=== PATIENT | female | born 1950 | race Caucasian/White ===

== ENCOUNTER 2022-01-01 10:56 | Emergency (ER) | payer MEDICARE, SELFPAY ==
--- NOTE | ~2022-01-01 | CT_ITS ---
EXAMINATION: CTA brain carotid DATE: 01/01/2022 13:31 INDICATION: Left hemiparesis. Right-sided headache. TECHNIQUE: Computed tomographic angiography (CTA) of the head was performed with 100 mL Omnipaque-350 intravenous contrast. CTA of the neck was performed with intravenous contrast. The mA was adjusted a ccording to patient size. Iterative reconstruction technique was employed. The dose-length product wa s 961.29 mGy-cm. Maximum intensity projection and volume rendered 3D-reconstructions were created by the technologist on a separate workstation. COMPARISON: Head CT 01/01/2022 FINDINGS: HEAD CTA: There are scattered areas of low attenuation in the cerebral white matter. There is no intr acranial hemorrhage, acute infarction, or abnormal intracranial mass lesion. The ventricles are amira l in size. The mastoid air cells are normal. There is mild mucosal thickening in the ethmoid sinuses. The orbits are normal. Right vertebral artery is dominant. There is no significant stenosis of basil ar artery or the posterior cerebral arteries. There is no significant stenosis of the tracheal international logistics coordinator al carotid arteries or anterior or middle cerebral arteries. Anterior communicating artery is normal. Posterior communicating arteries are not identified. NECK CTA: There is mild emphysema. There are no pathologically enlarged lymph nodes. There is no sign ificant stenosis of the vertebral arteries. There is plaque in the proximal internal carotid arteries . There is 0% stenosis of the proximal right internal carotid artery relative to normal distal artery lumen diameter (NASCET criteria). There is 0% stenosis of the proximal left internal carotid artery relative to normal distal artery lumen diameter. There is severe spondylosis at C6-C7. IMPRESSION: 1. Mild nonspecific cerebral white matter disease, which likely represents chronic small vessel ische irena disease. 2. No aneurysm or significant intracranial internal stenosis. 3. 0% stenosis of the proximal internal carotid arteries relative to normal distal artery lumen diame ters (NASCET criteria). Reviewed, dictated and finalized at location A. IMPRESSION: 1. Mild nonspecific cerebral white matter disease, which likely represents bookstore manager sima small vessel ischemic disease. 2. No aneurysm or significant intracranial internal stenosis. 3. 0% stenosis of the proximal internal carotid arteries relative to normal dis darlene artery lumen diameters (NASCET criteria).
--- NOTE | ~2022-01-01 | XR_ITS ---
XR chest 1V portable 01/01/2022 12:01 Indication: Left-sided weakness. Procedure: AP portable chest Comparison: No prior studies for comparison. Findings: Right basilar airspace disease. Cardiomegaly. Large hiatal hernia. No pleural effusion or p neumothorax. No acute osseous abnormality. Impression: 1: Right basilar airspace disease, consistent with pneumonia. 2: Large hiatal hernia. Reviewed, dictated and finalized at location A. Impression: 1: Right basilar airspace disease, consistent with pneumonia. 2: Large hiatal hernia.
--- NOTE | ~2022-01-01 | CT_ITS ---
EXAMINATION: CT brain wo con DATE: 01/01/2022 12:00 INDICATION: Left-sided weakness and numbness TECHNIQUE: Computed tomography (CT) of the head was performed without intravenous contrast. The mA wa s adjusted according to patient size. Iterative reconstruction technique was employed. Exam dose: 60 5.33 mGy-cm total exam DLP. COMPARISON: None FINDINGS: Calcified dominant right vertebral artery, vertebral and basilar artery tortuosity. Bilateral carotid siphon and supraclinoid internal carotid artery calcifications. Nonspecific diminished attenuation of the cerebral white matter, likely due to chronic small vessel i schemic changes. No intracranial mass lesion or hemorrhage or cerebrovascular accident is detected. No midline shift o r mass effect effect. No subdural or epidural hematoma is detected. Mild age consistent cerebral and cerebellar volume loss. The mastoid air cells and paranasal sinuses are normally developed and aerated. No fracture or bone destruction of the cranial vault. IMPRESSION: Cerebral atherosclerosis and chronic small vessel ischemic changes of the cerebral white matter No acute intracranial finding Reviewed, dictated and finalized at Location A. Reviewed, dictated and finalized at location B.
--- NOTE | 2022-01-01 11:31 | ECG_ITS ---
Measurements Intervals [place] Rate: 80 P: 5 WV: 161 QRS: -18 QRSD: 78 T: 5 QT: 349 QTc: 405 Interpretive Statements SINUS RHYTHM WITH PREMATURE ATRIAL CONTRACTIONS BASELINE ARTIFACT LOW QRS VOLTAGE IN PRECORDIAL LEADS MODERATE VOLTAGE CRITERIA FOR LVH, CONSIDER NORMAL VARIANT NO PREVIOUS ECG AVAILABLE FOR COMPARISON Electronically Signed On 01-01-2022 14:32:16 CDT by Chun Nam M.D.
--- NOTE | 2022-01-01 11:35 | ED.GENADULT ---
HPI - General Adult General Chief complaint: Neuro Symptoms/Deficit Stated complaint: Dizzy,left leg not working right, bp high History of Present Illness HPI narrative: This is a 71-year-old female presenting to ED chief complaint of left leg weakness, disequilibrium and a headache. Patient went to bed at 2:00 a.m. last night. At that time she had no symptoms. When she awoke this morning she noticed that she was weak in her left leg. She is also experiencing symptoms of disequilibrium or that she felt drunk. The patient has a headache over the right side of her head which she says is her typical headache. She has had it many times in past.The patient denies numbness tingling any other extremity. She denies visual changes or disturbance occult he speaking or swallowing. She is A&O x3. She has never had a stroke before. She had a previous diagnosis of hypertension but not taking any medications. She denies any other complaints at this time. Related Data Home Medications Medication Instructions Recorded Confirmed No Home Medications 01/01/22 01/01/22 Allergies Allergy/AdvReac Type Severity Reaction Status Date / Time Sulfa (Sulfonamide Allergy Vomiting Verified 01/01/22 11:42 Antibiotics) Review of Systems Constitutional: Constitutional: Denies chills Eyes: Eyes: Denies change in vision ENT: Denies dysphagia, Denies vertigo and Reports dizziness Cardiovascular: Cardiovascular: Denies chest pain Respiratory: Respiratory: Denies chest congestion Gastrointestinal: Gastrointestinal: Denies abdominal pain Genitourinary: Genitourinary: Denies abnormal vaginal bleeding Musculoskeletal: Musculoskeletal: Denies back pain Integumentary/Breasts: Skin/Breast: Denies breast pain Neurologic: Denies confusion Psychiatric: Psychiatric: Denies anxiety Endocrine: Endocrine: Denies excessive sweating Hematologic/Lymphatic: Hematologic/Lymphatic: Denies easy bleeding Allergic/Immunologic: Allergic/Immunologic: Denies lip swelling PMFSH Past Medical History Medical History Hypertension Surgical History Surgical History H/O tubal ligation Hx of tonsillectomy Exam Narrative: NIH Stroke Scale/Score (NIHSS) from [email or web address] on 01/01/2022 All calculations should be rechecked by clinician prior to use RESULT SUMMARY: 3 points NIH Stroke Scale INPUTS: 1A: Level of consciousness ?> 0 = Alert; keenly responsive 1B: Ask month and age ?> 0 = Both questions right 1C: 'Blink eyes' & 'squeeze hands' ?> 0 = Performs both tasks 2: Horizontal extraocular movements ?> 0 = Normal 3: Visual spring ?> 0 = No visual loss 4: Facial palsy ?> 0 = Normal symmetry 5A: Left arm motor drift ?> 0 = No drift for 10 seconds 5B: Right arm motor drift ?> 0 = No drift for 10 seconds 6A: Left leg motor drift ?> 2 = Some effort against gravity 6B: Right leg motor drift ?> 0 = No drift for 5 seconds 7: Limb Ataxia ?> 1 = Ataxia in 1 Limb 8: Sensation ?> 0 = Normal; no sensory loss 9: Language/aphasia ?> 0 = Normal; no aphasia 10: Dysarthria ?> 0 = Normal 11: Extinction/inattention ?> 0 = No abnormality Const: General: healthy appearing and no acute distress Nutritional Appearance: well nourished Orientation/consciousness: patient oriented x3 HENMT: Head: normal to inspection Eyes: Conjunctivae: conjunctivae normal Neck: Neck: normal visual inspection Chest: Chest palpation & inspection: normal inspection of the chest Resp: Effort & Inspection: normal respiratory effort Cardio: Rate: regular rate Rhythm: regular rhythm GI: GI Palp: Yes Soft to palpation, No Tenderness to palpation present (GI) and No Guarding due to palpation present (GI) : General: Yes bladder normal to palpation Back/Spine/Pelvis: Back: no CVA tenderness Skin: General skin exam: normal color Rashes: no rashes Rodrigo
[2022-01-01 11:44] VITALS: BP 164/111; RESP 16; TEMP 36.1
[2022-01-01 11:54] LABS: Basophils Absolute Auto 0.06 K/mm3 (0.00-0.10); Basophils Percent Auto 0.8 % (0.0-1.0); Eosinophils Absolute Auto 0.05 K/mm3 (0.02-0.50); Eosinophils Percent Auto 0.6 % (1.0-6.0); Hematocrit 43.2 % (35.0-42.0); Hemoglobin 13.8 g/dL (11.7-13.8); Immature Granulocyte Absolute 0.05 K/mm3 (0.00-0.00); Immature Granulocyte Percent A 0.6 % (0.0-0.0); Lymphocytes Absolute Auto 1.88 K/mm3 (1.10-4.50); Lymphocytes Percent Auto 23.5 % (18.0-42.0); Mean Corpuscular HGB Conc 31.9 g/dL (32.0-36.0); Mean Corpuscular Hemoglobin 30.9 pg (27.0-31.0); Mean Corpuscular Volume 96.9 fL (78.0-102.0); Mean Platelet Volume 12.3 fl (9.2-11.8); Monocytes Absolute Auto 0.56 K/mm3 (0.10-0.90); Neutrophils Absolute Auto 5.4 K/mm3 (1.7-7.2); Neutrophils Percent Auto 67.5 % (50.0-70.0); Platelet Count Result 398 K/mm3 (150-420); Red Blood Count 4.46 M/mm3 (4.20-5.40); Red Cell Distribution Width 13.2 % (11.6-14.4)
--- NOTE | 2022-01-01 12:02 | PC.NURSE ---
Bedside glucose was 113
[2022-01-01 12:06] LABS: INR 0.9; Partial Thromboplastin Time 32.5 SEC (23.90-30.70); Prothrombin Time 10.4 Seconds (9.50-12.10)
[2022-01-01] MEDS: ASPIRIN 81 MG CHEWABLE TABLET 324 MG PO (12:09)
[2022-01-01] MEDS: SODIUM CHLORIDE 0.9% IV 1,000 ML 999 ML IV CONT (12:10)
[2022-01-01 12:15] LABS: Alanine Aminotransferase 14 U/L (14-59); Albumin Level 4.1 g/dL (3.4-5.0); Alkaline Phosphatase 109 U/L (46-116); Anion Gap 11 mmol/L (8-16); Aspartate Amino Transferase 13 U/L (15-37); Bilirubin,Total 0.5 mg/dL (0.00-1.00); Blood Urea Nitrogen 19 mg/dL (7-18); Calcium 9.3 mg/dL (8.5-10.1); Carbon Dioxide 25 mmol/L (21-32); Chloride 106 mmol/L (98-108); Estimated CRCL calculation 38 ml/min; Estimated Glomerular Filt Rate 45; Glucose 109 mg/dL (70-99); Osmolality Calculated 297 mOsm/kg (285-295); Potassium 4.2 mmol/L (3.5-5.1); Sodium 142 mmol/L (136-145); Total Protein 7.3 g/dL (6.4-8.2); Troponin I 15.5 ng/L (0.00-60.4)
[2022-01-01 12:28] LABS: SARS-CoV-2 Ag Negative (Negative)
[2022-01-01 12:39] VITALS: BP 194/99; PULSE 82; RESP 16; O2SAT 96
--- NOTE | 2022-01-01 13:47 | PC.NURSE ---
Pt assigned room number at [facility], but when RN attempted to call report I was told there is a different pt assigned to that room. BRITTNI Mills is looking into bed placement and will call back.
[2022-01-23 13:46] LABS: Glucose Point of Care 113 mg/dl (65-105)
== END 2022-01-01 15:17 | disposition short-term general hospital (02) ==
PROVIDERS: Emergency Provider Emergency Medicine
DX: I63.9 Cerebral infarction, unspecified (principal); I10 Essential (primary) hypertension; Z20.822 Contact with and (suspected) exposure to COVID-19
CPT/HCPCS: 36415; 70450; 70496; 70498; 71045; 80053; 82948; 84484; 85025; 85610; 85730; 86850; 86900; 86901; 87426; 93005; 96360; 96361; 99285; A9270; C9803; J7030; Q9967

== ENCOUNTER 2022-02-14 14:59 | Outpatient (CLI) | payer MEDICARE, SELFPAY ==
--- NOTE | ~2022-02-14 | CT_ITS ---
EXAMINATION: CT diagnostic chest w con DATE: 02/14/2022 15:38 INDICATION: Abnormal chest radiograph, history of tobacco use TECHNIQUE: Transaxial computed tomographic images of the chest were obtained after the administration of 75 cc of Omnipaque 350 intravenous contrast. The dose-length product (DLP) was 277.68 mGy-cm. Ite rative reconstruction was used. COMPARISON: None FINDINGS: There is mild emphysema. The lungs are free of acute opacities. No pleural effusion or pneu mothorax. There is a large hiatal hernia containing nearly the entire stomach. No pathologically enla rged thoracic lymph nodes are identified. The heart size is normal. There is mild thoracic spondylosi s. Stones are present in the nondistended gallbladder. There is a questionable fusiform infrarenal ab dominal aortic aneurysm. IMPRESSION: 1. Large hiatal hernia containing nearly the entire stomach. 2. No acute cardiopulmonary abnormality. 3. Possible abdominal aortic aneurysm. 4. Cholelithiasis without evidence of cholecystitis. Reviewed, dictated and finalized at location B.
== END 2022-02-14 15:00 | disposition home or self-care (01) ==
PROVIDERS: PCP Internal Medicine; Visit Provider Internal Medicine
DX: R91.8 Other nonspecific abnormal finding of lung field (principal); Z87.891 Personal history of nicotine dependence
CPT/HCPCS: 71260; Q9967

== ENCOUNTER 2022-02-21 08:08 | Outpatient (CLI) | payer MEDICARE, SELFPAY ==
--- NOTE | ~2022-02-21 | XR_ITS ---
EXAM: XR lumbar spine 2-3V DATE: 02/21/2022 08:56 HISTORY: LT hip pain/ low back pain x 2 yrs since fall . COMPARISON: Ultrasound aorta 02/21/2022. CT chest 02/14/2022. FINDINGS: 5 nonrib-bearing lumbar-type vertebral bodies. Pedicles intact. Normal vertebral body alig nment. Lumbar vertebral body heights preserved. Mild anterior wedge deformity at T11, unchanged. Mult ilevel marginal osteophytosis. Severe L5-S1 disc space narrowing. Multilevel facet hypertrophy and sc lerosis. No fracture or dislocation. Fusiform abdominal aortic aneurysm. IMPRESSION: Mild anterior wedge deformity at T11 which may be physiologic or represent subacute/chron ic mild anterior wedge compression fracture, correlate with pain/tenderness. Severe degenerative disc disease at L5-S1. Multilevel facet arthropathy. Abdominal aortic aneurysm, better evaluated with david or ultrasound aorta, consider follow-up aortic ultrasound in 2 years. Reviewed, dictated and finalized at location K. IMPRESSION: Mild anterior wedge deformity at T11 which may be physiologic or re present subacute/chronic mild anterior wedge compression fracture, correlate wi th pain/tenderness. Severe degenerative disc disease at L5-S1. Multilevel facet arthropathy. Abdominal aortic aneurysm, better evaluated with prior ultrasound aorta, consider follow-up aortic ultrasound in 2 years.
--- NOTE | ~2022-02-21 | XR_ITS ---
XR hip LT min 2V DATE: 02/21/2022 08:55 INDICATION: Left hip pain since falling 2 years ago TECHNIQUE: AP and lateral views COMPARISON: None FINDINGS: No fracture or dislocation, avascular necrosis or bone destruction. Left hip joint space ap pears relatively well preserved. IMPRESSION: No significant abnormality Reviewed, dictated and finalized at location B. IMPRESSION: No significant abnormality
--- NOTE | ~2022-02-21 | US_ITS ---
EXAMINATION: US aorta DATE: 02/21/2022 14:35 CDT INDICATION: Abnormal CT. Pulsatile abdominal mass. TECHNIQUE: Grayscale, color Doppler, and pulsed Doppler images of the aorta and common iliac arteries were obtained. COMPARISON: CT dated 02/14/2022. FINDINGS: There is moderate atherosclerosis of the abdominal aorta The proximal aorta measures 2 cm greatest sa gittal dimension. The mid aorta measures 3.6 cm greatest sagittal dimension. The distal aorta measure s 3.5 cm greatest sagittal dimension. The right common internal iliac artery measures 1.9 cm. The lef t common iliac artery measures 1.6 cm. IMPRESSION: 1. Moderate atherosclerosis with fusiform infrarenal abdominal aortic aneurysm measuring up to 3.6 cm . Reviewed, dictated and finalized at location A. IMPRESSION: 1. Moderate atherosclerosis with fusiform infrarenal abdominal aortic aneurysm measuring up to 3.6 cm.
--- NOTE | 2022-03-26 16:34 | WPDHOLTEREM ---
Holter/Event Monitor Holter/Event Monitor Date of procedure: 02/21/22 Holter/Event Procedure: Event Monitor Indications: Cardiac arrhythmia Conclusion: 1. 27 days event monitor between 02/21/22-03/22/22. There are 40 available transmissions for analysis. 2. Underlying rhythm is sinus rhythm. HR range 50-122 bpm; average HR 69 bpm. 3. There are occasional premature supraventricular complexes with total burden of 3%. No supraventricular tachycardia. 4. There are occasional premature ventricular complexes with total burden of 2%. No ventricular tachycardia. 5. No significant pauses greater than 2 seconds. 6. Patient report 1 episode of symptom other than listed which demonstrate sinus rhythm with sinus arrhythmia at 78 bpm with a PVC.
== END 2022-02-21 08:09 | disposition home or self-care (01) ==
LOC: CHSIMG 08:11
PROVIDERS: PCP Internal Medicine; Visit Provider Internal Medicine
DX: M25.552 Pain in left hip (principal); M54.50 Low back pain, unspecified; I71.4 Abdominal aortic aneurysm, without rupture
CPT/HCPCS: 72100; 73502; 76775; 93270

== ENCOUNTER 2022-03-24 08:15 | Outpatient (CLI) | payer MEDICARE, SELFPAY ==
--- NOTE | ~2022-03-24 | MR_ITS ---
EXAMINATION: MR lumbar spine wo con DATE: 03/24/2022 09:02 INDICATION: Low back pain. TECHNIQUE: Magnetic resonance imaging (MRI) of the lumbar spine was performed without intravenous con trast. COMPARISON: Lumbar spine radiographs 02/21/2022 FINDINGS: Bone alignment is normal. There is mild chronic anterior wedging of T11 and T12 vertebral b odies. There is a hemangioma in L3 vertebral body. There are Schmorl's nodes at multiple levels. Ther e is moderately decreased disc height at L5-S1 with endplate remodeling. The distal spinal cord signa l intensity is normal. The conus medullaris is at L1. There is a 4.0 cm fusiform aneurysm of abdomina l aorta. The following disc levels are specifically discussed: L1-L2: The disc does not extend beyond the endplate margin. There is mild bilateral facet joint osteo arthritis. There is no neural foraminal stenosis. There is no central canal stenosis. L2-L3: There is a left foraminal protrusion. There is severe right and mild left facet joint osteoart hritis. There is mild left neural foraminal stenosis. There is no central canal stenosis. L3-L4: The disc is mildly bulging. There is mild bilateral facet joint osteoarthritis. There is mild bilateral neural foraminal stenosis. There is no central canal stenosis. L4-L5: The disc does not extend beyond the endplate margin. There is moderate bilateral facet joint o steoarthritis. There is mild bilateral neural foraminal stenosis. There is no central canal stenosis. L5-S1: The disc is bulging and has an annular fissure. There is moderate bilateral facet joint osteoa rthritis. There is mild bilateral neural foraminal stenosis. There is mild central canal stenosis. IMPRESSION: 1. Moderate lumbar spondylosis. 2. 4.0 cm fusiform aneurysm of abdominal aorta. Reviewed, dictated and finalized at location A.
== END 2022-03-24 08:16 | disposition home or self-care (01) ==
PROVIDERS: PCP Internal Medicine; Visit Provider Internal Medicine
DX: M54.50 Low back pain, unspecified (principal)
CPT/HCPCS: 72148

== ENCOUNTER 2022-05-30 08:54 | Outpatient (CLI) | payer MEDICARE, SELFPAY ==
[2022-05-30 09:38] LABS: Alanine Aminotransferase 37 U/L (14-59); Albumin Level 3.8 g/dL (3.4-5.0); Alkaline Phosphatase 146 U/L (46-116); Anion Gap 7 mmol/L (8-16); Aspartate Amino Transferase 23 U/L (15-37); Bilirubin,Total 0.5 mg/dL (0.00-1.00); Blood Urea Nitrogen 27 mg/dL (7-18); Calcium 8.8 mg/dL (8.5-10.1); Carbon Dioxide 31 mmol/L (21-32); Chloride 109 mmol/L (98-108); Cholesterol 183 mg/dL (0-200); Creatine Kinase 57 U/L (26-192); Estimated Glomerular Filt Rate 40; Glucose 93 mg/dL (70-99); HDL Direct 82 mg/dL (40-60); LDL Cholesterol Calculated 84 mg/dL (<130); Osmolality Calculated 309 mOsm/kg (285-295); Potassium 4.5 mmol/L (3.5-5.1); Sodium 147 mmol/L (136-145); Total Protein 6.6 g/dL (6.4-8.2); Triglycerides 83 mg/dL (0-150)
== END 2022-05-30 08:55 | disposition home or self-care (01) ==
LOC: CHSLAB 08:56
PROVIDERS: PCP Internal Medicine; Visit Provider Internal Medicine
DX: E78.2 Mixed hyperlipidemia (principal); I10 Essential (primary) hypertension
CPT/HCPCS: 36415; 80053; 80061; 82550

== ENCOUNTER 2022-06-04 08:21 | Outpatient (CLI) | payer MEDICARE, SELFPAY ==
[2022-06-04 09:21] LABS: Anion Gap 6 mmol/L (8-16); Blood Urea Nitrogen 17 mg/dL (7-18); Calcium 8.7 mg/dL (8.5-10.1); Carbon Dioxide 30 mmol/L (21-32); Chloride 107 mmol/L (98-108); Estimated Glomerular Filt Rate 35; Glucose 101 mg/dL (70-99); Osmolality Calculated 297 mOsm/kg (285-295); Potassium 4.3 mmol/L (3.5-5.1); Sodium 143 mmol/L (136-145)
== END 2022-06-04 08:22 | disposition home or self-care (01) ==
LOC: CHSLAB 08:24
PROVIDERS: PCP Internal Medicine; Visit Provider Internal Medicine
DX: E86.0 Dehydration (principal)
CPT/HCPCS: 36415; 80048

== ENCOUNTER 2022-08-23 08:50 | Outpatient (CLI) | payer MEDICARE, SELFPAY ==
--- NOTE | ~2022-08-23 | US_ITS ---
Ultrasound of the Abdominal Aorta INDICATION: Abdominal aortic aneurysm TECHNIQUE: Grayscale, color Doppler, and pulsed Doppler images of the aorta and common iliac arteries were obtained. COMPARISON: 02/21/2022 COMPARISON: None. FINDINGS: Maximum vascular dimensions are as follows: Proximal aorta: 2.4 cm Mid aorta: 4.7 cm Distal aorta: 4.0 cm Right common iliac artery: 2.3 cm Left common iliac artery: 1.6 cm Infrarenal abdominal aortic aneurysm noted, measuring up to 4.7 cm in maximum transverse dimension, w hich is apparently increased from prior exam. IMPRESSION: Infrarenal abdominal aortic aneurysm measures 4.7 cm in maximum transverse dimension, increased from prior exam. Reviewed, dictated and finalized at location . IMPRESSION: Infrarenal abdominal aortic aneurysm measures 4.7 cm in maximum transverse dime nsion, increased from prior exam.
== END 2022-08-23 08:51 | disposition home or self-care (01) ==
LOC: CHSIMG 08:51
PROVIDERS: PCP Internal Medicine; Visit Provider Internal Medicine
DX: I71.40 Abdominal aortic aneurysm, without rupture, unspecified (principal)
CPT/HCPCS: 76775

== ENCOUNTER 2022-08-31 08:33 | Outpatient (CLI) | payer MEDICARE, SELFPAY ==
--- NOTE | ~2022-08-31 | CT_ITS ---
EXAMINATION: CTA abdomen pelvis DATE: 08/31/2022 09:42 INDICATION: Abdominal aortic aneurysm TECHNIQUE: Computed tomographic angiography (CTA) of the abdomen and pelvis was performed without and with 100 mL Omnipaque-350 intravenous contrast. Maximum intensity projection 3D-reconstructions of t he aorta and other arteries were constructed by the technologist on a separate workstation. The dose- length product (DLP) was 1092.56 mGy-cm. Automated exposure control and iterative reconstruction tech W[employer] were employed. COMPARISON: None. FINDINGS: Minimal dependent atelectasis is present in the lung bases. The heart size is normal. There is a large hiatal hernia. Stones are present in the nondistended gallbladder. There is a 7 mm cyst o f the liver. Punctate calcifications in an otherwise normal spleen likely represent healed granulomat ous disease. The pancreas and adrenal glands are normal. There is a 4.1 x 3.9 cm fusiform infrarenal abdominal aortic aneurysm. No pathologically enlarged abdominal or pelvic lymph nodes are identified. No free intraperitoneal gas or evidence of bowel obstruction. The appendix is normal. Colonic divert iculosis is present without evidence of diverticulitis. There is moderate lumbar spondylosis. There i s a 2.3 cm cystic lesion of the left adnexa. IMPRESSION: 1. 4.1 x 3.9 cm fusiform infrarenal abdominal aortic aneurysm. 2. Large hiatal hernia. 3. Cholelithiasis without evidence of cholecystitis. Reviewed, dictated and finalized at location F.
[2022-08-31 09:02] LABS: Estimated Glomerular Filt Rate 38
== END 2022-08-31 08:34 | disposition home or self-care (01) ==
LOC: CHSIMG 08:35
PROVIDERS: PCP Internal Medicine; Visit Provider Internal Medicine
DX: I71.40 Abdominal aortic aneurysm, without rupture, unspecified (principal); K44.9 Diaphragmatic hernia without obstruction or gangrene; K80.20 Calculus of gallbladder without cholecystitis without obstruction
CPT/HCPCS: 74174; Q9967

== ENCOUNTER 2022-09-06 13:54 | Outpatient (CLI) | payer MEDICARE, SELFPAY ==
--- NOTE | ~2022-09-06 | US_ITS ---
EXAMINATION: US pelvic complete DATE: 09/06/2022 14:18 INDICATION: Cyst of the left ovary. TECHNIQUE: Multiple transabdominal sonographic images of the pelvis were obtained. The patient declin ed transvaginal imaging. COMPARISON: CT abdomen and pelvis 08/31/2022 FINDINGS: The uterus measures 6.5 x 3.3 x 2.8 cm. There is no free fluid in the pelvis. The endometrial complex measures 5 mm in thickness. The right ovary measures 3.6 x 2.6 x 2.5 cm. The left ovary measures 2.8 x 1.8 x 1.5 cm. There is a 3.2 cm hypoechoic mass in left ovary that measured fluid attenuation on t he prior CT. There is normal vascular flow in the ovaries. IMPRESSION: 1. 3.2 cm cyst in left ovary, likely benign. Pelvis ultrasound is recommended in one year. Reviewed, dictated and finalized at location A. IMPRESSION: 1. 3.2 cm cyst in left ovary, likely benign. Pelvis ultrasound is recommended i n one year.
== END 2022-09-06 13:55 | disposition home or self-care (01) ==
LOC: CHSIMG 13:55
PROVIDERS: PCP Internal Medicine; Visit Provider Internal Medicine
DX: N83.202 Unspecified ovarian cyst, left side (principal)
CPT/HCPCS: 76856

== ENCOUNTER 2022-11-28 08:36 | Outpatient (CLI) | payer MEDICARE, SELFPAY ==
[2022-11-28 08:49] LABS: Basophils Absolute Auto 0.05 K/mm3 (0.00-0.10); Basophils Percent Auto 0.7 % (0.0-1.0); Eosinophils Absolute Auto 0.22 K/mm3 (0.02-0.50); Eosinophils Percent Auto 3.1 % (1.0-6.0); Hematocrit 38.1 % (35.0-42.0); Immature Granulocyte Absolute 0.02 K/mm3 (0.00-0.00); Immature Granulocyte Percent A 0.3 % (0.0-0.0); Lymphocytes Absolute Auto 3.31 K/mm3 (1.10-4.50); Lymphocytes Percent Auto 47.1 % (18.0-42.0); Mean Corpuscular HGB Conc 31.5 g/dL (32.0-36.0); Mean Corpuscular Hemoglobin 30.8 pg (27.0-31.0); Mean Corpuscular Volume 97.9 fL (78.0-102.0); Mean Platelet Volume 11.5 fl (9.2-11.8); Monocytes Absolute Auto 0.79 K/mm3 (0.10-0.90); Monocytes Percent Auto 11.2 % (2.0-11.0); Neutrophils Absolute Auto 2.6 K/mm3 (1.7-7.2); Neutrophils Percent Auto 37.6 % (50.0-70.0); Platelet Count Result 361 K/mm3 (150-420); Red Blood Count 3.89 M/mm3 (4.20-5.40); Red Cell Distribution Width 14.2 % (11.6-14.4)
[2022-11-28 09:50] LABS: Alanine Aminotransferase 28 U/L (14-59); Albumin Level 3.8 g/dL (3.4-5.0); Alkaline Phosphatase 132 U/L (46-116); Anion Gap 10 mmol/L (8-16); Aspartate Amino Transferase 16 U/L (15-37); Bilirubin,Total 0.5 mg/dL (0.00-1.00); Blood Urea Nitrogen 26 mg/dL (7-18); Calcium 8.8 mg/dL (8.5-10.1); Carbon Dioxide 26 mmol/L (21-32); Chloride 107 mmol/L (98-108); Cholesterol 156 mg/dL (0-200); Creatine Kinase 51 U/L (26-192); Estimated Glomerular Filt Rate 41; Glucose 107 mg/dL (70-99); HDL Direct 73 mg/dL (40-60); LDL Cholesterol Calculated 59 mg/dL (<130); Osmolality Calculated 300 mOsm/kg (285-295); Potassium 4.4 mmol/L (3.5-5.1); Sodium 143 mmol/L (136-145); Total Protein 6.5 g/dL (6.4-8.2); Triglycerides 122 mg/dL (0-150)
[2022-11-28 10:49] LABS: Appearance Urine Clear (Clear); Bilirubin Urine Negative (Negative); Blood Urine Negative (Negative); Color Urine Yellow (Yellow); Glucose Urine UA Negative (Negative); Ketones Urine Negative (Negative); Leukocyte Esterase Ur 1+ LEU/UL (Negative); Nitrate Urine Negative (Negative); Protein Urine Trace (Negative); Specific Grav Ur 1.025 (1.010-1.020); Urobilinogen Urine 0.2 mg/dL (0.2-1.0)
[2022-11-28 11:02] LABS: Add Urine Microscopic? YES; Bacteria Urine 1+ /hpf; RBC Urine None seen /hpf (0-2); Squamous Epithelial Cell Urine Few /hpf (Few)
[2022-11-28 11:32] LABS: Lactate Dehydrogenase 182 U/L (81-234)
== END 2022-11-28 08:37 | disposition home or self-care (01) ==
LOC: CHSLAB 08:38
PROVIDERS: PCP Internal Medicine; Visit Provider Internal Medicine
DX: E78.2 Mixed hyperlipidemia (principal); N39.0 Urinary tract infection, site not specified; D72.820 Lymphocytosis (symptomatic); R82.90 Unspecified abnormal findings in urine
CPT/HCPCS: 36415; 80053; 80061; 81001; 82550; 83615; 85025; 87086; 87088; 88184; 88185; 88189

== ENCOUNTER 2023-06-28 07:56 | Outpatient (CLI) | payer MEDICARE, SELFPAY ==
--- NOTE | ~2023-06-28 | CT_ITS ---
EXAMINATION: CT soft tissue neck chest w DATE: 06/28/2023 08:48 INDICATION: Globus sensation. Dyspnea. TECHNIQUE: Computed tomography (CT) of the neck and chest was performed with 75 mL Omnipaque-350 intr avenous contrast. Automated exposure control and iterative reconstruction technique were employed. Th e dose-length product was 1209.25 mGy-cm. COMPARISON: Chest CT dated 02/14/2022 FINDINGS: Neck: Changes of bilateral intraocular lens replacement. Orbits are otherwise normal. The paranasal sinuse s are clear. Mastoid air cells and middle ear cavities are clear. Submandibular and parotid glands ar e symmetric. Thyroid gland is unremarkable. There are scattered normal-sized lymph nodes in the neck, no lymphadenopathy. No masses or abnormal fluid collections identified. Small amount of atheroscler otic calcification without hemodynamic significant stenosis at the bilateral carotid bulbs. Right vidal tebral artery is dominant. Airway is unremarkable. Moderate to severe degenerative disc disease at C6 -C7. Otherwise minimal cervical spondylosis. Chest: Mild emphysema. Mild discoid atelectasis in the lingula and right middle lobe. Additional compressive atelectasis in the medial aspect of the bilateral lower lobes along side the margins of a large slid ing-type hiatal hernia with organoaxial volvulus. No suspicious pulmonary nodules, pneumonia, pulmona ry edema or pleural effusion. Heart size is normal. Small amount of atherosclerotic coronary artery c alcific lesion. No pericardial effusion. Thoracic aorta is normal in caliber with no dissection. No p athologically enlarged thoracic lymphadenopathy. IMPRESSION: 1. Large sliding-type hiatal hernia with organoaxial volvulus. Reviewed, dictated and finalized at location A. M PRESS OPERATOR
[2023-06-28 08:21] LABS: Estimated Glomerular Filt Rate 37
== END 2023-06-28 07:57 | disposition home or self-care (01) ==
LOC: CHSIMG 07:58
PROVIDERS: PCP Internal Medicine; Visit Provider Internal Medicine
DX: R06.00 Dyspnea, unspecified (principal); F45.8 Other somatoform disorders; K44.9 Diaphragmatic hernia without obstruction or gangrene
CPT/HCPCS: 70491; 71260; Q9967

== ENCOUNTER 2023-08-08 16:00 | Outpatient (RCR) | payer MEDICARE, SELFPAY ==
--- NOTE | 2023-08-08 17:20 | OPREHPOC ---
Outpatient Therapy Plan of Care This is a Multidisciplinary Plan of Care that may contain components documented by all disciplines (PT, OT, and ST.) PT Problem 1 PT Problem #1 Knowledge Deficit PT Goal 1 Goal The patient will be independent in home exercise program. Target Visit 12 PT Problem 2 PT Problem #2 Pain PT Goal 1 Goal The patient will report no greater than 3/10 low back pain with daily activities. Target Visit 12 PT Problem 3 PT Problem #3 Impaired Functional Mobil PT Goal 1 Goal 1. The patient will demonstrate 30% or less self perceived disability per the Modified Oswestry questionnaire. 2. The patient will be able to ambulate 1,200 feet during the 6 min walk test to improve community ambulation. Target Visit 12 PT Problem 4 PT Problem #4 Impaired Balance PT Goal 1 Goal The patient will demonstrate 25/28 or higher on the Tinetti Balance Scale indicating a low fall risk. Target Visit 12
--- NOTE | 2023-08-08 17:20 | PTOPEVAL1 ---
Assessment and note entered by Key Ruiz, PT Evaluation Information Assessment Status Evaluation Diagnosis spinal stenosis with neurogenic claudication Onset 07/16/23 Subjective Information Lisseth Gibbons reports she ruptured some discs in her lower back on 01/01/21. She is unsure what caused the rupture because she went to bed with no pain and wake up with severe pain. She has been going to pain management for her back and she had her first injection on 08/02/23. She notes the injection helped for a couple days but her pain is elevated today due to walking a lot while shopping. She has been having trouble walking and is unsteady on her feet which is her main concern for physical therapy. She has not had any falls but has bounced off ahuja. She does not currently use a cane or walker but her pain management doctor recommended she start using a cane. She reports co-morbidities of a hiatal hernia in which her stomach is in her esophagus and an abdominal aortic aneurysm. She has a consult for the hernia on 09/11/23 and the aneurysm on 09/17/23. She does not have restrictions due to these co-morbidities that she is aware of. Reported Pain Level Pain Score 5: Self Report Assessment PT Clinical Summary Lisseth Gibbons presents with chronic low back pain and has been diagnosed with spinal stenosis with neurogenic claudication. She also c/o unsteadiness on her feet and her primary goal for physical therapy is to improve her balance. She reports difficulty with walking and laying on her back. She objectively demonstrates decreased lumbar AROM, decreased hip and core strength, decreased balance, and altered gait. She is a moderate fall risk currently. She will benefit from skilled PT to address these limitations. Plan of Care Interventions Electrical Stimulation,Hot Pack/Cold Pack,Manual Therapy,Neuro Re-education,Patient/Caregiver Educati,Therapeutic Activities,Therapeutic Exercise PT Services Indicated Yes Treatment Frequency and 2 times a week for 12 visits Duration These treatments will address the objective and functional deficits as defined above. The patient will be advanced safely and appropriately in order for the patient to progress towards his/her prior level of function. Additional exercises will be introduced and as well as a comprehensive home exercise program upon discharge, if needed, ?to ensure carryover of functional gains achieved in the clinic. This
--- NOTE | 2023-09-06 17:21 | OPREHPOC ---
Outpatient Therapy Plan of Care This is a Multidisciplinary Plan of Care that may contain components documented by all disciplines (PT, OT, and ST.) PT Problem 1 PT Problem #1 Knowledge Deficit PT Goal 1 Goal The patient will be independent in home exercise program. Target Visit 12 Comment continue PT Problem 2 PT Problem #2 Pain PT Goal 1 Goal The patient will report no greater than 3/10 low back pain with daily activities. Target Visit 12 Comment continue PT Problem 3 PT Problem #3 Impaired Functional Mobil PT Goal 1 Goal 1. The patient will demonstrate 30% or less self perceived disability per the Modified Oswestry questionnaire. 2. The patient will be able to ambulate 1,200 feet during the 6 min walk test to improve community ambulation. Target Visit 12 Comment continue PT Problem 4 PT Problem #4 Impaired Balance PT Goal 1 Goal The patient will demonstrate 25/28 or higher on the Tinetti Balance Scale indicating a low fall risk. Target Visit 12 Comment continue
--- NOTE | 2023-09-06 17:21 | PTOPPROG ---
Assessment and note entered by Rocio Jean Baptiste DPT Evaluation Information Assessment Status Progress - Pt Not Present Diagnosis spinal stenosis with neurogenic claudication Onset 07/16/23 Subjective Information patient reports that since start of PT her balance has improved some. 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 she reports she still fatigues quickly Assessment PT Clinical Summary Mrs. Gibbons has attended 10 visits of skilled PT and is making progress towards goals. She demonstrates improve tinetti balance scoring indicating improved balance but still falls within the moderate fall risk category. She has reports improved balance within her home and denies falls. She continues to report decreased endurance and activity tolerance and has limitations with 6 minute walk test. She would benefit from continued skilled PT to address remaining impairments and return to PLOF. Plan of Care Interventions Electrical Stimulation,Hot Pack/Cold Pack,Manual Therapy,Neuro Re-education,Patient/Caregiver Educati,Therapeutic Activities,Therapeutic Exercise PT Services Indicated Yes Treatment Frequency and continue with remaining 2 visits Duration These treatments will address the objective and functional deficits as defined above. The patient will be advanced safely and appropriately in order for the patient to progress towards his/her prior level of function. Additional exercises will be introduced and as well as a comprehensive home exercise program upon discharge, if needed, ?to ensure carryover of functional gains achieved in the clinic. This treatment plan has been reviewed and agreement upon by the patient.
--- NOTE | 2023-09-12 09:33 | OPREHPOC ---
Outpatient Therapy Plan of Care This is a Multidisciplinary Plan of Care that may contain components documented by all disciplines (PT, OT, and ST.) PT Problem 1 PT Problem #1 Knowledge Deficit PT Goal 1 Goal The patient will be independent in home exercise program. Target Visit 12 Progress Met PT Problem 2 PT Problem #2 Pain PT Goal 1 Goal The patient will report no greater than 3/10 low back pain with daily activities. Target Visit 12 Progress Partially Met PT Problem 3 PT Problem #3 Impaired Functional Mobil PT Goal 1 Goal 1. The patient will demonstrate 30% or less self perceived disability per the Modified Oswestry questionnaire. 2. The patient will be able to ambulate 1,200 feet during the 6 min walk test to improve community ambulation. Target Visit 12 Progress Partially Met PT Problem 4 PT Problem #4 Impaired Balance PT Goal 1 Goal The patient will demonstrate 25/28 or higher on the Tinetti Balance Scale indicating a low fall risk. Target Visit 12 Progress Met
--- NOTE | 2023-09-12 09:34 | PTOPDC ---
Assessment and note entered by Key Ruiz, PT Evaluation Information Assessment Status Discharge Diagnosis spinal stenosis with neurogenic claudication Onset 07/16/23 Subjective Information Lisseth reports no overall change in her back pain since starting PT. She continues to note difficulty sitting/driving for prolonged periods. She notes mild improvement in her balance but she still wobbles. She has not had any falls. She will have surgery on 11/07/23 for her hiatal hernia and twisted esophagus which she is hopeful will help her SOB and allow her to start walking for exercise again. She will have a CT on her aortic aneurysm on 09/17/23 and a follow up for that in November. Reported Pain Level Pain Score 2: Self Report Assessment PT Clinical Summary Lisseth Gibbons has completed 12 skilled PT visits for low back pain and balance. She is reporting no overall change in her back pain but her balance does seem a little better. She demonstrates improved lumbar left lateral flexion AROM, improved hip strength, improved endurance, and improved balance per the Tinetti Balance scale . She is now a low fall risk. She will be discharged to an independent [facility]. Plan of Care PT Services Indicated No
== END 2023-09-12 10:45 | disposition home or self-care (01) ==
LOC: CHSPT 16:00
PROVIDERS: Visit Provider Anesthesiology Pain Medicine
DX: M48.062 Spinal stenosis, lumbar region with neurogenic claudication (principal)
CPT/HCPCS: 97014; 97110; 97112; 97162; G0283

== ENCOUNTER 2023-09-12 12:57 | Outpatient (CLI) | payer MEDICARE, SELFPAY ==
--- NOTE | ~2023-09-12 | US_ITS ---
EXAMINATION: US pelvic complete DATE: 09/12/2023 13:24 INDICATION: Left ovarian cyst Comparison:Ultrasound dated 09/06/2022 TECHNIQUE: Multiple transabdominal sonographic images of the pelvis performed. Patient refused transv aginal examination. FINDINGS: The uterus measures 6.1 x 3.5 x 2.5 cm. The endometrial complex measures 11 mm. The right ovary measures 2.2 x 1.4 x 1.3 cm and the left ovary measures 3 x 2.7 x 2.5 cm. There is a septated 2.7 cm left ovarian cyst. There are small follicles in each ovary. . There is no free fluid in the pelvis. There are no abnormal masses seen on either side. IMPRESSION: 1. Septated 2.7 cm left ovarian cyst. Reviewed, dictated and finalized at location A.
== END 2023-09-12 12:58 | disposition home or self-care (01) ==
LOC: CHSIMG 12:59
PROVIDERS: PCP Internal Medicine; Visit Provider Internal Medicine
DX: N83.202 Unspecified ovarian cyst, left side (principal)
CPT/HCPCS: 76856

== ENCOUNTER 2023-09-26 08:35 | Outpatient (CLI) | payer MEDICARE, SELFPAY ==
--- NOTE | ~2023-09-26 | MR_ITS ---
MRI of the lumbar spine Clinical History: Radiculopathy Technique: Axial T2-weighted images, and sagittal T1-weighted, T2-weighted, and T2 fat-sat images wer e acquired. COMPARISON: 03/24/2022 Findings: There is no fracture or subluxation of the lumbar spine. Osseous alignment is unchanged. No suspicious bone marrow signal abnormality seen. At L1-L2, there is no disc bulge or herniation. There is moderate to advanced facet arthropathy. No c entral canal stenosis or neural foraminal narrowing. At L2-L3, there is minimal disc bulge and moderate facet arthropathy. No central canal stenosis or ne ural foraminal narrowing. At L3-L4, there is minimal disc bulge with moderate to advanced facet arthropathy. No central canal s tenosis or neural foraminal narrowing. At L4-L5, there is minimal disc bulge with moderate to advanced facet arthropathy. No central canal s tenosis or neural foraminal narrowing. At L5-S1, there is moderate to advanced degenerative disc narrowing. There is mild disc bulge with mo derate to advanced facet arthropathy. No central canal stenosis. There is moderate to severe bilatera l neural foraminal narrowing. Paravertebral soft tissues are unremarkable. Suspected partially imaged infrarenal aortic aneurysm me asuring up to approximately 4.6 cm in diameter Impression: Moderate degenerative spondylosis at L5-S1, with bilateral neural foraminal narrowing, as detailed ab ove. Minimal degenerative changes in the remainder of the lumbar spine. Suspected infrarenal abdominal aortic aneurysm, incompletely imaged, measuring up to approximately 4. 6 cm in diameter. Consider additional dedicated workup as indicated. Reviewed, dictated and finalized at location . Impression: Moderate degenerative spondylosis at L5-S1, with bilateral neural foraminal juice rowing, as detailed above. Minimal degenerative changes in the remainder of the lumbar spine. Suspected infrarenal abdominal aortic aneurysm, incompletely imaged, measuring up to approximately 4.6 cm in diameter. Consider additional dedicated workup as indicated.
== END 2023-09-26 08:36 | disposition home or self-care (01) ==
LOC: CHSIMG 08:38
PROVIDERS: PCP Internal Medicine; Visit Provider Anesthesiology Pain Medicine
DX: M54.16 Radiculopathy, lumbar region (principal); M43.06 Spondylolysis, lumbar region; I71.40 Abdominal aortic aneurysm, without rupture, unspecified
CPT/HCPCS: 72148

== ENCOUNTER 2023-12-17 14:22 | Outpatient (CLI) | payer MEDICARE, SELFPAY ==
--- NOTE | ~2023-12-17 | CT_ITS ---
EXAMINATION: CT soft tissue neck chest wo DATE: 12/17/2023 15:00 INDICATION: Dyspnea and dysphagia TECHNIQUE: Computed tomography (CT) of the neck was performed without intravenous contrast. Automated exposure control and iterative reconstruction technique were employed. The dose-length product was 1 376.65 mGy-cm. COMPARISON: 06/28/2023 FINDINGS: Neck : Visualized portions of the paranasal sinuses, mastoid air cells and middle ear cavities are all clear . Submandibular and parotid glands are symmetric. Thyroid gland is unremarkable. There are scattered normal-sized lymph nodes in the neck, no pathologically enlarged lymphadenopathy. No masses identifi ed. Airway is unremarkable with normal epiglottis and prevertebral soft tissues. Atherosclerotic calc ifications at the bilateral carotid arteries. Moderate to severe disc height loss C6-C7. Otherwise mi ld cervical spondylosis. Chest: Mild emphysema. Large dependently layering right pleural effusion with dependent compressive atelecta sis in the right upper and lower lobes and collapse of the medial segment of the right middle lobe. H eart size is normal. Atherosclerotic coronary artery calcifications. Thoracic aorta is normal in tatiana kay[place]. No pathologically enlarged thoracic lymphadenopathy. Decrease in size of a now small sliding-typ e hiatal hernia with likely interval recent fundoplication below the diaphragmatic outlet. Multiple s mall calcified gallstones the dependent aspect of the normal-appearing gallbladder. Moderate thoracic spondylosis with chronic mild anterior wedging of a few mid and lower thoracic vertebral bodies. IMPRESSION: 1. Mild emphysema with unilateral large right pleural effusion compensatory atelectasis in the right lung. 2. Decreased size of a now small sliding-type hiatal hernia with change of interval Helga fundoplica tion. 3. Unremarkable CT of the neck with widely patent airway and no pathologically enlarged lymphadenopat hy or other abnormal mass in the neck. Reviewed, dictated and finalized at location A. IMPRESSION: 1. Mild emphysema with unilateral large right pleural effusion compensatory ate lectasis in the right lung. 2. Decreased size of a now small sliding-type hiatal hernia with change of inte rval Helga fundoplication. 3. Unremarkable CT of the neck with widely patent airway and no pathologically enlarged lymphadenopathy or other abnormal mass in the neck.
[2023-12-17 14:45] LABS: Hematocrit 40.2 % (35.0-42.0); Hemoglobin 12.7 g/dL (11.7-13.8); Immature Platelet Fraction Pct 9.8 % (1.0-7.0); Mean Corpuscular HGB Conc 31.6 g/dL (32-36); Mean Corpuscular Hemoglobin 29.4 pg (27.0-31.0); Mean Corpuscular Volume 93.1 fL (78.0-102.0); Mean Platelet Volume 12.7 fl (9.2-11.8); Platelet Count Result 411 K/mm3 (150-420); Red Blood Count 4.32 M/mm3 (4.20-5.40); Red Cell Distribution Width 17.2 % (11.6-14.4); White Blood Count 8.9 K/mm3 (4.8-10.8)
[2023-12-17 14:59] LABS: Anion Gap 10 mmol/L (4-12); Blood Urea Nitrogen 24 mg/dL (7-18); Calcium 9.5 mg/dL (8.5-10.1); Carbon Dioxide 27 mmol/L (21-32); Chloride 104 mmol/L (98-108); Estimated Glomerular Filt Rate 21; Glucose 98 mg/dL (70-99); NT Pro B Type Natriuretic Pept 774 pg/mL (0-125); Osmolality Calculated 296 mOsm/kg (285-295); Sodium 141 mmol/L (136-145)
[2023-12-17 15:09] LABS: Potassium 6.3 mmol/L (3.5-5.1)
[2023-12-17 15:47] LABS: D Dimer 1.92 mg/L (0.19-0.50)
== END 2023-12-17 14:23 | disposition home or self-care (01) ==
LOC: CHSLAB 14:24
PROVIDERS: PCP Internal Medicine; Visit Provider Internal Medicine
DX: R13.10 Dysphagia, unspecified (principal); R06.00 Dyspnea, unspecified; J43.9 Emphysema, unspecified; K44.9 Diaphragmatic hernia without obstruction or gangrene
CPT/HCPCS: 36415; 70490; 71250; 80048; 83880; 85027; 85055; 85380

== ENCOUNTER 2024-01-06 15:46 | Outpatient (CLI) | payer MEDICARE, SELFPAY ==
[2024-01-06 16:18] LABS: Basophils Absolute Auto 0.07 K/mm3 (0.00-0.10); Basophils Percent Auto 0.9 % (0.0-1.0); Eosinophils Absolute Auto 0.05 K/mm3 (0.02-0.50); Eosinophils Percent Auto 0.6 % (1.0-6.0); Hematocrit 35.9 % (35.0-42.0); Hemoglobin 11.4 g/dL (11.7-13.8); Immature Granulocyte Absolute 0.03 K/mm3 (0.00-0.00); Immature Granulocyte Percent A 0.4 % (0.0-0.0); Immature Platelet Fraction Pct 6.9 % (1.0-7.0); Immature Reticulocyte Fraction 13.7 % (2.0-16.52); Lymphocytes Absolute Auto 2.27 K/mm3 (1.10-4.50); Lymphocytes Percent Auto 28.8 % (18.0-42.0); Mean Corpuscular HGB Conc 31.8 g/dL (32-36); Mean Corpuscular Hemoglobin 29.5 pg (27.0-31.0); Mean Corpuscular Volume 92.8 fL (78.0-102.0); Mean Platelet Volume 12.4 fl (9.2-11.8); Monocytes Absolute Auto 0.66 K/mm3 (0.10-0.90); Monocytes Percent Auto 8.4 % (2.0-11.0); Neutrophils Absolute Auto 4.79 K/mm3 (1.70-7.20); Neutrophils Percent Auto 60.9 % (50.0-70.0); Platelet Count Result 371 K/mm3 (150-420); Red Blood Count 3.87 M/mm3 (4.20-5.40); Red Cell Distribution Width 18.7 % (11.6-14.4); Reticulocyte Hemoglobin Conten 35.1 pg (28.0-35.0); Reticulocyte Percent 1.54 % (0.50-1.50); Reticulocytes Absolute 0.06 M/mm3 (0.02-0.10); White Blood Count 7.9 K/mm3 (4.8-10.8)
[2024-01-07 18:56] LABS: Alanine Aminotransferase 26 U/L (14-59); Albumin Level 3.1 g/dL (3.4-5.0); Alkaline Phosphatase 114 U/L (46-116); Anion Gap 12 mmol/L (4-12); Aspartate Amino Transferase 22 U/L (15-37); Bilirubin,Total 0.6 mg/dL (0.00-1.00); Blood Urea Nitrogen 21 mg/dL (7-18); Calcium 9.1 mg/dL (8.5-10.1); Carbon Dioxide 24 mmol/L (21-32); Chloride 106 mmol/L (98-108); Estimated Glomerular Filt Rate 29; Ferritin 222 ng/mL (8-252); Glucose 98 mg/dL (70-99); Iron 49 ug/dL (50-170); Osmolality Calculated 297 mOsm/kg (285-295); Potassium 4.6 mmol/L (3.5-5.1); Sodium 142 mmol/L (136-145); Total Protein 5.9 g/dL (6.4-8.2); Vitamin B12 930 pg/mL (193-986)
[2024-01-08 02:04] LABS: Protein, Total 5.6 g/dL (6.1-8.1)
[2024-01-08 10:19] LABS: Alpha 1 Globulin 0.4 g/dL (0.2-0.3); Alpha 2 Globulin 0.8 g/dL (0.5-0.9); Beta 1 Globulin 0.4 g/dL (0.4-0.6); Gamma Globulin 0.6 g/dL (0.8-1.7)
[2024-01-10 21:58] LABS: Immunofixation, Serum Normal pattern.
== END 2024-01-06 15:47 | disposition home or self-care (01) ==
LOC: CHSLAB 15:48
PROVIDERS: PCP Internal Medicine; Visit Provider Internal Medicine
DX: N18.30 Chronic kidney disease, stage 3 unspecified (principal); D64.9 Anemia, unspecified
CPT/HCPCS: 36415; 80053; 82607; 82728; 83540; 84155; 84165; 85025; 85046; 85055; 86334

== ENCOUNTER 2024-01-07 12:39 | Outpatient (CLI) | payer MEDICARE, SELFPAY ==
[2024-01-10 13:08] LABS: Creatinine, Random Urine 266 mg/dL (20-275); Total Protein/Creatinine Ratio 154 mg/g creat (24-184)
== END 2024-01-07 12:40 | disposition home or self-care (01) ==
LOC: CHSLAB 12:42
PROVIDERS: PCP Internal Medicine; Visit Provider Internal Medicine
DX: N18.30 Chronic kidney disease, stage 3 unspecified (principal); D64.9 Anemia, unspecified
CPT/HCPCS: 82570; 84156; 84166

== ENCOUNTER 2024-03-19 12:52 | Outpatient (CLI) | payer MEDICARE, SELFPAY ==
--- NOTE | ~2024-03-19 | US_ITS ---
EXAMINATION: US renal BI DATE: 03/19/2024 13:20 INDICATION: Chronic kidney disease, stage IIIB. TECHNIQUE: Multiple ultrasound grayscale images of the kidneys were obtained. COMPARISON: CT abdomen pelvis 08/31/2022 FINDINGS: The right kidney measures 8.6 x 4.0 x 5.0 cm. The left kidney measures 8.8 x 4.7 x 6.0 cm. The kidney s demonstrate normal parenchymal echogenicity. There is no hydronephrosis. The bladder is not well di stended. IMPRESSION: 1. Mild atrophy of the kidneys. No hydronephrosis. Reviewed, dictated and finalized at location A.
[2024-03-19 13:45] LABS: Total Protein Urine Random 39.2 mg/dL (0.0-11.9); Ur Ttl Prot Creatinine Ratio 0.27 mg/mg (0-0.20)
[2024-03-19 14:16] LABS: Albumin Level 3.5 g/dL (3.4-5.0); Anion Gap 10 mmol/L (4-12); Blood Urea Nitrogen 20 mg/dL (7-18); Calcium 9.2 mg/dL (8.5-10.1); Carbon Dioxide 26 mmol/L (21-32); Chloride 106 mmol/L (98-108); Estimated Glomerular Filt Rate 31; Glucose 99 mg/dL (70-99); Osmolality Calculated 296 mOsm/kg (285-295); Phosphorus 3.8 mg/dL (2.6-4.7); Potassium 4.9 mmol/L (3.5-5.1); Sodium 142 mmol/L (136-145)
[2024-03-24 11:18] LABS: ANCA Screen NEGATIVE (NEGATIVE)
== END 2024-03-19 12:53 | disposition home or self-care (01) ==
PROVIDERS: PCP Internal Medicine; Visit Provider Internal Medicine Nephrology
DX: I10 Essential (primary) hypertension (principal); N18.32 Chronic kidney disease, stage 3b
CPT/HCPCS: 36415; 76775; 80069; 82570; 83520; 84156; 86036; 86038; 86039; 86160; 86225

== ENCOUNTER 2024-04-01 11:23 | Outpatient (CLI) | payer MEDICARE, SELFPAY ==
[2024-04-03 14:33] LABS: Complement C3 164 mg/dL (83-193)
== END 2024-04-01 11:24 | disposition home or self-care (01) ==
LOC: CHSLAB 11:24
PROVIDERS: PCP Internal Medicine; Visit Provider Internal Medicine Nephrology
DX: N18.32 Chronic kidney disease, stage 3b (principal); I10 Essential (primary) hypertension
CPT/HCPCS: 36415; 86160

== ENCOUNTER 2024-08-07 08:44 | Outpatient (CLI) | payer MEDICARE, SELFPAY ==
--- OUTSIDE RECORDS SUMMARY | 2024-08-07 09:01 | XMS_ITS | Referral Summary ---
Author Organization [id number] Address [address] [place] [address] Care Team Providers Care Automotive Service Professional Name Role Phone Sendy Sylvester MD Primary Care Provider + [phone] Humberto Harris MD PhD Unavailable [phone] Allergies Active Allergy Reactions Criticality Noted Date Comments Sulfa (Sulfonamide Antibiotics) Cough,Shortness of breath,Other (See comments) High 01/01/2022 it made me so sick Medications multivit,iron,mine rals/lutein (CENTRUM SILVER ULTRA WOMEN'S ORAL) Take 1 tablet by mouth every morning Active polyethylene glycol (MIRALAX) 17 gram/dose bulk powder Take 17 g by mouth daily 116 g 10/15/19 24 Active ondansetron ODT (ZOFRAN-ODT) 4 mg disintegrating tablet Take 1 tablet (4 mg total) by mouth every 8 (eight) hours as needed for nausea or vomiting Place under the tongue and let dissolve 20 tablet 2 10/15/19 24 Active amLODIPine (NORVASC) 10 mg tablet Take 1 tablet (10 mg total) by mouth every morning Crush medications for 2 weeks after surgery, after the 2 weeks may take whole pills 10/15/19 24 Active aspirin 81 mg enteric coated tablet Take 1 tablet (81 mg total) by mouth daily 12/25/19 24 025 Active gabapentin (NEURONTIN) 300 mg capsule Take 1 capsule (300 mg total) by mouth 3 (three) times a day 01/06/20 24 Active atorvastatin (LIPITOR) 80 mg tablet Take 1 tablet (80 mg total) by mouth daily 03/29/20 24 Active Active Problems Problem Noted Date Diagnosed Date Chronic renal disease, stage IV 01/08/2024 Pleural effusion 12/20/2023 Assessment & Plan (12/25/2023 12:25 PM CDT): Ms Shai pope is a very pleasant 73-year-old female with a history of half pack and recent hiatal hernia repair with robotic assisted laparoscopic repair of type 3 paraesophageal hiatal hernia and Toupet fundoplication who presents with respiratory failure and pleural effusion. Seemingly, this pleural effusion is postoperative in nature as some pleural effusion was evident on chest x-rays at the time of discharge from her hospitalization for her surgery. Although on CT appearance there does appear to be mild complexity, she underwent thoracentesis on 12/18 with IR where 1700 mL was successfully removed. Her chest x-ray is significantly improved since that time. Ultimately required repeat tap on 12/22 for residual fluid, 1L removed at the time. Pleural fluid studies: lymphocytic predominant, high RBC (hct < 2), cultures neg, cyto sent . Since second tap, has now been weaned to room air. Plan - we will follow up in clinic x1 to ensure no reaccumulation - walking o2 prior to dc - pulm hygiene - aerobika, ICS, OOBTC We will sign off. Assessment & Plan (12/23/2023 11:52 AM CDT): Ms Gibbons this is a very pleasant 73-year-old female with a history of half pack and recent hiatal hernia repair with robotic assisted laparoscopic repair of type 3 paraesophageal hiatal hernia and Toupet fundoplication who presents with respiratory failure and pleural effusion. Seemingly, this pleural effusion is postoperative in nature as some pleural effusion was evident on chest x-rays at the time of discharge from her hospitalization for her surgery. Although on CT appearance there does appear to be mild complexity, she underwent thoracentesis on 12/18 with IR where 1700 mL was successfully removed. Her chest x-ray is significantly improved since that time. Regarding the question of whether or not this represents a hemothorax, pleural fluid studies not consistent with this and were consistent with a bloody effusion. Elevated red blood cells, hematocrit less than 2. Studies are consistent with exudative effusion, likely post operative/sympathetic, but will continue to follow her cultures. No cytology sent, but should this recur, this would be important to send. Chest x-ray shows moderate R pleural effusion. She has a persistent 5L O2 requirement. We recommend ongoing pulmonary hygiene measures including flutter valve, incentive spirometry, out of bed to chair. Plan - we have talked to IP service for repeat thoracentesis which is tentatively planned for tomorrow (Saturday) - avoid volume overload - attempt to wean O2 - pulm hygiene - aerobika, ICS, OOBTC -formal O2 walking assessment prior to discharge - pulmonary will continue follow Shortness of breath 12/18/2023 Acute hypoxic respiratory failure 10/18/2023 Assessment & Plan (10/26/2023 12:26 PM CDT): Presented for hernia repair. Required oxygen in the post operative setting and then ICU transfer on 10/15 for Optiflow. She is now on Bipap for oxygen. Imaging is notable for bilateral pleural effusion on CT and bibasilar atelectasis. She is slowly improving. - continue bronchodilators - Vest therapy TID - Ez PAP 2-3 times during the day - Out of bed to chair as tolerated - Diuresis per primary team, would recommend -500 cc - Discontinue Bipap order for tonight Paraesophageal hernia 10/14/2023 Infrarenal abdominal aortic aneurysm, without ru pture 09/12/2023 Hiatal hernia with GERD 09/11/2023 Resolved Problems Problem Noted Date Diagnosed Date Resolved Date Severe protein-calorie malnutrition 12/19/2023 01/08/2024 Varicose veins of both legs with edema 09/11/2022 12/23/2023 Overview (12/23/2023): Notes from [facility] [place] Prior ambulatory phlebectomy versus stripping on L Last Assessment & Plan: These remain asymptomatic. Will continue to follow expectantly. she was instructed to continue wearing compression garments. TIA (transient ischemic attack) 01/01/2022 12/23/2023 Overview (12/23/2023): [facility] 01/01/2022 Immunizations Immunization Administration Dates Next Due Influenza, Quad, Adjuvantated, Intramuscular Influenza, Quadrivalent, Hig h Dose, Preservative Free, Intrr 02/27/2021,04/06/2020 Influenza, Quadrivalent, Spl it, Preservative Free, Intramuscular 02/28/2022 Influenza, Trivalent, Adjuvanted, Intramuscular 03/26/2024 Social History Tobacco Use Types Packs/Day Years Used Date Smoking Tobacco: Former Cigarettes Passive Smoke Exposure: Past Smokeless Tobacco: Never Tobacco Cessation:Counseling Given: Not Answered Comments:Pt. Quit smoking on [address] [facility] Utilities Answer Date Recorded In the past 12 months has [employer], [employer], or water Teamleader threatened to shut off services in your home? No 12/26/2023 Humiliation, Afraid, Rape, and Kick questionnair e Answer Date Recorded Within the last year, have y ou been afraid of your partner or ex-partner? No 12/18/2023 Within the last year, have y ou been humiliated or emotionally abused in other ways by your partner or ex-partner? No Within the last year, have y ou been kicked, hit, slapped, or otherwise physically hurt by your partner or ex-partner? No 12/18/2023 Within the last year, have y ou been raped or forced to have any kind of sexual activity by your partner or ex-partner? No 12/18/2023 Social Connection and Isolation Panel [NHANES] A nswer Date Recorded In a typical week, how many times do you talk on the phone with family, friends, or neighbors? Three times a week 12/26/2023 How often do you get togethe r with friends or relatives? Once a week 12/26/2023 How often do you attend chur ch or latter-day services? Never 12/26/2023 Do you belong to any clubs o r organizations such as gnosticist groups, unions, fraternal or athletic groups, or school groups? No 12/26/2023 How often do you attend meet ings of the clubs or organizations you belong to? Never 12/26/2023 Are you , , di vorced, , never , or living with a partner? 12/26/2023 AUDIT-C Answer Date Recorded Q1: How often do you have a drink containing alcohol? Never 12/18/2023 Q2: How many drinks containi ng alcohol do you have on a typical day when you are drinking? Patient does not drink Q3: How often do you have si x or more drinks on one occasion? Never 12/18/2023 Overall Financial Resource Strain (CARDIA) Answe r Date Recorded How hard is it for you to pa y for the very basics like food, housing, medical care, and heating? Not hard at all 12/26/2023 [facility] of Occupat ional Health - Occupational Stress Questionnaire Answer Date Recorded Do you feel stress - tense, restless, nervous, or anxious, or unable to sleep at night because your mind is troubled all the time - these days? Not at all 12/18/2023 Exercise Vital Sign Answer Date Recorde d On average, how many days pe r week do you engage in moderate to strenuous exercise (like a brisk walk)? 7 days 12/18/2023 On average, how many minutes do you engage in exercise at this level? 20 min 12/18/2023 Hunger Vital Sign Answer Date Recorded Within the past 12 months, y ou worried that your food would run out before you got the money to buy more. Never true 12/26/19 24 Within the past 12 months, t he food you bought just didn't last and you didn't have money to get more. Never true 12/26/2023 PRAPARE - Transportation Answer Date Re corded In the past 12 months, has l ack of transportation kept you from medical appointments or from getting medications? No 12/02 In the past 12 months, has l ack of transportation kept you from meetings, work, or from getting things needed for daily living? No 12/26/2023 Housing Stability Vital Sign Answer Zac e Recorded In the last 12 months, was t here a time when you were not able to pay the mortgage or rent on time? No 12/26/2023 In the past 12 months, how m any times have you moved where you were living? 0 12/26/2023 At any time in the past 12 m onths, were you homeless or living in a long-term (including now)? No 12/26/2023 Personal Safety Answer Date Recorded Have you ever been in or are you currently in a harmful physical or emotional relationship or is someone making you feel afraid or unsafe? 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 [employer] Gender Identity Not on file Sexual Orientation Not on file Last Filed Vital Signs Vital Sign Reading Time Taken Comments Blood Pressure 122/70 04/07/2024 10:48 AM [employer] HERBALIST Pulse 72 04/07/2024 10:48 AM CHINESE HERBALIST Temperature 35.8 C (96.4 F) 04/07/2024 10:48 AM CHINESE HERBALIST Respiratory Rate 18 04/07/2024 10:48 AM CHINESE HERBALIST Oxygen Saturation 96% 04/07/2024 10:48 AM CHINESE HERBALIST Inhaled Oxygen Concentration - - Weight 93 kg (205 lb) 04/07/2024 10:48 AM CHINESE HERBALIST Height 171.5 cm (5' 7.5 ) 04/07/2024 10:48 AM CS T Body Mass Index 31.63 04/07/2024 10:48 AM [employer]INESE HERBALIST Plan of Treatment Not on file Insurance [employer]IONS MED[employer]IONS Advance Directives For more information, please contact: [phone] * Full Code (Latest Code Status on File) Date Activated Date Inactivated Comments 12/18/2023 10:41 PM 12/25/2023 8:13 PM * Full Code Date Activated Date Inactivated Comments 10/14/2023 7:23 PM 10/27/2023 8:02 PM * Full Code Date Activated Date Inactivated Comments 09/04/2023 9:35 AM 09/04/2023 3:12 PM Care Teams Automotive Service Professional Relationship Specialty Start Date End Date Sendy Sylvester MD [address] [place] [address] PCP - General Internal Medicine 07/03/23 Humberto Harris MD PhD [address] [facility] [address] [place] [address] Referring Physician General Surgery 01/08/24
--- OUTSIDE RECORDS SUMMARY | 2024-08-07 09:01 | XMS_ITS | Clinical Summary ---
Author Organization [facility] Address [address] [place] [address] Care Team Providers Care Shoe Reconditioner Name Role Phone Unavailable Primary Care Provider Unavailabl e Source Comments [facility],non-owned Affiliates and Associated Physician Practices is amultiple site organization consisting of ambulatory clinics and hospital sitesin [place], [place] and [place]. This disclosure is being madepursuant to the Care Everywhere program and may not contain all information available regarding this patient. Last updated 18.[facility] Allergies Active Allergy Reactions Criticality Noted Date Comments Sulfa Drugs Unknown 01/01/2022 Medications * Be aware that medications may not be up to date on this document. Alwaysverify current medications with the patient. Medication Sig Dispensed Refills Start Date End Date Status aspirin (ASPIRIN) 325 MG tablet Take 1 (one) tablet by mouth once daily 01/04/2022 Active atorvastatin (LIPITOR) 40 MG tablet Take 1 (one) tablet by mouth at bedtime 30 tablet 5 01/03/2022 Active lisinopril (PRINIVIL; ZESTRIL) 20 MG tablet Take 1 (one) tablet by mouth once daily 30 tablet 3 01/03/2022 Active Active Problems Problem Noted Date Diagnosed Date TIA (transient ischemic attack) 01/01/2022 Social History Tobacco Use Types Packs/Day Years Used Date Smoking Tobacco: Never Smokeless Tobacco: Never Alcohol Use Standard Drinks/Week Comments Never 0 (1 standard drink = 0.6 oz pur e alcohol) Hunger Vital Sign Answer Date Recorded Within the past 12 months, y ou worried that your food would run out before you got the money to buy more. Never true 01/03/20 22 Within the past 12 months, t he food you bought just didn't last and you didn't have money to get more. Never true 01/02/2022 Sex and Gender Information Value Date Recorded Sex Assigned at Not on file Gender Identity Not on file Sexual Orientation Not on file Last Filed Vital Signs Vital Sign Reading Time Taken Comments Blood Pressure 143/91 01/03/2022 11:23 AM CDT Pulse 100 01/03/2022 11:23 AM CDT Temperature 36.5 C (97.7 F) 01/03/2022 11:23 AM CDT Respiratory Rate 18 01/03/2022 11:23 AM CDT Oxygen Saturation 93% 01/03/2022 11:23 AM CDT Inhaled Oxygen Concentration - - Weight 83.7 kg (184 lb 8.4 oz) 01/01/2022 5:40 P M CDT Height 172.7 cm (5' 8 ) 01/01/2022 5:40 PM CDT Body Mass Index 28.06 01/01/2022 5:40 PM CDT Plan of Treatment Health Maintenance Due Date Last Done Comments BONE DENSITY TESTING 1950 COLOGUARD (AGES 45-75) - COL ON CA SCREENING 1949 COLON MONITORING 1949 COLONOSCOPY - COLON CA SCREENING 1949 CT COLONOGRAPHY - COLON CA SCREENING 1950 Colorectal Cancer Screening 1950 FIT - COLON CA SCREENING 1949 FLEX SIG - COLON CA SCREENING 1949 MAMMOGRAM 1950 HEPATITIS C SCREENING 04/05/1967 DTAP/TDAP/TD VACCINES (1 - Tdap) 1968 PNEUMOCOCCAL VACCINE 50+ (1 of 1 - PCV) 1999 ZOSTER VACCINE (1 of 2) 1999 COVID-19 VACCINE ( - 2023-2 5 season) 2024 INFLUENZA VACCINE (#1) 2024 Respiratory Syncytial Virus (RSV) Vaccine Pt: or over 60 yrs (1 - 1-dose 75+ series) 2024 DEPRESSION SCREENING 06/03/2024 HEPATITIS B VACCINE Aged Out No longe r eligible based on patient's age to complete this topic HIB VACCINE Aged Out No longer eligi ble based on patient's age to complete this topic HPV VACCINE Aged Out No longer eligi ble based on patient's age to complete this topic MENINGOCOCCAL (Group B) VACCINE Aged Out No longer eligible based on patient's age to complete this topic MENINGOCOCCAL VACCINE Aged Out No stephanie leslie eligible based on patient's age to complete this topic Advance Directives * Full Code (Latest Code Status on File) Date Activated Date Inactivated Comments 01/01/2022 5:16 PM 01/03/2022 3:06 PM
--- OUTSIDE RECORDS SUMMARY | 2024-08-07 09:01 | XMS_ITS | Patient Health Summary ---
Author Organization [facility] Address [address] [place] [id number] Care Team Providers Care Radiation Protection Engineer Name Role Phone Unavailable Primary Care Provider Unavailabl e Note from [facility],non-owned Affiliates and Associated Physician Practices is amultiple site organization consisting of ambulatory clinics and hospital sitesin [place], [place], [place] and [place]. This disclosure is being madepursuant to the Care Everywhere program and may not contain all information available regarding this patient. Last updated 18.[facility] Allergies * Sulfa Drugs(Unknown) Medications * Be aware that medications may not be up to date on this document. Alwaysverify current medications with the patient. * aspirin (ASPIRIN) 325 MG tablet(Started 01/04/2022) Take 1 (one) tablet by mouth once daily * atorvastatin (LIPITOR) 40 MG tablet(Started 01/03/2022) Take 1 (one) tablet by mouth at bedtime 5 refills by 01/03/2023 * lisinopril (PRINIVIL; ZESTRIL) 20 MG tablet(Started 01/03/2022) Take 1 (one) tablet by mouth once daily 3 refills by 01/03/2023 Active Problems Problem Noted Date Diagnosed Date [...] Mass Index 28.06 01/01/2022 5:40 PM CDT Procedures * CARDIAC EKG ORDER(Performed 01/06/2022) * GLUCOSE - POINT OF CARE(Performed 01/03/2022) * CBC W AUTO DIFFERENTIAL(Performed 01/03/2022) * BASIC METABOLIC PANEL (CALCIUM TOTAL)(Performed 01/03/2022) * TROPONIN I(Performed 01/03/2022) * CARDIAC EKG ORDER(Performed 01/03/2022) * GLUCOSE - POINT OF CARE(Performed 01/02/2022) * MRI ANGIO NECK WO CONTRAST(Performed 01/02/2022) Performed for TIA (transient ischemic attack) * MRI ANGIO BRAIN ARTERIAL WO CONT(Performed 01/02/2022) Performed for TIA (transient ischemic attack) * MRI BRAIN WO CONTRAST(Performed 01/02/2022) Performed for TIA (transient ischemic attack) * GLUCOSE - POINT OF CARE(Performed 01/02/2022) * GLUCOSE - POINT OF CARE(Performed 01/02/2022) * GLUCOSE - POINT OF CARE(Performed 01/02/2022) * CBC W AUTO DIFFERENTIAL(Performed 01/02/2022) * BASIC METABOLIC PANEL (CALCIUM TOTAL)(Performed 01/02/2022) * LIPID PROFILE(Performed 01/02/2022) * TROPONIN I(Performed 01/02/2022) * TROPONIN I(Performed 01/01/2022) * HEMOGLOBIN A1C(Performed 01/01/2022) * GLUCOSE - POINT OF CARE(Performed 01/01/2022) * ECHOCARDIOGRAM 2D WITH DOPPLER(Performed 01/01/2022) Performed for TIA (transient ischemic attack) Results * CARDIAC EKG ORDER (01/06/2022 3:10 PM CDT) Only the most recent of2 resultswithin the time period is included. Narrative 01/06/2022 3:10 PM CDT Ordered by an unspecified provider. Scanned Document CARDIAC SERVICES ORD ERABLES * GLUCOSE - POINT OF CARE (01/03/2022 7:33 AM CDT) Only the most recent of6 resultswithin the time period is included. [facility] Glucose WB/POC 87 70 - 106 mg/dL 01/03/2022 8:48 PM CDT [facility] Specimen Type Cap Fingerstick 2021 8:48 PM CDT [facility] Blood BLOOD SPECIMEN / Unknown 01/03/2022 7:33 AM CDT 01/03/2022 8:48 PM CDT Cesar Tapia MD LAB - POINT OF CARE ORDERABLES Performing Organization Address City/[facility] Co de Phone Number [facility] [id number] [place] [id number] * TROPONIN I (01/03/2022 6:24 AM CDT) Only the most recent of3 resultswithin the time period is included. [facility] Troponin I 0.023 <0.038 ng/mL 01/03/2022 7:03 AM CDT [facility] Blood BLOOD SPECIMEN / Unknown Venipuncture / Unknown 01/03/2022 6:24 AM CDT 01/03/2022 6:36 AM CDT Cesar Tapia MD LAB - CHEMISTRY ORDE RABLES Performing Organization Address City/[facility]/ZIP Co de Phone Number [facility] [address] [place], [place] [id number] * CBC W AUTO DIFFERENTIAL (01/03/2022 6:24 AM CDT) Only the most recent of2 resultswithin the time period is included. WBC 8.6 4.4 - 10.7 x10E9/L 01/03/2022 6:41 AM CDT [facility] WBC Corrected 01/03/2022 6:41 AM CDT [facility] RBC 4.08 3.80 - 5.20 x10E12/L 01/03/2022 6:41 AM CDT [facility] Hemoglobin 12.8 12.0 - 15.6 gm/dL 01/03/2022 6:41 AM CDT [facility] Hematocrit 38.9 35.9 - 45.5 % 01/03/2022 6:41 AM CDT [facility] MCV 95.3 80.7 - 98.3 fl 01/03/2022 6:41 AM CDT [facility] MCH 31.4 26.7 - 34.0 pg 01/03/2022 6:41 AM CDT [facility] MCHC 32.9 30.8 - 35.9 gm/dL 01/03/2022 6:41 AM CDT [facility] Platelet Count 327 153 - 416 x10E9/L 01/03/2022 6:41 AM CDT [facility] RDW-CV 13.2 12.1 - 14.9 % 01/03/2022 6:41 AM CDT [facility] MPV 12.6 9.4 - 12.9 fl 01/03/2022 6:41 AM CDT [facility] Neutrophils % 57.1 44.0 - 73.0 % 01/03/2022 6:41 AM CDT [facility] Lymphocytes % 29.4 20.0 - 43.0 % 01/03/2022 6:41 AM CDT [facility] Monocytes % 9.6 5.0 - 13.0 % 01/03/2022 6:41 AM CDT [facility] Eosinophils % 2.7 0.0 - 6.0 % 01/03/2022 6:41 AM CDT [facility] Basophils % 0.6 0.0 - 2.0 % 01/03/2022 6:41 AM CDT [facility] Immature Granulocytes 0.6 0 - 1 % 01/03/2022 6:41 AM CDT [facility] Neutrophil Absolute 4.89 2.01 - 7.14 x10E9/L 01/03/2022 6:41 AM CDT [facility] Lymphocytes Absolute 2.52 1.07 - 3.94 x10E9/L 01/03/2022 6:41 AM CDT [facility] Monocytes Absolute 0.82 0.26 - 1.07 x10E9/L 01/03/2022 6:41 AM CDT [facility] Eosinophils Absolute 0.23 0 - 0.47 x10E9/L 01/03/2022 6:41 AM CDT [facility] Basophils Absolute 0.05 0 - 0.08 x10E9/L 01/03/2022 6:41 AM CDT [facility] Immature Granulocytes Absolute 0.05 0.00 - 0.06 x10E9/L 01/03/2022 6:41 AM CDT [facility] nRBC Auto 0 /100 WBC 01/03/2022 6:41 AM CDT [facility] Blood BLOOD SPECIMEN / Unknown Venipuncture / Unknown 01/03/2022 6:24 AM CDT 01/03/2022 6:36 AM CDT Cesar Tapia MD LAB - HEMATOLOGY ORD ERABLES [facility] [address] [place] [address] * (ABNORMAL) BASIC METABOLIC PANEL (CALCIUM TOTAL) (01/03/2022 6:24 AM CDT) Only the most recent of2 resultswithin the time period is included. Glucose 87 70 - 105 mg/dL 01/03/2022 6:59 AM CDT [facility] Sodium 142 136 - 145 mmol/L 01/03/2022 6:59 AM CDT [facility] Potassium 4.0 3.5 - 5.1 mmol/L 01/03/2022 6:59 AM CDT [facility] Chloride 111(H) 98 - 107 mmol/L 01/03/2022 6:59 AM CDT [facility] CO2 22(L) 23 - 31 mmol/L 01/03/2022 6:59 AM CDT [facility] Calcium 9.0 8.4 - 10.4 mg/dL 01/03/2022 6:59 AM CDT [facility] Anion Gap 9 8 - 18 mmol/L 01/03/2022 6:59 AM CDT [facility] BUN 16 9.8 - 20.1 mg/dL 01/03/2022 6:59 AM CDT [facility] Creatinine 0.98 0.57 - 1.11 mg/dL 01/03/2022 6:59 AM CDT [facility] eGFR by CKD-EPI 61(L) >=90 mL/min/1.7 3 m2 01/03/2022 6:59 AM CDT [facility] Blood BLOOD SPECIMEN / Unknown Venipuncture / Unknown 01/03/2022 6:24 AM CDT 01/03/2022 6:36 AM CDT Cesar Tapia MD LAB - CHEMISTRY DOMONIQUE BARRY [facility] Organization Address City/State/ZIP Co de Phone Number [facility] [address] [place] [address] * MRI ANGIO NECK WO CONTRAST (01/02/2022 8:02 PM CDT) Anatomical Region Laterality Modality Head Magnetic Resonan ce 01/02/2022 8:33 PM CDT Impressions 01/02/2022 8:39 PM CDT IMPRESSION: 1.No acute intracranial abnormalities. 2.Mild white matter disease consistent with chronic microangiopathy. 3.No evidence of cervical os repressed for occlusion or hemodynamically significant stenosis. > Interpreting Provider: Dalton Oliver MD on 01/02/2022 8:39 PM Narrative 01/02/2022 8:39 PM CDT PROCEDURE: MRI BRAIN WO CONTRAST, MRI ANGIO NECK WO CONTRAST, MRI ANGIO BRAIN ARTERIAL WO CONT, DATE/TIME OF EXAM: 01/02/2022 7:28 PM, LOCATION [facility] INDICATION: G45.9: Transient cerebral ischemic attack, unspecified. ADDITIONAL CLINICAL INFORMATION: Ordering Provider Reason For Exam: Stroke, follow-up. TIA. COMPARISON: None available. TECHNIQUE: 1. Multi sequence MRI of the brain was performed in multiple projections without contrast. 2. 3-D time of flight MRA technique was utilized to evaluate the cervical vessels and vessels of the king salmon Swann without contrast. Axial source data was utilized to generate 3 dimensional projections. FINDINGS: MRI BRAIN: There is no evidence of restricted diffusion to suggest acute ischemia or infarction. There is a mild degree of periventricular and subcortical T2/FLAIR hyperintensity consistent with chronic microangiopathy. The ventricles and sulci are unremarkable. There is no evidence of mass effect, midline shift or basal cistern effacement. There is no intra-or extra-axial fluid collection. The proximal intracranial flow voids are visualized. The orbital contents are unremarkable bilaterally. The paranasal sinuses and mastoid air cells are grossly aerated. MRA NECK: The aortic arch and proximal great vessels are patent. The common carotid arteries are patent bilaterally. On the basis of NASCET criteria, there is no significant stenosis at the carotid bifurcations. The ICAs are patent bilaterally. The vertebral arteries are patent. The right vertebral artery is dominant. Left vertebral artery is diminutive. There is no significant stenosis, dissection or aneurysm formation in the cervical vasculature. MRA BRAIN: Antegrade flow is present in the distal internal carotid arteries (ICA), the distal vertebral arteries, the basilar artery and the proximal anterior (MILAGROS), middle (MCA) and posterior cerebral arteries (MOBILE UI DEVELOPER). The vertebral arteries are patent. There is no evidence for intracranial aneurysm or cerebrovascular occlusion. Procedure Note Dalton Oliver MD - 01/02/2022 PROCEDURE: MRI BRAIN WO CONTRAST, MRI ANGIO NECK WO CONTRAST, MRI ANGIO BRAIN ARTERIAL WO CONT, DATE/TIME OF EXAM: 01/02/2022 7:28 PM, LOCATION [facility] INDICATION: G45.9: Transient cerebral ischemic attack, unspecified. ADDITIONAL CLINICAL INFORMATION: Ordering Provider Reason For Exam: Stroke, follow-up. TIA. COMPARISON: None available. TECHNIQUE: 1. Multi sequence MRI of the brain was performed in multiple projections without contrast. 2. 3-D time of flight MRA technique was utilized to evaluate thecervical vessels and vessels of the king salmon Swann without contrast. Axial source data was utilized to generate 3 dimensional projections. FINDINGS: MRI BRAIN: There is no evidence of restricted diffusion to suggest acute ischemiaor infarction. There is a mild degree of periventricular and subcortical T2/FLAIR hyperintensity consistent with chronic microangiopathy. The ventricles and sulci are unremarkable. There is no evidence of masseffect, midline shift or basal cistern effacement. There is no qncfd-otstjle-glizo fluid collection. The proximal intracranial flow voids are visualized. The orbital contents are unremarkable bilaterally. The paranasal sinuses and mastoid air cells are grossly aerated. MRA NECK: The aortic arch and proximal great vessels are patent. The commoncarotid arteries are patent bilaterally. On the basis of NASCET criteria, thereis no significant stenosis at the carotid bifurcations. The ICAs are patent bilaterally. The vertebral arteries are patent. The right vertebralartery is dominant. Left vertebral artery is diminutive. There is nosignificant stenosis, dissection or aneurysm formation in the cervical vasculature. MRA BRAIN: Antegrade flow is present in the distal internal carotid arteries (ICA), the distal vertebral arteries, the basilar artery and the proximalanterior (MILAGROS), middle (MCA) and posterior cerebral arteries (MOBILE UI DEVELOPER). The vertebral arteries are patent. There is no evidence for intracranial aneurysm or cerebrovascular occlusion. IMPRESSION: 1.No acute intracranial abnormalities. 2.Mild white matter disease consistent with chronic microangiopathy. 3.No evidence of cervical os repressed for occlusion or hemodynamically significant stenosis. > Interpreting Provider: Dalton Oliver MD on 01/02/2022 8:39 PM Dominique Larsen APRN-FILM MASKER MR ORDERABLES * MRI ANGIO BRAIN ARTERIAL WO CONT (01/02/2022 8:02 PM CDT) Anatomical Region Laterality Modality Head Magnetic Resonan ce 01/02/2022 8:33 PM CDT Impressions 01/02/2022 8:39 PM CDT IMPRESSION: 1.No acute intracranial abnormalities. 2.Mild white matter disease consistent with chronic microangiopathy. 3.No evidence of cervical os repressed for occlusion or hemodynamically significant stenosis. > Interpreting Provider: Dalton Oliver MD on 01/02/2022 8:39 PM Narrative 01/02/2022 8:39 PM CDT PROCEDURE: MRI BRAIN WO CONTRAST, MRI ANGIO NECK WO CONTRAST, MRI ANGIO BRAIN ARTERIAL WO CONT, DATE/TIME OF EXAM: 01/02/2022 7:28 PM, LOCATION [facility] INDICATION: G45.9: Transient cerebral ischemic attack, unspecified. ADDITIONAL CLINICAL INFORMATION: Ordering Provider Reason For Exam: Stroke, follow-up. TIA. COMPARISON: None available. TECHNIQUE: 1. Multi sequence MRI of the brain was performed in multiple projections without contrast. 2. 3-D time of flight MRA technique was utilized to evaluate the cervical vessels and vessels of the king salmon Swann without contrast. Axial source data was utilized to generate 3 dimensional projections. FINDINGS: MRI BRAIN: There is no evidence of restricted diffusion to suggest acute ischemia or infarction. There is a mild degree of periventricular and subcortical T2/FLAIR hyperintensity consistent with chronic microangiopathy. The ventricles and sulci are unremarkable. There is no evidence of mass effect, midline shift or basal cistern effacement. There is no intra-or extra-axial fluid collection. The proximal intracranial flow voids are visualized. The orbital contents are unremarkable bilaterally. The paranasal sinuses and mastoid air cells are grossly aerated. MRA NECK: The aortic arch and proximal great vessels are patent. The common carotid arteries are patent bilaterally. On the basis of NASCET criteria, there is no significant stenosis at the carotid bifurcations. The ICAs are patent bilaterally. The vertebral arteries are patent. The right vertebral artery is dominant. Left vertebral artery is diminutive. There is no significant stenosis, dissection or aneurysm formation in the cervical vasculature. MRA BRAIN: Antegrade flow is present in the distal internal carotid arteries (ICA), the distal vertebral arteries, the basilar artery and the proximal anterior (MILAGROS), middle (MCA) and posterior cerebral arteries (MOBILE UI DEVELOPER). The vertebral arteries are patent. There is no evidence for intracranial aneurysm or cerebrovascular occlusion. Procedure Note Dalton Oliver MD - 01/02/2022 PROCEDURE: MRI BRAIN WO CONTRAST, MRI ANGIO NECK WO CONTRAST, MRI ANGIO BRAIN ARTERIAL WO CONT, DATE/TIME OF EXAM: 01/02/2022 7:28 PM, LOCATION [facility] INDICATION: G45.9: Transient cerebral ischemic attack, unspecified. ADDITIONAL CLINICAL INFORMATION: Ordering Provider Reason For Exam: Stroke, follow-up. TIA. COMPARISON: None available. TECHNIQUE: 1. Multi sequence MRI of the brain was performed in multiple projections without contrast. 2. 3-D time of flight MRA technique was utilized to evaluate thecervical vessels and vessels of the king salmon Swann without contrast. Axial source data was utilized to generate 3 dimensional projections. FINDINGS: MRI BRAIN: There is no evidence of restricted diffusion to suggest acute ischemiaor infarction. There is a mild degree of periventricular and subcortical T2/FLAIR hyperintensity consistent with chronic microangiopathy. The ventricles and sulci are unremarkable. There is no evidence of masseffect, midline shift or basal cistern effacement. There is no vzytg-bevlrbk-mocxn fluid collection. The proximal intracranial flow voids are visualized. The orbital contents are unremarkable bilaterally. The paranasal sinuses and mastoid air cells are grossly aerated. MRA NECK: The aortic arch and proximal great vessels are patent. The commoncarotid arteries are patent bilaterally. On the basis of NASCET criteria, thereis no significant stenosis at the carotid bifurcations. The ICAs are patent bilaterally. The vertebral arteries are patent. The right vertebralartery is dominant. Left vertebral artery is diminutive. There is nosignificant stenosis, dissection or aneurysm formation in the cervical vasculature. MRA BRAIN: Antegrade flow is present in the distal internal carotid arteries (ICA), the distal vertebral arteries, the basilar artery and the proximalanterior (MILAGROS), middle (MCA) and posterior cerebral arteries (MOBILE UI DEVELOPER). The vertebral arteries are patent. There is no evidence for intracranial aneurysm or cerebrovascular occlusion. IMPRESSION: 1.No acute intracranial abnormalities. 2.Mild white matter disease consistent with chronic microangiopathy. 3.No evidence of cervical os repressed for occlusion or hemodynamically significant stenosis. > Interpreting Provider: Dalton Oliver MD on 01/02/2022 8:39 PM Dominique Larsen FINISHED HARDWARE ERECTOR-FILM MASKER MR ORDERABLES * MRI BRAIN NON CONTRAST (01/02/2022 7:28 PM CDT) Anatomical Region Laterality Modality Head Magnetic Resonan ce 01/02/2022 8:33 PM CDT Impressions 01/02/2022 8:39 PM CDT IMPRESSION: 1.No acute intracranial abnormalities. 2.Mild white matter disease consistent with chronic microangiopathy. 3.No evidence of cervical os repressed for occlusion or hemodynamically significant stenosis. > Interpreting Provider: Dalton Oliver MD on 01/02/2022 8:39 PM Narrative 01/02/2022 8:39 PM CDT PROCEDURE: MRI BRAIN WO CONTRAST, MRI ANGIO NECK WO CONTRAST, MRI ANGIO BRAIN ARTERIAL WO CONT, DATE/TIME OF EXAM: 01/02/2022 7:28 PM, LOCATION [facility] INDICATION: G45.9: Transient cerebral ischemic attack, unspecified. ADDITIONAL CLINICAL INFORMATION: Ordering Provider Reason For Exam: Stroke, follow-up. TIA. COMPARISON: None available. TECHNIQUE: 1. Multi sequence MRI of the brain was performed in multiple projections without contrast. 2. 3-D time of flight MRA technique was utilized to evaluate the cervical vessels and vessels of the king salmon Swann without contrast. Axial source data was utilized to generate 3 dimensional projections. FINDINGS: MRI BRAIN: There is no evidence of restricted diffusion to suggest acute ischemia or infarction. There is a mild degree of periventricular and subcortical T2/FLAIR hyperintensity consistent with chronic microangiopathy. The ventricles and sulci are unremarkable. There is no evidence of mass effect, midline shift or basal cistern effacement. There is no intra-or extra-axial fluid collection. The proximal intracranial flow voids are visualized. The orbital contents are unremarkable bilaterally. The paranasal sinuses and mastoid air cells are grossly aerated. MRA NECK: The aortic arch and proximal great vessels are patent. The common carotid arteries are patent bilaterally. On the basis of NASCET criteria, there is no significant stenosis at the carotid bifurcations. The ICAs are patent bilaterally. The vertebral arteries are patent. The right vertebral artery is dominant. Left vertebral artery is diminutive. There is no significant stenosis, dissection or aneurysm formation in the cervical vasculature. MRA BRAIN: Antegrade flow is present in the distal internal carotid arteries (ICA), the distal vertebral arteries, the basilar artery and the proximal anterior (MILAGROS), middle (MCA) and posterior cerebral arteries (MOBILE UI DEVELOPER). The vertebral arteries are patent. There is no evidence for intracranial aneurysm or cerebrovascular occlusion. Procedure Note Dalton Oliver MD - 01/02/2022 PROCEDURE: MRI BRAIN WO CONTRAST, MRI ANGIO NECK WO CONTRAST, MRI ANGIO BRAIN ARTERIAL WO CONT, DATE/TIME OF EXAM: 01/02/2022 7:28 PM, LOCATION [facility] INDICATION: G45.9: Transient cerebral ischemic attack, unspecified. ADDITIONAL CLINICAL INFORMATION: Ordering Provider Reason For Exam: Stroke, follow-up. TIA. COMPARISON: None available. TECHNIQUE: 1. Multi sequence MRI of the brain was performed in multiple projections without contrast. 2. 3-D time of flight MRA technique was utilized to evaluate thecervical vessels and vessels of the king salmon Swann without contrast. Axial source data was utilized to generate 3 dimensional projections. FINDINGS: MRI BRAIN: There is no evidence of restricted diffusion to suggest acute ischemiaor infarction. There is a mild degree of periventricular and subcortical T2/FLAIR hyperintensity consistent with chronic microangiopathy. The ventricles and sulci are unremarkable. There is no evidence of masseffect, midline shift or basal cistern effacement. There is no bjjrh-mowsvca-rtddk fluid collection. The proximal intracranial flow voids are visualized. The orbital contents are unremarkable bilaterally. The paranasal sinuses and mastoid air cells are grossly aerated. MRA NECK: The aortic arch and proximal great vessels are patent. The commoncarotid arteries are patent bilaterally. On the basis of NASCET criteria, thereis no significant stenosis at the carotid bifurcations. The ICAs are patent bilaterally. The vertebral arteries are patent. The right vertebralartery is dominant. Left vertebral artery is diminutive. There is nosignificant stenosis, dissection or aneurysm formation in the cervical vasculature. MRA BRAIN: Antegrade flow is present in the distal internal carotid arteries (ICA), the distal vertebral arteries, the basilar artery and the proximalanterior (MILAGROS), middle (MCA) and posterior cerebral arteries (MOBILE UI DEVELOPER). The vertebral arteries are patent. There is no evidence for intracranial aneurysm or cerebrovascular occlusion. IMPRESSION: 1.No acute intracranial abnormalities. 2.Mild white matter disease consistent with chronic microangiopathy. 3.No evidence of cervical os repressed for occlusion or hemodynamically significant stenosis. > Interpreting Provider: Dalton Oliver MD on 01/02/2022 8:39 PM Cesar Tapia MD MR ORDERABLES * (ABNORMAL) LIPID PROFILE (01/02/2022 4:46 AM CDT) Pathologist [facility] Cholesterol 212(H) <200 mg/dL 01/02/2022 5:48 AM CDT [facility] Triglycerides 88 <150 mg/dL 01/02/2022 5:48 AM CDT [facility] HDL Cholesterol 52 >40 mg/dL 5:48 AM CDT [facility] LDL Calculated 142(H) <130 mg/dL 01/02/2022 5:48 AM CDT [facility] VLDL Calculated 18 <=30 mg/dL 5:48 AM CDT [facility] Chol HDL Ratio 4.1 <4.5 01/02/2022 5:48 AM CDT [facility] LDL/HDL Ratio 2.7 <5.0 01/02/2022 5:48 AM CDT [facility] Blood BLOOD SPECIMEN / Unknown Venipuncture / Unknown 01/02/2022 4:46 AM CDT 01/02/2022 5:16 AM CDT Cesar Tapia MD LAB - CHEMISTRY DOMONIQUE BARRY [facility] Organization Address City/State/ZIP Co de Phone Number [facility] [address] [place] [address] * HEMOGLOBIN A1C (01/01/2022 9:16 PM CDT) Pathologist [facility] Hemoglobin A1c 4.9 <5.7 % 01/01/2022 9:41 PM CDT [facility] Estimated Average Glucose 94 mg/dL 01/01/2022 9:41 PM CDT [facility] Blood BLOOD SPECIMEN / Unknown Venipuncture / Unknown 01/01/2022 9:16 PM CDT 01/01/2022 9:22 PM CDT Narrative [facility] - 01/01/2022 9:41 PM CDT HbA1c Interpretation: Normal: < 5.7% Pre-diabetes: 5.7-6.4% Diabetes: Equal to or greater than 6.5% Test results diagnostic of diabetes should be repeated for confirmation. Treatment target values recommended by ADA and other clinical organizations should be used to evaluate metabolic control in patients. This test should not replace glucose testing for patients with Type 1 diabetes, pediatric patients, or women. Falsely low HbA1c results may be observed in patients with clinical conditions that shorten erythrocyte life span or decrease mean erythrocyte age such as the presence of unstable hemoglobin variants, elevated hemoglobin F level or other causes of hemolytic anemia. HbA1c may not accurately reflect glycemic control when clinical conditions that affect erythrocyte survival are present. Severe Iron deficiency anemia may yield falsely high results. Hemoglobin A1c assay should not be used to diagnose or monitor diabetes in patients with malignancy, recent blood transfusion, chronic kidney or liver disease. This method may yield falsely low results when hemoglobin (HbF) exceeds 5% in the specimen. The Lau Orchid Worker assay for the measurement of HbA1c is a National Glycohemoglobin Standardization Program (NGSP) certified method. Cesar Tapia MD LAB - CHEMISTRY DOMONIQUE BARRY [facility] [address] [place] [id number] * ECHOCARDIOGRAM 2D WITH DOPPLER (01/01/2022 5:15 PM CDT) 01/01/2022 5:15 PM CDT Narrative Procedure Note Jose Luis Ortiz MD - 01/03/[address] [address] Echocardiography Examination Transthoracic Name: LISSETH NGUYEN [facility]#: MR#: [id number] Admission Number: [id number] Study Date: 01/03/2022 Study Time: 08:43 AM Date Of : 1950 Age: 71 years Height: 68 in. (172.7 cm) Weight: 184 lbs. (83.46 kg) BSA: 1.97 m2 Gender: Female Blood Pressure: 166 mmHg / 93 mmHg Heart Rate: 69 bpm Exam Details Procedure Ordered: ECHOCARDIOGRAM 2D W/DOPPLER Procedure Components: Complete 2D, M-mode, complete spectral Doppler, color Doppler, Bubble Study, Definity Procedure Status: Routine study Contrast: Agitated saline was administered to evaluate shunting. Intravenous contrast (Definity) was administered to opacify the left ventricle. This was a technically difficult study Facility Location: [facility] Indication: TIA Procedure Tower Loader Operator: Denys Aguero RDCS Ordering Provider: CESAR TAPIA Reading Physician: Jose Luis Ortiz MD Conclusions Left Ventricle: Left ventricle is normal in size. Normal global systolic left ventricular function. EF 60 %. EF range is 55 % -65 %. Left ventricle wall thickness is normal. There are no regional wall motion abnormalities. Doppler parameters are consistent with abnormal left ventricular relaxation (Grade 1 diastolic dysfunction). Follow up: Findings Left Ventricle: Patient: LISSETH NGUYEN Study Date: 01/03/2022 08:43 AM Page 1 of 3 Left ventricle is normal in size. Normal global systolic left ventricular function. EF evaluated by visual assessment. EF 60 %. Left ventricle wall thickness is normal. There are no regional wall motion abnormalities. Doppler parameters are consistent with abnormal left ventricular relaxation (Grade 1 diastolic dysfunction). Right Ventricle: Normal size right ventricle. Right ventricular wall thickness is normal. Right ventricular systolic function is normal. Pulmonary artery pressure normal. Left Atrium: The left atrium is normal in size. Right Atrium: The right atrium is normal in size. Mitral Valve: Mitral leaflets exhibit normal cuspal separation. Trivial mitral regurgitation. No mitral valve stenosis. Aortic Valve: Aortic leaflets exhibit normal cuspal separation. No aortic valve regurgitation. There is no aortic stenosis. Tricuspid Valve: Tricuspid valve leaflets are normal. Trivial tricuspid regurgitation. No tricuspid valve stenosis. Pulmonic Valve: Pulmonic leaflets exhibit normal cuspal separation. No pulmonic valve regurgitation is evident. There is no pulmonic valve stenosis. Aorta: The aorta is normal. No dilation of the ascending aorta. The aortic root exhibits normal size. Great Vessels: IVC: The inferior vena cava is normal in size and course. Pericardium: The pericardium is normal in appearance. No pericardial effusion. Clinical Data Comment: No CV History available at this time. Measurements Anatomy Label Value Normal Value Aorta AoRoot, MM 3.6 cm (2.2cm - 3.7cm) Aortic Valve AV Vmean 0.89 m/s Aortic Valve AV VTI 24.1 cm Aortic Valve AV PGmax 7 mmHg Aortic Valve AV PGmean 4 mmHg Aortic Valve AV Vmax, Curve 1.36 m/s (1m/s - 1.7m/s) Aortic Valve LVOT VTI / AV VTI 0.72 Aortic Valve NEMESIO D (continuity eq. VTI) 2.8 cm Aortic Valve NEMESIO Index (continuity 1.22 cm /m eq.Vmax) Aortic Valve LVOT Vmax / AV Vmax 0.63 Interventricular septum IVSd, 2D 1.1 cm (0.6cm - 1.1cm) Left Atrium LADs, 2D 3.1 cm (2.7cm - 3.8cm) Left Ventricle LVOT Vmax 0.86 m/s (0.7m/s - 1.1m/s) Left Ventricle LVOTd 2.2 cm (1.8cm - 2cm) Left Ventricle LVOT VTI 17.46 cm (18cm - 22cm) Left Ventricle LVOT PGmax 3 mmHg Left Ventricle LVEF visual 60 % (55% - 75%) Left Ventricle LVDd, 2D 4 cm (3.7cm - 5.2cm) Patient: LISSETH NGUYEN Study Date: 01/03/2022 08:43 AM Page 2 of 3 Left Ventricle LVDs, 2D 2.9 cm (2.2cm - 3.5cm) Left Ventricle LVPWd, 2D 1.3 cm (0.6cm - 0.9cm) Left Ventricle FS, 2D 27.5 % Left Ventricle LVEDV, BP 86 ml (56ml - 104ml) Left Ventricle LVESV, BP 28 ml (19ml - 49ml) Left Ventricle LVEDV Index, BP 43.7 ml/m (35ml/m - 75ml/m ) Left Ventricle LVESV Index, BP 14.2 ml/m (12ml/m - 30ml/m ) Left Ventricle LVOT PGmean 2 mmHg Left Ventricle LVOT Vmean 0.61 m/s Left Ventricle EF lower range (%) 55 % Left Ventricle EF upper range (%) 65 % Left Ventricle Diastolic MV E Vmax 0.62 m/s Function Left Ventricle Diastolic MV A Vmax 0.87 m/s Function Left Ventricle Diastolic MV E/A 0.71 Function Left Ventricle Diastolic MV E/E' lateral 11.1 Function Left Ventricle Diastolic MV E/E' septal 11.47 (0.45 - 1.25) Function Left Ventricle Diastolic MV DT 243 ms Function Left Ventricle Diastolic MV E' septal 0.05 m/s Function Left Ventricle Diastolic MV E' lateral 0.06 m/s Function Left Ventricle Diastolic MV E/E' mean 11.27 Function Left Ventricle Diastolic MV E' mean 0.06 m/s Function Mitral Valve MVA PHT 3.1 cm Mitral Valve MV PHT 70 ms Mitral Valve MV Dec [place] 2.54 m/s Pulmonic Valve PV PGmax 4 mmHg Pulmonic Valve PV Vmax, Caliper 0.99 m/s (0.6m/s - 0.9m/s) Right Ventricle Diastolic TR Pmax 26 mmHg Function Tricuspid Valve TR Vmax 2.56 m/s (No Signature Object) Patient: LISSETH NGUYEN Study Date: 01/03/2022 08:43 AM Page 3 of 3 Cesar Tapia MD ECHO ORDERABLES [facility]
--- OUTSIDE RECORDS SUMMARY | 2024-08-07 09:01 | XMS_ITS | Referral Summary ---
Author Organization [facility] Manifest Address [address] [place] [id number] Care Team Providers Care Factory Representative Name Role Phone Unavailable Primary Care Provider Unavailabl e Source Comments [facility],non-owned Affiliates and Associated Physician Practices is amultiple site organization consisting of ambulatory clinics and hospital sitesin [place], [place], [place] and [place]. This disclosure is being madepursuant to the Care Everywhere program and may not contain all information available regarding this patient. Last updated 18.[facility] Allergies Active Allergy Reactions Criticality Noted Date [...] Mass Index 28.06 01/01/2022 5:40 PM CDT Functional Status Functional Status Response Date of Assess ment Is person deaf or have serious hearing difficult y? No 01/01/2022 Is person blind or have serious difficulty seein g? No 01/01/2022 Does person have serious dif ficulty walking/climbing stairs? No 01/01/2022 Does person have difficulty dressing/bathing? No 01/01/2022 Does person have difficulty doing errands alone? No 01/01/2022 Cognitive Status Response Date of Assessm ent Does person have difficulty concentrating/remembering/making decisions? No 01/01/2022 Plan of Treatment Not on file Advance Directives * Full Code (Latest Code Status on File) Date Activated Date Inactivated Comments 01/01/2022 5:16 PM 01/03/2022 3:06 PM
--- OUTSIDE RECORDS SUMMARY | 2024-08-07 09:01 | XMS_ITS | Encounter Summary ---
Author Organization [facility] Address [address] [place] [address] Care Team Providers Care Client Solutions Director Name Role Phone Sendy Sylvester MD Primary Care Provider + [phone] Annalise Amezquita RN Unavailable [phone] Humberto Harris MD PhD Unavailable [phone] Reason for Visit * Reason Onset Date Comments Follow-Up Call 7 Days 12/30/2023 Discharge follow up call placed line busy Encounter Details Date Type Department Care Team (Late st Contact Info) Description 12/30/2023 Telephone [facility] [address] [place] [address] Olivia Burrows RN Follow-Up Call 7 Days (Discharge follow up call placed line busy) Social History Tobacco Use Types Packs/Day Years Used Date Smoking Tobacco: Former Cigarettes Passive Smoke Exposure: Past Smokeless Tobacco: Never Comments:Pt. Quit smoking on [address] [facility] Utilities Answer Date Recorded In the past 12 months has e electric, gas, oil, or water [employer] threatened to shut off services in your [...] often do you attend chur ch or caodaism services? Never 12/26/2023 Do you belong to any clubs o r organizations such as yarsanism groups, unions, fraternal or athletic groups, or [...] and heating? Not hard at all 12/26/2023 [facility] of Occupat ional Health - Occupational Stress [...] any time in the past 12 m [facility], were you homeless or living in a [...] on file Legal Sex Female 10:45 AM TAXI DANCER Gender Identity Not on file Sexual Orientation Not on file documented as of this encounter Plan of Treatment Not on file documented as of this encounter Visit Diagnoses Not on filedocumented in this encounter Care Teams Client Solutions Director Relationship Specialty Start Date End Date Sendy Sylvester MD [address] [place] [address] PCP - General Internal Medicine 07/03/23 Annalise Amezquita RN [address] [facility] [address] [place] [address] [facility] Outpatient Settlement Processor 12/26/23 01/23/24 Humberto Harris MD PhD [address] [facility] [address] [place] [address] Referring Physician General Surgery 01/08/24 documented as of this encounter
--- OUTSIDE RECORDS SUMMARY | 2024-08-07 09:01 | XMS_ITS | Clinical Summary ---
Author Organization [place] [id number] Address [address] [place] [address] Care Team Providers Care Stacker Attendant Name Role Phone Sendy Sylvester MD Primary Care Provider + [phone] Humberto Harris MD PhD Unavailable [phone] Allergies Active Allergy Reactions Criticality Noted Date [...] edema 09/11/2022 12/23/2023 Overview (12/23/2023): Notes from [facility] Prior ambulatory phlebectomy versus stripping on L Last Assessment & Plan: These remain asymptomatic. Will continue to follow expectantly. she was instructed to continue wearing compression garments. TIA (transient ischemic attack) 01/01/2022 12/23/2023 Overview (12/23/2023): [facility] 01/01/2022 Immunizations Immunization Administration Dates Next Due Influenza, Quad, Adjuvantated, Intramuscular Influenza, Quadrivalent, Hig h Dose, Preservative Free, Intrr 02/27/2021,04/06/2020 Influenza, Quadrivalent, Spl it, Preservative Free, Intramuscular 02/28/2022 Influenza, Trivalent, Adjuvanted, Intramuscular 03/26/2024 Surgical History Surgery Date Site/Laterality Comments COLONOSCOPY UPPER GASTROINTESTINAL ENDOSCOPY TUBAL LIGATION VARICOSE VEIN SURGERY CATARACT EXTRACTION, BILATERAL US GUIDED THORACENTESIS 12/19/2023 N/A Medical History Medical History Date Comments GERD (gastroesophageal reflux disease) Hypertension Hyperlipidemia Kidney stone Cataract Arthritis Sleep apnea Awareness under anesthesia Woke up during varicose venin procedure with MAC TIA (transient ischemic attack) 01/01/2022 [facility] 01/01/2022 Varicose veins of both legs with edema 3 Notes from [facility] Prior ambulatory phlebectomy versus stripping on L Last Assessment & Plan: These remain asymptomatic. Will continue to follow expectantly. she was instructed to continue wearing compression garments. Family History Medical History Relation Name Comments Hypertension Father Cancer Mother Hypertension Mother Anesthesia problems Neg Hx Malig Hyperthermia Neg Hx Pseudochol deficiency Neg Hx Relation Name Status Comments Father Mother Social History Tobacco Use Types Packs/Day Years Used Date Smoking Tobacco: Former Cigarettes Passive Smoke Exposure: Past Smokeless Tobacco: Never Tobacco Cessation:Counseling Given: Not Answered Comments:Pt. Quit smoking on 2021 [facility] Utilities Answer Date Recorded In the past 12 months has [facility] [employer], [employer], or water [employer] threatened to shut off services in your [...] often do you attend chur ch or holiness services? Never 12/26/2023 Do you belong to any clubs o r organizations such as pentecostal groups, unions, fraternal or athletic groups, or [...] and heating? Not hard at all 12/26/2023 [facility] of Occupat ional Health - Occupational Stress [...] any time in the past 12 m [facility], were you homeless or living in a detention (including now)? No 12/26/2023 Personal Safety Answer Date Recorded Have you ever been in or are you currently in a harmful physical or emotional relationship or is someone making you feel afraid or unsafe? 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 AD COMPOSITOR Gender Identity Not on file Sexual Orientation Not on file Obstetrics History Last Filed Vital Signs Vital Sign Reading Time Taken Comments Blood Pressure 122/70 04/07/2024 10:48 AM AD COMPOSITOR Pulse 72 04/07/2024 10:48 AM AD COMPOSITOR Temperature 35.8 C (96.4 F) 04/07/2024 10:48 AM AD COMPOSITOR Respiratory Rate 18 04/07/2024 10:48 AM AD COMPOSITOR Oxygen Saturation 96% 04/07/2024 10:48 AM AD COMPOSITOR Inhaled Oxygen Concentration - - Weight 93 kg (205 lb) 04/07/2024 10:48 AM AD COMPOSITOR Height 171.5 cm (5' 7.5 ) 04/07/2024 10:48 AM CS T Body Mass Index 31.63 04/07/2024 10:48 AM AD COMPOSITOR Plan of Treatment Health Maintenance Due Date Last Done Comments Colon Cancer Screening-Colonoscopy 1950 Depression Screening 1950 Hepatitis C Screening 1950 Osteoporosis Screening-Bone Density Scan 1950 DTaP/Tdap/Td Vaccine (1 - Tdap) 1960 Hepatitis B Screening 1967 Pneumococcal vaccine 65+ (1 of 2 - PCV) 1968 Zoster Vaccine (1 of 2) 1999 Well Visit 65+ 2014 Covid-19 Vaccine (2023-2 5 season) 2024 03/26/2024, 04/19/2023, 03/27/2022, Additional history exists Fall Risk Assessment 12/24/2024 12/25/2023 Influenza Vaccine Completed 03/26/2024, , 02/28/2022, Additional history exists Insurance [facility] Address: [facility] [address] [place] [address] [facility]ICARE [facility] Address: [address] [address] [place] [id number] Advance Directives For more information, please contact: [phone] * Full Code (Latest Code Status on File) Date Activated Date Inactivated Comments 12/18/2023 10:41 PM 12/25/2023 8:13 PM * Full Code Date Activated Date Inactivated Comments 10/14/2023 7:23 PM 10/27/2023 8:02 PM * Full Code Date Activated Date Inactivated Comments 09/04/2023 9:35 AM 09/04/2023 3:12 PM Care Teams Stacker Attendant Relationship Specialty Start Date End Date Sendy Sylvesetr MD [address] [place] [address] PCP - General Internal Medicine 07/03/23 Humberto Harris MD PhD [address] [facility] [address] [place] [address] Referring Physician General Surgery 01/08/24
--- OUTSIDE RECORDS SUMMARY | 2024-08-07 09:01 | XMS_ITS | Clinical Summary ---
Author Organization [facility] Address [address] [place] [address] Phone Care Team Providers Care Gaming Cage Worker Name Role Phone Sendy Sylvester MD Primary Care Provider [phone] Allergies Active Allergy Reactions Criticality Noted Date Comments Sulfa Antibiotics Other (see Comments) High 10/29/19 it made me so sick Medications Acetaminophen 500 MG Capsule Take 1,000 mg by mouth every 6 hours as needed for Mild or more severe pain. Active amLODIPine (NORVASC) 10 MG Tablet Take 10 mg by mouth daily. Active aspirin 325 MG Tablet take 1 tablet y mouth daily, restart on 10/31/23 after finish the crushable aspirin 4 Active atorvastatin (LIPITOR) 80 MG Tablet Take 80 mg by mouth daily. Active Multivitamin-Min erals (Centrum Silver 50+Women) Tablet Take 1 Tablet by mouth daily. Active gabapentin (NEURONTIN) 100 MG Capsule Take 200 mg by mouth 3 times daily. for 2 weeks after surgery, open capsule and sprinkle medications in applecause and immediately, after the 2 weeks may take whole pills 4 Active losartan (COZAAR) 100 MG Tablet Take 100 mg by mouth daily. Active ondansetron (ZOFRAN) 4 MG Tablet Take 4 mg by mouth every 8 hours as needed for Nausea - 1st line (or vomiting). Active oxyCODONE (ROXICODONE) 5 MG/5ML Solution Take 5 mg by mouth every 4 hours as needed for Moderate or more severe pain. Active polyethylene glycol (GLYCOLAX, MIRALAX) 17 g Pack Take 17 g by mouth daily. mix in 8 oz of fluid Active OXYGEN CONCENTRATOR 3 L by Nasal route continuous. use when portable O2 is not in use Active OXYGEN TANK PORTABLE 3 L by Nasal route continuous. use when O2 concentrator is not in use Active Social History Tobacco Use Types Packs/Day Years Used Date Smoking Tobacco: Never Assessed Comments Unknown Sex and Gender Information Value Date Recorded Sex Assigned at Not on file Legal Sex Female 7:57 AM CDT Gender Identity Not on file Sexual Orientation Not on file Last Filed Vital Signs Vital Sign Reading Time Taken Comments Blood Pressure 112/64 11/19/2023 3:18 PM CDT Pulse 114 11/19/2023 3:18 PM CDT 88 after 2 min sititng rest Temperature 36.5 C (97.7 F) 11/19/2023 3:18 PM CDT Respiratory Rate 18 11/19/2023 3:18 PM CDT Oxygen Saturation 90% 11/19/2023 3:1 8 PM CDT Inhaled Oxygen Concentration - - Weight 97.1 kg (214 lb) 11/22/2023 12:3 6 PM CDT Height 172.7 cm (5' 8 ) 10/29/2023 10:0 2 AM CDT Body Mass Index 32.54 10/29/2023 10:02 AM CDT Plan of Treatment Health Maintenance Due Date Last Done Comments DEXA Bone Density 1950 Hepatitis C Virus (HCV) Screening 1950 TdaP Immunization 1950 Colonoscopy 1994 Colorectal Cancer Screening 1994 Cologuard 1999 Immunochemical Fecal Occult Blood 1999 Mammogram 1999 Pneumococcal Immunization (50+ years) (1 of 1 - PCV) 1999 Zoster Immunization (1 of 2) 1999 Influenza Immunization (#1) 02/02/202404/03, 02/28/2022, 02/27/2021, Additional history exists SARS-COV-2 Immunization (2023- season) 2024 04/19/2023, 03/27/2022, 10/26/2021, Additional history exists Respiratory Syncytial Virus (RSV) Immunization (Adult) (1 - 1-dose 75+ series) 2024 Hepatitis B Immunization Aged Out No longer eligible based on patient's age to complete this topic Meningococcal Immunization (ACWY) Aged Out No longer eligible based on patient's age to complete this topic Rotavirus Immunization Aged Out No lo nger eligible based on patient's age to complete this topic [facility] Advance Directives * Full Code (Latest Code Status on File) Date Activated Date Inactivated Comments 11/06/2023 7:47 AM Care Teams Gaming Cage Worker Relationship Specialty Start Date End Date Sendy Sylvester MD [address] [place] [address] PCP - General Internal Medicine 10/24/23
--- OUTSIDE RECORDS SUMMARY | 2024-08-07 09:02 | XMS_ITS | Clinical Summary ---
Author Organization [facility] Address [address] [place] [address] Care Team Providers Care Pesticide Use Medical Coordinator Name Role Phone Sendy Sylvester MD Primary Care Provider [phone] Chauncey Conde MD Unavailable [phone] Missael Estrella MD Unavailable [phone] Allergies Active Allergy Reactions Criticality Noted Date Comments Sulfa Antibiotics Unknown 01/01/2022 Medications aspirin 325 MG tablet Take 1 tablet (325 mg total) by mouth daily. 01/04/2022 Active atorvastatin (LIPITOR) 40 MG tablet Take 1 tablet (40 mg total) by mouth. 01/03/2022 Active gabapentin (NEURONTIN) 100 MG capsule Take 1 capsule (100 mg total) by mouth 3 (three) times daily. Active losartan (COZAAR) 100 MG tablet Take 1 tablet (100 mg total) by mouth daily. Active pantoprazole EC (PROTONIX) 40 MG tablet Take 1 tablet (40 mg total) by mouth daily. Active amLODIPine (NORVASC) 5 MG tablet Take 1 tablet (5 mg total) by mouth daily. Active Active Problems Problem Noted Date Diagnosed Date Infrarenal abdominal aortic aneurysm, without ru pture 09/11/2022 Overview (09/11/2022): 08/31/22 3.9 cm x 4.1 cm Assessment & Plan (09/11/2022 1:24 PM CDT): She presents for evaluation of an infrarenal abdominal aortic aneurysm. She has no symptoms of aortic aneurysmal disease.A CTA of the abdomen and pelvis performed at [facility] on 08/31/22 demonstrates the aneurysm to measure 3.9 cm x 4.1 cm. We reviewed the results of the imaging and discussed the threshold for repair. We reviewed interventional options including enodvascular aneurysm repair and open aortic repair. We discussed that she can participate in any activities and there are no limitations related to the diagnosis of an aneurysm. We discussed potential repair options including open aneurysm repair versus endovascular repair. We discussed continued management of her blood pressure and reviewed her antihypertensive regimen. She will follow-up in one year with an aortoiliac duplex. At that time she will see Dr. Conde. She was educated as to the signs and symptoms that should prompt earlier evaluation. Varicose veins of both legs with edema 3 Overview (09/11/2022): Prior ambulatory phlebectomy versus stripping on L Assessment & Plan (09/11/2022 1:45 PM CDT): These remain asymptomatic. Will continue to follow expectantly. she was instructed to continue wearing compression garments. Encounters Date Type Department Care Team Description 07/03/2024 Telephone [facility] [address] [place] [address] Chauncey Conde MD Reschedule from Last 3 Months Family History Medical History Relation Comments Hypertension Brother CHF Father Hypertension Father Cancer Mother Hypertension Sister Relation Status Comments Brother Father Mother Sister Social History Tobacco Use Types Packs/Day Years Used Date Smoking Tobacco: Former Cigarettes Smokeless Tobacco: Never Tobacco Cessation:Counseling Given: Not Answered Comments Unknown Sex and Gender Information Value Date Recorded Sex Assigned at Not on file Legal Sex Female 9:16 PM CDT Gender Identity Not on file Sexual Orientation Not on file Last Filed Vital Signs Vital Sign Reading Time Taken Comments Blood Pressure 122/62 11/20/2023 8:34 AM CDT Pulse 99 11/20/2023 8:34 AM CDT Temperature - - Respiratory Rate 18 11/20/2023 8:34 AM CDT Oxygen Saturation 94% 11/20/2023 8:34 AM CDT Inhaled Oxygen Concentration - - Weight 97.3 kg (214 lb 6.4 oz) 11/20/2023 8:34 A M CDT Height 172.7 cm (5' 8 ) 11/20/2023 8:34 AM CDT Body Mass Index 32.6 11/20/2023 8:34 AM CDT Plan of Treatment Upcoming Encounters Date Type Department Care Team ([facility] st Contact Info) Description 09/10/2024 8:30 AM CDT Appointment [place] [address] [place] [address] Chauncey Conde MD [address] [place] [address] 09/15/2024 8:30 AM CDT Office Visit [facility] [address] [place] [address] Missael Estrella MD [address] [place] [address] [address] [place] [address] Health Maintenance Due Date Last Done Comments Colorectal Cancer Screening Colonoscopy (10 Years) 1949 Hepatitis C 1967 DTaP, Tdap and Td Vaccines (1 - Tdap) 1968 Zoster Vaccines (1 of 2) 1999 Annual Medicare Wellness Visit 2014 Dexa Scan (General) 2014 Pneumococcal Vaccine: 65+ Years (1 of 1 - PCV) 2014 COVID-19 Vaccine ( season) 2024 03/27/2022, 10/26/2021, 04/05/2021, Additional history exists Influenza Adult (#1) 2024 02/28/2022 RSV Immunization or 60+ Years (1 - 1-dose 75+ series) 2024 Meningococcal B Vaccine Aged Out No l onger eligible based on patient's age to complete this topic Meningococcal Vaccine Aged Out No stephanie leslie eligible based on patient's age to complete this topic RSV Immunizations Under 20 Months Aged Out No longer eligible based on patient's age to complete this topic Insurance [facility] Care Teams Pesticide Use Medical Coordinator Relationship Specialty Start Date End Date Sendy Sylvester MD [address] [place] [address] PCP - General INTERNAL MEDICINE 09/04/22 Chauncey Conde MD [address] [place] [address] INTERVENTIONAL CARDIOLOGY 09/12/2208/07 Missael Estrella MD [address] [place] [address] [address] [place] [address] Physician INTERVENTIONAL CARDIOLOGY 08/07/24
[2024-08-07 09:15] LABS: Basophils Percent Auto 1.1 % (0.0-1.0); Eosinophils Absolute Auto 0.28 K/mm3 (0.02-0.50); Eosinophils Percent Auto 3.1 % (1.0-6.0); Hematocrit 39.2 % (35.0-42.0); Hemoglobin 12.4 g/dL (11.7-13.8); Immature Granulocyte Absolute 0.01 K/mm3 (0.00-0.00); Immature Granulocyte Percent A 0.1 % (0.0-0.0); Lymphocytes Absolute Auto 4.06 K/mm3 (1.10-4.50); Lymphocytes Percent Auto 45.6 % (18.0-42.0); Mean Corpuscular HGB Conc 31.6 g/dL (32-36); Mean Corpuscular Hemoglobin 29.7 pg (27.0-31.0); Mean Corpuscular Volume 93.8 fL (78.0-102.0); Mean Platelet Volume 11.4 fl (9.2-11.8); Monocytes Absolute Auto 0.99 K/mm3 (0.10-0.90); Monocytes Percent Auto 11.1 % (2.0-11.0); Neutrophils Absolute Auto 3.46 K/mm3 (1.70-7.20); Platelet Count Result 473 K/mm3 (150-420); Red Blood Count 4.18 M/mm3 (4.20-5.40); Red Cell Distribution Width 16.1 % (11.6-14.4); White Blood Count 8.9 K/mm3 (4.8-10.8)
[2024-08-07 10:06] LABS: Alanine Aminotransferase 20 U/L (14-59); Albumin Level 3.9 g/dL (3.4-5.0); Alkaline Phosphatase 154 U/L (46-116); Anion Gap 7 mmol/L (4-12); Aspartate Amino Transferase 13 U/L (15-37); Bilirubin,Total 0.5 mg/dL (0.00-1.00); Blood Urea Nitrogen 34 mg/dL (7-18); Calcium 9.4 mg/dL (8.5-10.1); Carbon Dioxide 28 mmol/L (21-32); Chloride 110 mmol/L (98-108); Cholesterol 191 mg/dL (0-200); Creatine Kinase 64 U/L (26-192); Estimated Glomerular Filt Rate 28; Ferritin 99 ng/mL (8-252); Glucose 96 mg/dL (70-99); HDL Direct 71 mg/dL (40-60); Iron 49 ug/dL (50-170); LDL Cholesterol Calculated 89 mg/dL (<130); Osmolality Calculated 307 mOsm/kg (285-295); Potassium 5.2 mmol/L (3.5-5.1); Sodium 145 mmol/L (136-145); Triglycerides 155 mg/dL (0-150)
[2024-08-07 13:54] LABS: Add Urine Microscopic? NO; Appearance Urine Clear (Clear); Bilirubin Urine Negative (Negative); Blood Urine Negative (Negative); Color Urine Light Yellow (Yellow); Glucose Urine UA Negative (Negative); Ketones Urine Negative (Negative); Leukocyte Esterase Ur Negative LEU/UL (Negative); Nitrate Urine Negative (Negative); Protein Urine Negative (Negative); Urobilinogen Urine 0.2 mg/dL (0.2-1.0); pH Urine 5.5 (5.0-8.0)
== END 2024-08-07 08:45 | disposition home or self-care (01) ==
LOC: CHSLAB 08:45
PROVIDERS: PCP Internal Medicine; Visit Provider Internal Medicine
DX: E78.2 Mixed hyperlipidemia (principal); N39.0 Urinary tract infection, site not specified; D64.9 Anemia, unspecified
CPT/HCPCS: 36415; 80053; 80061; 81003; 82550; 82728; 83540; 85025

== ENCOUNTER 2024-08-26 13:55 | Outpatient (CLI) | payer MEDICARE, SELFPAY ==
--- NOTE | ~2024-08-26 | US_ITS ---
EXAMINATION: US pelvic complete INDICATION: Follow-up ovarian cyst Comparison:No prior studies for comparison. TECHNIQUE: Multiple transabdominal sonographic images of the pelvis performed. FINDINGS: The uterus measures 6.1 x 3.5 x 2.4 cm. The endometrial complex measures 10 mm. The right ovary measures 2.2 x 1.4 x 1.3 cm and the left ovary measures 3 x 2.7 x 2.5 cm. There are small follicles in each ovary. There is a 2.7 cm left ovarian cyst. Doppler signals are not obtainabl e using transabdominal technique. There is no free fluid in the pelvis. There are no abnormal masses seen on either side. IMPRESSION: 1. Left ovarian cyst measuring 2.7 cm. 2: Thickened endomtrial complex. The differential diagnosis includes endometrial hyperplasia, polyp a nd carcinoma. Biopsy is recommended. Reviewed, dictated and finalized at location A. IMPRESSION: 1. Left ovarian cyst measuring 2.7 cm. 2: Thickened endomtrial complex. The differential diagnosis includes endometria l hyperplasia, polyp and carcinoma. Biopsy is recommended.
--- OUTSIDE RECORDS SUMMARY | 2024-08-26 15:06 | XMS_ITS | Clinical Summary ---
Author Organization [facility] Address [address] [place] [address] Phone Care Team Providers Care Pmo Project Manager Name Role Phone Sendy Sylvester MD Primary Care Provider [phone] Allergies Active Allergy Reactions Criticality Noted Date [...] Cologuard 1999 Immunochemical Fecal Occult Blood 1999 Pneumococcal Immunization (50+ years) (1 of [...] to complete this topic Insurance [facility]IC[facility] Advance Directives * Full Code (Latest Code Status on File) Date Activated Date Inactivated Comments 11/06/2023 7:47 AM Care Teams Pmo Project Manager Relationship Specialty Start Date End Date Sendy Sylvester MD [address] [place] [address] PCP - General Internal Medicine 10/24/23
--- OUTSIDE RECORDS SUMMARY | 2024-08-26 15:06 | XMS_ITS | Clinical Summary ---
Author Organization [facility] Address [address] [place] [address] Care Team Providers Care Personal Injury Legal Assistant Name Role Phone Sendy Sylvester MD Primary Care Provider [phone] Missael Estrella MD Unavailable [phone] Allergies Active Allergy Reactions Criticality Noted Date [...] of the abdomen and pelvis performed at [facility] on 08/31/22 demonstrates the aneurysm to [...] Encounters Date Type Department Care Team Description 08/26/2024 Orders Only [facility] [address] [place] [address] Missael Estrella MD 07/03/2024 Telephone [facility] [address] [place] [address] Chauncey Conde MD Reschedule from Last 3 [...] Upcoming Encounters Date Type Department Care Team (Late st Contact Info) Description 09/10/2024 8:30 AM CDT Appointment [address] [place] [address] Chauncey Conde MD [address] [place], [place] [id number] 09/15/2024 8:30 AM CDT Office Visit [facility] [place] [address] Missael Estrella MD [address] [facility] [address] [place], [place] [id number] Health Maintenance Due Date Last Done Comments [...] patient's age to complete this topic Insurance [facility] Care Teams Personal Injury Legal Assistant Relationship Specialty Start Date End Date Sendy Sylvester MD [address] [place] [phone] PCP - General INTERNAL MEDICINE 09/04/22 Missael Estrella MD [address] [facility] [address] [place] [address] Physician INTERVENTIONAL CARDIOLOGY 08/07/24
--- OUTSIDE RECORDS SUMMARY | 2024-08-26 15:06 | XMS_ITS | Clinical Summary ---
Author Organization [place] [id number] [facility] Address [address] [place] [address] Care Team Providers Care Brazer Crawler Torch Name Role Phone Sendy Sylvester MD Primary Care Provider [phone] Humberto Harris MD PhD Unavailable [phone] Allergies Active Allergy Reactions Criticality Noted Date [...] edema 09/11/2022 12/23/2023 Overview (12/23/2023): [facility] from [facility] [place] Prior ambulatory phlebectomy versus stripping on L Last Assessment & Plan: These remain asymptomatic. Will continue to follow expectantly. she was instructed to continue wearing compression garments. TIA (transient ischemic attack) 01/01/2022 12/23/2023 Overview (12/23/2023): [facility] 01/01/2022 Immunizations Immunization Administration Dates Next [...] with MAC TIA (transient ischemic attack) 01/01/2022 [facility] 01/01/2022 Varicose veins of both legs with edema 3 Notes from [facility] Prior ambulatory phlebectomy versus stripping on L [...] Not Answered Comments:Pt. Quit smoking on 2021 [facility] Utilities Answer Date Recorded In the past 12 months has [facility] [email or web address], [employer], or water [employer] threatened to shut off services in your [...] often do you attend chur ch or restorationism services? Never 12/26/2023 Do you belong to any clubs o r organizations such as jehovah's witness groups, unions, fraternal or athletic groups, or [...] and heating? Not hard at all 12/26/2023 [facility] of Occupat ional Health - Occupational Stress [...] any time in the past 12 m [facility], were you homeless or living in a long term (including now)? No 12/26/2023 Personal Safety Answer Date Recorded Have you ever been in or are you currently in a harmful physical or emotional relationship or is someone making you feel afraid or unsafe? 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 DICE MANAGER Gender Identity Not on file Sexual Orientation Not on file Obstetrics History Last Filed Vital Signs Vital Sign Reading Time Taken Comments Blood Pressure 122/70 04/07/2024 10:48 AM DICE MANAGER Pulse 72 04/07/2024 10:48 AM DICE MANAGER Temperature 35.8 C (96.4 F) 04/07/2024 10:48 AM DICE MANAGER Respiratory Rate 18 04/07/2024 10:48 AM DICE MANAGER Oxygen Saturation 96% 04/07/2024 10:48 AM DICE MANAGER Inhaled Oxygen Concentration - - Weight 93 kg (205 lb) 04/07/2024 10:48 AM DICE MANAGER Height 171.5 cm (5' 7.5 ) 04/07/2024 10:48 AM CS T Body Mass Index 31.63 04/07/2024 10:48 AM DICE MANAGER Plan of Treatment Health Maintenance Due Date [...] 03/26/2024, , 02/28/2022, Additional history exists Insurance [facility] MEDICARE ADVANTAGE [facility] Address: [facility] [address] [place] [address] [facility] MEDICARE ADVANTAGE [facility] MED[facility] Address: [facility] [address] [place] [address] Advance Directives For more information, please contact: [phone] * Full Code (Latest Code Status on File) Date Activated Date Inactivated Comments 12/18/2023 10:41 PM 12/25/2023 8:13 PM * Full Code Date Activated Date Inactivated Comments 10/14/2023 7:23 PM 10/27/2023 8:02 PM * Full Code Date Activated Date Inactivated Comments 09/04/2023 9:35 AM 09/04/2023 3:12 PM Care Teams Brazer Crawler Torch Relationship Specialty Start Date End Date Sendy Sylvester MD [address] [place] [address] PCP - General Internal Medicine 07/03/23 Humberto Harris MD PhD [address] [facility] [address] [place] [address] Referring Physician General Surgery 01/08/24
--- OUTSIDE RECORDS SUMMARY | 2024-08-26 15:06 | XMS_ITS | Referral Summary ---
Author Organization [place] [id number] [facility] Address [address] [place] [address] Care Team Providers Care Manager Name Role Phone Sendy Sylvester MD Primary Care Provider + [phone] Humberto Harris MD PhD Unavailable [phone] Allergies Active Allergy Reactions Criticality Noted Date [...] edema 09/11/2022 12/23/2023 Overview (12/23/2023): [facility] from [facility] [employer] Prior ambulatory phlebectomy versus stripping on L Last Assessment & Plan: These remain asymptomatic. Will continue to follow expectantly. she was instructed to continue wearing compression garments. TIA (transient ischemic attack) 01/01/2022 12/23/2023 Overview (12/23/2023): [facility] 01/01/2022 Immunizations Immunization Administration Dates [...] Not Answered Comments:Pt. Quit smoking on 2021 [facility] Utilities Answer Date Recorded In the past 12 months has [employer], or water [employer] threatened to shut off services in your [...] often do you attend chur ch or alevism services? Never 12/26/2023 Do you belong to any clubs o r organizations such as jew groups, unions, fraternal or athletic groups, or [...] and heating? Not hard at all 12/26/2023 [facility] of Occupat ional Health - Occupational Stress [...] were you homeless or living in a snf (including now)? No 12/26/2023 Personal Safety Answer Date Recorded Have you ever been in or are you currently in a harmful physical or emotional relationship or is someone making you feel afraid or unsafe? 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 GEOPHYSICAL PROSPECTOR Gender Identity Not on file Sexual Orientation Not on file Last Filed Vital Signs Vital Sign Reading Time Taken Comments Blood Pressure 122/70 04/07/2024 10:48 AM GEOPHYSICAL PROSPECTOR Pulse 72 04/07/2024 10:48 AM GEOPHYSICAL PROSPECTOR Temperature 35.8 C (96.4 F) 04/07/2024 10:48 AM GEOPHYSICAL PROSPECTOR Respiratory Rate 18 04/07/2024 10:48 AM GEOPHYSICAL PROSPECTOR Oxygen Saturation 96% 04/07/2024 10:48 AM GEOPHYSICAL PROSPECTOR Inhaled Oxygen Concentration - - Weight 93 kg (205 lb) 04/07/2024 10:48 AM GEOPHYSICAL PROSPECTOR Height 171.5 cm (5' 7.5 ) 04/07/2024 10:48 AM CS T Body Mass Index 31.63 04/07/2024 10:48 AM GEOPHYSICAL PROSPECTOR Plan of Treatment Not on file Insurance [employer] MEDICARE ADVANTAGE [employer] MEDICARE ADVANTAGE Advance Directives For more information, please contact: [phone] * Full Code (Latest Code Status on File) Date Activated Date Inactivated Comments 12/18/2023 10:41 PM 12/25/2023 8:13 PM * Full Code Date Activated Date Inactivated Comments 10/14/2023 7:23 PM 10/27/2023 8:02 PM * Full Code Date Activated Date Inactivated Comments 09/04/2023 9:35 AM 09/04/2023 3:12 PM Care Teams Manager Relationship Specialty Start Date End Date Sendy Sylvester MD [address] [place] [address] PCP - General Internal Medicine 07/03/23 Humberto Harris MD PhD [address] [facility] [address] [place] [address] Referring Physician General Surgery 01/08/24
--- OUTSIDE RECORDS SUMMARY | 2024-08-26 15:06 | XMS_ITS | Encounter Summary ---
Author Organization [facility] Address [address] [place] [address] Care Team Providers Care Performance Makeup Artist Name Role Phone Sendy Sylvester MD Primary Care Provider [phone] Annalise Amezquita RN Unavailable [phone] Humberto Harris MD PhD Unavailable [phone] Reason for Visit * Reason Onset Date Comments Follow-Up Call 7 Days 12/30/2023 Discharge follow up call placed line busy Encounter Details Date Type Department Care Team (Late st Contact Info) Description 12/30/[address] [facility] [address] [place] [address] Olivia Burrows RN Follow-Up Call 7 Days (Discharge follow up call placed line busy) Social History Tobacco Use Types Packs/Day Years Used Date Smoking Tobacco: Former Cigarettes Passive Smoke Exposure: Past Smokeless Tobacco: Never Comments:Pt. Quit smoking on 2021 [facility] Utilities Answer Date Recorded In the past 12 months has e electric, gas, oil, or water [employer] threatened to shut off services in your [...] often do you attend chur ch or bahai services? Never 12/26/2023 Do you belong to any clubs o r organizations such as adventism groups, unions, fraternal or athletic groups, or [...] and heating? Not hard at all 12/26/2023 [facility] of Occupat ional Health - Occupational Stress [...] any time in the past 12 m [facility], were you homeless or living in a half-way (including now)? No 12/26/2023 Personal Safety Answer Date Recorded Have you ever been in or are you currently in a harmful physical or emotional relationship or is someone making you feel afraid or unsafe? 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 PAINT BRUSH MAKER Gender Identity Not on file Sexual Orientation Not on file documented as of this encounter Plan of Treatment Not on file documented as of this encounter Visit Diagnoses Not on filedocumented in this encounter Care Teams Performance Makeup Artist Relationship Specialty Start Date End Date Sendy Sylvester MD [address] [place] [address] PCP - General Internal Medicine 07/03/23 Annalise Amezuqita RN [address] [facility] [address] [place] [address] [facility] Tinning Machine Set Up Operator 12/26/23 01/23/24 Humberto Harris MD PhD [address] [facility] [address] [place] [address] Referring Physician General Surgery 01/08/24 documented as of this encounter
--- OUTSIDE RECORDS SUMMARY | 2024-08-26 15:06 | XMS_ITS | Clinical Summary ---
Author Organization [facility] Address [address] [facility] [place] [address] Care Team Providers Care Cosmetology Teacher Name Role Phone Unavailable Primary Care Provider Unavailabl e Source Comments [facility],non-owned Affiliates and Associated Physician Practices is amultiple site organization consisting of ambulatory clinics and hospital sitesin [place], [place], [place] and [place]. This disclosure is being madepursuant to the Care Everywhere program and may not contain all information available regarding this patient. Last updated 18.[facility] Allergies Active Allergy Reactions Criticality Noted Date [...] to complete this topic MENINGOCOCCAL (Group B) VACC INE SHARED DECISION-MAKING Aged Out No longer eligibl e based on patient's age to complete this topic MENINGOCOCCAL GROUPS A/C/Y/W VACCINE Aged Out No longer eligible b ased on patient's age to complete this topic Advance Directives * Full Code (Latest Code Status on File) Date Activated Date Inactivated Comments 01/01/2022 5:16 PM 01/03/2022 3:06 PM
--- OUTSIDE RECORDS SUMMARY | 2024-08-26 15:06 | XMS_ITS | Encounter Summary ---
Author Organization [facility] Address [address] [place] [address] Care Team Providers Care Garden Worker Name Role Phone Sendy Sylvester MD Primary Care Provider [phone] Missael Estrella MD Unavailable [phone] Reason for Referral * Imaging (Routine) - New Request Specialty Diagnoses / Procedures Referred By Landen t Referred To Contact RADIOLOGY Diagnoses Infrarenal abdominal aortic aneurysm, without rupture Procedures USV AORTA ILIAC IVC DUPLEX COMP Missael Estrella MD [address] [facility], [facility] [address] [address] Phone: tel: fax: Referral ID Status Reason Start Date Expiration Date V isits Requested Visits Authorized [id number] New Request 08/26/2024 09/26/2025 1 1 Encounter Details Date Type Department Care Team (Late st Contact Info) Description 08/26/2024 Orders Only [facility] [address] [place] [address] Missael Estrella MD [address] [place] , [facility] [address] [place], [place] [id number] Social History Tobacco Use Types Packs/Day Years Used Date Smoking Tobacco: Former Cigarettes Smokeless Tobacco: Never Comments Unknown Sex and Gender Information Value Date Recorded Sex Assigned at Not on file Legal Sex Female 9:16 PM CDT Gender Identity Not on file Sexual Orientation Not on file documented as of this encounter Plan of Treatment Upcoming Encounters Date Type Department Care Team (Late st Contact Info) Description 09/10/2024 8:30 AM CDT Appointment [address] [place] [address] Chauncey Conde MD [address] [place] [address] 09/15/2024 8:30 AM CDT Office Visit [facility] [place] [address] Missael Estrella MD [address] [facility] [address] [place] [address] Scheduled Orders Name Type Priority Associated Diagnoses Orde r Schedule USV AORTA ILIAC IVC DUPLEX COMP US VASC Routine Infrarenal abdominal aortic aneurysm, without rupture Expected: 08/26/2024, Expires: 08/26/2025 documented as of this encounter Visit Diagnoses Diagnosis Infrarenal abdominal aortic aneurysm, without rupture- Primary documented in this encounter Care Teams Garden Worker Relationship Specialty Start Date End Date Sendy Sylvester MD [address] [place] [id number] PCP - General INTERNAL MEDICINE 09/04/22 Missael Estrella MD [address] [facility], [facility] [address] [place] [address] Physician INTERVENTIONAL CARDIOLOGY 08/07/24 documented as of this encounter
== END 2024-08-26 13:56 | disposition home or self-care (01) ==
LOC: CHSIMG 13:57
PROVIDERS: PCP Internal Medicine; Visit Provider Internal Medicine
DX: N83.202 Unspecified ovarian cyst, left side (principal); R93.89 Abnormal findings on diagnostic imaging of other specified body structures
CPT/HCPCS: 76856

== ENCOUNTER 2024-08-28 10:32 | Outpatient (CLI) | payer MEDICARE, SELFPAY ==
--- NOTE | ~2024-08-28 | XR_ITS ---
EXAMINATION: XR shoulder RT min 2V DATE: 08/28/2024 10:46 INDICATION: Chronic right shoulder pain TECHNIQUE: AP internally and externally rotated, AP oblique externally rotated and transscapular Y vi ews of the right shoulder were obtained. COMPARISON: None FINDINGS: Normal alignment. No fracture. Glenohumeral joint is normal. Mild acromioclavicular osteoarthritis. Soft tissues are unremarkable. Visualized portions of the right lung are clear. IMPRESSION: Mild right glenohumeral osteoarthritis. Reviewed, dictated and finalized at location B.
--- OUTSIDE RECORDS SUMMARY | 2024-08-28 11:28 | XMS_ITS | Clinical Summary ---
Author Organization [facility] Address [address] [place] [address] Care Team Providers Care Canopy Inspector Name Role Phone Sendy Sylvester MD Primary Care Provider [phone] Missael Estrella MD Unavailable [phone] Allergies Active Allergy Reactions Criticality Noted Date [...] of the abdomen and pelvis performed at [facility] on 08/31/22 demonstrates the aneurysm to measure [...] Department Care Team Description 08/26/2024 Orders Only [facility] [address] [place] [address] Missael Estrella MD 07/03/2024 Telephone [facility] [address] [place] [address] Chauncey Conde MD Reschedule from Last 3 [...] Info) Description 09/10/2024 8:30 AM CDT Appointment [address] [place] [address] Chauncey Conde MD [address] [place], [place] [address] 09/15/2024 8:30 AM CDT Office Visit [facility] [place] [address] Missael Estrella MD [address] [facility] [address] [place], [place] [id number] Health Maintenance Due Date Last Done Comments Colorectal Cancer Screening Colonoscopy (10 Years) 1949 Hepatitis C 1967 DTaP, Tdap and Td Vaccines (1 - Tdap) 1968 Zoster Vaccines (1 of 2) 1999 Annual Medicare Wellness Visit 2014 Dexa Scan (General) 2014 Pneumococcal Vaccine: 65+ Years (1 of 1 - PCV) 2014 COVID-19 Vaccine ( season) 2024 03/27/2022, 10/26/2021, 04/05/2021, Additional history exists RSV Immunization or 60+ Years (1 - 1-dose 75+ series) 2024 Meningococcal B Vaccine Aged Out No l onger eligible based on patient's age to complete this topic Meningococcal Vaccine Aged Out No stephanie leslie eligible based on patient's age to complete this topic RSV Immunizations Under 20 Months Aged Out No longer eligible based on patient's age to complete this topic Insurance [facility] Care Teams Canopy Inspector Relationship Specialty Start Date End Date Sendy Sylvester MD [address] [place] [address] PCP - General INTERNAL MEDICINE 09/04/22 Missael Estrella MD [address] [facility] [address] [place] [address] Physician INTERVENTIONAL CARDIOLOGY 08/07/24
--- OUTSIDE RECORDS SUMMARY | 2024-08-28 11:28 | XMS_ITS | Referral Summary ---
Author Organization [place] [id number] [facility] Address [address] [place] [address] Care Team Providers Care Assembly Hand Name Role Phone Sendy Sylvester MD Primary Care Provider + [phone] Humberto Harris MD PhD Unavailable [phone] Allergies Active Allergy Reactions Criticality Noted Date [...] edema 09/11/2022 12/23/2023 Overview (12/23/2023): Notes from [facility] [employer] Prior ambulatory phlebectomy versus stripping on L Last Assessment & Plan: These remain asymptomatic. Will continue to follow expectantly. she was instructed to continue wearing compression garments. TIA (transient ischemic attack) 01/01/2022 12/23/2023 Overview (12/23/2023): [facility] 01/01/2022 Immunizations Immunization Administration Dates [...] Not Answered Comments:Pt. Quit smoking on 2021 [facility] Utilities Answer Date Recorded In the past 12 months has [employer], [employer], or water [employer] threatened to shut off services in your [...] often do you attend chur ch or jehovah's witness services? Never 12/26/2023 Do you belong to any clubs o r organizations such as anglican groups, unions, fraternal or athletic groups, or [...] and heating? Not hard at all 12/26/2023 [facility] [place] of Occupat ional Health - Occupational Stress [...] were you homeless or living in a custodial (including now)? No 12/26/2023 Personal Safety Answer Date Recorded Have you ever been in or are you currently in a harmful physical or emotional relationship or is someone making you feel afraid or unsafe? 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 PHYSICAL EDUCATION INSTRUCTOR Gender Identity Not on file Sexual Orientation Not on file Last Filed Vital Signs Vital Sign Reading Time Taken Comments Blood Pressure 122/70 04/07/2024 10:48 AM PHYSICAL EDUCATION INSTRUCTOR Pulse 72 04/07/2024 10:48 AM PHYSICAL EDUCATION INSTRUCTOR Temperature 35.8 C (96.4 F) 04/07/2024 10:48 AM PHYSICAL EDUCATION INSTRUCTOR Respiratory Rate 18 04/07/2024 10:48 AM PHYSICAL EDUCATION INSTRUCTOR Oxygen Saturation 96% 04/07/2024 10:48 AM PHYSICAL EDUCATION INSTRUCTOR Inhaled Oxygen Concentration - - Weight 93 kg (205 lb) 04/07/2024 10:48 AM PHYSICAL EDUCATION INSTRUCTOR Height 171.5 cm (5' 7.5 ) 04/07/2024 10:48 AM CS T Body Mass Index 31.63 04/07/2024 10:48 AM PHYSICAL EDUCATION INSTRUCTOR Plan of Treatment Not on file Insurance UHC MEDICARE ADVANTAGE [facility] MED[facility] Address: [facility] [address] [place] [address] UHC MEDICARE ADVANTAGE [facility] MEDICARE Address: [address] [address] Advance Directives For more information, please contact: [phone] * Full Code (Latest Code Status on File) Date Activated Date Inactivated Comments 12/18/2023 10:41 PM 12/25/2023 8:13 PM * Full Code Date Activated Date Inactivated Comments 10/14/2023 7:23 PM 10/27/2023 8:02 PM * Full Code Date Activated Date Inactivated Comments 09/04/2023 9:35 AM 09/04/2023 3:12 PM Care Teams Assembly Hand Relationship Specialty Start Date End Date Sendy Sylvester MD [address] [place] [address] PCP - General Internal Medicine 07/03/23 Humberto Harris MD PhD [address] [facility] [address] [place] [address] Referring Physician General Surgery 01/08/24
--- OUTSIDE RECORDS SUMMARY | 2024-08-28 11:28 | XMS_ITS | Clinical Summary ---
Author Organization [place] [address] [facility] Address [address] [place] [address] Care Team Providers Care Scheduling Administrator Name Role Phone Sendy Sylvester MD Primary Care Provider + [phone] Humberto Harris MD PhD Unavailable [phone] Allergies Active Allergy Reactions Criticality Noted Date [...] edema 09/11/2022 12/23/2023 Overview (12/23/2023): Notes from [facility] [employer] Prior ambulatory phlebectomy versus stripping on L Last Assessment & Plan: These remain asymptomatic. Will continue to follow expectantly. she was instructed to continue wearing compression garments. TIA (transient ischemic attack) 01/01/2022 12/23/2023 Overview (12/23/2023): [facility] 01/01/2022 Immunizations Immunization Administration Dates [...] with MAC TIA (transient ischemic attack) 01/01/2022 [facility] 01/01/2022 Varicose veins of both legs with edema 3 Notes from [facility] Prior ambulatory phlebectomy versus stripping on L [...] Not Answered Comments:Pt. Quit smoking on 2021 [facility] Utilities Answer Date Recorded In the past 12 months has [facility] [employer], [employer], or water [employer] threatened to shut off services in your [...] often do you attend chur ch or religion services? Never 12/26/2023 Do you belong to any clubs o r organizations such as gnosticism groups, unions, fraternal or athletic groups, or [...] and heating? Not hard at all 12/26/2023 [facility] of Occupat ional Health - Occupational Stress [...] any time in the past 12 m [facility], were you homeless or living in a chcf (including now)? No 12/26/2023 Personal Safety Answer Date Recorded Have you ever been in or are you currently in a harmful physical or emotional relationship or is someone making you feel afraid or unsafe? 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 INSTRUMENTATION ENGINEER Gender Identity Not on file Sexual Orientation Not on file Obstetrics History Last Filed Vital Signs Vital Sign Reading Time Taken Comments Blood Pressure 122/70 04/07/2024 10:48 AM INSTRUMENTATION ENGINEER Pulse 72 04/07/2024 10:48 AM INSTRUMENTATION ENGINEER Temperature 35.8 C (96.4 F) 04/07/2024 10:48 AM INSTRUMENTATION ENGINEER Respiratory Rate 18 04/07/2024 10:48 AM INSTRUMENTATION ENGINEER Oxygen Saturation 96% 04/07/2024 10:48 AM INSTRUMENTATION ENGINEER Inhaled Oxygen Concentration - - Weight 93 kg (205 lb) 04/07/2024 10:48 AM INSTRUMENTATION ENGINEER Height 171.5 cm (5' 7.5 ) 04/07/2024 10:48 AM CS T Body Mass Index 31.63 04/07/2024 10:48 AM INSTRUMENTATION ENGINEER Plan of Treatment Health Maintenance Due Date [...] 03/26/2024, , 02/28/2022, Additional history exists Insurance [facility] MEDICARE ADVANTAGE [facility] MEDICARE ADVANTAGE Advance Directives For more information, please contact: [phone] * Full Code (Latest Code Status on File) Date Activated Date Inactivated Comments 12/18/2023 10:41 PM 12/25/2023 8:13 PM * Full Code Date Activated Date Inactivated Comments 10/14/2023 7:23 PM 10/27/2023 8:02 PM * Full Code Date Activated Date Inactivated Comments 09/04/2023 9:35 AM 09/04/2023 3:12 PM Care Teams Scheduling Administrator Relationship Specialty Start Date End Date Sendy Sylvester MD [address] [place] [address] PCP - General Internal Medicine 07/03/23 Humberto Harris MD PhD [address] [facility] [address] [place] [address] Referring Physician General Surgery 01/08/24
--- OUTSIDE RECORDS SUMMARY | 2024-08-28 11:28 | XMS_ITS | Clinical Summary ---
Author Organization [facility] Address [address] [place] [address] Care Team Providers Care Chief School Finance Officer Name Role Phone Unavailable Primary Care Provider Unavailabl e Source Comments [facility],non-owned Affiliates and Associated Physician Practices is amultiple site organization consisting of ambulatory clinics and hospital sitesin [place], [place], [place] and [place]. This disclosure is being madepursuant to the Care Everywhere program and may not contain all information available regarding this patient. Last updated 18.[facility] Allergies Active Allergy Reactions Criticality Noted Date [...]
--- OUTSIDE RECORDS SUMMARY | 2024-08-28 11:28 | XMS_ITS | Clinical Summary ---
Author Organization [facility] Address [address] [place] [address] Phone Care Team Providers Care Cinetechnician Name Role Phone Sendy Sylvester MD Primary Care Provider [phone] Allergies Active Allergy Reactions Criticality Noted Date [...] to complete this topic Insurance MEDICARE C [facility] Advance Directives * Full Code (Latest Code Status on File) Date Activated Date Inactivated Comments 11/06/2023 7:47 AM Care Teams Cinetechnician Relationship Specialty Start Date End Date Sendy Sylvester MD [address] [place] [address] PCP - General Internal Medicine 10/24/23
--- OUTSIDE RECORDS SUMMARY | 2024-08-28 11:28 | XMS_ITS | Encounter Summary ---
Author Organization [facility] Healthcare Address [address] [place] [address] Care Team Providers Care Machinist Mate Name Role Phone Sendy Sylvester MD Primary Care Provider + [phone] Annalise Amezquita RN Unavailable [phone] Humberto Harris MD PhD Unavailable [phone] Reason for Visit * Reason Onset Date Comments Follow-Up Call 7 Days 12/30/2023 Discharge follow up call placed line busy Encounter Details Date Type Department Care Team (Late st Contact Info) Description 12/30/2023 Telephone [facility] [address] [place] [address] Olivia Burrows RN Follow-Up Call 7 Days (Discharge follow up call placed line busy) Social History Tobacco Use Types Packs/Day Years Used Date Smoking Tobacco: Former Cigarettes Passive Smoke Exposure: Past Smokeless Tobacco: Never Comments:Pt. Quit smoking on [address] [facility] Utilities Answer Date Recorded In the past 12 months has e electric, gas, oil, or water [employer] threatened to shut off services in your [...] often do you attend chur ch or orthodox services? Never 12/26/2023 Do you belong to any clubs o r organizations such as jainism groups, unions, fraternal or athletic groups, or [...] heating? Not hard at all 12/26/2023 [facility] [employer] of Occupat ional Health - Occupational Stress [...] any time in the past 12 m [facility], were you homeless or living in a mcfp (including now)? No 12/26/2023 Personal Safety Answer Date Recorded Have you ever been in or are you currently in a harmful physical or emotional relationship or is someone making you feel afraid or unsafe? 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 Gender Identity Not on file Sexual Orientation Not on file documented as of this encounter Plan of Treatment Not on file documented as of this encounter Visit Diagnoses Not on filedocumented in this encounter Care Teams Machinist Mate Relationship Specialty Start Date End Date Sendy Sylvester MD [address] [place] [address] PCP - General Internal Medicine 07/03/23 Annalise Amezquita RN [address] [facility] [address] [place] [address] SHOP Outpatient Algebraist 12/26/23 01/23/24 Humberto Harris MD PhD [address] [facility] [address] [place] [address] Referring Physician General Surgery 01/08/24 documented as of this encounter
== END 2024-08-28 10:33 | disposition home or self-care (01) ==
PROVIDERS: PCP Internal Medicine; Visit Provider Internal Medicine
DX: M25.511 Pain in right shoulder (principal); M19.011 Primary osteoarthritis, right shoulder
CPT/HCPCS: 73030

== ENCOUNTER 2024-09-05 08:10 | Outpatient (CLI) | payer MEDICARE, SELFPAY ==
--- NOTE | ~2024-09-05 | MR_ITS ---
MRI of the right shoulder Technique: Axial proton-density fat-sat images, coronal proton density fat-sat and T2 fat-sat images, and sagittal T1-weighted and T2 fat-sat images were acquired. Clinical History: Pain Findings: There is mild to moderate AC joint arthropathy, with bony productive change of the distal c lavicle. There is minimal subacromial spur. Coracoclavicular, coracoacromial, and coracohumeral ligam ents are intact. Supraspinatus and infraspinatus tendons are intact, mild tendinosis, but no partial or full-thickness tear. Subscapularis tendon is intact, with mild tendinosis. Tendon of long head of the biceps is int act. There is superior labral tear, possibly extending to the anterosuperior portion. Inferior glenohumeral ligament is intact. There are small glenohumeral joint effusion. There is minim al fluid in the subacromial/subdeltoid bursa. No muscle atrophy or edema. No significant degenerative change of the glenohumeral joint. Impression: Superior labral tear, with questionable extension to the anterosuperior portion. Small glenohumeral joint effusion, nonspecific. Mild to moderate AC joint degenerative change. Mild rotator cuff tendinosis without partial or full-thickness tear. Reviewed, dictated and finalized at [facility]. Impression: Superior labral tear, with questionable extension to the anterosuperior portion . Small glenohumeral joint effusion, nonspecific. Mild to moderate AC joint degenerative change. Mild rotator cuff tendinosis without partial or full-thickness tear.
--- OUTSIDE RECORDS SUMMARY | 2024-09-05 08:15 | XMS_ITS | Encounter Summary ---
Author Organization [facility] Healthcare Address [address] [place] [address] Care Team Providers Care Rip Machine Operator Name Role Phone Sendy Sylvester MD Primary Care Provider + [phone] Annalise Amezquita RN Unavailable [phone] Humberto Harris MD PhD Unavailable [phone] Reason for Visit * Reason Onset Date Comments Follow-Up Call 7 Days 12/30/2023 Discharge follow up call placed line busy Encounter Details Date Type Department Care Team (Late st Contact Info) Description 12/30/2023 Telephone [facility] [address] [place] [address] Olivia Burrows RN Follow-Up Call 7 Days (Discharge follow up call placed line busy) Social History Tobacco Use Types Packs/Day Years Used Date Smoking Tobacco: Former Cigarettes Passive Smoke Exposure: Past Smokeless Tobacco: Never Comments:Pt. Quit smoking on 2021 [facility] Utilities Answer Date Recorded In the past 12 months has e electric, gas, oil, or water [employer] threatened to shut off services in your [...] often do you attend chur ch or sabianist services? Never 12/26/2023 Do you belong to any clubs o r organizations such as anabaptist groups, unions, fraternal or athletic groups, or [...] heating? 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 Gender Identity Not on file Sexual Orientation Not on file documented as of this encounter Plan of Treatment Not on file documented as of this encounter Visit Diagnoses Not on filedocumented in this encounter Care Teams Rip Machine Operator Relationship Specialty Start Date End Date Sendy Sylvester MD [address] [place] [address] PCP - General Internal Medicine 07/03/23 Annalise Amezquita RN [address] [facility] [address] [place] [address] SHOP Outpatient Towel Distributor 12/26/23 01/23/24 Humberto Harris MD PhD [address] [facility] [address] [place] [address] Referring Physician General Surgery 01/08/24 documented as of this encounter
--- OUTSIDE RECORDS SUMMARY | 2024-09-05 08:15 | XMS_ITS | Clinical Summary ---
Author Organization [facility] Address [address] [place] [address] Phone Care Team Providers Care Interactive Producer Name Role Phone Sendy Sylvester MD Primary Care Provider [phone] Allergies Active Allergy Reactions Criticality Noted Date [...] to complete this topic Insurance MEDICARE C [facility] Advance Directives * Full Code (Latest Code Status on File) Date Activated Date Inactivated Comments 11/06/2023 7:47 AM Care Teams Interactive Producer Relationship Specialty Start Date End Date Sendy Sylvester MD [address] [place] [address] PCP - General Internal Medicine 10/24/23
--- OUTSIDE RECORDS SUMMARY | 2024-09-05 08:15 | XMS_ITS | Clinical Summary ---
Author Organization [place] [id number] [facility] Address [address] [place] [address] Care Team Providers Care Joiners Supervisor Name Role Phone Sendy Sylvester MD Primary Care Provider + [phone] Humberto Harris MD PhD Unavailable [phone] Allergies Active Allergy Reactions Criticality Noted Date [...] edema 09/11/2022 12/23/2023 Overview (12/23/2023): Notes from [facility] [employer] Prior ambulatory phlebectomy versus stripping on L Last Assessment & Plan: These remain asymptomatic. Will continue to follow expectantly. she was instructed to continue wearing compression garments. TIA (transient ischemic attack) 01/01/2022 12/23/2023 Overview (12/23/2023): [facility] [employer] 01/01/2022 Encounters Date Type Department Care Team Description 09/04/2024 Telephone [facility] Obstetrics and Gynecology [address] [facility] 13th [place] [address] [place] [address] Ruth Benoit from Last 3 Months Immunizations Immunization Administration Dates Next Due Influenza, [...] with MAC TIA (transient ischemic attack) 01/01/2022 [facility] 01/01/2022 Varicose veins of both legs with edema 3 Notes from [facility] Prior ambulatory phlebectomy versus stripping on L [...] Not Answered Comments:Pt. Quit smoking on 2021 [facility] Utilities Answer Date Recorded In the past 12 months has e [employer], gas, oil, or water [employer] threatened to shut off services in your [...] often do you attend chur ch or sikh services? Never 12/26/2023 Do you belong to any clubs o r organizations such as baptism groups, unions, fraternal or athletic groups, or [...] and heating? Not hard at all 12/26/2023 [facility] [place] of Occupat ional Health - Occupational Stress [...] any time in the past 12 m [facility], were you homeless or living in a penitentiary (including now)? No 12/26/2023 Personal Safety Answer Date Recorded Have you ever been in or are you currently in a harmful physical or emotional relationship or is someone making you feel afraid or unsafe? 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 MORTAR CARRIER Gender Identity Not on file Sexual Orientation Not on file Obstetrics History Last Filed Vital Signs Vital Sign Reading Time Taken Comments Blood Pressure 122/70 04/07/2024 10:48 AM MORTAR CARRIER Pulse 72 04/07/2024 10:48 AM MORTAR CARRIER Temperature 35.8 C (96.4 F) 04/07/2024 10:48 AM MORTAR CARRIER Respiratory Rate 18 04/07/2024 10:48 AM MORTAR CARRIER Oxygen Saturation 96% 04/07/2024 10:48 AM MORTAR CARRIER Inhaled Oxygen Concentration - - Weight 93 kg (205 lb) 04/07/2024 10:48 AM MORTAR CARRIER Height 171.5 cm (5' 7.5 ) 04/07/2024 10:48 AM CS T Body Mass Index 31.63 04/07/2024 10:48 AM MORTAR CARRIER Plan of Treatment Health Maintenance Due Date Last Done Comments Colon Cancer Screening-Colonoscopy 1950 Depression Screening 1950 Hepatitis C Screening 1950 Osteoporosis Screening-Bone Density Scan 1949 DTaP/Tdap/Td Vaccine (1 - Tdap) 1960 Hepatitis B Screening 1967 Pneumococcal vaccine 65+ (1 of 2 - PCV) 1968 Zoster Vaccine (1 of 2) 1999 Well Visit 65+ 2014 Covid-19 Vaccine (2023-07 5 season) 2024 03/26/2024, 04/19/2023, 03/27/2022, Additional history exists Fall Risk Assessment 12/24/2024 12/25/2023 Influenza Vaccine Completed 03/26/2024, , 02/28/2022, Additional history exists Insurance UHC MEDICARE ADVANTAGE [facility] MED[facility] Address: [facility] [address] [place] [address] [facility] MEDICARE ADVANTAGE Advance Directives For more information, please contact: [phone] * Full Code (Latest Code Status on File) Date Activated Date Inactivated Comments 12/18/2023 10:41 PM 12/25/2023 8:13 PM * Full Code Date Activated Date Inactivated Comments 10/14/2023 7:23 PM 10/27/2023 8:02 PM * Full Code Date Activated Date Inactivated Comments 09/04/2023 9:35 AM 09/04/2023 3:12 PM Care Teams Joiners Supervisor Relationship Specialty Start Date End Date Sendy Sylvester MD [address] [place] [address] PCP - General Internal Medicine 07/03/23 Humberto Harris MD PhD [address] [place] [address] Referring Physician General Surgery 01/08/24
--- OUTSIDE RECORDS SUMMARY | 2024-09-05 08:15 | XMS_ITS | Clinical Summary ---
Author Organization [facility] Address [address] [place] [address] Care Team Providers Care Industrial Maintenance Mechanic Name Role Phone Sendy Sylvester MD Primary Care Provider [phone] Missael Estrella MD Unavailable [phone] Allergies Active Allergy Reactions Criticality Noted Date [...] of the abdomen and pelvis performed at [facility] on 08/31/22 demonstrates the aneurysm to [...] Department Care Team Description 08/26/2024 Orders Only [facility] [address] [place] [address] Missael Estrella MD 07/03/2024 Telephone [facility] [address] [place] [address] Chauncey Conde MD Reschedule from Last 3 [...] Info) Description 09/10/2024 8:30 AM CDT Appointment [address] [place] [address] Chauncey Conde MD [address] [place], [place] [address] 09/15/2024 8:30 AM CDT Office Visit [facility] [place] [address] Missael Estrella MD [address] [facility] [address] [place], [place] [id number] Health Maintenance Due Date Last Done Comments [...] patient's age to complete this topic Insurance [facility] Care Teams Industrial Maintenance Mechanic Relationship Specialty Start Date End Date Sendy Sylvester MD [address] [place] [address] PCP - General INTERNAL MEDICINE 09/04/22 Missael Estrella MD [address] [facility] [address] [place] [address] Physician INTERVENTIONAL CARDIOLOGY 08/07/24
--- OUTSIDE RECORDS SUMMARY | 2024-09-05 08:15 | XMS_ITS | Referral Summary ---
Author Organization [place] [id number] [facility] Address [address] [place] [address] Care Team Providers Care Personal Insurance Advisor Name Role Phone Sendy Sylvester MD Primary Care Provider + [phone] Humberto Harris MD PhD Unavailable [phone] Encounters Date Type Department Care Team Description 09/04/2024 Telephone [facility] Obstetrics and Gynecology [address] [facility] 13th [place] [address] [place] [address] Ruth Benoit from Last 3 Months Allergies Active Allergy Reactions Criticality Noted Date [...] & Plan (12/23/2023 11:52 AM CDT): Ms Shai pope is a very [...] edema 09/11/2022 12/23/2023 Overview (12/23/2023): Notes from [facility] Admittor Prior ambulatory phlebectomy versus stripping on L Last Assessment & Plan: These remain asymptomatic. Will continue to follow expectantly. she was instructed to continue wearing compression garments. TIA (transient ischemic attack) 01/01/2022 12/23/2023 Overview (12/23/2023): [facility] 01/01/2022 Immunizations Immunization Administration Dates [...] Not Answered Comments:Pt. Quit smoking on 2021 [facility] Utilities Answer Date Recorded In the past 12 months has [employer], or water [employer] threatened to shut off services in your [...] week 12/26/2023 How often do you attend [facility] or taoist services? Never 12/26/2023 Do you belong to any clubs o r organizations such as hoahaoism groups, unions, fraternal or athletic groups, or [...] and heating? Not hard at all 12/26/2023 [facility] of Occupat ional [facility] - Occupational Stress Questionnaire Answer Date Recorded [...] any time in the past [address] [facility], were you homeless or living in a correction (including now)? No 12/26/2023 Personal Safety Answer Date Recorded Have you ever been in or are you currently in a harmful physical or emotional relationship or is someone making you feel afraid or unsafe? 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 BRIAR SHOP SUPERVISOR Gender Identity Not on file Sexual Orientation Not on file Last Filed Vital Signs Vital Sign Reading Time Taken Comments Blood Pressure 122/70 04/07/2024 10:48 AM BRIAR SHOP SUPERVISOR Pulse 72 04/07/2024 10:48 AM BRIAR SHOP SUPERVISOR Temperature 35.8 C (96.4 F) 04/07/2024 10:48 AM BRIAR SHOP SUPERVISOR Respiratory Rate 18 04/07/2024 10:48 AM BRIAR SHOP SUPERVISOR Oxygen Saturation 96% 04/07/2024 10:48 AM BRIAR SHOP SUPERVISOR Inhaled Oxygen Concentration - - Weight 93 kg (205 lb) 04/07/2024 10:48 AM BRIAR SHOP SUPERVISOR Height 171.5 cm (5' 7.5 ) 04/07/2024 10:48 AM CS T Body Mass Index 31.63 04/07/2024 10:48 AM BRIAR SHOP SUPERVISOR Plan of Treatment Not on file Insurance [facility] MEDICARE [facility]ANT[facility] Address: [facility] [address] [place] [address] [facility] MEDICARE ADVANTAGE [facility] MEDICARE Address: [facility] [address] [place] [address] Advance Directives For more information, please contact: [phone] * Full Code (Latest Code Status on File) Date Activated Date Inactivated Comments 12/18/2023 10:41 PM 12/25/2023 8:13 PM * Full Code Date Activated Date Inactivated Comments 10/14/2023 7:23 PM 10/27/2023 8:02 PM * Full Code Date Activated Date Inactivated Comments 09/04/2023 9:35 AM 09/04/2023 3:12 PM Care Teams Personal Insurance Advisor Relationship Specialty Start Date End Date Sendy Sylvester MD [address] [place] [address] PCP - General Internal Medicine 07/03/23 Humberto Harris MD PhD [address] [place] [address] Referring Physician General Surgery 01/08/24
--- OUTSIDE RECORDS SUMMARY | 2024-09-05 08:15 | XMS_ITS | Encounter Summary ---
Author Organization [facility] Address [address] [place] [address] Phone Care Team Providers Care Air Control Electronics Operator Name Role Phone Sendy Sylvester MD Primary Care Provider + [phone] Humberto Harris MD PhD Unavailable [phone] Encounter Details Date Type Department Care Team (Late st Contact Info) Description 09/04/[address] [facility] Obstetrics and Gynecology [address] [facility] 13th [place] [address] [place] [address] Ruth Benoit Social History Tobacco Use Types Packs/Day Years Used Date Smoking Tobacco: Former Cigarettes Passive Smoke Exposure: Past Smokeless Tobacco: Never Comments:Pt. Quit smoking on 2021 [facility] Utilities Answer Date Recorded In the past 12 months has [facility] [employer], gas, oil, or water [employer] threatened to shut off services in your [...] 12/26/2023 How often do you attend chur or orthodoxy services? Never 12/26/2023 Do you belong to any clubs o r organizations such as synagogue groups, unions, fraternal or athletic groups, or [...] and heating? Not hard at all 12/26/2023 [facility] of Occupat ional Health - Occupational [...] any time in the past 12 m [facility], were you homeless or living in a fdc (including now)? No 12/26/2023 Personal Safety Answer Date Recorded Have you ever been in or are you currently in a harmful physical or emotional relationship or is someone making you feel afraid or unsafe? 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 Gender Identity Not on file Sexual Orientation Not on file documented as of this encounter Miscellaneous Notes * Telephone Encounter - Ruth Benoit - 09/04/2024 12:31 PM CDT Left message and sent [employer] message requesting call back to schedule new patient Benton murray documented in this encounter Plan of Treatment Not on file documented as of this encounter Visit Diagnoses Not on filedocumented in this encounter Care Teams Air Control Electronics Operator Relationship Specialty Start Date End Date Sendy Sylvester MD [address] [place] [address] PCP - General Internal Medicine 07/03/23 Humberto Harris MD PhD [address] [place] [address] [address] [place] [address] Referring Physician General Surgery 01/08/24 documented as of this encounter
--- OUTSIDE RECORDS SUMMARY | 2024-09-05 08:15 | XMS_ITS | Clinical Summary ---
Author Organization [facility] Address [address] [place] [address] Care Team Providers Care Detailer Name Role Phone Unavailable Primary Care Provider Unavailabl e Source Comments [facility],non-owned Affiliates and Associated Physician Practices is amultiple site organization consisting of ambulatory clinics and hospital sitesin [place], [place], [place] and [place]. This disclosure is being madepursuant to the Care Everywhere program and may not contain all information available regarding this patient. Last updated 18.[facility] Allergies Active Allergy Reactions Criticality Noted Date [...]
[2024-09-05 09:13] LABS: Albumin Level 3.8 g/dL (3.4-5.0); Anion Gap 8 mmol/L (4-12); Blood Urea Nitrogen 33 mg/dL (7-18); Calcium 9.2 mg/dL (8.5-10.1); Carbon Dioxide 25 mmol/L (21-32); Chloride 109 mmol/L (98-108); Estimated Glomerular Filt Rate 29; Glucose 105 mg/dL (70-99); Osmolality Calculated 301 mOsm/kg (285-295); Sodium 142 mmol/L (136-145)
[2024-09-05 16:01] LABS: Creatinine Urine 107.31 mg/dL (40-278); Total Protein Urine Random 26.2 mg/dL (0.0-11.9); Ur Ttl Prot Creatinine Ratio 0.24 mg/mg (0-0.20)
[2024-09-06 09:08] LABS: Vitamin D 25 Hydroxy 32 ng/mL (30-100)
[2024-09-08 01:33] LABS: Parathyroid Intact 151 pg/mL (16-77)
== END 2024-09-05 08:11 | disposition home or self-care (01) ==
PROVIDERS: Internal Medicine Nephrology; PCP Internal Medicine; Visit Provider Internal Medicine
DX: I12.9 Hypertensive chronic kidney disease with stage 1 through stage 4 chronic kidney disease, or unspecified chronic kidney disease (principal); N18.32 Chronic kidney disease, stage 3b; N25.81 Secondary hyperparathyroidism of renal origin; E55.9 Vitamin D deficiency, unspecified; S43.431A Superior glenoid labrum lesion of right shoulder, initial encounter; M25.411 Effusion, right shoulder; M67.813 Other specified disorders of tendon, right shoulder
CPT/HCPCS: 36415; 73221; 80069; 82306; 82570; 83970; 84156

== ENCOUNTER 2024-09-07 09:57 | Outpatient (CLI) | payer MEDICARE, SELFPAY ==
[2024-09-07 10:13] VITALS: BMI 31.8
[2024-09-07] MEDS: IRON SUCROSE COMPLEX 300 MG in SODIUM CHLORIDE 0.9% IV 235 ML 125 MG IVPB (10:30)
[2024-09-07 10:36] VITALS: BP 129/74; PULSE 72; RESP 16; TEMP 36.6; O2SAT 97
--- OUTSIDE RECORDS SUMMARY | 2024-09-07 11:19 | XMS_ITS | Clinical Summary ---
Author Organization [place] [id number] [facility] Address [address] [place] [address] Care Team Providers Care Four Slide Machine Operator Name Role Phone Sendy Sylvester MD Primary Care Provider + [phone] Humberto Harris MD PhD Unavailable [phone] Allergies Active Allergy Reactions Criticality Noted Date [...] edema 09/11/2022 12/23/2023 Overview (12/23/2023): Notes from [facility] [employer] Prior ambulatory phlebectomy versus stripping on L Last Assessment & Plan: These remain asymptomatic. Will continue to follow expectantly. she was instructed to continue wearing compression garments. TIA (transient ischemic attack) 01/01/2022 12/23/2023 Overview (12/23/2023): [facility] 01/01/2022 Encounters Date Type Department Care Team Description 09/04/2024 Telephone [facility] Obstetrics and Gynecology [address] [facility] 13th [place] [address] [place] [address] Ruth Benoit from Last 3 Months Immunizations [...] with MAC TIA (transient ischemic attack) 01/01/2022 [facility] 01/01/2022 Varicose veins of both legs with edema 3 Notes from [facility] Prior ambulatory phlebectomy versus stripping on [...] Not Answered Comments:Pt. Quit smoking on 2021 [facility] Utilities Answer Date Recorded In the past 12 months has e [employer], gas, oil, or water [employer] threatened to shut off services in your [...] often do you attend chur ch or mormonism services? Never 12/26/2023 Do you belong to any clubs o r organizations such as pentecostalism groups, unions, fraternal or athletic groups, or [...] and heating? Not hard at all 12/26/2023 [employer] [place] of Occupat ional Health - Occupational Stress [...] any time in the past 12 m [facility], were you homeless or living in a assisted (including now)? No 12/26/2023 Personal Safety Answer Date Recorded Have you ever been in or are you currently in a harmful physical or emotional relationship or is someone making you feel afraid or unsafe? 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 CINDER PITMAN Gender Identity Not on file Sexual Orientation Not on file Obstetrics History Last Filed Vital Signs Vital Sign Reading Time Taken Comments Blood Pressure 122/70 04/07/2024 10:48 AM CINDER PITMAN Pulse 72 04/07/2024 10:48 AM CINDER PITMAN Temperature 35.8 C (96.4 F) 04/07/2024 10:48 AM CINDER PITMAN Respiratory Rate 18 04/07/2024 10:48 AM CINDER PITMAN Oxygen Saturation 96% 04/07/2024 10:48 AM CINDER PITMAN Inhaled Oxygen Concentration - - Weight 93 kg (205 lb) 04/07/2024 10:48 AM CINDER PITMAN Height 171.5 cm (5' 7.5 ) 04/07/2024 10:48 AM CS T Body Mass Index 31.63 04/07/2024 10:48 AM CINDER PITMAN Plan of Treatment Health Maintenance Due Date [...] Additional history exists Insurance [employer] MEDICARE ADVANTAGE [facility] MEDICARE Address: [facility] [address] [place] [address] [facility] MEDICARE ADVANTAGE Advance Directives For more information, please contact: [phone] * Full Code (Latest Code Status on File) Date Activated Date Inactivated Comments 12/18/2023 10:41 PM 12/25/2023 8:13 PM * Full Code Date Activated Date Inactivated Comments 10/14/2023 7:23 PM 10/27/2023 8:02 PM * Full Code Date Activated Date Inactivated Comments 09/04/2023 9:35 AM 09/04/2023 3:12 PM Care Teams Four Slide Machine Operator Relationship Specialty Start Date End Date Sendy Sylvester MD [address] [place] [address] PCP - General Internal Medicine 07/03/23 Humberto Harris MD PhD [address] [place] [address] Referring Physician General Surgery 01/08/24
--- OUTSIDE RECORDS SUMMARY | 2024-09-07 11:19 | XMS_ITS | Encounter Summary ---
Author Organization [facility] Address [address] [place] [address] Care Team Providers Care Regulatory Specialist Name Role Phone Sendy Sylvester MD Primary Care Provider + [phone] Annalise Amezquita RN Unavailable [phone] Humberto Harris MD PhD Unavailable [phone] Reason for Visit * Reason Onset Date Comments Follow-Up Call 7 Days 12/30/2023 Discharge follow up call placed line busy Encounter Details Date Type Department Care Team (Late st Contact Info) Description 12/30/2023 Telephone [facility] [address] [place] [address] Olivia Burrows RN Follow-Up Call 7 Days (Discharge follow up call placed line busy) Social History Tobacco Use Types Packs/Day Years Used Date Smoking Tobacco: Former Cigarettes Passive Smoke Exposure: Past Smokeless Tobacco: Never Comments:Pt. Quit smoking on 2021 [facility] Utilities Answer Date Recorded In the past 12 months has e electric, gas, oil, or water [employer] threatened to shut off services in your [...] often do you attend chur ch or confucianist services? Never 12/26/2023 Do you belong to [...] and heating? Not hard at all 12/26/2023 [facility] of Occupat ional Health - [...] any time in the past 12 m [facility], were you homeless or living in a alf (including now)? No 12/26/2023 Personal Safety Answer Date Recorded Have you ever been in or are you currently in a harmful physical or emotional relationship or is someone making you feel afraid or unsafe? 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 MECHANICAL SERVICE SPECIALIST Gender Identity Not on file Sexual Orientation Not on file documented as of this encounter Plan of Treatment Not on file documented as of this encounter Visit Diagnoses Not on filedocumented in this encounter Care Teams Regulatory Specialist Relationship Specialty Start Date End Date Sendy Sylvester MD [address] [place] [address] PCP - General Internal Medicine 07/03/23 Annalise Amezquita RN [address] [facility] [address] [place] [address] SHOP Outpatient Desk Maker 12/26/23 01/23/24 Humberto Harris MD PhD [address] [facility] [address] [address] [place] [address] Referring Physician General Surgery 01/08/24 documented as of this encounter
--- OUTSIDE RECORDS SUMMARY | 2024-09-07 11:19 | XMS_ITS | Clinical Summary ---
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 to [...] Encounters Date Type Department Care Team Description 09/05/2024 Orders Only [facility] [address] [place] [address] Missael Estrella MD 08/26/2024 Orders Only [facility] [address] [place] [address] Missael Estrella MD 07/03/2024 Telephone [facility] [address] [place] [address] Chauncey Conde MD Reschedule from Last 3 [...] Info) Description 09/10/2024 8:30 AM CDT Appointment [facility] [place] [address] Chauncey Conde MD [address] [place], [place] [id number] 09/15/2024 8:30 AM CDT Office Visit [facility] [address] [place] [address] Missael Estrella MD [address] [facility] [address] [place], [place] [id number] Health Maintenance Due Date Last Done Comments [...] patient's age to complete this topic Insurance [facility] Care Teams Dot Etcher Apprentice Relationship Specialty Start Date End Date Sendy Sylvester MD [address] [place] [address] PCP - General INTERNAL MEDICINE 09/04/22 Missael Estrella MD [address] [facility] [address] [place] [address] Physician INTERVENTIONAL CARDIOLOGY 08/07/24
--- OUTSIDE RECORDS SUMMARY | 2024-09-07 11:19 | XMS_ITS | Referral Summary ---
Author Organization [place] [address] [facility] Address [address] [place] [address] Care Team Providers Care Lead Generation Marketing Manager Name Role Phone Sendy Sylvester MD Primary Care Provider + [phone] Humberto Harris MD PhD Unavailable [phone] Encounters Date Type Department Care Team Description 09/04/2024 Telephone [facility] Obstetrics and Gynecology [address] [facility] 13th [place] [address] [place] [address] Ruth Benoit from Last 3 [...] edema 09/11/2022 12/23/2023 Overview (12/23/2023): Notes from [facility] [employer] Prior ambulatory phlebectomy versus stripping on L Last Assessment & Plan: These remain asymptomatic. Will continue to follow expectantly. she was instructed to continue wearing compression garments. TIA (transient ischemic attack) 01/01/2022 12/23/2023 Overview (12/23/2023): [facility] 01/01/2022 Immunizations Immunization Administration Dates Next Due Influenza, Quad, Adjuvantated, Intramuscular Influenza, Quadrivalent, Hig h Dose, Preservative Free, Intrr 02/27/2021,04/06/2020 Influenza, Quadrivalent, Spl it, Preservative Free, Intramuscular 02/28/2022 Influenza, Trivalent, Adjuvanted, Intramuscular 03/26/2024 Social History Tobacco Use Types Packs/Day Years Used Date Smoking Tobacco: Former Cigarettes Passive Smoke Exposure: Past Smokeless Tobacco: Never Tobacco Cessation:Counseling Given: Not Answered Comments:Pt. Quit smoking on 2021 [facility] Utilities Answer Date Recorded In the past 12 months has [employer], [employer], or water [employer] threatened to shut off services in your [...] week 12/26/2023 How often do you attend [facility] or caodaism services? Never 12/26/2023 Do you belong to any clubs o r organizations such as samaritan groups, unions, fraternal or athletic groups, or [...] and heating? Not hard at all 12/26/2023 [facility] of Occupat ional [facility] - Occupational Stress Questionnaire Answer Date Recorded [...] any time in the past [address] [facility], were you homeless or living in a halfway (including now)? No 12/26/2023 Personal Safety Answer Date Recorded Have you ever been in or are you currently in a harmful physical or emotional relationship or is someone making you feel afraid or unsafe? 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 SIGNALS ANALYST Gender Identity Not on file Sexual Orientation Not on file Last Filed Vital Signs Vital Sign Reading Time Taken Comments Blood Pressure 122/70 04/07/2024 10:48 AM SIGNALS ANALYST Pulse 72 04/07/2024 10:48 AM SIGNALS ANALYST Temperature 35.8 C (96.4 F) 04/07/2024 10:48 AM SIGNALS ANALYST Respiratory Rate 18 04/07/2024 10:48 AM SIGNALS ANALYST Oxygen Saturation 96% 04/07/2024 10:48 AM SIGNALS ANALYST Inhaled Oxygen Concentration - - Weight 93 kg (205 lb) 04/07/2024 10:48 AM SIGNALS ANALYST Height 171.5 cm (5' 7.5 ) 04/07/2024 10:48 AM CS T Body Mass Index 31.63 04/07/2024 10:48 AM SIGNALS ANALYST Plan of Treatment Not on file Insurance [facility] MEDICARE ADVANTAGE [facility] MEDICARE ADVANTAGE Advance Directives For more information, please contact: [phone] * Full Code (Latest Code Status on File) Date Activated Date Inactivated Comments 12/18/2023 10:41 PM 12/25/2023 8:13 PM * Full Code Date Activated Date Inactivated Comments 10/14/2023 7:23 PM 10/27/2023 8:02 PM * Full Code Date Activated Date Inactivated Comments 09/04/2023 9:35 AM 09/04/2023 3:12 PM Care Teams Lead Generation Marketing Manager Relationship Specialty Start Date End Date Sendy Sylvester MD [address] [place] [address] PCP - General Internal Medicine 07/03/23 Humberto Harris MD PhD [address] [place] [address] Referring Physician General Surgery 01/08/24
--- OUTSIDE RECORDS SUMMARY | 2024-09-07 11:19 | XMS_ITS | Clinical Summary ---
Author Organization [facility] Address [address] [place] [address] Phone Care Team Providers Care Creative Arts Therapist Name Role Phone Sendy Sylvester MD Primary Care Provider [phone] Allergies Active Allergy Reactions Criticality Noted Date [...] to complete this topic Insurance [facility]IC[facility] Advance Directives * Full Code (Latest Code Status on File) Date Activated Date Inactivated Comments 11/06/2023 7:47 AM Care Teams Creative Arts Therapist Relationship Specialty Start Date End Date Sendy Sylvester MD [address] [place] [address] PCP - General Internal Medicine 10/24/23
--- OUTSIDE RECORDS SUMMARY | 2024-09-07 11:19 | XMS_ITS | Clinical Summary ---
Author Organization [email or web address] Address [address] [place] [address] Care Team Providers Care Radioisotope Technologist Name Role Phone Unavailable Primary Care Provider Unavailabl e Source Comments [email or web address],non-owned Affiliates and Associated Physician Practices is amultiple site organization consisting of ambulatory clinics and hospital sitesin [place], [place], [place] and [place]. This disclosure is being madepursuant to the Care Everywhere program and may not contain all information available regarding this patient. Last updated 18.[email or web address] Allergies Active Allergy Reactions Criticality Noted Date [...]
--- NOTE | 2024-09-07 12:59 | PC.NURSE ---
Patient here for Venofer infusion. Education given. All concerns voiced answered. Infusion administered. SEE MAR/patient care notes. Tolerated well.
[2024-09-07 13:00] VITALS: BP 123/70; PULSE 78; RESP 16; O2SAT 97
== END 2024-09-07 09:58 | disposition home or self-care (01) ==
PROVIDERS: PCP Internal Medicine; Visit Provider Internal Medicine
DX: D50.9 Iron deficiency anemia, unspecified (principal)
CPT/HCPCS: 96365; 96366; J1756; J7050

== ENCOUNTER 2024-09-25 09:21 | Outpatient (CLI) | payer MEDICARE, SELFPAY ==
--- OUTSIDE RECORDS SUMMARY | 2024-09-25 09:34 | XMS_ITS | Clinical Summary ---
Author Organization [facility] Address [address] [place] [address] Care Team Providers Care Speaking Unit Assembler Name Role Phone Unavailable Primary Care Provider Unavailabl e Source Comments [facility],non-owned Affiliates and Associated Physician Practices is amultiple site organization consisting of ambulatory clinics and hospital sitesin [place], [place], [place] and [place]. This disclosure is being madepursuant to the Care Everywhere program and may not contain all information available regarding this patient. Last updated 18.[facility] Allergies Active Allergy Reactions Criticality Noted Date Comments Sulfa Drugs Unknown 01/01/2022 Medications * Be aware that medications may not be up to date on this document. Alwaysverify current medications with the patient. aspirin (ASPIRIN) 325 MG tablet Take 1 [...] money to get more. Never true 01/02/2022 Comments Unknown Sex and Gender Information Value Date Recorded Sex Assigned at Not on file Legal Sex Female 1:32 PM CDT Gender Identity Not on file [...] VACCINE ( - 2023-2 5 season) 2024 Respiratory Syncytial Virus (RSV) Vaccine Pt: or over 60 yrs (1 - 1-dose 75+ series) 2024 DEPRESSION SCREENING 06/03/2024 INFLUENZA VACCINE (Season Ended) 2025 HEPATITIS B VACCINE Aged Out No longe [...] patient's age to complete this topic Insurance [employer] Advance Directives * Full Code (Latest Code Status on File) Date Activated Date Inactivated Comments 01/01/2022 5:16 PM 01/03/2022 3:06 PM
--- OUTSIDE RECORDS SUMMARY | 2024-09-25 09:34 | XMS_ITS | Clinical Summary ---
Author Organization [place] [id number] [facility] Address [address] [place] [address] Care Team Providers Care Warp Dyeing Tender Name Role Phone Sendy Sylvester MD Primary Care Provider + [phone] Humberto Harris MD PhD Unavailable [phone] Allergies Active Allergy Reactions Criticality Noted Date [...] edema 09/11/2022 12/23/2023 Overview (12/23/2023): Notes from [facility] Prior ambulatory phlebectomy versus stripping on L Last Assessment & Plan: These remain asymptomatic. Will continue to follow expectantly. she was instructed to continue wearing compression garments. TIA (transient ischemic attack) 01/01/2022 12/23/2023 Overview (12/23/2023): [facility] 01/01/2022 Encounters Date Type Department Care Team Description 09/11/2024 Telephone [facility] Obstetrics and Gynecology [address] 13th [place] [address] [place] [id number] KayceeRuth singh Davida 09/04/2024 Telephone [facility] Obstetrics and Gynecology [address] 13th [place] [address] [place] [address] Kaycee Ruth Davida from Last 3 Months Immunizations Immunization Administration [...] with MAC TIA (transient ischemic attack) 01/01/2022 [facility] 01/01/2022 Varicose veins of both legs with edema 3 Notes from [facility] Prior ambulatory phlebectomy versus stripping on [...] Comments:Pt. Quit smoking on 2021 [facility] Utilities Answer Date Recorded In the past 12 months has [employer], oil, or water [employer] threatened to shut off services in your [...] How often do you attend chur or yazidi services? Never 12/26/2023 Do you belong to any clubs o r organizations such as taoism groups, unions, fraternal or athletic groups, or [...] and heating? Not hard at all 12/26/2023 [facility] - Occupational Stress Questionnaire Answer Date [...] in the past 12 m [facility], were you homeless or living in a [...] on file Legal Sex Female 10:45 AM SERVICE STATION MANAGER Gender Identity Not on file Sexual Orientation Not on file Obstetrics History Last Filed Vital Signs Vital Sign Reading Time Taken Comments Blood Pressure 122/70 04/07/2024 10:48 AM SERVICE STATION MANAGER Pulse 72 04/07/2024 10:48 AM SERVICE STATION MANAGER Temperature 35.8 C (96.4 F) 04/07/2024 10:48 AM SERVICE STATION MANAGER Respiratory Rate 18 04/07/2024 10:48 AM SERVICE STATION MANAGER Oxygen Saturation 96% 04/07/2024 10:48 AM SERVICE STATION MANAGER Inhaled Oxygen Concentration - - Weight 93 kg (205 lb) 04/07/2024 10:48 AM SERVICE STATION MANAGER Height 171.5 cm (5' 7.5 ) 04/07/2024 10:48 AM CS T Body Mass Index 31.63 04/07/2024 10:48 AM SERVICE STATION MANAGER Plan of Treatment Health Maintenance Due [...] 03/26/2024, , 02/28/2022, Additional history exists Insurance [facility] MEDICARE ADVANTAGE [facility] MEDICARE ADVANTAGE Advance Directives For more information, please contact: [phone] * Full Code (Latest Code Status on File) Date Activated Date Inactivated Comments 12/18/2023 10:41 PM 12/25/2023 8:13 PM * Full Code Date Activated Date Inactivated Comments 10/14/2023 7:23 PM 10/27/2023 8:02 PM * Full Code Date Activated Date Inactivated Comments 09/04/2023 9:35 AM 09/04/2023 3:12 PM Care Teams Warp Dyeing Tender Relationship Specialty Start Date End Date Sendy Sylvester MD [address] [place] [address] PCP - General Internal Medicine 07/03/23 Humberto Harris MD PhD [address] [facility] [address] [place] [address] Referring Physician General Surgery 01/08/24
--- OUTSIDE RECORDS SUMMARY | 2024-09-25 09:34 | XMS_ITS | Referral Summary ---
Author Organization [place] [id number] [facility] Address [address] [place] [address] Care Team Providers Care Cemetery Laborer Name Role Phone Sendy Sylvester MD Primary Care Provider + [phone] Humberto Harris MD PhD Unavailable [phone] Encounters Date Type Department Care Team Description 09/11/2024 Telephone [facility] Obstetrics and Gynecology [address] [facility] 13th [place] [address] Ruth Benoit 09/04/2024 Telephone [facility] Obstetrics and Gynecology [address] [facility] 13th [place] [address] [place] [address] Ruth Benoit from Last 3 [...] edema 09/11/2022 12/23/2023 Overview (12/23/2023): Notes from [facility] Prior ambulatory phlebectomy versus stripping on L Last Assessment & Plan: These remain asymptomatic. Will continue to follow expectantly. she was instructed to continue wearing compression garments. TIA (transient ischemic attack) 01/01/2022 12/23/2023 Overview (12/23/2023): [facility] 01/01/2022 Immunizations Immunization Administration Dates Next Due Influenza, Quad, Adjuvantated, Intramuscular Influenza, Quadrivalent, Hig h Dose, Preservative Free, Intrr 02/27/2021,04/06/2020 Influenza, Quadrivalent, Spl it, Preservative Free, Intramuscular 02/28/2022 Influenza, Trivalent, Adjuvanted, Intramuscular 03/26/2024 Social History Tobacco Use Types Packs/Day Years Used Date Smoking Tobacco: Former Cigarettes Passive Smoke Exposure: Past Smokeless Tobacco: Never Tobacco Cessation:Counseling Given: Not Answered Comments:Pt. Quit smoking on 2021 [facility] shoppities Answer Date Recorded In the past 12 months has e [employer], gas, oil, or water [employer] threatened to shut off services in your [...] often do you attend chur ch or episcopalian services? Never 12/26/2023 Do you belong to [...] and heating? Not hard at all 12/26/2023 [facility] [...] any time in the past 12 m [facility], were you homeless or living in [...] on file Legal Sex Female 10:45 AM DENTISTRY PROFESSOR Gender Identity Not on file Sexual Orientation Not on file Last Filed Vital Signs Vital Sign Reading Time Taken Comments Blood Pressure 122/70 04/07/2024 10:48 AM DENTISTRY PROFESSOR Pulse 72 04/07/2024 10:48 AM DENTISTRY PROFESSOR Temperature 35.8 C (96.4 F) 04/07/2024 10:48 AM DENTISTRY PROFESSOR Respiratory Rate 18 04/07/2024 10:48 AM DENTISTRY PROFESSOR Oxygen Saturation 96% 04/07/2024 10:48 AM DENTISTRY PROFESSOR Inhaled Oxygen Concentration - - Weight 93 kg (205 lb) 04/07/2024 10:48 AM DENTISTRY PROFESSOR Height 171.5 cm (5' 7.5 ) 04/07/2024 10:48 AM CS T Body Mass Index 31.63 04/07/2024 10:48 AM DENTISTRY PROFESSOR Plan of Treatment Not on file Insurance [facility] MEDICARE ADVANTAGE [facility] Address: [address] [address] [place] [address] [facility] MEDICARE ADVANTAGE [facility] MEDIC[facility] Address: [address] [address] [place] [address] Advance Directives For more information, please contact: [phone] * Full Code (Latest Code Status on File) Date Activated Date Inactivated Comments 12/18/2023 10:41 PM 12/25/2023 8:13 PM * Full Code Date Activated Date Inactivated Comments 10/14/2023 7:23 PM 10/27/2023 8:02 PM * Full Code Date Activated Date Inactivated Comments 09/04/2023 9:35 AM 09/04/2023 3:12 PM Care Teams Cemetery Laborer Relationship Specialty Start Date End Date Sendy Sylvester MD [address] [place] [address] PCP - General Internal Medicine 07/03/23 Humberto Harris MD PhD [address] [place] [address] Referring Physician General Surgery 01/08/24
--- OUTSIDE RECORDS SUMMARY | 2024-09-25 09:34 | XMS_ITS | Clinical Summary ---
Author Organization [facility] Address [address] [place] [address] Care Team Providers Care Certified Performance Technologist Name Role Phone Sendy Sylvester MD Primary Care Provider Missael Dillard MD Unavailable [phone] Allergies Active Allergy Reactions Criticality Noted Date [...] Active Problems Problem Noted Date Diagnosed Date Essential (primary) hypertension 09/15/2024 Hyperlipidemia, mixed 09/15/2024 Iliac artery stenosis, left 09/15/2024 Infrarenal abdominal aortic aneurysm (AAA) witho ut rupture 09/11/2022 Overview (09/11/2022): 08/31/22 3.9 cm x 4.1 cm Assessment & Plan (09/11/2022 1:24 PM CDT): She presents for evaluation of an infrarenal abdominal aortic aneurysm. She has no symptoms of aortic aneurysmal disease.A CTA of the abdomen and pelvis performed at [facility] on 08/31/22 demonstrates the aneurysm to [...] Encounters Date Type Department Care Team Description 09/15/2024 8:30 AM CDT Office Visit [facility] [place] [address] Missael Dillard MD 09/15/2024 8:15 AM CDT - 09/15/2024 11:59 PM CDT Hospital Encounter [facility] [address] [place], [place] [address] [address] Missael Dillard MD Discharge Disposition: Home or Self Care (Routine Discharge) 09/15/2024 Telephone [facility] eld [address] [place] [address] Missael Dillard MD Schedule Test 09/15/2024 Travel 09/10/2024 8:14 AM CDT - 09/10/2024 11:59 PM CDT Hospital Encounter [facility] [address] [place] [address] Chauncey Conde MD Discharge Disposition: Home or Self Care (Routine Discharge) 09/10/2024 Travel 09/05/2024 Orders Only [facility] [address] [place] [address] Missael Dillard MD 08/26/2024 Orders Only [facility] [address] [place] [address] Missael Dillard MD 07/03/2024 Telephone [facility] [address] [place] [address] Chauncey Conde MD Reschedule from Last 3 [...] Sign Reading Time Taken Comments Blood Pressure 125/75 09/15/2024 8:42 AM CDT Pulse 74 09/15/2024 8:42 AM CDT Temperature - - Respiratory Rate 16 09/15/2024 8:42 AM CDT Oxygen Saturation 95% 09/15/2024 8:42 AM CDT Inhaled Oxygen Concentration - - Weight 95.7 kg (211 lb) 09/15/2024 8:42 AM CDT Height 172.7 cm (5' 8 ) 09/15/2024 8:42 AM CDT Body Mass Index 32.08 09/15/2024 8:42 AM CDT Plan of Treatment Upcoming Encounters Date Type Department Care Team (Late st Contact Info) Description 09/29/2024 10:[address] [facility] [address] [place] [address] Missael Dillard MD [address] [facility] [address] [place] [address] 12/15/2024 8:15 AM CDT Office Visit [facility] [place] [address] Missael Dillard MD [address] , [facility] [address] [place] [address] Health Maintenance Due Date Last Done Comments ASCVD Statin 1950 Colorectal Cancer Screening Colonoscopy (10 Years) 1950 Hepatitis C 1967 DTaP, Tdap and Td Vaccines (1 - Tdap) 1968 Pneumococcal Vaccine: 50+ Years (1 of 1 - PCV) 1999 Zoster Vaccines (1 of 2) 1999 Annual Medicare Wellness Visit 2014 Dexa Scan (General) 2014 COVID-19 Vaccine ( season) 2024 03/27/2022, 10/26/2021, 04/05/2021, Additional history exists RSV Immunization or 60+ Years (1 - 1-dose 75+ series) 2024 ASCVD LDL 05/31/2024 05/31/2023 Meningococcal B Vaccine Aged Out No l onger eligible based on patient's age to complete this topic Meningococcal Vaccine Aged Out No stephanie leslie eligible based on patient's age to complete this topic RSV Immunizations Under 20 Months Aged Out No longer eligible based on patient's age to complete this topic Procedures Procedure Name Priority Date/Time Associated Diagnosis Comments ECG 12-LEAD Routine 09/15/2024 8:31 AM CDT Essential hypertension Hypercholesterolemi a USV AORTA ILIAC IVC DUPLEX COMP Routine 09/10/2024 9:08 AM CDT Infrarenal abdominal aortic aneurysm, without rupture LIPID PANEL Routine 05/31/2023 from Last 3 Months or Most Recently Relevant to Health Maintenance Results * ECG 12 lead (HOSPITAL PERFORMED ONLY) (09/15/2024 8:31 AM CDT) 09/15/2024 8:31 AM CDT Narrative [facility] [place] [facility] - 09/15/2024 5:47 PM CDT [address] [place] [address] Test Date: 2024-09-15 Pat [facility] Department: 3 Room: Gender: Female Sales Administration Manager: : 1950 Requested By: MISSAEL DILLARD Order Number: [id number] Reading MD: Missael Dillard Measurements Intervals [place] Rate: 75 P: 29 AL: 149 QRS: -2 QRSD: 85 T: 21 QT: 356 QTc: 399 Interpretive Statements SINUS RHYTHM LOW QRS VOLTAGE IN PRECORDIAL LEADS [QRS DEFLECTION < 1.0 mV IN CHEST LEADS] POSSIBLE ANTERIOR MYOCARDIAL INFARCTION , PROBABLY OLD [30 ms Q WAVE IN V3/V4, OR R < 0.2 mV IN V4] Procedure Note Missael Dillard MD - 09/15/[address] [place] [address] Test Date: 2024-09-15 Pat Name: LISSETH NGUYEN Department: 3 Room: Gender: Female Sales Administration Manager: : 1950 Requested By: MISSAEL DILLARD Order Number: [id number] Reading MD: Missael Dillard Measurements Intervals [place] Rate: 75 P: 29 AL: 149 QRS: -2 QRSD: 85 T: 21 QT: 356 QTc: 399 Interpretive Statements SINUS RHYTHM LOW QRS VOLTAGE IN PRECORDIAL LEADS [QRS DEFLECTION < 1.0 mV IN CHESTLEADS] POSSIBLE ANTERIOR MYOCARDIAL INFARCTION , PROBABLY OLD [30 ms Q WAVE IN V3/V4, OR R < 0.2 mV IN V4] us Missael Dillard MD ECG ORDERABLES Final Result [facility] * USV AORTA ILIAC IVC DUPLEX COMP (09/10/2024 9:08 AM CDT) Anatomical Region Laterality Modality NA Ultrasound 09/10/2024 8:23 AM CDT Narrative 09/12/2024 5:15 PM CDT Outreach Aortic Scan Pat.Name: Lisseth Nguyen Pat.ID: [id number] .Date: 09/10/2024 [facility] Time: 8:23:00 AM Study Type:OUTREACH Aortic Scan Age: 11 1950,74Y Sex: F Sonogrphr: Rossana Pat. Stat.:Outpatient Reason for Study:Infrarenal abdominal aortic aneurysm, without rupture Procedures: Study performed at [place], [place] and interpreted by [facility]. ++++++++++++++++++++++++++++++++++++ SUMMARY: ++++++++++++++++++++++++++++++++++++ AO: An abdominal aortic aneurysm noted in the infrarenal aorta with maximum size of 4.96x4.77cm cm. Bilat: Elevated velocity in the left iliac artery, consider additional imaging to r/o any stenosis ++++++++++++++++++++++++++++++++++++ FINDINGS: ++++++++++++++++++++++++++++++++++++ AO: An abdominal aortic aneurysm noted in the infrarenal aorta with maximum size of 4.96x4.77cm cm. Atherosclerotic aorta is noted. Bilat: Patent bilateral iliac arteries noted. No evidence of iliac artery aneurysm or ectasia noted bilaterally. Elevated velocity in the left iliac artery, consider additional imaging to r/o any stenosis ++++++++++++++++++++++++++++++++++++ MEASUREMENTS: ++++++++++++++++++++++++++++++++++++ DOPPLER Supra AO Supra AO PSV 111 cm/s Supra AO Dim 2 2.4 cm Supra AO Dim 1 2.2 cm Juxta AO Juxta AO PSV 32 cm/s Juxta AO Dim 2 5 cm Juxta AO Dim 1 4.8 cm Infra AO Infra AO PSV 30 cm/s Infra AO Dim 2 4.6 cm Infra AO Dim 1 4.1 cm Rt Prox Common Iliac Common Iliac PS 73 cm/s Common Iliac Di 1 cm Common Iliac Di 1.1 cm Lt Prox Common Iliac Common Iliac PS 224 cm/s Common Iliac Di 0.9 cm Common Iliac Di 0.9 cm <Electronic Signature> 09/12/2024 05:15 PM Missael Dillard M.D. Procedure Note Missael Dillard MD - 09/12/2024 Outreach Aortic Scan Pat.Name: Lisseth Nguyen Pat.ID: [id number] .Date: 09/10/2024 [facility]er.MD: [facility] Time: 8:23:00 AM Study Type:OUTREACH Aortic Scan Age: 11 1950,74Y Sex: F Sonogrphr: Pat. Stat.:Outpatient Reason for Study:Infrarenal abdominal aortic aneurysm, without rupture Procedures: Study performed at [facility], [place], [place] and interpreted by [facility]. ++++++++++++++++++++++++++++++++++++ SUMMARY: ++++++++++++++++++++++++++++++++++++ AO: An abdominal aortic aneurysm noted in the infrarenal aorta with maximum size of 4.96x4.77cm cm. Bilat: Elevated velocity in the left iliac artery, consider additional imaging to r/o any stenosis ++++++++++++++++++++++++++++++++++++ FINDINGS: ++++++++++++++++++++++++++++++++++++ AO: An abdominal aortic aneurysm noted in the infrarenal aorta with maximum size of 4.96x4.77cm cm. Atherosclerotic aorta is noted. Bilat: Patent bilateral iliac arteries noted. No evidence of iliac artery aneurysm or ectasia noted bilaterally. Elevated velocity in the left iliac artery, consider additional imaging to r/o any stenosis ++++++++++++++++++++++++++++++++++++ MEASUREMENTS: ++++++++++++++++++++++++++++++++++++ DOPPLER Supra AO Supra AO PSV 111 cm/s Supra AO Dim 2 2.4 cm Supra AO Dim 1 2.2 cm Juxta AO Juxta AO PSV 32 cm/s Juxta AO Dim 2 5 cm Juxta AO Dim 1 4.8 cm Infra AO Infra AO PSV 30 cm/s Infra AO Dim 2 4.6 cm Infra AO Dim 1 4.1 cm Rt Prox Common Iliac Common Iliac PS 73 cm/s Common Iliac Di 1 cm Common Iliac Di 1.1 cm Lt Prox Common Iliac Common Iliac PS 224 cm/s Common Iliac Di 0.9 cm Common Iliac Di 0.9 cm <Electronic Signature> 09/12/2024 05:15 PM Missael Dillard M.D. Missael Dillard MD [facility] Final Result * LIPID PANEL (05/31/2023) CHOLESTEROL 174 TRIGLYCERIDES 134 HDL 71 LDL (CALCULATED) 80 CHOL/HDL RATIO 2.5 NON HDL CHOLESTEROL 103 Narrative Resulting Agency Comment [employer], [place], [place] Sendy Sylvester MD LABORATORY Final Result from Last 3 Months or Most Recently Relevant to Health Maintenance Insurance [facility] Care Teams Certified Performance Technologist Relationship Specialty Start Date End Date Sendy Sylvester MD [address] [place] [address] PCP - General INTERNAL MEDICINE 09/04/22 Missael Dillard MD [address] [facility] [address] [place] [address] Physician INTERVENTIONAL CARDIOLOGY 08/07/24
--- OUTSIDE RECORDS SUMMARY | 2024-09-25 09:34 | XMS_ITS | Clinical Summary ---
Author Organization [facility] Address [address] [place] [address] Phone Care Team Providers Care Hot Roll Laminator Name Role Phone Sendy Sylvester MD Primary Care Provider [phone] Allergies Active Allergy Reactions Criticality Noted Date [...] to complete this topic Insurance [facility]IC[facility] Advance Directives * Full Code (Latest Code Status on File) Date Activated Date Inactivated Comments 11/06/2023 7:47 AM Care Teams Hot Roll Laminator Relationship Specialty Start Date End Date Sendy Sylvester MD [address] [place] [address] PCP - General Internal Medicine 10/24/23
--- OUTSIDE RECORDS SUMMARY | 2024-09-25 09:34 | XMS_ITS | Encounter Summary ---
Author Organization [facility] Address [address] [place] [address] Care Team Providers Care Accounts Payable Accountant Name Role Phone Sendy Sylvester MD Primary Care Provider + [phone] Annalise Amezquita RN Unavailable [phone] Humberto Harris MD PhD Unavailable [phone] Reason for Visit * Reason Onset Date Comments Follow-Up Call 7 Days 12/30/2023 Discharge follow up call placed line busy Encounter Details Date Type Department Care Team (Late st Contact Info) Description 12/30/2023 Telephone [facility] [address] [place] [address] Olivia Burrows RN Follow-Up Call 7 Days (Discharge follow up call placed line busy) Social History Tobacco Use Types Packs/Day Years Used Date Smoking Tobacco: Former Cigarettes Passive Smoke Exposure: Past Smokeless Tobacco: Never Comments:Pt. Quit smoking on 2021 [facility] Utilities Answer Date Recorded In the past 12 months has e electric, gas, oil, or water [employer] threatened to shut off services in your [...] often do you attend chur ch or protestant services? Never 12/26/2023 Do you belong to [...] and heating? Not hard at all 12/26/2023 [facility] of Occupat ional Health - Occupational Stress [...] any time in the past 12 m [facility], were you homeless or living in a senior care (including now)? No 12/26/2023 Personal Safety Answer Date Recorded Have you ever been in or are you currently in a harmful physical or emotional relationship or is someone making you feel afraid or unsafe? 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 MEDICAL INSTRUMENT TECHNICIAN Gender Identity Not on file Sexual Orientation Not on file documented as of this encounter Plan of Treatment Not on file documented as of this encounter Visit Diagnoses Not on filedocumented in this encounter Care Teams Accounts Payable Accountant Relationship Specialty Start Date End Date Sendy Sylvester MD [address] [place] [address] PCP - General Internal Medicine 07/03/23 Annalise Amezquita RN [address] [facility] [address] [place] [address] SHOP Outpatient Moving Picture Operator 12/26/23 01/23/24 Humberto Harris MD PhD [address] [facility] [address] [place] [address] Referring Physician General Surgery 01/08/24 documented as of this encounter
[2024-09-25 09:37] LABS: Hematocrit 39.3 % (35.0-42.0); Hemoglobin 12.2 g/dL (11.7-13.8); Mean Corpuscular Hemoglobin 29.8 pg (27.0-31.0); Mean Corpuscular Volume 95.9 fL (78.0-102.0); Mean Platelet Volume 11.4 fl (9.2-11.8); Platelet Count Result 413 K/mm3 (150-420); Red Cell Distribution Width 15.8 % (11.6-14.4); White Blood Count 8.1 K/mm3 (4.8-10.8)
[2024-09-25 11:12] LABS: Ferritin 180 ng/mL (8-252); Iron 64 ug/dL (50-170)
[2024-09-26 08:27] LABS: CA-125 7 U/mL (<35)
== END 2024-09-25 09:22 | disposition home or self-care (01) ==
PROVIDERS: Nurse Practitioner Family; PCP Internal Medicine; Visit Provider Internal Medicine
DX: D64.9 Anemia, unspecified (principal); N83.209 Unspecified ovarian cyst, unspecified side; R19.09 Other intra-abdominal and pelvic swelling, mass and lump
CPT/HCPCS: 36415; 82728; 83540; 85027; 86304

== ENCOUNTER 2024-09-28 14:30 | Outpatient (RCR) | payer MEDICARE, SELFPAY ==
[2024-09-28 14:35] VITALS: BP_SYST 80
--- NOTE | 2024-09-28 15:34 | OPREHPOC ---
Outpatient Therapy Plan of Care This is a Multidisciplinary Plan of Care that may contain components documented by all disciplines (PT, OT, and ST.) PT Problem 1 PT Problem #1 Knowledge Deficit PT Goal 1 Goal / Goal Update Independent and compliant with HEP. Target Visit 4 PT Problem 2 PT Problem #2 Pain PT Goal 1 Goal / Goal Update Pt to report no more than 5/10 pain with activity. Pt to be able to sleep at night without interruption from shoulder pain. Target Visit 12 PT Problem 3 PT Problem #3 Impaired Range of Motion PT Goal 1 Goal / Goal Update Pt to reach full R shoulder PROM. Pt to improve active R shoulder flexion to 120 deg without pain. Pt to improve active R shoulder abduction to 120 deg without pain. Target Visit 12 PT Problem 4 PT Problem #4 Impaired Strength PT Goal 1 Goal / Goal Update Pt to improve R shoulder strength to 4+/5 without pain. Target Visit 12 PT Problem 5 PT Problem #5 Impaired Functional Mobility PT Goal 1 Goal / Goal Update Pt to be able to wash and comb her hair with her R hand with no more than 5/10 R shoulder pain. Pt to report 20% improvement on Quick DASH. Target Visit 12
--- NOTE | 2024-09-28 15:34 | PTOPEVAL1 ---
Assessment and note entered by Lexi Avila, PT Evaluation Information Assessment Status Evaluation ICD-10 Condition Codes (PT) Pain in right shoulder M25.511 Onset 07/31/24 Subjective Information Pt reports her shoulder started hurting a couple months ago and pain is located in the posterior deltoid and tricep region. Pain is increased by pulling sheets over her in bed, getting dressed, brushing and washing her hair. She seldom drives, but did drive herself here from home and states it wasn't bothersome. She states that any time she lifts her arm up to the side it pulls and creates a sharp pain. She has minimal pain at rest and it's a dull ache but when she moves it it's a sharp pain that is very severe. The pain wakes her up at night when she moves. She reports her doctor wants to avoid surgery in order to preserve her kidney function. Pt also reports she has an aortic aneurysm that her doctor has been keeping an eye on and she is getting a CT scan on tomorrow. Reported Pain Level Pain Score 1: Self Report Assessment PT Clinical Summary Mrs. Gibbons is a 74 yo female who enters the clinic with R shoulder pain and evidence of superior labral tear on MRI. She demonstrates significant R shoulder pain with active and resisted R shoulder motions as well as significant limitations in both active and passive ROM. She will benefit from skilled PT intervention to reduce pain and inflammation in the R shoulder and for rotator cuff and scapular strengthening to improve dynamic stability of the R shoulder. Plan of Care Interventions Electrical Stimulation,Hot Pack/Cold Pack,Manual Therapy,Neuro Re-education,Patient/Caregiver Education,Therapeutic Activities,Therapeutic Exercise,Self-Care/Home Management PT Services Indicated Yes Treatment Frequency and 3x/week for 6 visits initially, then 2x/week for 6 Duration visits These treatments will address the objective and functional deficits as defined above. The patient will be advanced safely and appropriately in order for the patient to progress towards his/her prior level of function. Additional exercises will be introduced and as well as a comprehensive home exercise program upon discharge, if needed, ?to ensure carryover of functional gains achieved in the clinic. This treatment plan has been reviewed and agreement upon by the patient.
--- NOTE | 2024-10-15 17:24 | PCPTNOTE ---
I reviewed the Student Therapist's documentation and agree with the findings. -Key Ruiz, PT
[2024-10-27 13:07] VITALS: BP_SYST 60
--- NOTE | 2024-10-27 14:00 | PTOPPROG ---
Assessment and note entered by Key Ruiz, PT Evaluation Information Assessment Status Progress ICD-10 Condition Codes (PT) Pain in right shoulder M25.511 Onset 07/31/24 Subjective Information Lisseth Gibbons reports her right shoulder is very painful today after doing laundry yesterday. She reports she slept bad and was woken by pain in the right shoulder last night. She still has difficulty reaching with the right arm, lifting, carrying, and dressing/grooming. She plans to follow up with her doctor when she completes her PT. Assessment PT Clinical Summary Mrs. Gibbons has completed 10 skilled PT visits for R shoulder pain and evidence of superior labral tear on MRI. She is reporting minimal change in her pain and function and notes she still has difficulty reaching, pushing, and pulling. She demonstrates improved right shoulder flexion AROM. She continues to have decreased abduction and external rotation AROM as well as decreased strength. She has made a little progress towards her goals. She has 2 visits pending. Plan of Care Interventions Electrical Stimulation,Hot Pack/Cold Pack,Manual Therapy,Neuro Re-education,Patient/Caregiver Education,Therapeutic Activities,Therapeutic Exercise,Self-Care/Home Management PT Services Indicated Yes Treatment Frequency and Continue per original POC for 2 additional visits Duration These treatments will address the objective and functional deficits as defined above. The patient will be advanced safely and appropriately in order for the patient to progress towards his/her prior level of function. Additional exercises will be introduced and as well as a comprehensive home exercise program upon discharge, if needed, ?to ensure carryover of functional gains achieved in the clinic. This treatment plan has been reviewed and agreement upon by the patient.
[2024-11-05 13:00] VITALS: BP_SYST 160
--- NOTE | 2024-11-05 13:56 | OPREHPOC ---
Outpatient Therapy Plan of Care This is a Multidisciplinary Plan of Care that may contain components documented by all disciplines (PT, OT, and ST.) PT Problem 1 PT Problem #1 Knowledge Deficit PT Goal 1 Goal / Goal Update Independent and compliant with HEP. Target Visit 4 Progress Met PT Problem 2 PT Problem #2 Pain PT Goal 1 Goal / Goal Update Pt to report no more than 5/10 pain with activity. Pt to be able to sleep at night without interruption from shoulder pain. Target Visit 12 Progress Not Met PT Problem 3 PT Problem #3 Impaired Range of Motion PT Goal 1 Goal / Goal Update Pt to reach full R shoulder PROM. -not met Pt to improve active R shoulder flexion to 120 deg without pain. -degrees met, still painful Pt to improve active R shoulder abduction to 120 deg without pain. -not met Target Visit 12 Progress Partially Met PT Problem 4 PT Problem #4 Impaired Strength PT Goal 1 Goal / Goal Update Pt to improve R shoulder strength to 4+/5 without pain. Target Visit 12 Progress Partially Met PT Problem 5 PT Problem #5 Impaired Functional Mobility PT Goal 1 Goal / Goal Update Pt to be able to wash and comb her hair with her R hand with no more than 5/10 R shoulder pain. Pt to report 20% improvement on Quick DASH. Target Visit 12 Progress Not Met
--- NOTE | 2024-11-05 13:56 | PTOPDC ---
Assessment and note entered by Lexi Avila, PT Evaluation Information Assessment Status Discharge ICD-10 Condition Codes (PT) Pain in right shoulder M25.511 Onset 07/31/24 Subjective Information Pt reports her shoulder was hurting quite a bit yesterday but today it doesn't feel so bad. She reports feeling like her shoulder is about the same since beginning PT and doesn't feel like PT has helped very much. She plans on going back to her doctor for her shoulder but she currently has 3 aneurysms in her aorta and other connecting arteries that will require surgery within the next month. She reports the aneurysms will get taken care of first and then she'll see her doctor for her shoulder. Reported Pain Level Pain Score 4: Self Report Assessment PT Clinical Summary Mrs. Gibbons has attended 12 total skilled PT visits for R shoulder pain. Since beginning therapy her progress has been minimal. She continues to demonstrate R shoulder pain at rest and with activity along with ROM and strength deficits. She has been independent with her PT exercises and has improved her shoulder flexion AROM, however all other goals are unmet at this time. It is recommended she return to her doctor for further examination/imaging and continue home performance of PT exercises. Plan of Care PT Services Indicated No
== END 2024-11-05 16:34 | disposition home or self-care (01) ==
LOC: CHSPT 14:30
PROVIDERS: PCP Internal Medicine; Visit Provider Internal Medicine
DX: M25.511 Pain in right shoulder (principal)
CPT/HCPCS: 97014; 97110; 97112; 97140; 97161; G0283

== ENCOUNTER 2025-01-08 10:53 | Outpatient (CLI) | payer MEDICARE, SELFPAY ==
--- OUTSIDE RECORDS SUMMARY | 2025-01-08 10:57 | XMS_ITS | Clinical Summary ---
Author Organization [place] [id number] Address [address] [place] [address] Care Team Providers Care Tailor Garment Fitter Name Role Phone Sendy Sylvester MD Primary Care Provider + [phone] Humberto Harris MD PhD Unavailable [phone] Allergies Active Allergy Reactions Criticality Noted Date [...] mg total) by mouth daily 12/25/19 24 Active gabapentin (NEURONTIN) 300 mg capsule Take 1 capsule (300 mg total) by mouth 3 (three) times a day 08/05/20 24 Active atorvastatin (LIPITOR) 80 mg tablet Take 1 tablet (80 mg total) by mouth daily 03/29/20 24 Active Active Problems Problem Noted Date Diagnosed Date Essential (primary) hypertension 09/15/2024 Hyperlipidemia, mixed 09/15/2024 Iliac artery stenosis, left 09/15/2024 Chronic renal disease, stage IV 01/08/2024 Pleural [...] Bipap order for tonight Paraesophageal hernia 10/14/2023 Hiatal hernia with GERD 09/11/2023 Infrarenal abdominal aortic aneurysm (AAA) witho ut rupture 09/11/2022 Overview (12/09/2024): 08/31/22 3.9 cm x 4.1 cm Resolved Problems Problem Noted Date Diagnosed Date Resolved Date Severe protein-calorie malnutrition 12/19/2023 01/08/2024 Varicose veins of both legs with edema 09/11/2022 12/23/2023 Overview (12/23/2023): Notes from [facility] Prior ambulatory phlebectomy versus stripping on L Last Assessment & Plan: These remain asymptomatic. Will continue to follow expectantly. she was instructed to continue wearing compression garments. TIA (transient ischemic attack) 01/01/2022 12/23/2023 Overview (12/23/2023): [facility] 01/01/2022 Encounters Date Type Department Care Team Description 12/09/2024 10:00 AM CDT Office Visit [facility] Surgery [address] [place] [address] [place] [id number] Jeff Darby MD Infrarenal abdominal aortic aneurysm, without rupture (Primary Dx); Encounter for surgical aftercare following surgery on the circulatory system; Infrarenal abdominal aortic aneurysm (AAA) without rupture 11/17/2024 1:30 PM CDT - 11/17/2024 11:59 PM CDT Hospital Encounter [facility] ([facility]) [address] [place] [id number] Diagnosis unknown Discharge Disposition: Discharge to home or self care 11/17/2024 1:29 PM CDT - 11/17/2024 11:59 PM CDT Hospital Encounter [facility] ([facility]) [address] [place] [address] Discharge Disposition: Discharge to home or self care from Last 3 Months Immunizations Immunization Administration [...] with MAC TIA (transient ischemic attack) 01/01/2022 [facility] 01/01/2022 Varicose veins of both legs with edema 3 Notes from [facility] Prior ambulatory phlebectomy versus stripping on L [...] Not Answered Comments:Pt. Quit smoking on 2021 [facility] [employer] Answer Date Recorded In the past 12 months has e [employer], oil, or water [employer] threatened to shut off services in your [...] often do you attend chur ch or yarsanism services? Never 12/26/2023 Do you belong to any clubs o r organizations such as latter-day groups, unions, fraternal or athletic groups, or [...] and heating? Not hard at all 12/26/2023 [facility] [place] [facility] Occupat ional Health - Occupational Stress [...] any time in the past 12 m [facility], were you homeless or living in a longterm (including now)? No 12/26/2023 Personal Safety Answer Date Recorded Have you ever been in or are you currently in a harmful physical or emotional relationship or is someone making you feel afraid or unsafe? 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 CLAY THROWER Gender Identity Not on file Sexual Orientation Not on file Obstetrics History Last Filed Vital Signs Vital Sign Reading Time Taken Comments Blood Pressure 115/76 12/09/2024 9:57 AM CDT Pulse 81 12/09/2024 9:57 AM CDT Temperature 36.5 C (97.7 F) 12/09/2024 9:57 AM CDT Respiratory Rate 18 04/07/2024 10:4 8 AM CLAY THROWER Oxygen Saturation 94% 12/09/2024 9:57 AM CDT Inhaled Oxygen Concentration - - Weight 94.7 kg (208 lb 11.2 oz) 12/09/2024 9:57 AM CDT Height 170.2 cm (5' 7) 12/09/2024 9:57 AM CDT Body Mass Index 32.69 12/09/2024 9:57 AM CDT Plan of Treatment Health Maintenance Due Date Last Done Comments Colon Cancer Screening-Colonoscopy 1950 Depression Screening 1950 Hepatitis C Screening 1950 Osteoporosis Screening-Bone Density Scan 1949 DTaP/Tdap/Td Vaccine (1 - Tdap) 1960 Hepatitis B Screening 1967 Pneumococcal vaccine 65+ (1 of 1 - PCV) 1999 Zoster Vaccine (1 of 2) 1999 Well Visit 65+ 2014 Covid-19 Vaccine (2023-2 5 season) 2024 03/26/2024, 04/19/2023, 03/27/2022, Additional history exists Fall Risk Assessment 12/24/2024 12/25/2023 Influenza Vaccine (#1) 2025 , 04/19/2023, 02/28/2022, Additional history exists Procedures Procedure Name Priority Date/Time Associated Diagnosis Comments CT BODY OUTSIDE CONSULT Routine 11/17/2024 1:30 PM CDT Diagnosis unknown US OUTSIDE CONSULT Routine 11/17/2024 1: 29 PM CDT from Last 3 Months Results * CT Body Outside Consult (11/17/2024 1:30 PM CDT) Anatomical Region Laterality Modality Body N/A Computed Tomogra phy 11/17/2024 4:01 PM CDT Impressions 11/18/2024 1:09 PM CDT 1. Multilobulated infrarenal abdominal aortic aneurysm, measuring up to 4.9 x 4.5 cm. 2. Calcified atherosclerosis of the abdominal aorta and its major branches including mild to moderate stenosis of the celiac arterial its origin and moderate right and mild to moderate left renal artery stenosis. 3. Focal aneurysmal dilation of the distal right common iliac artery, measuring up to 2.2 cm in diameter. 4. Relatively mild peripheral arterial vascular disease with mild multifocal stenoses in both superficial femoral arteries. Three-vessel runoff to the level of both ankle joints. 5. Morphologic features suspicious for hepatic fibrosis. The findings, conclusions and recommendations within this report do not replace the initial findings, conclusions and recommendations made at the facility where the study was performed based upon the imaging and clinical condition at that time. Comparison with the prior report and clinical history is necessary. The provided images may or may not represent the [place] source data set and thus may contain changes that may lower the accuracy of this second-opinion interpretation. Dictated by: Ian Lundberg M.D. The radiology attending physician has personally reviewed this study, and had reviewed and/or edited this written report and agrees with it. Electronically signed by: Hemanth Aceves M.D., Ph.D Narrative 11/18/2024 1:09 PM CDT EXAMINATION: RADIOLOGY CONSULTATION ON OUTSIDE IMAGING STUDY STUDY INITIALLY PERFORMED: 09/29/2024 at [facility]. TYPE OF STUDY: Multiple CT angiographic images of the abdominal aorta and bilateral iliofemoral vessels with intravenous contrast are provided at the time of this interpretation. CONTRAST ROUTE: Contrast was administered via the intravenous route. The protocol was adequate to address the clinical question. The outside final report was not available at the time of this second opinion interpretation. TYPE OF CONSULTATION: Consult on outside imaging study with images submitted through Outside Image Sharing Service DATE OF CONSULTATION: 11/17/2024 1:36 PM HISTORY: 74-year-old female with abdominal aortic aneurysm. COMPARISON: None available. FINDINGS: VASCULAR FINDINGS: Abdominal Aorta and Branches: Celiac axis: Calcified atherosclerosis with mild to moderate stenosis of the celiac artery at its origin. SMA: No significant stenosis. VIKI: No significant stenosis. Right renal vessels: Moderate stenosis of the proximal right renal artery due to calcified and noncalcified atherosclerotic plaque Left renal vessels: Mild to moderate stenosis of the proximal left renal artery due to calcified and noncalcified atherosclerotic plaque. Infrarenal aorta: There is a multilobulated infrarenal abdominal aortic aneurysm with eccentric mural thrombus within the aneurysm sac, which measures up to 4.9 cm in diameter, when measured in a double oblique manner. Small aneurysm of the distal right common iliac artery, which measures up to 2.2 cm in maximum diameter. Vascular measurements (provided by the outside hospital 3D reconstruction service): Aortic diameter at proximal implantation site: 36 mm AP x 33 mm [id number] Aortic diameter 10mm inferior to proximal implantation site: 37 mm AP x 35 mm [id number] Maximum outer aneurysm diameter: 4.9 mm AP x 4.5 mm [id number]. Right common iliac diameter: 22 mm Left common iliac diameter: 15 mm Right external iliac diameter: 7 mm Left external iliac diameter: 7 mm AAA volume (lowest renal artery to aortic bifurcation): 171 cc (luminal volume of 104 mL). Varicose veins are noted in the subcutaneous adipose tissue of both lower extremities. Pelvic Vessels: R. Common iliac artery: Mild to moderate stenosis of the right common iliac artery in the midportion due to calcified atherosclerotic plaque. R. External iliac artery: no significant stenosis R. Internal iliac artery: no significant stenosis L. Common iliac artery: Mild stenosis of the distal left common iliac artery due to calcified and noncalcified atherosclerotic plaque. L. External iliac artery: no significant stenosis L. Internal iliac artery: no significant stenosis Right Lower Extremity: R. Common femoral artery: no significant stenosis R. Profunda femoris artery: no significant stenosis R. Superficial femoral artery: Mild multifocal stenoses due to calcified and noncalcified atherosclerotic plaque R. Popliteal artery: no significant stenosis R. Anterior tibial artery: no significant stenosis R. Tibioperoneal trunk: no significant stenosis R. Posterior tibial artery: no significant stenosis R. Peroneal artery: no significant stenosis R. Dorsalis pedis artery: no significant stenosis R. Plantar artery: no significant stenosis Left Lower Extremity: L. Common femoral artery: no significant stenosis L. Profunda femoris artery: no significant stenosis L. Superficial femoral artery: Mild multifocal stenoses due to calcified and noncalcified atherosclerotic plaque L. Popliteal artery: no significant stenosis L. Anterior tibial artery: no significant stenosis L. Tibioperoneal trunk: no significant stenosis L. Posterior tibial artery: no significant stenosis L. Peroneal artery: no significant stenosis L. Dorsalis pedis artery: no significant stenosis L. Plantar artery: no significant stenosis NON-VASCULAR FINDINGS: No pneumonia, pulmonary edema, pleural effusion, or pneumothorax in the imaged portion of the lung bases. No suspicious pulmonary nodule. No suspicious liver lesion. Periportal space widening. Cholelithiasis without evidence of acute cholecystitis. Mild fatty atrophy of the pancreas without suspicious pancreatic lesion or pancreatic ductal dilation. Normal spleen and adrenal glands. The kidneys enhance symmetrically without hydronephrosis or nephrolithiasis in either kidney. The urinary bladder is mostly decompressed. The uterus is present. 2.7 cm cystic structure in the left adnexa (series 4 image 156). No intraperitoneal free air or free fluid. No bowel wall thickening or evidence of bowel obstruction. Colonic diverticulosis without evidence of acute diverticulitis. Normal appendix in the right lower quadrant of the abdomen. No suspicious lymphadenopathy in the abdomen or pelvis. No suspicious lytic or blastic osseous lesion. Procedure Note Hemanth Aceves MD PhD - 11/18/2024 EXAMINATION: RADIOLOGY CONSULTATION ON OUTSIDE IMAGING STUDY STUDY INITIALLY PERFORMED: 09/29/2024 at [facility]. TYPE OF STUDY: Multiple CT angiographic images of the abdominal aorta and bilateral iliofemoral vessels with intravenous contrast are provided at the time of this interpretation. CONTRAST ROUTE: Contrast was administered via the intravenous route. The protocol was adequate to address the clinical question. The outside final report was not available at the time of this second opinion interpretation. TYPE OF CONSULTATION: Consult on outside imaging study with images submitted through Outside Image Sharing Service DATE OF CONSULTATION: 11/17/2024 1:36 PM HISTORY: 74-year-old female with abdominal aortic aneurysm. COMPARISON: None available. FINDINGS: VASCULAR FINDINGS: Abdominal Aorta and Branches: Celiac axis: Calcified atherosclerosis with mild to moderate stenosis of the celiac artery at its origin. SMA: No significant stenosis. VIKI: No significant stenosis. Right renal vessels: Moderate stenosis of the proximal right renal artery due to calcified and noncalcified atherosclerotic plaque Left renal vessels: Mild to moderate stenosis of the proximal left renal artery due to calcified and noncalcified atherosclerotic plaque. Infrarenal aorta: There is a multilobulated infrarenal abdominal aortic aneurysm with eccentric mural thrombus within the aneurysm sac, which measures up to 4.9 cm in diameter, when measured in a double oblique manner. Small aneurysm of the distal right common iliac artery, which measures up to 2.2 cm in maximum diameter. Vascular measurements (provided by the outside hospital 3D reconstruction service): Aortic diameter at proximal implantation site: 36 mm AP x 33 mm [id number] Aortic diameter 10mm inferior to proximal implantation site: 37 mm AP x 35 mm [id number] Maximum outer aneurysm diameter: 4.9 mm AP x 4.5 mm [id number]. Right common iliac diameter: 22 mm Left common iliac diameter: 15 mm Right external iliac diameter: 7 mm Left external iliac diameter: 7 mm AAA volume (lowest renal artery to aortic bifurcation): 171 cc (luminal volume of 104 mL). Varicose veins are noted in the subcutaneous adipose tissue of both lower extremities. Pelvic Vessels: R. Common iliac artery: Mild to moderate stenosis of the right common iliac artery in the midportion due to calcified atherosclerotic plaque. R. External iliac artery: no significant stenosis R. Internal iliac artery: no significant stenosis L. Common iliac artery: Mild stenosis of the distal left common iliac artery due to calcified and noncalcified atherosclerotic plaque. L. External iliac artery: no significant stenosis L. Internal iliac artery: no significant stenosis Right Lower Extremity: R. Common femoral artery: no significant stenosis R. Profunda femoris artery: no significant stenosis R. Superficial femoral artery: Mild multifocal stenoses due to calcified and noncalcified atherosclerotic plaque R. Popliteal artery: no significant stenosis R. Anterior tibial artery: no significant stenosis R. Tibioperoneal trunk: no significant stenosis R. Posterior tibial artery: no significant stenosis R. Peroneal artery: no significant stenosis R. Dorsalis pedis artery: no significant stenosis R. Plantar artery: no significant stenosis Left Lower Extremity: L. Common femoral artery: no significant stenosis L. Profunda femoris artery: no significant stenosis L. Superficial femoral artery: Mild multifocal stenoses due to calcified and noncalcified atherosclerotic plaque L. Popliteal artery: no significant stenosis L. Anterior tibial artery: no significant stenosis L. Tibioperoneal trunk: no significant stenosis L. Posterior tibial artery: no significant stenosis L. Peroneal artery: no significant stenosis L. Dorsalis pedis artery: no significant stenosis L. Plantar artery: no significant stenosis NON-VASCULAR FINDINGS: No pneumonia, pulmonary edema, pleural effusion, or pneumothorax in the imaged portion of the lung bases. No suspicious pulmonary nodule. No suspicious liver lesion. Periportal space widening. Cholelithiasis without evidence of acute cholecystitis. Mild fatty atrophy of the pancreas without suspicious pancreatic lesion or pancreatic ductal dilation. Normal spleen and adrenal glands. The kidneys enhance symmetrically without hydronephrosis or nephrolithiasis in either kidney. The urinary bladder is mostly decompressed. The uterus is present. 2.7 cm cystic structure in the left adnexa (series 4 image 156). No intraperitoneal free air or free fluid. No bowel wall thickening or evidence of bowel obstruction. Colonic diverticulosis without evidence of acute diverticulitis. Normal appendix in the right lower quadrant of the abdomen. No suspicious lymphadenopathy in the abdomen or pelvis. No suspicious lytic or blastic osseous lesion. IMPRESSION: 1. Multilobulated infrarenal abdominal aortic aneurysm, measuring up to 4.9 x 4.5 cm. 2. Calcified atherosclerosis of the abdominal aorta and its major branches including mild to moderate stenosis of the celiac arterial its origin and moderate right and mild to moderate left renal artery stenosis. 3. Focal aneurysmal dilation of the distal right common iliac artery, measuring up to 2.2 cm in diameter. 4. Relatively mild peripheral arterial vascular disease with mild multifocal stenoses in both superficial femoral arteries. Three-vessel runoff to the level of both ankle joints. 5. Morphologic features suspicious for hepatic fibrosis. The findings, conclusions and recommendations within this report do not replace the initial findings, conclusions and recommendations made at the facility where the study was performed based upon the imaging and clinical condition at that time. Comparison with the prior report and clinical history is necessary. The provided images may or may not represent the [place] source data set and thus may contain changes that may lower the accuracy of this second-opinion interpretation. Dictated by: Ian Lundberg M.D. The radiology attending physician has personally reviewed this study, and had reviewed and/or edited this written report and agrees with it. Electronically signed by: Hemanth Aceves M.D., Ph.D us Jeff Darby MD [facility] CT PROCEDURES Final Result * US Outside Consult (11/17/2024 1:29 PM CDT) Anatomical Region Laterality Modality Ultrasound 11/17/2024 2:31 PM CDT Impressions 11/17/2024 5:49 PM CDT This study was initially nominated as a consult on outside images via Outside Image Sharing Service. However, a consult was not performed because a more recent CT scan dated 09/29/2024 is available. Accordingly, there will be no separate report of this study generated by a [facility] Radiologist. Dictated by: Redd Bermudez M.D. The radiology attending physician has personally reviewed this study, and had reviewed and/or edited this written report and agrees with it. Electronically signed by: Zahra Will M.D. Narrative 11/17/2024 5:49 PM CDT EXAMINATION: CHANGE CONSULT ON OUTSIDE IMAGES TO REFERENCE IMAGES Procedure Note Zahra Will MD - 11/17/2024 EXAMINATION: CHANGE CONSULT ON OUTSIDE IMAGES TO REFERENCE IMAGES IMPRESSION: This study was initially nominated as a consult on outside images via Outside Image Sharing Service. However, a consult was not performed because a more recent CT scan dated 09/29/2024 is available. Accordingly, there will be no separate report of this study generated by a [facility] Radiologist. Dictated by: Redd Bermudez M.D. The radiology attending physician has personally reviewed this study, and had reviewed and/or edited this written report and agrees with it. Electronically signed by: Zahra Will M.D. us Jeff Darby MD [facility] US PROCEDURES Final Result from Last 3 Months Insurance [facility] MEDICARE ADVANTAGE [employer] MEDICARE ADVANTAGE Advance Directives For more information, please contact: [phone] * Full Code (Latest Code Status on File) Date Activated Date Inactivated Comments 12/18/2023 10:41 PM 12/25/2023 8:13 PM * Full Code Date Activated Date Inactivated Comments 10/14/2023 7:23 PM 10/27/2023 8:02 PM * Full Code Date Activated Date Inactivated Comments 09/04/2023 9:35 AM 09/04/2023 3:12 PM Care Teams Tailor Garment Fitter Relationship Specialty Start Date End Date Sendy Sylvester MD [address] [place] [address] PCP - General Internal Medicine 07/03/23 Humberto Harris MD PhD [address] [place] [address] Referring Physician General Surgery 01/08/24
--- OUTSIDE RECORDS SUMMARY | 2025-01-08 10:57 | XMS_ITS | Clinical Summary ---
Author Organization [facility] [employer] Address [address] [place] [address] Care Team Providers Care Credit Controller Name Role Phone Unavailable Primary Care Provider Unavailabl e Source Comments [facility] [employer]non-owned Affiliates and Associated Physician Practices is amultiple site organization consisting of ambulatory clinics and hospital sitesin [place], [place], [place] and [place]. This disclosure is being madepursuant to the Care Everywhere program and may not contain all information available regarding this patient. Last updated 18.[facility] [employer] Allergies Active Allergy Reactions Criticality Noted Date [...] P M CDT Height 172.7 cm (5' 8) 01/01/2022 5:40 PM CDT Body Mass Index [...] series) 2024 DEPRESSION SCREENING 06/03/2024 INFLUENZA VACCINE (#1) 2025 HEPATITIS B VACCINE Aged Out No [...]
--- OUTSIDE RECORDS SUMMARY | 2025-01-08 10:57 | XMS_ITS | Encounter Summary ---
Author Organization [facility] Address [address] [place] [address] Care Team Providers Care Dog Show Judge Name Role Phone Sendy Sylvester MD Primary Care Provider + [phone] Annalise Amezquita RN Unavailable [phone] Humberto Harris MD PhD Unavailable [phone] Reason for Visit * Reason Onset Date Comments Follow-Up Call 7 Days 12/30/2023 Discharge follow up call placed line busy Encounter Details Date Type Department Care Team (Late st Contact Info) Description 12/30/2023 Telephone [facility] [address] [place] [address] Olivia Burrows RN Follow-Up Call 7 Days (Discharge follow up call placed line busy) Social History Tobacco Use Types Packs/Day Years Used Date Smoking Tobacco: Former Cigarettes Passive Smoke Exposure: Past Smokeless Tobacco: Never Comments:Pt. Quit smoking on 2021 [facility] Utilities Answer Date Recorded In the past 12 months has e electric, gas, oil, or water [employer] threatened to shut off services in your [...] often do you attend chur ch or adventist services? Never 12/26/2023 Do you belong to any clubs o r organizations such as mandaen groups, unions, fraternal or athletic groups, or [...] and heating? Not hard at all 12/26/2023 [facility] [place] [facility] Occupat ional Health - Occupational Stress [...] any time in the past 12 m [facility], were you homeless or living [...] on file Legal Sex Female 10:45 AM POINT OF CARE SPECIALIST Gender Identity Not on file Sexual Orientation Not on file documented as of this encounter Plan of Treatment Not on file documented as of this encounter Visit Diagnoses Not on filedocumented in this encounter Care Teams Dog Show Judge Relationship Specialty Start Date End Date Sendy Sylvester MD [address] [place] [address] PCP - General Internal Medicine 07/03/23 Annalise Amezquita RN [address] [facility] [address] [place] [address] SHOP Outpatient Animal Husbandry Teacher 12/26/23 01/23/24 Humberto Harris MD PhD [address] [facility] [address] [place] [address] Referring Physician General Surgery 01/08/24 documented as of this encounter
--- OUTSIDE RECORDS SUMMARY | 2025-01-08 10:57 | XMS_ITS | Clinical Summary ---
Author Organization [facility] Address [address] [place] [address] Phone Care Team Providers Care Tube Winder Name Role Phone Sendy Sylvester MD Primary Care Provider [phone] Allergies Active Allergy Reactions Criticality Noted Date [...] 6 PM CDT Height 172.7 cm (5' 8) 10/29/2023 10:0 2 AM CDT Body Mass Index 32.54 10/29/2023 10:02 AM CDT Plan of Treatment Health Maintenance Due Date Last Done Comments DEXA Bone Density 1950 Hepatitis C Virus (HCV) Screening 1950 TdaP Immunization 1950 Cologuard 1994 Colonoscopy 1994 Colorectal Cancer Screening 1994 Immunochemical Fecal Occult Blood 1994 Pneumococcal Immunization (50+ years) (1 of 1 - PCV) 1999 Zoster Immunization (1 of 2) 1999 SARS-COV-2 Immunization ( season) 2024 04/19/2023, 03/27/2022, 10/26/2021, Additional history exists Respiratory Syncytial Virus (RSV) Immunization (Adult) (1 - 1-dose 75+ series) 2024 Influenza Immunization (#1) 02/01/202504/03, 02/28/2022, 02/27/2021, Additional history exists Hepatitis B Immunization Aged Out No longer eligible based on patient's age to complete this topic Human Papillomavirus (HPV) Immunization Aged Out No longer eligible based on patient's age to complete this topic Meningococcal Immunization (ACWY) Aged Out No longer eligible based on patient's age to complete this topic Rotavirus Immunization Aged Out No lo nger eligible based on patient's age to complete this topic Insurance MEDICARE C [facility] Advance Directives * Full Code (Latest Code Status on File) Date Activated Date Inactivated Comments 11/06/2023 7:47 AM Care Teams Tube Winder Relationship Specialty Start Date End Date Sendy Sylvester MD [address] [place] [address] PCP - General Internal Medicine 10/24/23
[2025-01-08 11:27] LABS: Albumin Level 4.1 g/dL (3.5-5.1); Anion Gap 7 mmol/L (4-12); Blood Urea Nitrogen 47 mg/dL (7-17); Calcium 9.6 mg/dL (8.4-10.2); Carbon Dioxide 24 mmol/L (22-30); Chloride 111 mmol/L (98-107); Estimated Glomerular Filt Rate 22; Glucose 103 mg/dL (65-110); Osmolality Calculated 306 mOsm/kg (285-295); Potassium 5.5 mmol/L (3.4-5.0); Sodium 142 mmol/L (137-145)
[2025-01-08 14:56] LABS: Total Protein Urine Random 39 mg/dL; Ur Ttl Prot Creatinine Ratio 0.19 mg/mg (0-0.20)
== END 2025-01-08 10:54 | disposition home or self-care (01) ==
LOC: CHSLAB 10:54
PROVIDERS: PCP Internal Medicine; Visit Provider Internal Medicine Nephrology
DX: I12.9 Hypertensive chronic kidney disease with stage 1 through stage 4 chronic kidney disease, or unspecified chronic kidney disease (principal); N18.4 Chronic kidney disease, stage 4 (severe)
CPT/HCPCS: 36415; 80069; 82570; 84156

== ENCOUNTER 2025-01-25 12:12 | Observation (INO) | payer MEDICARE, SELFPAY ==
[2025-01-25] VITALS (22 sets, daily range): BP systolic 91–138; BP diastolic 65–87; PULSE 0–133; RESP 11–25; TEMP 35.6–36.8; O2SAT 91–99; BMI 30.2
--- NOTE | ~2025-01-25 | CT_ITS ---
EXAMINATION: CT abdomen pelvis wo con DATE: 01/25/2025 13:56 INDICATION: Abdominal pain. Low GFR. TECHNIQUE: Computed tomography (CT) of the abdomen and pelvis was performed without intravenous contrast. The dose-length product was 1099.08 mGy-cm. Automated exposure control and iterative reconstruction technique were employed. COMPARISON: CT dated 08/31/2022. FINDINGS: There is infrarenal abdominal aortic aneurysm with saccular component measuring 5 cm greatest AP dimension. There is ectasia of the abdominal aorta. There are gallstones. Lung bases unremarkable. Cardiomegaly. Small pericardial effusion. No significant pleural effusion. The liver, spleen, pancreas, adrenal glands and kidneys are unremarkable. Moderate size hiatal hernia. No hydronephrosis or renal stones. There is a 2.8 cm left ovarian cysts. No abnormal pelvic masses or fluid collections. No lymphadenopathy. IMPRESSION: 1. Fusiform abdominal aortic aneurysm with saccular component measuring up to 5 cm. 2: Cholelithiasis. 3: Left ovarian cyst measuring 2.8 cm. 3: Small pericardial effusion. Reviewed, dictated and finalized at location O.
--- NOTE | 2025-01-25 11:20 | ECHO_ITS ---
Patient Info Name: Lisseth Gibbons Age: 74 years : 1950 Gender: Female Ht: 67 in Wt: 190 lbs BSA: 2.04 m2 HR: 82 bpm BP: 139 / 80 mmHg Heart Rhythm: Sinus Rhythm Technical Quality: Fair Exam Date: 01/26/2025 10:50 AM Patient Status: unknown Admit Date: 01/25/2025 Exam Type: CA echo doppler color flow Complete two-dimensional, color flow and Doppler transthoracic echocardiogram is performed. Staff Referring Physician: Johny Lindsay MD Seat Builder: Mónica Dwyer Attending Provider: Vijay Michele MD Summary 1. Complete two-dimensional, color flow and Doppler transthoracic echocardiogram is performed. 2. Left ventricular chamber dimension is normal. 3. Left ventricular systolic function is normal, estimated at 60-65. 4. There is mild concentric increased left ventricular wall thickness. 5. The left ventricular diastolic function is grade I diastolic dysfunction. 6. E/e' 10 is mildly elevated. 7. There is trace mitral valve regurgitation. 8. There is trace tricuspid valve regurgitation. 9. Right ventricular systolic pressure is not elevated at 25 mmHg. 10. There is trace pulmonic regurgitation. Left Ventricle E/e' 10 is mildly elevated. Left ventricular chamber dimension is normal. Left ventricular systolic function is normal, estimated at 60-65. There is mild concentric increased left ventricular wall thickness. The left ventricular diastolic function is grade I diastolic dysfunction. Right Ventricle Right ventricular chamber dimension is normal. Right ventricular systolic function is normal. Left Atria Left atrial chamber dimension is normal. Right Atria Right atrial chamber dimension is normal. Aortic Valve The aortic valve is trileaflet. There is no aortic valve stenosis. There is no aortic valve regurgitation. Pulmonic Valve There is trace pulmonic regurgitation. Mitral Valve There is no mitral valve stenosis. There is trace mitral valve regurgitation. Tricuspid Valve There is trace tricuspid valve regurgitation. Right ventricular systolic pressure is not elevated at 25 mmHg. Pericardium/Pleural There is no pericardial effusion. Inferior Vena Cava Normal inferior vena cava with >50% collapse upon inspiration consistent with normal right atrial pressure, 5 mmHg. Aorta The aortic root size at the sinus of Valsalva is normal. Tricuspid Valve Name Value Normal Estimated PAP/RSVP RA Pressure 5 mmHg <=5 Report Signatures
--- NOTE | 2025-01-25 12:14 | ECG_ITS ---
Test Date: 2025-01-25 12:29:41 Measurements Intervals [place] Rate: 107 P: 0 NM: 0 QRS: -16 QRSD: 106 T: 62 QT: 315 QTc: 422 Interpretive Statements ATRIAL FLUTTER/TACHYCARDIA CHANGES TO SINUS RHYTHM INCOMPLETE RIGHT BUNDLE BRANCH BLOCK DELAYED PRECORDIAL R/S TRANSITION BASELINE ARTIFACT- I, II, III, AVR, AVL, AVF ABNORMAL ECG No previous ECG available for comparison Electronically Signed On 01-25-2025 13:01:51 CDT by Sourav Mosquera D.O.
--- OUTSIDE RECORDS SUMMARY | 2025-01-25 12:26 | XMS_ITS | Clinical Summary ---
Author Organization [facility] Address [address] [place] [address] Phone Care Team Providers Care Supervisor Cap And Hat Production Name Role Phone Sendy Sylvester MD Primary Care Provider [phone] Allergies Active Allergy Reactions Criticality Noted Date [...] to complete this topic Insurance MEDICARE C [facility] Advance Directives * Full Code (Latest Code Status on File) Date Activated Date Inactivated Comments 11/06/2023 7:47 AM Care Teams Supervisor Cap And Hat Production Relationship Specialty Start Date End Date Sendy Sylvester MD [address] [place] [address] PCP - General Internal Medicine 10/24/23
--- OUTSIDE RECORDS SUMMARY | 2025-01-25 12:26 | XMS_ITS | Clinical Summary ---
Author Organization [place] [id number] Address [address] [place] [address] Care Team Providers Care Facility Worker Name Role Phone Sendy Sylvester MD Primary Care Provider [phone] Humberto Harris MD PhD Unavailable [phone] Allergies Active Allergy Reactions Criticality Noted Date [...] edema 09/11/2022 12/23/2023 Overview (12/23/2023): Notes from [facility] Prior ambulatory phlebectomy versus stripping on L Last Assessment & Plan: These remain asymptomatic. Will continue to follow expectantly. she was instructed to continue wearing compression garments. TIA (transient ischemic attack) 01/01/2022 12/23/2023 Overview (12/23/2023): [facility] 01/01/2022 Encounters Date Type Department Care Team Description 12/09/2024 10:00 AM CDT Office Visit [facility] Medicine Surgery [address] [place] [address] [place] [phone] Jeff Darby MD Infrarenal abdominal aortic aneurysm, without rupture (Primary Dx); Encounter for surgical aftercare following surgery on the circulatory system; Infrarenal abdominal aortic aneurysm (AAA) without rupture 11/17/2024 1:30 PM CDT - 11/17/2024 11:59 PM CDT Hospital Encounter [facility] ([facility]) [address] [place] [id number] Diagnosis unknown Discharge Disposition: Discharge to home or self care 11/17/2024 1:29 PM CDT - 11/17/2024 11:59 PM CDT Hospital Encounter [facility] ([facility]) [address] [place] [address] Discharge Disposition: Discharge to home or self [...] with MAC TIA (transient ischemic attack) 01/01/2022 [facility] 01/01/2022 Varicose veins of both legs with edema 3 Notes from [facility] Prior ambulatory phlebectomy versus stripping on L [...] Not Answered Comments:Pt. Quit smoking on 2021 [facility] Utilities Answer Date Recorded In the past 12 months has [facility] [employer], oil, or water [employer] threatened to shut off services in your [...] No 12/18/2023 Social Connection and Isolation Panel Answer Date Recorded In a typical week, how many times do you talk on the phone with family, friends, or neighbors? Three times a week 12/26/2023 How often do you get togethe r with friends or relatives? Once a week 12/26/2023 How often do you attend chur ch or samaritan services? Never 12/26/2023 Do you belong to [...] and heating? Not hard at all 12/26/2023 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 TYPE OF STUDY: Multiple CT angiographic [...] site: 36 mm AP x 33 mm afkry-jh-eabs Aortic diameter 10mm inferior to proximal implantation site: 37 mm AP x 35 mm [id number]-vb-[id number] Maximum outer aneurysm diameter: 4.9 mm AP x 4.5 mm fahiu-mu-yboa. Right common iliac diameter: 22 mm Left [...] IMAGING STUDY STUDY INITIALLY PERFORMED: 09/29/2024 at [facility]. TYPE OF STUDY: Multiple CT angiographic [...] site: 36 mm AP x 33 mm ywkqd-yd-ulmk Aortic diameter 10mm inferior to proximal implantation site: 37 mm AP x 35 mm wxdnp-ms-fbpm Maximum outer aneurysm diameter: 4.9 mm AP x 4.5 mm kbnsv-lc-ccha. Right common iliac diameter: 22 mm Left [...] images may or may not represent the [place] source data set and thus may contain changes that may lower the accuracy of this second-opinion interpretation. Dictated by: Ian Lundberg M.D. The radiology attending physician has personally reviewed this study, and had reviewed and/or edited this written report and agrees with it. Electronically signed by: Hemanth Aceves M.D., Ph.D us Jeff Darby MD [facility] PROCEDURES Final Result * US Outside [...] report of this study generated by a [facility] Radiologist. Dictated by: Redd Bermudez M.D. The radiology attending physician has personally reviewed this study, and had reviewed and/or edited this written report and agrees with it. Electronically signed by: Zhara Will M.D. Narrative 11/17/2024 5:49 PM CDT [...] report of this study generated by a [facility] Radiologist. Dictated by: Redd Bermudez M.D. The radiology attending physician has personally reviewed this study, and had reviewed and/or edited this written report and agrees with it. Electronically signed by: Zahra Will M.D. us Jeff Darby MD [facility] [place] PROCEDURES Final Result from Last [address] [facility] MEDICARE ADVANTAGE UHC MEDICARE ADVANTAGE [facility] MEDICARE Address: [place] [phone] Advance Directives For more information, please contact: [phone] * Full Code (Latest Code Status on File) Date Activated Date Inactivated Comments 12/18/2023 10:41 PM 12/25/2023 8:13 PM * Full Code Date Activated Date Inactivated Comments 10/14/2023 7:23 PM 10/27/2023 8:02 PM * Full Code Date Activated Date Inactivated Comments 09/04/2023 9:35 AM 09/04/2023 3:12 PM Care Teams Facility Worker Relationship Specialty Start Date End Date Sendy Sylvester MD [address] [place] [address] PCP - General Internal Medicine 07/03/23 Humberto Harris MD PhD [address] [place] [address] Referring Physician General Surgery 01/08/24
--- OUTSIDE RECORDS SUMMARY | 2025-01-25 12:27 | XMS_ITS | Clinical Summary ---
Author Organization [facility] [employer] Address [address] [place] [address] Care Team Providers Care Hematology Oncology Consultant Name Role Phone Unavailable Primary Care Provider Unavailabl e Source Comments [facility],non-owned Affiliates and Associated Physician Practices is amultiple site organization consisting of ambulatory clinics and hospital sitesin [place], [place], [place] and [place]. This disclosure is being madepursuant to the Care Everywhere program and may not contain all information available regarding this patient. Last updated 18.[facility] Allergies Active Allergy Reactions Criticality Noted Date [...]
--- OUTSIDE RECORDS SUMMARY | 2025-01-25 12:27 | XMS_ITS | Encounter Summary ---
Author Organization [facility] Address [address] [place] [address] Care Team Providers Care Barber Name Role Phone Sendy Sylvester MD Primary Care Provider [phone] Annalise Amezquita RN Unavailable [phone] Humberto Harris MD PhD Unavailable [phone] Reason for Visit * Reason Onset Date Comments Follow-Up Call 7 Days 12/30/2023 Discharge follow up call placed line busy Encounter Details Date Type Department Care Team (Late st Contact Info) Description 12/30/2023 Telephone [facility] [address] [place] [address] Olivia Burrows RN Follow-Up Call 7 Days (Discharge follow up call placed line busy) Social History Tobacco Use Types Packs/Day Years Used Date Smoking Tobacco: Former Cigarettes Passive Smoke Exposure: Past Smokeless Tobacco: Never Comments:Pt. Quit smoking on [address] [facility] Utilities Answer Date Recorded In the past 12 months has e electric, gas, oil, or water [employer] threatened to shut off services in [...] How often do you attend chur or jain services? Never 12/26/2023 Do you belong to any clubs o r organizations such as yazidism groups, unions, fraternal or athletic groups, or [...] and heating? Not hard at all 12/26/2023 [facility] Occupat ional Health - Occupational Stress [...] any time in the past 12 m [facility], were you homeless or living in a fci (including now)? No 12/26/2023 Personal Safety Answer Date Recorded Have you ever been in or are you currently in a harmful physical or emotional relationship or is someone making you feel afraid or unsafe? 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 Gender Identity Not on file Sexual Orientation Not on file documented as of this encounter Plan of Treatment Not on file documented as of this encounter Visit Diagnoses Not on filedocumented in this encounter Care Teams Barber Relationship Specialty Start Date End Date Sendy Sylvester MD [address] [place] [address] PCP - General Internal Medicine 07/03/23 Annalise Amezquita RN [address] [address] [facility] Mds Manager 12/26/23 01/23/24 Humberto Harris MD PhD [address] [facility] [address] [place] [address] Referring Physician General Surgery 01/08/24 documented as of this encounter
--- OUTSIDE RECORDS SUMMARY | 2025-01-25 12:27 | XMS_ITS | Clinical Summary ---
Author Organization [facility] Address [address] [place] [address] Care Team Providers Care Compressor Operator Name Role Phone Sendy Sylvester MD Primary Care Provider [phone] Missael Estrella MD Unavailable [phone] Olena Dodd MD Unavailable [phone] Allergies Active Allergy Reactions Criticality Noted Date Comments Sulfa Antibiotics Unknown 01/01/2022 Medications atorvastatin (LIPITOR) 40 MG tablet Take 1 [...] (5 mg total) by mouth daily. Active aspirin 81 MG chewable tablet Chew 1 tablet (81 mg total) by mouth daily. 90 tablet 3 12/15/2024 Active Active Problems Problem Noted Date Diagnosed Date Iliac artery aneurysm, right 12/15/2024 Essential (primary) hypertension 09/15/2024 Hyperlipidemia, mixed 09/15/2024 Iliac artery stenosis, left 09/15/2024 Infrarenal abdominal aortic aneurysm (AAA) witho ut rupture 09/11/2022 Overview (09/11/2022): 08/31/22 3.9 cm x 4.1 cm Assessment & Plan (09/11/2022 1:24 PM CDT): She presents for evaluation of an infrarenal abdominal aortic aneurysm. She has no symptoms of aortic aneurysmal disease.A CTA of the abdomen and pelvis performed at [facility] on 08/31/22 demonstrates the aneurysm to [...] Encounters Date Type Department Care Team Description 12/15/2024 8:15 AM CDT Office Visit [facility]-[address] [place] [address] Missael Estrella MD Chest Pain 12/15/2024 Telephone [facility] [address] [place] [address] Missael Estrella MD Schedule Test 12/15/2024 Travel 12/14/2024 Telephone [facility] [address] [place] [address] Missael Estrella MD Appointment Reminder 11/25/2024 Telephone [facility] [address] [place] [address] Missael Estrella MD Information 11/10/2024 Results Follow-Up [facility] [address] [place] [address] Sandra Ren, RN USV AORTA ILIAC IVC DUPLEX COMP 11/04/2024 Telephone [facility] [address] [place] [address] Missael Estrella MD Surgical Clearance from Last 3 Months Family History Medical History Relation Comments Hypertension Brother CHF Father Hypertension Father Cancer Mother Hypertension Sister Relation Status Comments Brother Father Mother Sister Social History Tobacco Use Types Packs/Day Years Used Date Smoking Tobacco: Former Cigarettes Smokeless Tobacco: Never Tobacco Cessation:Counseling Given: Not Answered Comments Unknown Sex and Gender Information Value Date Recorded Sex Assigned at Female 09/29/2024 9:36 AM CDT Legal Sex Female 9:16 PM CDT Gender Identity Not on file Sexual Orientation Not on file Last Filed Vital Signs Vital Sign Reading Time Taken Comments Blood Pressure 131/75 12/15/2024 8:13 AM CDT Pulse 88 12/15/2024 8:13 AM CDT Temperature - - Respiratory Rate 16 12/15/2024 8:13 AM CDT Oxygen Saturation 97% 12/15/2024 8:13 AM CDT Inhaled Oxygen Concentration - - Weight 93.4 kg (206 lb) 12/15/2024 8:13 AM CDT Height 172.7 cm (5' 8) 12/15/2024 8:13 AM CDT Body Mass Index 31.32 12/15/2024 8:13 AM CDT Plan of Treatment Upcoming Encounters Date Type Department Care Team (Late st Contact Info) Description 12/15/2025 9:[address] [facility] [address] [place] [address] Missael Estrella MD [address] [facility] [address] [place] [address] 12/21/2025 9:15 AM CDT Office Visit [facility] [place] [address] Missael Estrella MD [address] [facility] [address] [address] Health Maintenance Due Date Last Done Comments [...] Procedure Name Priority Date/Time Associated Diagnosis Comments LIPID PANEL Routine 05/31/2023 from Last 3 Months or Most Recently Relevant to Health Maintenance Results * LIPID PANEL (05/31/2023) CHOLESTEROL 174 TRIGLYCERIDES 134 HDL 71 LDL (CALCULATED) 80 CHOL/HDL RATIO 2.5 NON HDL CHOLESTEROL 103 Narrative Resulting Agency Comment [employer], CARRIE Cobian Sendy Sylvester MD LABORATORY Final Result from Last 3 Months or Most Recently Relevant to Health Maintenance Insurance [facility] Care Teams Compressor Operator Relationship Specialty Start Date End Date Sendy Sylvester MD [address] [place] [address] PCP - General INTERNAL MEDICINE 09/04/22 Missael Estrella MD [address] [facility] [address] [address] Physician INTERVENTIONAL CARDIOLOGY 08/07/24 Olena Dodd MD [address] [place] [address] SURGERY 11/13/24
[2025-01-25 12:38] LABS: Hematocrit 42.8 % (35.0-42.0); Hemoglobin 14.1 g/dL (11.7-13.8); Immature Granulocyte Percent A 0.5 % (0.0-0.0); Lymphocytes Absolute Auto 2.18 K/mm3 (1.10-4.50); Mean Corpuscular HGB Conc 32.9 g/dL (32-36); Mean Corpuscular Hemoglobin 30.4 pg (27.0-31.0); Mean Corpuscular Volume 92.2 fL (78.0-102.0); Nucleated Red Blood Cells Absolute Auto 0.00 K/mm3 (0.00-0.00); Nucleated Red Blood Cells Perc 0.0 % (0-0.0); Platelet Count Result 429 K/mm3 (150-420); Red Blood Count 4.64 M/mm3 (4.20-5.40); White Blood Count 11.7 K/mm3 (4.8-10.8)
[2025-01-25] MEDS: SODIUM CHLORIDE 0.9% IV 1,000 ML 150 ML IV CONT (12:43)
[2025-01-25 12:49] LABS: Alanine Aminotransferase 27 U/L (6-35); Albumin Level 4.6 g/dL (3.5-5.1); Alkaline Phosphatase 131 U/L (38-126); Anion Gap 14 mmol/L (4-12); Aspartate Amino Transferase 32 U/L (14-36); Bilirubin,Total 1.1 mg/dL (0.2-1.3); Blood Urea Nitrogen 29 mg/dL (7-17); Calcium 9.9 mg/dL (8.4-10.2); Carbon Dioxide 19 mmol/L (22-30); Chloride 104 mmol/L (98-107); Estimated CRCL calculation 28 ml/min; Estimated Glomerular Filt Rate 27; Glucose 132 mg/dL (65-110); Osmolality Calculated 291 mOsm/kg (285-295); Potassium 4.7 mmol/L (3.4-5.0); Sodium 137 mmol/L (137-145); Total Protein 7.4 g/dL (6.3-8.2)
[2025-01-25 12:52] LABS: INR 0.9; Prothrombin Time 10.5 Seconds (9.50-12.1)
[2025-01-25 13:01] LABS: NT Pro B Type Natriuretic Pept 874 pg/mL (19.9-100); Troponin I 0.021 ng/mL (0.000-0.034)
--- OUTSIDE RECORDS SUMMARY | 2025-01-25 13:09 | XMS_ITS | Clinical Summary ---
Author Organization [facility] [employer] Address [address] [place] [address] Care Team Providers Care Neuropsychology Service Director Name Role Phone Unavailable Primary Care Provider Unavailabl e Source Comments [facility] [employer],non-owned Affiliates and Associated Physician Practices is amultiple site organization consisting of ambulatory clinics and hospital sitesin [place], [place], [place]. This disclosure is being madepursuant to the Care Everywhere program and may not contain all information available regarding this patient. Last updated 18.[facility] [employer] Allergies Active Allergy Reactions Criticality Noted Date [...]
--- OUTSIDE RECORDS SUMMARY | 2025-01-25 13:09 | XMS_ITS | Clinical Summary ---
Author Organization [facility] Address [address] [place] [address] Care Team Providers Care Repairer Hairspring Name Role Phone Sendy Sylvester MD Primary Care Provider [phone] Missael Estrella MD Unavailable [phone] Olena Dodd MD Unavailable [phone] Allergies Active Allergy Reactions Criticality Noted Date [...] of the abdomen and pelvis performed at [facility] on 08/31/22 demonstrates the aneurysm to measure [...] Description 12/15/2024 8:15 AM CDT Office Visit [facility] [place] [address] Missael Estrella MD Chest Pain 12/15/2024 Telephone [facility] [address] [place] [address] Missael Estrella MD Schedule Test 12/15/2024 Travel 12/14/2024 Telephone [facility] [address] [place] [address] Missael Estrella MD Appointment Reminder 11/25/2024 Telephone [facility] [address] [place] [address] Missael Estrella MD Information 11/10/2024 Results Follow-Up [facility] [address] [place] [address] Sandra Ren, RN USV AORTA ILIAC IVC DUPLEX COMP 11/04/2024 Telephone [facility] [address] [place] [address] Missael Estrella MD Surgical Clearance [...] [facility] [address] [place] [address] Missael Estrella MD [address] [facility] [address] [place] [address] 12/21/2025 9:15 AM CDT Office Visit [facility] [place] [address] Missael Estrella MD [address] [facility] [address] [address] Health Maintenance Due Date Last Done Comments [...] HDL CHOLESTEROL 103 Narrative Resulting Agency Comment [employer], CARRIE Cobian Sendy Sylvester MD LABORATORY Final Result from Last 3 Months or Most Recently Relevant to Health Maintenance Insurance [facility] Care Teams Repairer Hairspring Relationship Specialty Start Date End Date Sendy Sylvester MD [address] [place] [address] PCP - General INTERNAL MEDICINE 09/04/22 Missael Estrella MD [address] [facility] [address] [address] Physician INTERVENTIONAL CARDIOLOGY 08/07/24 Olena Dodd MD [address] [place] [phone] SURGERY 11/13/24
--- OUTSIDE RECORDS SUMMARY | 2025-01-25 13:09 | XMS_ITS | Clinical Summary ---
Author Organization [facility] Address [address] [place] [address] Phone Care Team Providers Care Bisque Finisher Name Role Phone Sendy Sylvester MD Primary Care Provider [phone] Allergies Active Allergy Reactions Criticality Noted Date [...] to complete this topic Insurance MEDICARE C [facility] Advance Directives * Full Code (Latest Code Status on File) Date Activated Date Inactivated Comments 11/06/2023 7:47 AM Care Teams Bisque Finisher Relationship Specialty Start Date End Date Sendy Sylvester MD [address] [place] [address] PCP - General Internal Medicine 10/24/23
--- OUTSIDE RECORDS SUMMARY | 2025-01-25 13:09 | XMS_ITS | Encounter Summary ---
Author Organization [facility] Healthcare Address [address] [place] [address] Care Team Providers Care Ice Cream Dipper Name Role Phone Sendy Sylvester MD Primary Care Provider + [phone] Annalise Amezquita RN Unavailable [phone] Humberto Harris MD PhD Unavailable [phone] Reason for Visit * Reason Onset Date Comments Follow-Up Call 7 Days 12/30/2023 Discharge follow up call placed line busy Encounter Details Date Type Department Care Team (Late st Contact Info) Description 12/30/2023 Telephone [facility] [address] [place] [address] Olivia Burrows RN Follow-Up Call 7 Days (Discharge follow up call placed line busy) Social History Tobacco Use Types Packs/Day Years Used Date Smoking Tobacco: Former Cigarettes Passive Smoke Exposure: Past Smokeless Tobacco: Never Comments:Pt. Quit smoking on 2021 [facility] Utilities Answer Date Recorded In the past 12 months has e electric, gas, oil, or water [employer] threatened to shut off services in your [...] How often do you attend chur or jew services? Never 12/26/2023 Do you belong to any clubs o r organizations such as orthodox groups, unions, fraternal or athletic groups, or [...] and heating? 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 Gender Identity Not on file Sexual Orientation Not on file documented as of this encounter Plan of Treatment Not on file documented as of this encounter Visit Diagnoses Not on filedocumented in this encounter Care Teams Ice Cream Dipper Relationship Specialty Start Date End Date Sendy Sylvester MD [address] [place] [address] PCP - General Internal Medicine 07/03/23 Annalise Amezquita RN [phone] [address] [employer] Outpatient Mechanic Driver 12/26/23 01/23/24 Humberto Harris MD PhD [address] [facility] [address] [place] [address] Referring Physician General Surgery 01/08/24 documented as of this encounter
--- OUTSIDE RECORDS SUMMARY | 2025-01-25 13:09 | XMS_ITS | Clinical Summary ---
Author Organization [place] [id number] [facility] Address [address] [place] [address] Care Team Providers Care Evidence Custodian Name Role Phone Sendy Sylvester MD Primary Care Provider + [phone] Humberto Harirs MD PhD Unavailable [phone] Allergies Active Allergy Reactions Criticality Noted Date [...] edema 09/11/2022 12/23/2023 Overview (12/23/2023): Notes from [facility] Prior ambulatory phlebectomy versus stripping on L Last Assessment & Plan: These remain asymptomatic. Will continue to follow expectantly. she was instructed to continue wearing compression garments. TIA (transient ischemic attack) 01/01/2022 12/23/2023 Overview (12/23/2023): [facility] 01/01/2022 Encounters Date Type Department Care Team Description 12/09/2024 10:00 AM CDT Office Visit [facility] Medicine Surgery [address] [place] [address] [place] [phone] Jeff Darby MD Infrarenal abdominal aortic aneurysm, without rupture (Primary Dx); Encounter for surgical aftercare following surgery on the circulatory system; Infrarenal abdominal aortic aneurysm (AAA) without rupture 11/17/2024 1:30 PM CDT - 11/17/2024 11:59 PM CDT Hospital Encounter [facility] ([facility] [address] [place] [id number] Diagnosis unknown Discharge Disposition: Discharge to home or self care 11/17/2024 1:29 PM CDT - 11/17/2024 11:59 PM CDT Hospital Encounter [facility] ([facility]) [address] [place] [id number] Discharge Disposition: Discharge to home or self [...] with MAC TIA (transient ischemic attack) 01/01/2022 [facility] 01/01/2022 Varicose veins of both legs with edema 3 Notes from [facility] Prior ambulatory phlebectomy versus stripping on L [...] Comments:Pt. Quit smoking on 2021 [facility] Utilities Answer Date Recorded In the past 12 months has [facility] [employer], oil, or water [employer] threatened to shut off services in your [...] often do you attend chur ch or mu-ism services? Never 12/26/2023 Do you belong to [...] and heating? Not hard at all 12/26/2023 [facility]at ional Health - Occupational [...] time in the past 12 m [facility], were you homeless or living in a fpc (including now)? No 12/26/2023 Personal Safety Answer Date Recorded Have you ever been in or are you currently in a harmful physical or emotional relationship or is someone making you feel afraid or unsafe? 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 TYPE OF STUDY: Multiple CT angiographic [...] site: 36 mm AP x 33 mm nzjhu-nj-reie Aortic diameter 10mm inferior to proximal implantation site: 37 mm AP x 35 mm [id number]-ih-[id number] Maximum outer aneurysm diameter: 4.9 mm AP x 4.5 mm qnzar-qi-awis. Right common iliac diameter: 22 mm Left [...] IMAGING STUDY STUDY INITIALLY PERFORMED: 09/29/2024 at [facility]. TYPE OF STUDY: Multiple CT angiographic [...] site: 36 mm AP x 33 mm jgamt-ts-ggrs Aortic diameter 10mm inferior to proximal implantation site: 37 mm AP x 35 mm vaqgg-is-dybr Maximum outer aneurysm diameter: 4.9 mm AP x 4.5 mm fsaqs-mm-aucr. Right common iliac diameter: 22 mm Left [...] images may or may not represent the [place] source data set and thus may contain changes that may lower the accuracy of this second-opinion interpretation. Dictated by: Ian Lundberg M.D. The radiology attending physician has personally reviewed this study, and had reviewed and/or edited this written report and agrees with it. Electronically signed by: Hemanth Aceves M.D., Ph.D us Jeff Darby MD [facility] CT PROCEDURES Final Result * US Outside [...] report of this study generated by a [facility] Radiologist. Dictated by: Redd Bermudez M.D. The [...] report of this study generated by a [facility] Radiologist. Dictated by: Redd Bermudez M.D. The radiology attending physician has personally reviewed this study, and had reviewed and/or edited this written report and agrees with it. Electronically signed by: Zahra Will M.D. us Jeff Darby MD [facility] US PROCEDURES Final Result from Last 3 Months Insurance [facility] MEDICARE ADVANTAGE UHC MEDICARE ADVANTAGE Member Subscriber Plan / Payer (Ef fective 2023-Present) Name:Lisseth Gibbons Relation to Subscriber:Self Name:Lisseth Gibbons Payer ID:[id number] (NAIC) Type:[facility] MEDICARE Address: [place] [id number] Advance Directives For more information, please contact: [phone] * Full Code (Latest Code Status on File) Date Activated Date Inactivated Comments 12/18/2023 10:41 PM 12/25/2023 8:13 PM * Full Code Date Activated Date Inactivated Comments 10/14/2023 7:23 PM 10/27/2023 8:02 PM * Full Code Date Activated Date Inactivated Comments 09/04/2023 9:35 AM 09/04/2023 3:12 PM Care Teams Evidence Custodian Relationship Specialty Start Date End Date Sendy Sylvester MD [address] [place] [address] PCP - General Internal Medicine 07/03/23 Humberto Harris MD PhD [address] [place] [address] Referring Physician General Surgery 01/08/24
[2025-01-25 13:20] LABS: Thyroid Stimulating Hormone 0.982 uIU/mL (0.465-4.680)
--- NOTE | 2025-01-25 14:06 | ED.GENADULT ---
HPI - General Adult General Chief complaint: Abdominal Pain Stated complaint: A FIB Time Seen by Provider: 01/25/25 12:14 Source: patient Mode of arrival: ambulatory Limitations: no limitations History of Present Illness HPI narrative: 74-year-old with a history of hypertension, hyperlipidemia, infrarenal abdominal aortic aneurysm without rupture years with the complaints of having abdominal pain associated with nausea for past week or so she also complains of weakness. She was at the doctor's office this morning where she was found to be having AFib. Patient denies having any chest pain or shortness of breath. No previous history of AFib. Onset (ago): week(s) (41) Location: abdomen Radiation: non-radiation Severity: mild Severity scale (1-10): 1 Quality: burning Pain Consistency: constant Relieving factors: none Exacerbating factors: none Associated symptoms: denies other symptoms Related Data Home Medications ?Medication ?Instructions ?Recorded ?Confirmed ?Last Taken ?Type amlodipine 10 mg tablet 10 mg PO DAILY 03/02/24 01/19/25 Unknown History aspirin 81 mg tablet,delayed 81 mg PO DAILY 03/02/24 01/19/25 Unknown History release soedyray-wzp-kvaoz acid 0.4 1 tablet PO DAILY 09/23/24 01/19/25 Unknown History mg-lycopene 300 mcg-lutein 250 mcg tablet (Centrum Silver) atorvastatin 80 mg tablet 80 mg PO DAILY 01/19/25 01/19/25 Unknown History gabapentin 600 mg tablet 600 mg PO TID 01/19/25 01/19/25 Unknown History Allergies Allergy/AdvReac Type Severity Reaction Status Date / Time Sulfa (Sulfonamide Allergy Vomiting Verified 01/25/25 13:00 Antibiotics) Review of Systems Review of Systems: All systems reviewed & are unremarkable except as noted in HPI and below Constitutional: Constitutional: Reports no additional constitutional complaints Eyes: Eyes: Reports no additional eye complaints ENT: Reports system reviewed and no additional complaints, except as documented Cardiovascular: Cardiovascular: Reports as per HPI Respiratory: Respiratory: Reports no additional respiratory complaints Gastrointestinal: Gastrointestinal: Reports as per HPI Genitourinary: Genitourinary: Reports as per HPI Musculoskeletal: Musculoskeletal: Reports no additional musculoskeletal complaints Psychiatric: Psychiatric: Reports no additional psychiatric complaints [facility] Past Medical History Medical History Recurrent pleural effusion Anemia GERD (gastroesophageal reflux disease) LEONARDO (obstructive sleep apnea) Infrarenal abdominal aortic aneurysm (AAA) without rupture Lumbago CKD (chronic kidney disease) Bulging discs Hiatal hernia Hypertension Surgical History Surgical History H/O hernia repair Hx of tonsillectomy H/O tubal ligation Family History Family History Father Congestive heart failure Malignant neoplasm of prostate Mother Kidney malignancy Hypertension Sibling Hypertension Social History Social History Smoking status: Former smoker Second hand tobacco smoke exposure: No Alcohol intake: never Substance use: current Substance use type: marijuana Other substance usage details: gummies for sleep. 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 HEAD: Normocephalic, atraumatic. EYES: PERRLA and EOMI. ENT: Nares clear, no rhinorrhea or epistaxis. Mucous membranes moist. NECK: Supple. CHEST: Clear to auscultation. No respiratory distress. HEART: Regular rate and rhythm. No murmur heard. Normal peripheral pulses. ABDOMEN: Soft, nontender, nondistended, normal active bowel sounds. EXTREMITIES: Normal range of motion. No edema. SKIN: Warm, dry, no rash. NEURO: No focal deficits. Alert and oriented x3. PSYCH: Normal mood and affect. Course Course Emergency Course: Upon arrival to the ER the patient was in AFib with RVR with a heart rate between 110 and 135 he spontaneously converted to normal sinus rhythm. I discussed with Dr. Sylvester recommended admission and CT Vital Signs Vital signs: Vital Signs Pulse Rate 133 H 01/25/25 12:15 Respiratory Rate 25 H 01/25/25 12:15 Temperature 36.8 C 01/25/25 12:20 Pulse Rate 82 01/25/25 13:31 Respiratory Rate 16 01/25/25 13:31 Blood Pressure 113/82 01/25/25 13:30 Pulse Oximetry 92 01/25/25 13:31 Oxygen Delivery Room Air 01/25/25 13:31 Medical Decision Making MDM Narrative Medical decision making narrative: 5. Is concerned, no the discomfort review lab work services on arrival films of to converted normal sinus without any Differential Diagnosis Differential Diagnosis: SBO, partial small bowel obstruction, Medical Records Medical records reviewed: Yes I reviewed the external patient's medical records. Vital Signs Vital Signs: Vital Signs Pulse Rate 133 H 01/25/25 12:15 Respiratory Rate 25 H 01/25/25 12:15 Temperature 36.8 C 01/25/25 12:20 Pulse Rate 82 01/25/25 13:31 Respiratory Rate 16 01/25/25 13:31 Blood Pressure 113/82 01/25/25 13:30 Pulse Oximetry 92 01/25/25 13:31 Oxygen Delivery Room Air 01/25/25 13:31 Lab Data Lab results reviewed: Yes I reviewed the patient's lab results. 01/25/25 12:34 01/25/25 12:34 Labs: Lab Results 01/25/25 Range/Units 12:34 WBC 11.7 H (4.8-10.8) K/mm3 RBC 4.64 (4.20-5.40) M/mm3 Hgb 14.1 H (11.7-13.8) g/dL Hct 42.8 H (35.0-42.0) % MCV 92.2 (78.0-102.0) fL MCH 30.4 (27.0-31.0) pg MCHC 32.9 (32-36) g/dL RDW 14.3 (11.6-14.4) % Plt Count 429 H (150-420) K/mm3 MPV 12.1 H (9.2-11.8) fl Immature Gran % (Auto) 0.5 H (0.0-0.0) % Neut % (Auto) 71.4 H (50.0-70.0) % Lymph % (Auto) 18.6 (18.0-42.0) % [place] % (Auto) 9.0 (2.0-11.0) % Eos % (Auto) 0.1 L (1.0-6.0) % Baso % (Auto) 0.4 (0.0-1.0) % Lymph # (Auto) 2.18 (1.10-4.50) K/mm3 [place] # (Auto) 1.05 H (0.10-0.90) K/mm3 Eos # (Auto) 0.01 L (0.02-0.50) K/mm3 Baso # (Auto) 0.05 (0.00-0.10) K/mm3 Abs Immat Gran (auto) 0.06 H (0.00-0.00) K/mm3 Absolute Neuts (auto) 8.38 H (1.70-7.20) K/mm3 Absolute Nucleated RBC 0.00 (0.00-0.00) K/mm3 Nucleated RBC % 0.0 (0-0.0) % PT 10.5 (9.50-12.1) Seconds INR 0.9 Sodium 137 (137-145) mmol/L Potassium 4.7 (3.4-5.0) mmol/L Chloride 104 (98-107) mmol/L Carbon Dioxide 19 L (22-30) mmol/L Anion Gap 14 H (4-12) mmol/L BUN 29 H D (7-17) mg/dL Creatinine 1.83 H (0.7-1.0) mg/dL Estim Creat Clear Calc 28 ml/min Estimated GFR 27 L (59 - ) Glucose 132 H (65-110) mg/dL Calculated Osmolality 291 (285-295) mOsm/kg Calcium 9.9 (8.4-10.2) mg/dL Total Bilirubin 1.1 (0.2-1.3) mg/dL AST 32 (14-36) U/L ALT 27 (6-35) U/L Alkaline Phosphatase 131 H (38-126) U/L Troponin I 0.021 (0.000-0.034) ng/mL NT-Pro-B Natriuret Pep 874 H (19.9-100) pg/mL Total Protein 7.4 (6.3-8.2) g/dL Albumin 4.6 (3.5-5.1) g/dL TSH 0.982 (0.465-4.680) uIU/mL Imaging Data Radiologist's impression: ITS Impressions Abdomen/Pelvis CT 01/25/25 14:26 IMPRESSION: 1. Fusiform abdominal aortic aneurysm with saccular component measuring up to 5 cm. 2: Cholelithiasis. 3: Left ovarian cyst measuring 2.8 cm. 3: Small pericardial effusion. ECG Data EKG #1: ECG completion date: 01/25/25 ECG completion time: 12:29 EKG Interpretation: tachycardia (107), atrial fibrillation, no ectopy and no ST changes Discharge Plan Discharge Clinical Impression: Paroxysmal A-fib, Nausea Patient Disposition: Still a Patient Condition: Stable Patient Language: [place] Prescriptions: No Action Centrum Silver 0.4 mg-300 mcg- 250 mcg tablet 1 tablet PO DAILY atorvastatin 80 mg tablet 80 mg PO DAILY gabapentin 600 mg tablet 600 mg PO TID aspirin 81 mg tablet,delayed release (DR/EC) 81 mg PO DAILY amlodipine 10 mg tablet 10 mg PO DAILY Follow-up/Referrals: Sendy Sylvester MD [Primary Care Provider, Internal Medicine] Time of Disposition: 14:48
[2025-01-25 14:17] LABS: Add Urine Microscopic? YES; Appearance Urine Clear (Clear); Glucose Urine UA Negative (Negative); Leukocyte Esterase Ur 1+ LEU/UL (Negative); Nitrate Urine Negative (Negative); Specific Grav Ur 1.025 (1.010-1.020)
[2025-01-25 14:31] LABS: Amylase 63 U/L (30-110); Lipase 64 U/L (23-300)
[2025-01-25] MEDS: METOPROLOL SUCCINATE EXT REL 12.5 MG TABCR PO (15:05)
[2025-01-25] MEDS: SODIUM CHLORIDE 0.9% IV 1,000 ML 125 ML IV CONT ×2 (15:37→23:44)
--- NOTE | 2025-01-25 16:16 | PC.NURSE ---
1530 Patient arrived to unit in w/c from ED. Patient placed on observation with telemetry in room 209. Patient able to transfer from w/c to bed independently. Patient educated on general hospital policies and practices, including visiting hours, use of rapid response, infection control practices and given blue admission folder. Patient educated on use of call light and bed controls and voices understanding.
[2025-01-25] MEDS: ONDANSETRON INJ 4 MG/2 ML VIAL IV PUSH (20:20)
[2025-01-25] MEDS: PANTOPRAZOLE SODIUM IV 40 MG VIAL IV PUSH (20:20)
[2025-01-25] MEDS: APIXABAN 2.5 MG TABLET 5 MG PO (20:21)
[2025-01-25] MEDS: HYDROcodone/acetaminophen (*CRX) 5-325 MG TABLET 1 TAB PO (23:45)
[2025-01-26] VITALS: BP 129/66; PULSE 72; RESP 17; TEMP 36.4; O2SAT 94
[2025-01-26 04:00] VITALS: PULSE 58
[2025-01-26 05:51] LABS: Anion Gap 7 mmol/L (4-12); Blood Urea Nitrogen 29 mg/dL (7-17); Calcium 9.0 mg/dL (8.4-10.2); Carbon Dioxide 24 mmol/L (22-30); Chloride 108 mmol/L (98-107); Estimated CRCL calculation 32 ml/min; Estimated Glomerular Filt Rate 31; Glucose 92 mg/dL (65-110); Osmolality Calculated 293 mOsm/kg (285-295); Potassium 4.7 mmol/L (3.4-5.0); Sodium 139 mmol/L (137-145)
[2025-01-26 07:54] VITALS: BP 139/80; PULSE 72; PULSE 74; RESP 16; TEMP 36.5; O2SAT 91
[2025-01-26 08:10] VITALS: PULSE 74
[2025-01-26] MEDS: METOPROLOL SUCCINATE EXT REL 12.5 MG TABCR PO (08:10)
[2025-01-26] MEDS: APIXABAN 2.5 MG TABLET 5 MG PO (08:10)
[2025-01-26] MEDS: ATORVASTATIN 40 MG TABLET 80 MG PO (08:13)
[2025-01-26] MEDS: PANTOPRAZOLE SODIUM IV 40 MG VIAL IV PUSH (08:13)
[2025-01-26] MEDS: ASPIRIN 81 MG ENTERIC TABLET PO (08:14)
--- NOTE | 2025-01-26 10:22 | PM.SD2 ---
Same Day Admit/Disch: HPI History of Present Illness Chief complaint: PAROXYSMAL A FIB Narrative: Lisseth Gibbons is a 74 year old female Chief complaint: Abdominal Pain Stated complaint: A FIB Time Seen by Provider: 01/25/25 12:14 Source: patient Mode of arrival: ambulatory Limitations: no limitations History of Present Illness HPI narrative: 74-year-old with a history of hypertension, hyperlipidemia, infrarenal abdominal aortic aneurysm without rupture years with the complaints of having abdominal pain associated with nausea for past week or so she also complains of weakness. She was at the doctor's office this morning where she was found to be having AFib. Patient denies having any chest pain or shortness of breath. No previous history of AFib. [facility] Past Medical History Medical History Recurrent pleural effusion Anemia GERD (gastroesophageal reflux disease) LEONARDO (obstructive sleep apnea) Infrarenal abdominal aortic aneurysm (AAA) without rupture Lumbago CKD (chronic kidney disease) Bulging discs Hiatal hernia Hypertension Surgical History Surgical History H/O hernia repair Hx of tonsillectomy H/O tubal ligation Family History Family History Father Congestive heart failure Malignant neoplasm of prostate Mother Kidney malignancy Hypertension Sibling Hypertension Social History Social History Smoking packs per day: 0.5 Smoking cigarettes per day: 10.0 Years smoked: 50 Smoking pack-years: 25.00 Smoking status: Former smoker Tobacco type: cigarettes Second hand tobacco smoke exposure: No Smoking end date: 01/26/20 Alcohol intake: never Substance use: current Substance use type: marijuana Other substance usage details: gummies for sleep. 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[employer] Gender identity (if verbalized by the patient): Female Spiritual care concerns: No Same Day Admit/Disch: Med Pre-admit Medications Home Medications ?Medication ?Instructions ?Recorded ?Confirmed ?Type amlodipine 10 mg tablet 10 mg PO DAILY 03/02/24 03/02/25 History aspirin 81 mg tablet,delayed 81 mg PO DAILY 03/02/24 03/02/25 History release [id number]-[id number] acid 0.4 1 tablet PO DAILY 09/23/24 03/02/25 History mg-lycopene 300 mcg-lutein 250 mcg tablet (Centrum Silver) atorvastatin 80 mg tablet 80 mg PO DAILY 01/19/25 03/02/25 History apixaban 5 mg tablet (Eliquis) 5 mg PO BID #60 tabs 01/26/25 03/02/25 Rx metoprolol succinate 25 mg 12.5 mg (1/2 x 25 mg) PO DAILY #30 01/26/25 03/02/25 Rx tablet,extended release 24 hr tabs (Toprol XL) pantoprazole 40 mg tablet,delayed 40 mg PO QAM 02/25/25 03/02/25 History release Review of Systems Review of Systems nausea, heart palpation All systems reviewed & are unremarkable except as noted in HPI and below Exam Narrative: GENERAL: Well-appearing, well-nourished, and in no acute distress. HEAD: Normocephalic, atraumatic. EYES: PERRLA and EOMI. ENT: Nares clear, no rhinorrhea or epistaxis. Mucous membranes moist. NECK: Supple. CHEST: Clear to auscultation. No respiratory distress. HEART: Regular rate and rhythm. No murmur heard. Normal peripheral pulses. ABDOMEN: Soft, nontender, nondistended, normal active bowel sounds. EXTREMITIES: Normal range of motion. No edema. SKIN: Warm, dry, no rash. NEURO: No focal deficits. Alert and oriented x3. PSYCH: Normal mood and affect. DS: Data Data Completed and Pending Labs on day of discharge: Labs from last 24 hours 01/26/25 01/25/25 01/25/25 05:42 14:13 12:34 WBC 11.7 H RBC 4.64 Hgb 14.1 H Hct 42.8 H MCV 92.2 MCH 30.4 MCHC 32.9 RDW 14.3 Plt Count 429 H MPV 12.1 H Immature Gran % (Auto) 0.5 H Neut % (Auto) 71.4 H Lymph % (Auto) 18.6 Harris % (Auto) 9.0 Eos % (Auto) 0.1 L Baso % (Auto) 0.4 Lymph # (Auto) 2.18 Harris # (Auto) 1.05 H Eos # (Auto) 0.01 L Baso # (Auto) 0.05 Abs Immat Gran (auto) 0.06 H Absolute Neuts (auto) 8.38 H Absolute Nucleated RBC 0.00 Nucleated RBC % 0.0 PT 10.5 INR 0.9 Sodium 139 137 Potassium 4.7 4.7 Chloride 108 H 104 Carbon Dioxide 24 19 L Anion Gap 7 14 H BUN 29 H 29 H D Creatinine 1.63 H 1.83 H Estim Creat Clear Calc 32 28 Estimated GFR 31 L 27 L Glucose 92 132 H Calculated Osmolality 293 291 Calcium 9.0 9.9 Total Bilirubin 1.1 AST 32 ALT 27 Alkaline Phosphatase 131 H Troponin I 0.021 NT-Pro-B Natriuret Pep 874 H Total Protein 7.4 Albumin 4.6 Amylase Lipase TSH 0.982 Urine Color Yellow Urine Appearance Clear Urine pH 5.5 Ur Specific Rumsey 1.025 H Urine Protein 2+ H Urine Glucose (UA) Negative Urine Ketones Negative Ur Blood (Man) Negative Urine Nitrate Negative Urine Bilirubin 1+ H Urine Urobilinogen 0.2 Leukocyte Esterase Rfl 1+ H Urine RBC None seen Urine WBC 7-9 H Ur Squamous Epith Cells Few Ur Renal Epithelial Cell Few H Urine Bacteria 1+ H 01/25/25 12:18 WBC RBC Hgb Hct MCV MCH MCHC RDW Plt Count MPV Immature Gran % (Auto) Neut % (Auto) Lymph % (Auto) Harris % (Auto) Eos % (Auto) Baso % (Auto) Lymph # (Auto) Harris # (Auto) Eos # (Auto) Baso # (Auto) Abs Immat Gran (auto) Absolute Neuts (auto) Absolute Nucleated RBC Nucleated RBC % PT INR Sodium Potassium Chloride Carbon Dioxide Anion Gap BUN Creatinine Estim Creat Clear Calc Estimated GFR Glucose Calculated Osmolality Calcium Total Bilirubin AST ALT Alkaline Phosphatase Troponin I NT-Pro-B Natriuret Pep Total Protein Albumin Amylase 63 Lipase 64 TSH Urine Color Urine Appearance Urine pH Ur Specific Rumsey Urine Protein Urine Glucose (UA) Urine Ketones Ur Blood (Man) Urine Nitrate Urine Bilirubin Urine Urobilinogen Leukocyte Esterase Rfl Urine RBC Urine WBC Ur Squamous Epith Cells Ur Renal Epithelial Cell Urine Bacteria DS: Summary Hospital Course Reason for hospitalization: Afib w rvr , nausea and vomiting Hospital Course: year old female who presented to the emergency department with atrial flutter with rvr and episode of vomiting. The patient reported not feeling well over the past week , Experiencing shortness of breath and abdominal discomfort. Patient has a PMH is significant for HLD, Abdominal aortic aneurysm without rupture and cancer. in the emergency room pt was started on IV metoprolol for rate control. She was admitted for monitoring on tele and her rate has been controlled and converted back to sinus rhythm and transitioned to oral Eliquis for anticoagulation and oral metoprolol for rate control. A echocardiogram revealed a preserved ejection fraction T60-65%. The patient has since converted to normal sinus rhythm and is hemodynamically stable. Current vital signs include a heart rate of 74 bpm, blood pressure of 139/80 mmHg, respiratory rate of 16 breaths per minute, and temperature of 97.7 F. She is tolerating oral intake, denies chest pain or shortness of breath, and is medically stable for discharge. Patient will continue oral metoprolol and Eliquis, and follow up with her public service representative and primary care provider for ongoing management. Time Spent with Patient Time attestation: Total time spent providing and/or coordinating discharge services: DS: Admitting Diagnosis Discharge Date 01/26/25 Admitting Diagnosis Aflutter rvr, Nausea and vomiting DS: Discharge Diagnosis Discharge Diagnosis (1) Nausea: Code(s): R11.0 - Nausea Status: Acute (2) Paroxysmal A-fib: Code(s): I48.0 - Paroxysmal atrial fibrillation Status: Acute Assessment and Plan: Metoprolol Eliquis (3) Stage 4 chronic kidney disease: Code(s): N18.4 - Chronic kidney disease, stage 4 (severe) Status: Acute Assessment and Plan: Avoid Nephrotoxic medication . (4) Ovarian cyst: Code(s): N83.209 - Unspecified ovarian cyst, unspecified side Status: Acute Assessment and Plan: Follow up with [facility] (5) Abdominal aneurysm: Code(s): I71.40 - Abdominal aortic aneurysm, without rupture, unspecified Status: Acute Assessment and Plan: Follow up with PCP Discharge Plan Discharge Attending physician on discharge: Vijay Michele Consulting providers: Neha Larry; Eulalio Prater Discharging Clinician: Neha Larry Anticipated Discharge Date/Time: 01/26/25 10:14 Patient Disposition: Home Activity: may shower Diet: heart healthy Wound Care Instructions: follow printed instructions Discharge Instructions: You may need to see a public service representative at some point will need have the echo done talk to Dr. Sylvester about your results Patient Instructions: Antibiotic Form, Metoprolol (By mouth), Apixaban (By mouth), Heart Failure (DC), A-fib (Atrial Fibrillation) (DC), Fall Prevention for Older Adults (DC) Patient Language: Malaysian Stand Alone Forms: General Discharge Information Follow-up/Referrals: Sendy Sylvester MD [Primary Care Provider, Internal Medicine] Referral Note: call and schedule appointment Discharge Medications: New metoprolol succinate [Toprol XL] 25 mg tablet extended release 24 hr 12.5 mg PO DAILY Qty: 30 0RF Eliquis 5 mg tablet 5 mg PO BID Qty: 60 0RF Continued Centrum Silver 0.4 mg-300 mcg- 250 mcg tablet 1 tablet PO DAILY atorvastatin 80 mg tablet 80 mg PO DAILY aspirin 81 mg tablet,delayed release (DR/EC) 81 mg PO DAILY amlodipine 10 mg tablet 10 mg PO DAILY No Action pantoprazole 40 mg tablet,delayed release (DR/EC) 40 mg PO QAM Date of admission: 01/25/25 14:51 Primary Care Provider: Sendy Sylvester Admitting Provider: Vijay Michele Attending physician on admission: Vijay Michele Condition: Stable
[2025-01-26] MEDS: ACETAMINOPHEN 325 MG TABLET 650 MG PO (10:36)
--- NOTE | 2025-01-26 11:43 | PC.NURSE ---
IV site and telemetry discontinued in anticipation of discharge. Discharge instructions given to patient and patient voices understanding. Patient awaiting ride home for discharge.
--- NOTE | 2025-01-26 12:05 | PC.NURSE ---
1205 Patient left unit in w/c accompanied by a family member and nurse. Patient belongings gathered and sent home with patient. Patient left hospital grounds in privately owned vehicle.
--- NOTE | 2025-01-27 11:16 | PC.NURSE ---
Discharge call back complete, states continues to have nausea, using meds prescribed, no questions on meds or side effects, has scheduled appointment with doctor saturdayFeb 02.
== END 2025-01-26 12:05 | disposition home or self-care (01) ==
LOC: CHSED 14:41 → CHS2ND 15:09
PROVIDERS: Nurse Practitioner Family; Admitting Provider Internal Medicine; Emergency Provider Family Medicine; PCP Internal Medicine; Visit Provider Internal Medicine
DX: N83.202 Unspecified ovarian cyst, left side (principal); I71.40 Abdominal aortic aneurysm, without rupture, unspecified; I48.0 Paroxysmal atrial fibrillation; E78.5 Hyperlipidemia, unspecified; K21.9 Gastro-esophageal reflux disease without esophagitis; G47.33 Obstructive sleep apnea (adult) (pediatric); N18.4 Chronic kidney disease, stage 4 (severe); I12.9 Hypertensive chronic kidney disease with stage 1 through stage 4 chronic kidney disease, or unspecified chronic kidney disease; Z80.42 Family history of malignant neoplasm of prostate; Z82.49 Family history of ischemic heart disease and other diseases of the circulatory system; Z80.51 Family history of malignant neoplasm of kidney; Z87.891 Personal history of nicotine dependence; I45.10 Unspecified right bundle-branch block
CPT/HCPCS: 36415; 74176; 80048; 80053; 81001; 82150; 83690; 83880; 84443; 84484; 85025; 85610; 93005; 93306; 96361; 96374; 96375; 99285; A9270; G0378; J2405; J2470; J7030

== ENCOUNTER 2025-01-28 12:11 | Outpatient (CLI) | payer MEDICARE, SELFPAY ==
--- NOTE | ~2025-01-28 | US_ITS ---
US right upper quadrant INDICATION: Nausea with right upper quadrant pain PROCEDURE: Realtime right upper abdominal ultrasound. COMPARISON: No prior studies for comparison. FINDINGS: The pancreas is normal without focal mass or pancreatic ductal dilation. Liver echotexture is increased, consistent with fatty infiltration. There is normal directional flow in the portal vein. The gallbladder is normal without stones, gallbladder wall thickening or pericholecystic fluid. Common bile duct measures 5 mm. No sonographic Morejon's sign. There is an abdominal aortic aneurysm at the level of the renal arteries measuring 4.8 cm. IMPRESSION: 1: Abdominal aortic aneurysm measuring 4.1 cm. 2: Fatty infiltration of the liver. Reviewed, dictated and finalized at location O.
[2025-01-28 12:23] LABS: Hematocrit 41.8 % (35.0-42.0); Hemoglobin 13.5 g/dL (11.7-13.8); Mean Corpuscular HGB Conc 32.3 g/dL (32-36); Mean Corpuscular Hemoglobin 30.5 pg (27.0-31.0); Mean Corpuscular Volume 94.6 fL (78.0-102.0); Platelet Count Result 396 K/mm3 (150-420); Red Blood Count 4.42 M/mm3 (4.20-5.40); White Blood Count 10.7 K/mm3 (4.8-10.8)
[2025-01-28 12:41] LABS: Alanine Aminotransferase 24 U/L (6-35); Albumin Level 4.5 g/dL (3.5-5.1); Alkaline Phosphatase 116 U/L (38-126); Amylase 56 U/L (30-110); Anion Gap 12 mmol/L (4-12); Aspartate Amino Transferase 41 U/L (14-36); Bilirubin,Total 1.1 mg/dL (0.2-1.3); Blood Urea Nitrogen 25 mg/dL (7-17); Calcium 10.1 mg/dL (8.4-10.2); Carbon Dioxide 24 mmol/L (22-30); Chloride 105 mmol/L (98-107); Estimated Glomerular Filt Rate 27; Glucose 111 mg/dL (65-110); Lipase 53 U/L (23-300); Osmolality Calculated 297 mOsm/kg (285-295); Potassium 5.0 mmol/L (3.4-5.0); Sodium 141 mmol/L (137-145); Total Protein 7.5 g/dL (6.3-8.2)
== END 2025-01-28 12:12 | disposition home or self-care (01) ==
PROVIDERS: PCP Internal Medicine; Visit Provider Internal Medicine
DX: R11.0 Nausea (principal); R10.11 Right upper quadrant pain; I71.40 Abdominal aortic aneurysm, without rupture, unspecified; K76.0 Fatty (change of) liver, not elsewhere classified
CPT/HCPCS: 36415; 76705; 80053; 82150; 83690; 85027

== ENCOUNTER 2025-02-09 11:54 | Outpatient (CLI) | payer MEDICARE, SELFPAY ==
--- NOTE | ~2025-02-09 | NM_ITS ---
EXAMINATION: [id number] DATE: 02/09/2025 13:36 INDICATION: Right upper quadrant abdominal pain and nausea COMPARISON: None. TECHNIQUE: 5.8 mCi Tc-99m mebrofenin (Choletec) was administered intravenously. Scintigraphic images of the abdomen were obtained for one hour. 1.8 mcg sincalide (Kinevac) was administered by slow intravenous infusion, and imaging was continued for 30 minutes. Gallbladder ejection fraction was calculated by the technologist. FINDINGS: There is normal clearance of radiotracer from the blood pool. There is homogeneous tracer uptake by the liver. Activity progresses to the gallbladder and bowel. The gallbladder ejection fraction (GBEF) is 15% (normal 10-90%, but most patient with gallbladder dysfunction have GBEF < 35% which does overlap with the normal range). IMPRESSION: 1. Gallbladder ejection fraction is at the lower limits of normal. This could be normal but is also within the range of overlap with gallbladder dysfunction or chronic cholecystitis in the appropriate clinical setting. Reviewed, dictated and finalized at location A.
== END 2025-02-09 11:55 | disposition home or self-care (01) ==
LOC: CHSIMG 11:55
PROVIDERS: PCP Internal Medicine; Visit Provider Internal Medicine
DX: R10.11 Right upper quadrant pain (principal); R11.0 Nausea
CPT/HCPCS: 78227; A9537; J2805

== ENCOUNTER 2025-03-02 08:14 | Outpatient (CLI) | payer MEDICARE, SELFPAY ==
--- OUTSIDE RECORDS SUMMARY | 2025-03-01 12:30 | XMS_ITS | Encounter Summary ---
Author Organization [facility] Address [address] [place] [address] Phone Care Team Providers Care Studio Producer Name Role Phone Sendy Sylvester MD Primary Care Provider [phone] Humberto Harris MD PhD Unavailable [phone] Missael Estrella M.A., MD Unavailable [phone] Reason for Visit * Reason Comments Follow-up * Consultation (Routine) - Authorized Specialty Diagnoses / Procedures Referred By Contjeffrey t Referred To Contact Cardiology Diagnoses Atrial fibrillation, unspecified type (HCC) Sendy Sylvester MD [address] [place] [address] Phone: tel: fax: Burak Hudson MD [address] [address] Phone: tel: fax: Referral ID Status Reason Start Date Expiration Date Visits Requested Visits Authorized [id number] Authorized Specialty Services Required 02/02/2025 03/04/2026 12 12 Encounter Details Date Type Department Care Team (Late st Contact Info) Description 03/01/2025 12:30 PM CDT Office Visit [facility] Medicine Cardiology [address] [facility] [address] [place] [address] Burak Hudson MD [address] [facility] [address] [place] [address] Other cardiomyopathy (Primary Dx); Dyspnea, unspecified type; Chronic heart failure with preserved ejection fraction (HFpEF); Paroxysmal A-fib (HCC); Abdominal aneurysm; Nausea Social History Tobacco Use Types Packs/Day Years Used Date Smoking Tobacco: Former Cigarettes Passive Smoke Exposure: Past Smokeless Tobacco: Never Tobacco Cessation:Counseling Given: Not Answered Comments:Pt. Quit smoking on 2021 [facility] Utilities Answer Date Recorded In the past 12 months has e [employer]et[employer]+, oil, or water [email or web address] threatened to shut off services in your [...] How often do you attend chur or presybeterian services? Never 12/26/2023 Do you belong to any clubs o r organizations such as quaker groups, unions, fraternal or athletic groups, or [...] and heating? 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 Gender Identity Not on file Sexual Orientation Not on file documented as of this encounter Last Filed Vital Signs Vital Sign Reading Time Taken Comments Blood Pressure 90/60 03/01/2025 12:14 PM CDT Pulse 119 03/01/2025 12:14 PM CDT Temperature - - Respiratory Rate - - Oxygen Saturation 98% 03/01/2025 12: 14 PM CDT Inhaled Oxygen Concentration - - Weight 87.5 kg (192 lb 14.4 oz) 025 12:14 PM CDT Height 171.5 cm (5' 7.5) 03/01/2025 12 :14 PM CDT Body Mass Index 29.77 03/01/2025 12:14 PM CDT documented in this encounter Patient Instructions * Patient Instructions* Burak Hduson MD - 03/01/2025 12:30 PM CDT Images from the original note were not included. If you have any questions or concerns please call the Heart Failure Office at . . Thank You, Annmarie Price / Rosalia Harper - Nurse Coordinators for Dr. Burak Hudson PLAN: Medication changes: HOLD Amlodipine due to low blood pressure Eliquis dose 5 mg twice/day Testing: EKG here CXR today Labs tomorrow at [facility] Retrieve CT scan, echo testing from [facility] Follow-up: 1 months in-person with QUARRYING SPECIALIST Monitoring: Please monitor daily weights, blood pressures, and symptoms. Clinical trials: We actively engage in clinical research at [facility]. If you have interest in being involved in a clinical trial please contact us at at [phone] Additional plans: Patients and Caregivers can learn more about Heart Failure through the Heart Failure Society of [place] at [email or web address].[email or web address]. Complimentary society memberships enable patients and caregivers to learn and share with the community. documented in this encounter Progress Notes * Burak Hudson MD - 03/01/2025 12:30 PM CDT Images from the original note were not included. Department of Medicine Burak Hudson M.D. Cardiovascular Division shadowgraph operator Initial Office Visit Note Date of Visit: 03/01/2025 Name: Lisseth Gibbons : 1950 Medical Record: [id number] Correspondence: Sendy Sylvester MD Patient Active Problem List Diagnosis Date Noted Chronic heart failure with preserved ejection fraction (HFpEF) 03/01/2025 Priority: High Overview Note: TTE Jan 2025 LVEF 60-65% proBNP 874 Paroxysmal A-fib (HCC) 02/24/2025 Priority: High Overview Note: Diagnosed Jan 2025 Eliquis DOAC Metoprolol low dose TTE LVEF 60-65% Abdominal aneurysm 02/24/2025 Priority: Medium Overview Note: Now followed by Dr Darby with plans for every 6 months surveillance Cerebrovascular accident (HCC) 02/24/2025 Nausea 02/24/2025 Stage 3b chronic kidney disease (HCC) 02/24/2025 Iliac artery aneurysm, right 12/15/2024 Essential (primary) hypertension 09/15/2024 Hyperlipidemia, mixed 09/15/2024 Iliac artery stenosis, left 09/15/2024 Chronic renal disease, stage IV (HCC) 01/08/2024 Pleural effusion 12/20/2023 Paraesophageal hernia 10/14/2023 Hiatal hernia with GERD 09/11/2023 Infrarenal abdominal aortic aneurysm (AAA) without rupture 09/11/2022 Overview Note: 08/31/22 3.9 cm x 4.1 cm Reason for visit: dyspnea Dear Sendy Sylvester MD: It was my pleasure to meet Lisseth Gibbons today at the [facility] at [facility] for an initial office visit and consultation regarding assessement of dyspnea. Today she is referred by Sendy Sylvester MD and has been a patient of Dr Missael Estrella in [place] for previous CV care. Her Brendon is a patient of [facility] Lisseth Gibbons is a 74 y.o. year old White female with peripheral vascular disease (AAA under surveillance) and hypertension. She has seen Dr Darby here (December 2024) and the plan was serial ultrasound every six months for surveillance with anticipation of repair if diameter exceeded 5 cm. Recently diagnosed with atrial fibrillation. Woke up dizzy about a month ago. After 4-5 days she went to PCP who diagnosed Afib. Went over to the ER. Went back to NSR in the ER. Says that they did anecho at [facility]. Added Eliquis and metoprolol. Has been on amlodipine intermediate school teacher. Nausea/lightheadedness and SOB have persistent. Not sure about Afib. Blood pressure has been on thelow side - hasn't been this low in the past. Has some dyspnea or a catching sensation when laying on the left Has CKD and sees a academic support coordinator. Today she reports no paroxysmal nocturnal dyspnea, peripheral edema, chest pain, syncope, near syncope, and palpitations. If she lays flat she gags and has to sit up. Today she reports severe dyspneaon exertion or fatigue with daily activities. She has had poor apetite. When she had her hernia operation she had bad breathing and this feels the same. ROS: Review of systems per HPI and, otherwise all other systems are negative CURRENT MEDICATIONS: Current Outpatient Medications: amLODIPine (NORVASC) 10 mg tablet, Take 1 tablet (10 mg total) by mouth every morning Crush medications for 2 weeks after surgery, after the 2 weeks may take whole pills, Disp: , Rfl: apixaban (ELIQUIS) 5 mg tablet, Take 1 tablet (5 mg total) by mouth 2 (two) times a day (Patient taking differently: Take 1 tablet (5 mg total) by mouth 2 (two) times a day), Disp: , Rfl: aspirin 81 mg enteric coated tablet, Take 1 tablet (81 mg total) by mouth daily, Disp: , Rfl: atorvastatin (LIPITOR) 80 mg tablet, Take 1 tablet (80 mg total) by mouth daily, Disp: , Rfl: metoclopramide (REGLAN) 5 mg tablet, Take 1 tablet (5 mg total) by mouth, Disp: , Rfl: metoprolol XL (TOPROL-XL) 25 mg extended release tablet, Take 0.5 tablets (12.5 mg total) by mouth daily, Disp: , Rfl: lnrfyerp-dzu-BS-lycopen-lutein (Centrum Silver) 0.4 mg-300 mcg- 250 mcg tablet, Take 1 tablet by mouth daily, Disp: , Rfl: ondansetron ODT (ZOFRAN-ODT) 4 mg disintegrating tablet, Take 1 tablet (4 mg total) by mouth every 8 (eight) hours as needed for nausea or vomiting Place under the tongue and let dissolve, Disp: 20 tablet, Rfl: [address] (PROTONIX) 40 mg EC tablet, Take 1 tablet (40 mg total) by mouth daily, Disp: , Rfl: ALLERGIES: Allergies Allergen Reactions Sulfa (Sulfonamide Antibiotics) Cough, Shortness of breath and Other (See comments) it made me so sick PAST MEDICAL HISTORY Active Ambulatory Problems Diagnosis Date Noted Hiatal hernia with GERD 09/11/2023 Infrarenal abdominal aortic aneurysm (AAA) without rupture 09/11/2022 Paraesophageal hernia 10/14/2023 Pleural effusion 12/20/2023 Chronic renal disease, stage IV (HCC) 01/08/2024 Essential (primary) hypertension 09/15/2024 Hyperlipidemia, mixed 09/15/2024 Iliac artery stenosis, left 09/15/2024 Abdominal aneurysm 02/24/2025 Cerebrovascular accident (HCC) 02/24/2025 Iliac artery aneurysm, right 12/15/2024 Nausea 02/24/2025 Paroxysmal A-fib (HCC) 02/24/2025 Stage 3b chronic kidney disease (HCC) 02/24/2025 Chronic heart failure with preserved ejection fraction (HFpEF) 03/01/2025 Resolved Ambulatory Problems Diagnosis Date Noted Acute hypoxic respiratory failure (HCC) 10/18/2023 Shortness of breath 12/18/2023 Severe protein-calorie malnutrition 12/19/2023 TIA (transient ischemic attack) 01/01/2022 Varicose veins of both legs with edema 09/11/2022 Past Medical History: Diagnosis Date Arthritis Awareness under anesthesia Cataract GERD (gastroesophageal reflux disease) Hyperlipidemia Hypertension Kidney stone Sleep apnea FAMILY HISTORY: Family History Problem Relation Age of Onset Hypertension Mother Cancer Mother Hypertension Father Anesthesia problems Neg Hx Malig Hyperthermia Neg Hx Pseudochol deficiency Neg Hx SOCIAL HISTORY: Social History Tobacco Use Smoking status: Former Types: Cigarettes Passive exposure: Past Smokeless tobacco: Never Tobacco comments: Pt. Quit smoking on 2021 Substance and Sexual Activity Drug use: Not Currently Sexual activity: Defer Alcohol Use: Not At Risk (12/18/2023) AUDIT-C Frequency of Alcohol Consumption: Never Average Number of Drinks: Patient does not drink Frequency of Binge Drinking: Never 40 pack year smoking history PHYSICAL EXAM: Vitals BP 90/60 (BP Location: Left arm, Patient Position: Sitting) Pulse 119 Ht 171.5 cm (5' 7.5) Wt 87.5 kg (192 lb 14.4 oz) SpO2 98% BMI 29.77 kg/m?? Body mass index is 29.77 kg/m??. General Appearance: No distress, Well developed Head/eyes/nose/throat: Normocephalic, without obvious abnormality, conjunctiva/corneas clear, sclera anicteric. Mucus membranes moist. Neck: No enlargement/tenderness/nodules; no carotid Bruit. JVD no Lungs: Clear to auscultation bilaterally, respirations unlabored, no crackles wheezes or rhonchi. Normal excursion Cardiovascular: Regular rate and rhythm, S1 and S2 normal, no murmur, no gallop, no rub pulses 2+ and symmetric. no edema Abdomen: Soft, non-tender, bowel sounds active all four quadrants, no masses, no organomegaly, non-distended Extremities: Extremities normal, no cyanosis. Warm/well perfused. Skin: Skin color, texture, turgor normal, no rashes or bruising. Neurologic: Alert & oriented x 4. Grossly normal strength. Psychosocial: Normal affect and mood ADDITIONAL DIAGNOSTIC DATA: Chemistry Component Value Date/Time SODIUM 144 12/24/20238 POTASSIUM 4.5 12/24/2023 222 CHLORIDE 107 12/24/2023 2228 CO2 29 12/24/2023 2228 CO2 26 10/16/2023 0149 BUNSER 28 (H) 12/24/2023 222 CREATININE 1.95 (H) 12/24/2023 222 GLUCOSE 103 12/24/2023 222 Component Value Date/Time CALCIUM 8.7 12/24/2023 2228 ALKPHOS 121 12/19/2023 0855 AST 35 12/19/2023 0855 ALT 14 12/19/2023 0855 BILITOT 0.5 12/19/2023 0855 Lab Results Component Value Date WBC 7.2 12/24/2023 HGB 11.2 (L) 12/24/2023 HCT 35.1 (L) 12/24/2023 MCV 90.2 12/24/2023 LABPLAT 345 12/24/2023 Other data reviewed included EKG today in clinic sinus tachycardia CXR today kyphosis no effusion no edema Echo report from [facility] - LVEF 60-65%, normal IVC. Labs 01/[address] Jan 2025 Fusiform aneurysm proBNP 874 PFT Apr 2024 - no ventilatory defect ASSESSMENT/PLAN: Lisseth Gibbons is a 74 y.o. female with peripheral vascular disease (known abdominal aortic aneurysm, now being followed by Dr Darby) and an January 2025 diagnosis of new-onset paroxysmal atrial fibrillation in the setting of heart failure with preserved LVEF who presents today for an initial visit. Today she is endorsing NYHA Class 2-3 symptoms. Her symptoms are not typical to HFpEF and are notable for nausea/weight loss but no abdominal congestion by exam. She is not in atrial fibrillationtoday. Her chest film doesn't show any congestion or overt pulmonary findings. Her blood pressure is low on amlodipine and metoprolol. I had her stop the amlodipine for symptomatic hypotension. I told her that she meets dosing criteria for apixiban 5 mg BID and to increase to that dose. She is getting labs locally and I gave her a slip to add NTproBNP to that. I would like to review her outside CT and echo findings. Her nausea and weight loss are out of proportion to modest cardiac and pulmonary findings. I will review her labs when they are back and I'll have her back in 4 weeks for a returnvisit. Orders this encounter: Orders Placed This Encounter Procedures XR Chest PA Lateral 2 Views Standing Status: Future Number of Occurrences: 1 Expected Date: 03/01/2025 Expiration Date: 03/01/2026 Where should this order be performed?: [facility] (All Locations) [167] Pro B-type natriuretic peptide Standing Status: Future Number of Occurrences: 1 Expected Date: 03/01/2025 Expiration Date: 03/01/2026 Comprehensive metabolic panel Standing Status: Future Number of Occurrences: 1 Expected Date: 03/01/2025 Expiration Date: 03/01/2026 Electrocardiogram Report Please select the performing location:: [facility] (All Locations) [167] Exam Type:: Adult Reason / Symptom: Shortness of Breath It was my pleasure to see Lisseth Gibbons today in the office. Please do not hesitate to contactme with any questions or concerns regarding her care. Sincerely, Burak Hudson MD MPHS shadowgraph operator Cardiovascular Division Heart Failure/Transplant Section [facility] in [facility] I welcome providers to contact me by cell phone with any questions: documented in this encounter Plan of Treatment Scheduled Orders Name Type Priority Associated Diagnoses Orde r Schedule Pro B-type natriuretic peptide Lab Routine Other cardiomyopathy (HCC) Expected: 03/01/2025, Expires: 03/01/2026 Comprehensive metabolic panel Lab Routine Other cardiomyopathy (HCC) Expected: 03/01/2025, Expires: 03/01/2026 documented as of this encounter Procedures Procedure Name Priority Date/Time Associated Diagnosis Comments ELECTROCARDIOGRAM REPORT Routine 025 1:06 PM CDT Other cardiomyopathy Dyspnea, unspecified type documented in this encounter Results * XR Chest PA Lateral 2 Views (03/01/2025 1:44 PM CDT) Anatomical Region Laterality Modality Body, Chest N/A Computed Radiogr aphy 03/01/2025 4:58 PM CDT Impressions 03/01/2025 4:58 PM CDT FINDINGS/IMPRESSION: No pleural effusion, consolidation, pneumothorax. Bibasilar subsegmental atelectasis. Cardiomegaly. Tortuous thoracic aorta. Thoracic aortic calcifications. No new bony abnormality. Exaggerated thoracic kyphosis. Electronically signed by: Roosevelt Inman M.D. Narrative 03/01/2025 4:58 PM CDT EXAM: XR CHEST PA LATERAL 2 VIEWS INDICATION: Dyspnea COMPARISON: Chest radiograph 01/18/2024 Procedure Note Roosevelt Inamn MD - 03/01/2025 EXAM: XR CHEST PA LATERAL 2 VIEWS INDICATION: Dyspnea COMPARISON: Chest radiograph 01/18/2024 IMPRESSION: FINDINGS/IMPRESSION: No pleural effusion, consolidation, pneumothorax. Bibasilar subsegmental atelectasis. Cardiomegaly. Tortuous thoracic aorta. Thoracic aortic calcifications. No new bony abnormality. Exaggerated thoracic kyphosis. Electronically signed by: Roosevelt Inman M.D. Burak Hudson MD IMG XR PROCEDURES Final Result * Electrocardiogram Report (03/01/2025 1:06 PM CDT) Burak Hudson MD ECG ORDERABLES Final Re sult documented in this encounter Visit Diagnoses Diagnosis Other cardiomyopathy- Primary Dyspnea, unspecified type Chronic heart failure with preserved ejection fraction (HFpEF) Paroxysmal A-fib (HCC) Abdominal aneurysm Abdominal aneurysm without mention of rupture Nausea Nausea alone Other cardiomyopathy Dyspnea, unspecified type documented in this encounter Discontinued Medications Medication Sig Discontinue Reason Start Date End Da te gabapentin (NEURONTIN) 300 mg capsule Take 1 capsule (300 mg total) by mouth 3 (three) times a day Patient Reported 01/06/2024 03/01/2025 gabapentin (NEURONTIN) 300 mg capsule Take 1 capsule (300 mg total) by mouth 3 (three) times a day Patient Reported 01/06/2024 03/01/2025 LORazepam (ATIVAN) 1 mg tablet Take 1 tablet (1 mg total) by mouth every 8 (eight) hours as needed Patient Reported 01/28/2025 03/01/2025 multivit,iron,minerals/l utein (CENTRUM SILVER ULTRA WOMEN'S ORAL) Take 1 tablet by mouth every morning Duplicate order 03/01/2025 polyethylene glycol (MIRALAX) 17 gram/dose bulk powder Take 17 g by mouth daily Patient Reported 10/15/2023 03/01/2025 documented as of this encounter Historical Medications * This list may reflect changes made after this encounter. pantoprazole DR (PROTONIX) 40 mg EC tablet Take 1 tablet (40 mg total) by mouth daily 01/28/2025 metoprolol XL (TOPROL-XL) 25 mg extended release tablet Take 0.5 tablets (12.5 mg total) by mouth daily 01/26/2025 metoclopramide (REGLAN) 5 mg tablet Take 1 tablet (5 mg total) by mouth 01/28/2025 apixaban (ELIQUIS) 5 mg tablet Take 1 tablet (5 mg total) by mouth 2 (two) times a day 01/26/2025 izkoxnej-uge-KJ-l ycopen-lutein (Centrum Silver) 0.4 mg-300 mcg- 250 mcg tablet Take 1 tablet by mouth daily 09/23/2024 LORazepam (ATIVAN) 1 mg tablet Take 1 tablet (1 mg total) by mouth every 8 (eight) hours as needed 01/28/2025 03/01/2025 added in this encounter Orders Outpatient Referral Count Last Ordered Date Fir st Ordered Date AMB REFERRAL TO CARDIOLOGY 1 03/01/2025 documented in this encounter Care Teams Studio Producer Relationship Specialty Start Date End Date Sendy Sylvester MD [address] [place] [address] PCP - General Internal Medicine 07/03/23 Humberto aHrris MD PhD [address] [facility] [address] [place] [address] Referring Physician General Surgery 01/08/24 Missael Estrella M.A., MD [address] [facility] [address] [place] [address] Consulting Physician Cardiovascular Disease 02/24/25 documented as of this encounter
--- OUTSIDE RECORDS SUMMARY | 2025-03-01 13:22 | XMS_ITS | Encounter Summary ---
Author Organization [facility] Address [address] [place] [address] Care Team Providers Care Insurance Billing Clerk Name Role Phone Sendy Sylvester MD Primary Care Provider [phone] Humberto Harris MD PhD Unavailable [phone] Missael Estrella M.A., MD Unavailable [phone] Encounter Details Date Type Department Care Team (Latest Contact Info) Description 03/01/2025 1:22 PM CDT - 03/01/2025 11:59 PM CDT Hospital Encounter [facility] - [facility] [address] [place] [address] Other cardiomyopathy; Dyspnea, unspecified type Discharge Disposition: Discharge to home or self care Social History Tobacco Use Types Packs/Day Years Used Date Smoking Tobacco: Former Cigarettes Passive Smoke Exposure: Past Smokeless Tobacco: Never Comments:Pt. Quit smoking on 2021 [facility] Utilities Answer Date Recorded In the past 12 months has [employer], gas, oil, or water [employer] threatened to shut off services in your [...] How often do you attend chur or rastafarian services? Never 12/26/2023 Do you belong to any clubs o r organizations such as holiness groups, unions, fraternal or athletic groups, or [...] and heating? Not hard at all 12/26/2023 [facility] - Occupational Stress [...] the past 12 m [facility], were you homeless or living in a mcc (including now)? No 12/26/2023 Personal Safety Answer Date Recorded Have you ever been in or are you currently in a harmful physical or emotional relationship or is someone making you feel afraid or unsafe? 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 Gender Identity Not on file Sexual Orientation Not on file documented as of this encounter Medications at Time of Discharge amLODIPine (NORVASC) 10 mg tablet Take 1 tablet (10 mg total) by mouth every morning Crush medications for 2 weeks after surgery, after the 2 weeks may take whole pills 10/15/2023 apixaban (ELIQUIS) 5 mg tablet Take 1 tablet (5 mg total) by mouth 2 (two) times a day 01/26/2025 atorvastatin (LIPITOR) 80 mg tablet Take 1 tablet (80 mg total) by mouth daily 03/29/2024 metoclopramide (REGLAN) 5 mg tablet Take 1 tablet (5 mg total) by mouth 01/28/2025 metoprolol XL (TOPROL-XL) 25 mg extended release tablet Take 0.5 tablets (12.5 mg total) by mouth daily 01/26/2025 nxldlvpq-jht-GJ-lyc open-lutein (Centrum Silver) 0.4 mg-300 mcg- 250 mcg tablet Take 1 tablet by mouth daily 09/23/2024 ondansetron ODT (ZOFRAN-ODT) 4 mg disintegrating tablet Take 1 tablet (4 mg total) by mouth every 8 (eight) hours as needed for nausea or vomiting Place under the tongue and let dissolve 20 tablet 2 10/15/[address] (PROTONIX) 40 mg EC tablet Take 1 tablet (40 mg total) by mouth daily 01/28/2025 documented as of this encounter Discharge Disposition Disposition Code Departure Means Destination Discharge to home or self care documented in this encounter Plan of Treatment Not on file documented as of this encounter Procedures Procedure Name Priority Date/Time Associated Diagnosis Comments XR CHEST PA LATERAL 2 VIEWS Schedule Routine, Read Routine (OP Routine) 03/01/2025 1:44 PM CDT Other cardiomyopathy Dyspnea, unspecified type [...] COMPARISON: Chest radiograph 01/18/2024 Procedure Note Roosevelt Inman MD - 03/01/2025 EXAM: XR CHEST PA LATERAL 2 VIEWS INDICATION: Dyspnea COMPARISON: Chest radiograph 01/18/2024 IMPRESSION: FINDINGS/IMPRESSION: No pleural effusion, consolidation, pneumothorax. Bibasilar subsegmental atelectasis. Cardiomegaly. Tortuous thoracic aorta. Thoracic aortic calcifications. No new bony abnormality. Exaggerated thoracic kyphosis. Electronically signed by: Roosevelt Inman M.D. us Burak Hudson MD IMG XR PROCEDURES Final Result documented in this encounter Visit Diagnoses Diagnosis Other cardiomyopathy Dyspnea, unspecified type documented in this encounter Care Teams Insurance Billing Clerk Relationship Specialty Start Date End Date Sendy Sylvester MD [address] [place] [address] PCP - General Internal Medicine 07/03/23 Humberto Harris MD PhD [address] [facility] [address] [place] [address] Referring Physician General Surgery 01/08/24 Missael Estrella M.A., MD [address] [facility] [address] [place] [address] Consulting Physician Cardiovascular Disease 02/24/25 documented as of this encounter
[2025-03-02 08:29] LABS: Hematocrit 40.8 % (35.0-42.0); Hemoglobin 13.0 g/dL (11.7-13.8); Mean Corpuscular HGB Conc 31.9 g/dL (32-36); Mean Corpuscular Hemoglobin 30.3 pg (27.0-31.0); Mean Corpuscular Volume 95.1 fL (78.0-102.0); Platelet Count Result 373 K/mm3 (150-420); Red Blood Count 4.29 M/mm3 (4.20-5.40); White Blood Count 10.9 K/mm3 (4.8-10.8)
--- OUTSIDE RECORDS SUMMARY | 2025-03-02 08:29 | XMS_ITS | Clinical Summary ---
Author Organization [facility] Address [address] [place] [address] Phone Care Team Providers Care Door To Door Salesman Name Role Phone Sendy Sylvester MD Primary Care Provider Allergies Active Allergy Reactions Criticality Noted Date [...] 1999 Zoster Immunization (1 of 2) 1999 Respiratory Syncytial Virus (RSV) Immunization (Adult) (1 - 1-dose 75+ series) 2024 Influenza Immunization (#1) 02/01/202504/03, 02/28/2022, 02/27/2021, Additional history exists SARS-COV-2 Immunization ( season) 2025 04/19/2023, 03/27/2022, 10/26/2021, Additional history exists Hepatitis B Immunization Aged [...] to complete this topic Insurance MEDICARE C [facility] Advance Directives * Full Code (Latest Code Status on File) Date Activated Date Inactivated Comments 11/06/2023 7:47 AM Care Teams Door To Door Salesman Relationship Specialty Start Date End Date Sendy Sylvester MD [address] [place] [address] PCP - General Internal Medicine 10/24/23
--- OUTSIDE RECORDS SUMMARY | 2025-03-02 08:29 | XMS_ITS | Encounter Summary ---
Author Organization [facility] Address [address] [place] [address] Phone Care Team Providers Care Hand Molder Name Role Phone Sendy Sylvetser MD Primary Care Provider + [phone] Humberto Harris MD PhD Unavailable [phone] Missael Estrella M.A., MD Unavailable [phone] Encounter Details Date Type Department Care Team (Late st Contact Info) Description 02/12/2025 Telephone [facility] Cardiology [address] [facility] Medicine 8th [place] [address] [place] [address] Annmarie Mcconnell Social History Tobacco Use Types Packs/Day Years Used Date Smoking Tobacco: Former Cigarettes Passive Smoke Exposure: Past Smokeless Tobacco: Never Comments:Pt. Quit smoking on 2021 [facility] Utilities Answer Date Recorded In the past 12 months has [employer], gas, oil, or water [employer] threatened to shut off services in your [...] How often do you attend chur or worship services? Never 12/26/2023 Do you belong to any clubs o r organizations such as muslim groups, unions, fraternal or athletic groups, or [...] and heating? Not hard at all 12/26/2023 [facility] - Occupational Stress [...] were you homeless or living in a nursing home (including now)? No 12/26/2023 Personal Safety Answer Date Recorded Have you ever been in or are you currently in a harmful physical or emotional relationship or is someone making you feel afraid or unsafe? 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 She said her PCP wanted to refer her to our team. Her , Brendon Gibbons, is a pt of Dr Hudson. She is hoping it would be possible to also seeDmelania Hudson. Pls review and advise if acceptable to schedule pt for an IOV. * Telephone Encounter - Jerome Mcconnellon - 02/12/2025 3:44 PM CDT CARDIOLOGY NEW PATIENT RECORDS REVIEW Insurance Information [employer] Insurance Provider: [facility] Medicare ADV Member ID: Noted in Chart Group number: Diagnosis and Referring Provider Information (Check for Referrals in Epic) Cardiac Diagnosis:I48.91 (ICD-10-CM) - Atrial fibrillation, unspecified type (HCC) Referring Provider: Sendy Sylvester MD Referring Provider Specialty:PCP Referring Provider Phone: Current/Former Rec Therapist (if different from referring provider):Erlin Murphy -Dr Missael Anderson [place] - pt sees in [place] Current/Former Rec Therapist Questions to Determine Placement for Specialty Clinics Cardiology-Oncology Are you actively undergoing cancer treatments including radiation, chemotherapy, or immunotherapy or is this planned in the future?: no When: Where: Congenital Is this a heart condition that has existed since : no Maternal- Cardiology (Females Only) Are you or had a baby in the past year: no Sports Medicine Do you regularly exercise or play sports: yes Walking Are the symptoms or concerns associated with acviity: yes PT does become SOB Hypertension (If yes, must be referred by MD) Are you a hemodialysis or peritoneal dialysis patient: no Referring provider: Cardiology History Questions Have you been hospitalized for cardiac issues: yes When: Last week -02/2025 [place] [place] you had an echo: yes When:Last week [place] [facility] [place] Have you had a stress test: no When: Where: Have you had an EKG: yes When: Where: Have you had a holter monitor: no When: Where: Have you had cardiac imaging(CT or MRI): no Testing/imaging: When: Where: Have you had any procedures (cath, CABG, cardioversion, or ablation): no When: Where: Have you had a sleep study done: yes When: 6+ years ago Where: AT home study -pt no longer using CPAP Do you have an implantable cardiac device: no Type: Nuclear Supervising Operator: When: Where: Appointment Details Date: Time: Location: Provider: Ranjeet documented in this encounter Plan of Treatment Not on file documented as of this encounter Visit Diagnoses Not on filedocumented in this encounter Care Teams Hand Molder Relationship Specialty Start Date End Date Sendy Sylvester MD [address] [place] [address] PCP - General Internal Medicine 07/03/23 Humberto Harris MD PhD [address] [facility] [address] [place] [address] Referring Physician General Surgery 01/08/24 Missael Estrella M.A., MD [address] [facility] [address] [place] [address] Consulting Physician Cardiovascular Disease 02/24/25 documented as of this encounter
--- OUTSIDE RECORDS SUMMARY | 2025-03-02 08:29 | XMS_ITS | Clinical Summary ---
Author Organization [place] [id number] [facility] Address [address] [place] [address] Care Team Providers Care Special Education Curriculum Specialist Name Role Phone Sendy Sylvester MD Primary Care Provider + [phone] Humberto Harris MD PhD Unavailable [phone] Missael Estrella M.A., MD Unavailable [phone] Allergies Active Allergy Reactions Criticality Noted Date Comments Sulfa (Sulfonamide Antibiotics) Cough,Shortness of breath,Other (See comments) High 01/01/2022 it made me so sick Medications ondansetron ODT (ZOFRAN-ODT) 4 mg disintegrating tablet [...] total) by mouth daily 12/25/19 24 Active atorvastatin (LIPITOR) 80 mg tablet Take 1 tablet (80 mg total) by mouth daily 03/29/20 24 Active didczzoq-daj-MT-ly copen-lutein (Centrum Silver) 0.4 mg-300 mcg- 250 mcg tablet Take 1 tablet by mouth daily 09/24/19 25 Active apixaban (ELIQUIS) 5 mg tablet Take 1 tablet (5 mg total) by mouth 2 (two) times a day 01/27/20 25 Active metoclopramide (REGLAN) 5 mg tablet Take 1 tablet (5 mg total) by mouth 01/29/20 25 Active metoprolol XL (TOPROL-XL) 25 mg extended release tablet Take 0.5 tablets (12.5 mg total) by mouth daily 01/27/[address] (PROTONIX) 40 mg EC tablet Take 1 tablet (40 mg total) by mouth daily 01/29/20 25 Active multivit,iron,mine rals/lutein (CENTRUM SILVER ULTRA WOMEN'S ORAL) Take 1 tablet by mouth every morning 025 Discontin ued(Dupli glen order) polyethylene glycol (MIRALAX) 17 gram/dose bulk powder Take 17 g by mouth daily 116 g 10/15/19 025 Discontin ued(Patie nt Reported) gabapentin (NEURONTIN) 300 mg capsule Take 1 capsule (300 mg total) by mouth 3 (three) times a day 01/06/20 24 025 Discontin ued(Patie nt Reported) LORazepam (ATIVAN) 1 mg tablet Take 1 tablet (1 mg total) by mouth every 8 (eight) hours as needed 01/29/20 25 025 Discontin ued(Patie nt Reported) Active Problems Problem Noted Date Diagnosed Date Chronic heart failure with p reserved ejection fraction (HFpEF) 03/01/2025 Overview (03/01/2025): TTE Jan 2025 LVEF 60-65% proBNP 874 Abdominal aneurysm 02/24/2025 Overview (03/01/2025): Now followed by Dr Darby with plans for every 6 months surveillance Cerebrovascular accident 02/24/2025 Nausea 02/24/2025 Paroxysmal A-fib 02/24/2025 Overview (03/01/2025): Diagnosed Jan 2025 Eliquis DOAC Metoprolol low dose TTE LVEF 60-65% Stage 3b chronic kidney disease 02/24/2025 Iliac artery aneurysm, right 12/15/2024 Essential (primary) hypertension 09/15/2024 Hyperlipidemia, mixed 09/15/2024 Iliac artery stenosis, left 09/15/2024 Chronic renal disease, stage IV 01/08/2024 Pleural effusion 12/20/2023 Assessment & Plan (12/25/2023 12:25 PM CDT): Ms Gibbons this is a very [...] to discharge - pulmonary will continue follow Paraesophageal hernia 10/14/2023 Hiatal hernia with GERD 09/11/2023 Infrarenal abdominal aortic aneurysm (AAA) witho ut rupture 09/11/2022 Overview (12/09/2024): 08/31/22 3.9 cm x 4.1 cm Resolved Problems Problem Noted Date Diagnosed Date Resolved Date Severe protein-calorie malnutrition 12/19/2023 01/08/2024 Shortness of breath 12/18/2023 03/01/20 25 Acute hypoxic respiratory failure 10/18/2023 03/01/2025 Assessment & Plan (10/26/2023 12:26 PM CDT): [...] cc - Discontinue Bipap order for tonight Varicose veins of both legs with edema 09/11/2022 12/23/2023 Overview (12/23/2023): Notes from [facility] Prior ambulatory phlebectomy versus stripping on L Last Assessment & Plan: These remain asymptomatic. Will continue to follow expectantly. she was instructed to continue wearing compression garments. TIA (transient ischemic attack) 01/01/2022 12/23/2023 Overview (12/23/2023): [facility] 01/01/2022 Encounters Date Type Department Care Team Description 03/01/2025 1:22 PM CDT - 03/01/2025 11:59 PM CDT Hospital Encounter [facility] - Imaging [address] [place] [id number] Other cardiomyopathy; Dyspnea, unspecified type Discharge Disposition: Discharge to home or self care 03/01/2025 12:30 PM CDT Office Visit [facility] [address] [facility] [place] [address] Burak Hudson MD Other cardiomyopathy (Primary Dx); Dyspnea, unspecified type; Chronic heart failure with preserved ejection fraction (HFpEF); Paroxysmal A-fib (HCC); Abdominal aneurysm; Nausea 02/12/2025 Telephone [facility] Cardiology [address] [facility] 8th [place] [address] [place] [address] Annmarie Mcconnell 12/09/2024 10:00 AM CDT Office Visit [facility] Medicine Surgery [address] [place] [address] Jeff Darby MD Infrarenal abdominal aortic aneurysm, without rupture (Primary Dx); Encounter for surgical aftercare following surgery on the circulatory system; Infrarenal abdominal aortic aneurysm (AAA) without rupture from Last 3 Months Immunizations Immunization Administration [...] MAC TIA (transient ischemic attack) 01/01/2022 [facility] 01/01/2022 Varicose veins of both legs with edema 3 Notes from [facility] Prior ambulatory phlebectomy versus stripping on L Last Assessment & Plan: These remain asymptomatic. Will continue to follow expectantly. she was instructed to continue wearing compression garments. Cerebrovascular accident (HCC) 02/24/2025 Nausea 02/24/2025 Family History Medical History Relation Name Comments Hypertension Father Cancer Mother Hypertension Mother Anesthesia problems Neg Hx Malig Hyperthermia Neg Hx Pseudochol deficiency Neg Hx Relation Name Status Comments Father Mother Social History Tobacco Use Types Packs/Day Years Used Date Smoking Tobacco: Former Cigarettes Passive Smoke Exposure: Past Smokeless Tobacco: Never Tobacco Cessation:Counseling Given: Not Answered Comments:Pt. Quit smoking on 2021 [facility] [employer] Answer Date Recorded In the past 12 months has [employer], [employer] [place], or water [employer] threatened to shut off services in your [...] week 12/26/2023 How often do you attend [facility] or synagogue services? Never 12/26/2023 Do you belong to any clubs o r organizations such as oriental orthodox groups, unions, fraternal or athletic groups, [...] and heating? Not hard at all 12/26/2023 [facility] Occupat ional Health - Occupational [...] in the past 12 m [facility], were you homeless or living in a jail (including now)? No 12/26/2023 Personal Safety Answer Date Recorded Have you ever been in or are you currently in a harmful physical or emotional relationship or is someone making you feel afraid or unsafe? 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 Gender Identity Not on file Sexual Orientation Not on file Obstetrics History Last Filed Vital Signs Vital Sign Reading Time Taken Comments Blood Pressure 90/60 03/01/2025 12:14 PM CDT Pulse 119 03/01/2025 12:14 PM CDT Temperature 36.5 C (97.7 F) 12/09/2024 9:57 AM CDT Respiratory Rate 18 04/07/2024 10:4 8 AM FOREST RESOURCES PROFESSOR Oxygen Saturation 98% 03/01/2025 12: 14 PM CDT Inhaled Oxygen Concentration - - Weight 87.5 kg (192 lb 14.4 oz) 025 12:14 PM CDT Height 171.5 cm (5' 7.5) 03/01/2025 12 :14 PM CDT Body Mass Index 29.77 03/01/2025 12:14 PM CDT Plan of Treatment Health Maintenance Due Date Last Done Comments Colon Cancer Screening-Colonoscopy 1950 Depression Screening 1950 Hepatitis C Screening 1949 Osteoporosis Screening-Bone Density Scan 1949 DTaP/Tdap/Td Vaccine (1 - Tdap) 1960 Hepatitis B Screening 1967 Pneumococcal vaccine 65+ (1 of 2 - PCV) 1968 Zoster Vaccine (1 of 2) 1999 Well Visit 65+ 2014 Fall Risk Assessment 12/24/2024 12/25/2023 Covid-19 Vaccine (2023-2 5 season) 2025 03/26/2024, 04/19/2023, 03/27/2022, Additional history exists Influenza Vaccine (#1) 2025 , 04/19/2023, 02/28/2022, Additional history exists Procedures Procedure Name Priority Date/Time Associated Diagnosis Comments XR CHEST PA LATERAL 2 VIEWS Schedule Routine, Read Routine (OP Routine) 03/01/2025 1:44 PM CDT Other cardiomyopathy Dyspnea, unspecified type ELECTROCARDIOGRAM REPORT Routine 03/01/2025 1:06 PM CDT Other cardiomyopathy Dyspnea, unspecified type from Last 3 Months Results * XR Chest PA Lateral 2 [...] * Electrocardiogram Report (03/01/2025 1:06 PM CDT) us Burak Hudson MD ECG ORDERABLES Final Re sult from Last 3 Months Insurance [id number] [place] [id number] [facility] MEDICARE ADVANTAGE [facility] MEDICARE Address: [address] [address] [facility] MEDICARE Address: [place] [id number] Advance Directives For more information, please contact: [phone] * Full Code (Latest Code Status on File) Date Activated Date Inactivated Comments 12/18/2023 10:41 PM 12/25/2023 8:13 PM * Full Code Date Activated Date Inactivated Comments 10/14/2023 7:23 PM 10/27/2023 8:02 PM * Full Code Date Activated Date Inactivated Comments 09/04/2023 9:35 AM 09/04/2023 3:12 PM Care Teams Special Education Curriculum Specialist Relationship Specialty Start Date End Date Sendy Sylvester MD [address] [place] [id number] PCP - General Internal Medicine 07/03/23 Humberto Harris [place] PhD [address] [place] [address] [address] [place] [address] Referring Physician General Surgery 01/08/24 Missael Estrella M.A., MD [address] [address] Consulting Physician Cardiovascular Disease 02/24/25
--- OUTSIDE RECORDS SUMMARY | 2025-03-02 08:29 | XMS_ITS | Encounter Summary ---
Author Organization [facility] Address [address] [place] [address] Care Team Providers Care Contracts Paralegal Name Role Phone Sendy Sylvester MD Primary Care Provider + [phone] Annalise Amezquita RN Unavailable [phone] Humberto Harris MD PhD Unavailable [phone] Missael Estrella M.A., MD Unavailable [phone] Reason for Visit * Reason Onset Date Comments Follow-Up Call 7 Days 12/30/2023 Discharge follow up call placed line busy Encounter Details Date Type Department Care Team (Late st Contact Info) Description 12/30/[address] [phone] Olivia Burrows RN Follow-Up Call 7 Days (Discharge follow up call placed line busy) Social History Tobacco Use Types Packs/Day Years Used Date Smoking Tobacco: Former Cigarettes Passive Smoke Exposure: Past Smokeless Tobacco: Never Comments:Pt. Quit smoking on 2021 [facility] Utilities Answer Date Recorded In the past 12 months has e electric, gas, oil, or water company threatened to shut off services in your [...] week 12/26/2023 How often do you attend [facility] or orthodoxy services? Never 12/26/2023 Do you belong to any clubs o r organizations such as rastafarian groups, unions, fraternal or athletic groups, or [...] and heating? 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 Gender Identity Not on file Sexual Orientation Not on file documented as of this encounter Plan of Treatment Not on file documented as of this encounter Visit Diagnoses Not on filedocumented in this encounter Care Teams Contracts Paralegal Relationship Specialty Start Date End Date Sendy Sylvester MD [address] [place] [address] PCP - General Internal Medicine 07/03/23 Annalise Amezquita RN [address] [facility] [address] [place] [address] SHOP Outpatient Blanket Maker 12/26/23 01/23/24 Humberto Harris MD PhD [address] [facility] [address] [facility] [place] [address] Referring Physician General Surgery 01/08/24 Missael Estrella M.A., MD 9 [facility] [address] [address] Consulting Physician Cardiovascular Disease 02/24/25 documented as of this encounter
--- OUTSIDE RECORDS SUMMARY | 2025-03-02 08:29 | XMS_ITS | Clinical Summary ---
Author Organization [facility] Address [address] [place] [address] Care Team Providers Care Ship Worker Name Role Phone Unavailable Primary Care Provider Unavailabl e Source Comments [facility],non-owned Affiliates and Associated Physician Practices is amultiple site organization consisting of ambulatory clinics and hospital sitesin [place], [place], [place] and [place]. This disclosure is being madepursuant to the Care Everywhere program and may not contain all information available regarding this patient. Last updated 18.[facility] Allergies Active Allergy Reactions Criticality Noted Date [...] 1999 ZOSTER VACCINE (1 of 2) 1999 Respiratory Syncytial Virus (RSV) Vaccine Pt: or over 60 yrs (1 - 1-dose 75+ series) 2024 DEPRESSION SCREENING 06/03/2024 COVID-19 VACCINE (1 - 2023-2 5 season) 2025 INFLUENZA VACCINE (#1) 2025 HEPATITIS B VACCINE [...]
[2025-03-02 09:00] LABS: Alanine Aminotransferase 19 U/L (6-35); Albumin Level 4.0 g/dL (3.5-5.1); Alkaline Phosphatase 101 U/L (38-126); Anion Gap 11 mmol/L (4-12); Aspartate Amino Transferase 28 U/L (14-36); Bilirubin,Total 0.7 mg/dL (0.2-1.3); Blood Urea Nitrogen 27 mg/dL (7-17); Calcium 9.9 mg/dL (8.4-10.2); Carbon Dioxide 25 mmol/L (22-30); Chloride 107 mmol/L (98-107); Cholesterol 146 mg/dL (0-200); Creatine Kinase 46 U/L (30-135); Estimated Glomerular Filt Rate 27; Glucose 110 mg/dL (65-110); HDL Direct 56 mg/dL; Iron 54 ug/dL (37-170); Osmolality Calculated 302 mOsm/kg (285-295); Potassium 4.3 mmol/L (3.4-5.0); Sodium 143 mmol/L (137-145); Total Protein 6.3 g/dL (6.3-8.2); Triglycerides 146 mg/dL (<150)
[2025-03-02 09:09] LABS: NT Pro B Type Natriuretic Pept 828 pg/mL (19.9-100)
[2025-03-02 09:35] LABS: Ferritin 126.00 ng/mL (11.1-264)
== END 2025-03-02 08:15 | disposition home or self-care (01) ==
LOC: CHSLAB 08:16
PROVIDERS: PCP Internal Medicine; Visit Provider Internal Medicine
DX: I42.8 Other cardiomyopathies (principal)
CPT/HCPCS: 36415; 80053; 80061; 82550; 82728; 83540; 83880; 85027

== ENCOUNTER 2025-03-18 14:38 | Emergency (ER) | payer MEDICARE, SELFPAY ==
[2025-03-18] VITALS (18 sets, daily range): BP systolic 87–141; BP diastolic 55–96; PULSE 67–97; RESP 12–19; TEMP 37.1; O2SAT 92–97
--- NOTE | ~2025-03-18 | CT_ITS ---
CTA chest abdomen pelvis HISTORY:asssymmetric blood pressures, weakness, aneurysm . 08/31/2022 COMPARISON: None. TECHNIQUE: Following the noncontrasted flyer builder, axial images of the thorax were obtained following infusion of 100 cc of Isovue 370. Post-processing on an independent workstation was performed to reconstruct MIP images for evaluation of the thoracic vasculature. FINDINGS: There is no pulmonary embolism, aortic dissection, thoracic aneurysm or pericardial fluid. Moderate atherosclerotic plaques are noted throughout the thoracic aorta extending into the abdominal aorta. Mild groundglass and interstitial opacities are present bilaterally. There are no focal consolidation. No pleural effusion or pneumothorax is noted. There is no axillary, mediastinal or hilar adenopathy. Limited evaluation of the upper abdomen demonstrates no gross abnormalities. Review of bone windows demonstrates no osteoblastic or lytic lesions. IMPRESSION: There is no pulmonary embolism, aortic dissection, pericardial fluid or thoracic aneurysm. Interstitial groundglass opacities are present bilaterally. CTA chest abdomen pelvis INDICATION:asssymmetric blood pressures, weakness, aneurysm . COMPARISON: None. TECHNIQUE: Axial images of the abdomen and pelvis were obtained following infusion of 100 mL Isovue 370. Dose optimization technique was utilized. FINDINGS: The lung bases are clear. The liver parenchyma is unremarkable. No intrahepatic mass or ductal dilatation is evident. Cholelithiasis is noted. There is no evidence of acute cholecystitis. The pancreas and spleen are normal in appearance. The adrenal glands are symmetric in size. The kidneys demonstrate symmetric uptake of contrast. No cystic mass is evident. There is no solid mass. There is no hydronephrosis. Small hiatal hernia. No bowel obstruction. The appendix is normal in appearance. There is colonic diverticulosis without evidence of acute diverticulitis. The bladder and rectum are normal. No free intraperitoneal fluid or air is evident. There is no significant retroperitoneal lymphadenopathy. There is marked atherosclerotic plaques within the infrarenal abdominal aorta. There is aneurysmal dilatation of the infrarenal abdominal aorta measuring up to 5.2 x 4.7 cm which has increased from prior measurement of 4.1 x 3.9 cm. The lower thoracic and lumbar vertebrae are in normal alignment. IMPRESSION: Progression of marked atherosclerotic plaques within the infrarenal abdominal aorta. There is resulting increase in aneurysmal dilatation of the infrarenal abdominal aorta measuring 5.2 x 4.7 cm. Small hiatal hernia. All CT scans at this facility are performed using low dose modulation techniques as appropriate to perform exam including the following: automated exposure control; use of iterative reconstruction technique; adjustment of the mA and/or kV according to patient size (this includes techniques or standardized protocols for targeted exams where dose is matched to indication/reason for exam). Reviewed, dictated and finalized at location S. IMPRESSION: There is no pulmonary embolism, aortic dissection, pericardial fluid or thoraci c aneurysm. Interstitial groundglass opacities are present bilaterally. CTA chest abdomen pelvis INDICATION:asssymmetric blood pressures, weakness, aneurysm . COMPARISON: None. TECHNIQUE: Axial images of the abdomen and pelvis were obtained following infu carloz of 100 mL Isovue 370. Dose optimization technique was utilized. FINDINGS: The lung bases are clear. The liver parenchyma is unremarkable. No intrahepatic mass or ductal dilatation is evident. Cholelithiasis is noted. There is no evidence of acute cholecystit is. The pancreas and spleen are normal in appearance. The adrenal glands are sy mmetric in size. The kidneys demonstrate symmetric uptake of contrast. No cystic mass is evident . There is no solid mass. There is no hydronephrosis. Small hiatal hernia. No bowel obstruction. The appendix is normal in appearance . There is colonic diverticulosis without evidence of acute diverticulitis. The bladder and rectum are normal. No free intraperitoneal fluid or air is evid ent. There is no significant retroperitoneal lymphadenopathy. There is marked atherosclerotic plaques within the infrarenal abdominal aorta. There is aneurysmal dilatation of the infrarenal abdominal aorta measuring up t o 5.2 x 4.7 cm which has increased from prior measurement of 4.1 x 3.9 cm. The lower thoracic and lumbar vertebrae are in normal alignment. IMPRESSION: Progression of marked atherosclerotic plaques within the infrarenal abdominal a stan. There is resulting increase in aneurysmal dilatation of the infrarenal ab dominal aorta measuring 5.2 x 4.7 cm. Small hiatal hernia. All CT scans at this facility are performed using low dose modulation techniqu es as appropriate to perform exam including the following: automated exposure c ontrol; use of iterative reconstruction technique; adjustment of the mA and/or kV according to patient size (this includes techniques or standardized protocol s for targeted exams where dose is matched to indication/reason for exam).
--- NOTE | 2025-03-18 14:56 | ED_ITS ---
HPI - Weakness General Chief complaint: Weakness Stated complaint: unwell Time Seen by Provider: 03/18/25 14:56 History of Present Illness HPI Narrative: 74-year-old white female with history of hypertension, hypercholesterolemia, obesity, obstructive sleep apnea that is not currently treated as patient reports too much anxiety with the mask, atrial fib, on current Eliquis, presents with a several month history of nausea weakness, malaise, fatigue, weight loss, decreased appetite, change in how food tastes, and she has been getting worked up by her PCP. She reports that they have been concerned about her gallbladder, have obtained what sounds like an ultrasound and HIDA scan but she denies a CT scan. Today she went in for follow-up of the last test as part of a scheduled visit and staff were concerned that her blood pressure was low as they were getting ready to discharge her and sent her over here reportedly with blood pressure so low it was not obtainable. She was brought in by wheelchair, was able to stand up and get on to the stretcher with minimal assistance. Our initial blood pressure in the left arm was 87/60 and 111/77 in the right arm. Patient denies any fever, chills, sinus drainage, sore throat, cough, chest pain, palpitations, near-syncope or syncope. Denied abdominal pain, vomiting, diarrhea, constipation, dysuria urgency or frequency. Related Data Home Medications ?Medication ?Instructions ?Recorded ?Confirmed ?Last Taken ?Type amlodipine 10 mg tablet 10 mg PO DAILY 03/02/2402/03 Unknown History aspirin 81 mg tablet,delayed 81 mg PO DAILY 03/02/24 0 03/02/25 Unknown History release oqhtpnjt-fqp-olwab acid 0.4 1 tablet PO DAILY 09/23/24 03/02/25 Unknown History mg-lycopene 300 mcg-lutein 250 mcg tablet (Centrum Silver) atorvastatin 80 mg tablet 80 mg PO DAILY 01/19/2502/03 Unknown History pantoprazole 40 mg tablet,delayed 40 mg PO QAM 5 03/02/25 Unknown History release Allergies Allergy/AdvReac Type Severity Reaction Status Date / Time Sulfa (Sulfonamide Allergy Vomiting Verified 03/18/25 14:49 Antibiotics) Review of Systems 2 Review of Systems: ROS negative except in HPI PMFSH Past Medical History Medical History Recurrent pleural effusion Anemia GERD (gastroesophageal reflux disease) LEONARDO (obstructive sleep apnea) Infrarenal abdominal aortic aneurysm (AAA) without rupture Lumbago CKD (chronic kidney disease) Bulging discs Hiatal hernia Hypertension Surgical History Surgical History H/O hernia repair Hx of tonsillectomy H/O tubal ligation Family History Family History Father Congestive heart failure Malignant neoplasm of prostate Mother Kidney malignancy Hypertension Sibling Hypertension Social History Social History Smoking packs per day: 0.5 Smoking cigarettes per day: 10.0 Years smoked: 50 Smoking pack-years: 25.00 Smoking status: Former smoker Tobacco type: cigarettes Second hand tobacco smoke exposure: No Smoking end date: 01/26/20 Alcohol intake: never Substance use: current Substance use type: marijuana Other substance usage details: gummies for sleep. 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 Left blood pressure 87/60, right blood pressure 111 67 however good capillary refill bilaterally, he is not in distress, there is no somnolence, she is not pale, no diaphoresis She is obese Const: General: cooperative, healthy appearing, comfortable, no acute distress, well developed, alert, awake and Physically active O rientation/consciousness: patient oriented x3 HENMT: Head: normal to inspection, normocephalic and atraumatic Ears: h earing grossly normal bilaterally and external ears normal Face/Nose/Sinus: N ormal external nose present, Normal nares present, Normal nasal mucous membranes and turbinates present and normal facial exam Face and sinus: normal facial exam Mouth: Yes Normal oral and palatal mucosa present, Yes lip normal, Yes tongue normal, Yes oropharynx normal and Yes moist mucous membranes Teeth and gingiva: dentition normal Throat: posterior oropharynx normal and tonsils normal ( erythematous) Eyes: General: appearance normal, both eyes and all related structures A lignment and Position: alignment normal and position normal Periorbital: p eriorbital findings normal Eyelids: eyelids normal Conjunctivae: c onjunctivae normal Sclera: sclerae normal Cornea: corneas normal P upils: Equal, round and reactive pupils present EOM: EOMs intact bilaterally Neck: Neck: normal visual inspection, full ROM and no lymphadenopathy Chest: Chest palpation & inspection: normal inspection of the chest Resp: Effort & Inspection: normal respiratory effort, able to speak in complete sentences, no audible wheezes, no respiratory distress and no use of accessory muscles Auscultation: clear to auscultation bilaterally Cardio: Jugular venous distension: no JVD Rate: regular rate Rhythm: r egular rhythm Other: She is currently in normal sinus rhythm GI: Inspection: normal to inspection GI Palp: No abdominal tenderness, No Tenderness to palpation present (GI), No Guarding due to palpation present (GI), No No hepatosplenomegaly present, No Palpable mass present and No Rebound tenderness present Skin: General skin exam: normal color, no rashes or lesions noted, elasticity normal and turgor normal Neuro: General: patient oriented x3, gait normal, tone normal and moves all extremities Cranial nerves: Yes CN's II-XII intact bilaterally, Yes Equal, round and reactive pupils present and Yes Bilaterally intact EOM present S peech: normal speech Motor exam (neuro): 5/5 motor strength present throughout and Normal motor muscle tone present throughout Sensory Exam: n ormal sensation Extrem: General: normal to inspection, normal exam except as noted and no pedal edema Psych: Appearance: grossly normal and well kempt Mental Status: mental status grossly normal Speech and movement: Normal speech and movement present Affect: normal affect Attitude: cooperative Thought process: Normal thought process present Course Course Emergency Course: Work up shows H&H of 13.4 and 40[place]8 [place] [id number] CMP is consistent with her self-reported chronic kidney disease, sodium is 137, potassium a little high at 5.1, chloride 101, bicarb is 29, BUN is 22 creatinine is 1.56. Her GFR is 32. Her liver functions are normal. Troponin is normal, proBNP is 1100 Urine is a little concentrated with specific gravity 1.025, 1+ ketones, trace leukocytes, 4-6 white cells, however nitrite is no live Her influenza a and B, RSV, and COVID are all negative EKG shows normal sinus rhythm, rate of 69, normal axis, somewhat low QRS voltage in the precordial leads, poor R-wave progression, probably old anterior AR CTA shows Mild groundglass and interstitial opacities are present bilaterally. There are no focal consolidation. CTA abdomen pelvis shows an infrarenal aneurysm that is enlarging without any evidence of dissection, likely not related to this presentation There are extensive old records from the office review here, and in their workup so far there has been no definitive answer to her course over the past several months. Her HIDA scan was at the lower level of acceptable ejection fraction in the overlap area between normal and abnormal so ongoing gallbladder dysfunction has not been ruled out. She will need outpatient referral to general surgeon for further evaluation of her gallbladder function. It this time there is no acute change in the patient's condition over the past few months, we have identified an asymmetry in her blood pressures however there is no concern on her CTA for thoracic aneurysm, subclavian stenosis, or other major concern. I do not think the mild ground-glass and interstitial opacities present bilaterally are indicative of an infectious process nor does she appear and significant CHF. She does have a a slowly expanding infrarenal aneurysm that is now in the range of interventional consideration, however this is not an acute finding today. She will need outpatient referral to vascular surgeon. She is stable for discharge, Medical decision making complex she had risk was high including interpretation of extensive labs, images, radiology reports, advanced imaging, review of old records, multiple medications, evaluation of initial unstable vital signs, evaluation of a expanding infrarenal aneurysm, development of treatment plan and disposition with appropriate follow-up Vital Signs Vital signs: Vital Signs Temperature 37.1 C 03/18/25 14:39 Pulse Rate 96 03/18/25 14:39 Respiratory Rate 18 03/18/25 14:39 Blood Pressure 87/60 L 03/18/25 14:39 Pulse Oximetry 95 03/18/25 14:39 Oxygen Delivery Room Air 03/18/25 14:39 Temperature 37.1 C 03/18/25 14:39 Pulse Rate 76 03/18/25 17:31 Respiratory Rate 12 03/18/25 15:45 Blood Pressure 141/84 H 03/18/25 17:31 Pulse Oximetry 92 03/18/25 17:31 Oxygen Delivery Room Air 03/18/25 14:39 MDM - Weakness Lab Data 03/18/25 15:20 03/18/25 15:20 Labs: Lab Results 03/18/25 03/18/25 Range/Units 15:20 15:36 WBC 10.2 (4.8-10.8) K/mm3 RBC 4.38 (4.20-5.40) M/mm3 Hgb 13.4 (11.7-13.8) g/dL Hct 40.8 (35.0-42.0) % MCV 93.2 (78.0-102.0) fL MCH 30.6 (27.0-31.0) pg MCHC 32.8 (32-36) g/dL RDW 15.3 H (11.6-14.4) % Plt Count 393 (150-420) K/mm3 MPV 12.9 H (9.2-11.8) fl Immature Gran % (Auto) 0.6 H (0.0-0.0) % Neut % (Auto) 63.6 (50.0-70.0) % Lymph % (Auto) 19.3 (18.0-42.0) % Dare % (Auto) 13.2 H (2.0-11.0) % Eos % (Auto) 2.2 (1.0-6.0) % Baso % (Auto) 1.1 H (0.0-1.0) % Lymph # (Auto) 1.96 (1.10-4.50) K/mm3 Dare # (Auto) 1.34 H (0.10-0.90) K/mm3 Eos # (Auto) 0.22 (0.02-0.50) K/mm3 Baso # (Auto) 0.11 H (0.00-0.10) K/mm3 Abs Immat Gran (auto) 0.06 H (0.00-0.00) K/mm3 Absolute Neuts (auto) 6.48 (1.70-7.20) K/mm3 Absolute Nucleated RBC 0.00 (0.00-0.00) K/mm3 Nucleated RBC % 0.0 (0-0.0) % Sodium 137 (137-145) mmol/L Potassium 5.1 H (3.4-5.0) mmol/L Chloride 101 (98-107) mmol/L Carbon Dioxide 29 (22-30) mmol/L Anion Gap 7 (4-12) mmol/L BUN 22 H (7-17) mg/dL Creatinine 1.56 H (0.7-1.0) mg/dL Estim Creat Clear Calc 33 ml/min Estimated GFR 32 L (59 - ) Glucose 105 (65-110) mg/dL Calculated Osmolality 287 (285-295) mOsm/kg Calcium 9.6 (8.4-10.2) mg/dL Magnesium 2.1 (1.6-2.3) mg/dL Total Bilirubin 0.8 (0.2-1.3) mg/dL AST 28 (14-36) U/L ALT 16 (6-35) U/L Alkaline Phosphatase 126 (38-126) U/L Troponin I 0.028 (0.000-0.034) ng/mL NT-Pro-B Natriuret Pep 1100 H (19.9-100) pg/mL Total Protein 6.6 (6.3-8.2) g/dL Albumin 3.7 (3.5-5.1) g/dL Urine Color Dark yellow (Yellow) Urine Appearance Clear (Clear) Urine pH 6.0 (5.0-8.0) Ur Specific [place] 1.025 H (1.010-1.020) Urine Protein 3+ H (Negative) Urine Glucose (UA) Negative (Negative) Urine Ketones 1+ H (Negative) Ur Blood (Man) Negative (Negative) Urine Nitrate Negative (Negative) Urine Bilirubin 2+ H (Negative) Urine Urobilinogen 1.0 (0.2-1.0) mg/dL Leukocyte Esterase Rfl Trace H (Negative) YONATHAN/UL Urine RBC None seen (0-2) /hpf Urine WBC 4-6 H (0-3) /hpf Ur Squamous Epith Cells Few (Few) /hpf Ur Renal Epithelial Cell Few H (None) /hpf Urine Bacteria 1+ H (None) /hpf Granular Casts 1-2 H (None) /lpf Influenza A (RT-PCR) Negative (Negative) Influenza B (RT-PCR) Negative (Negative) RSV (RT-PCR) Negative (Negative) SARS-CoV-2 RNA (RT-PCR) Negative (Negative) Discharge Plan Discharge Clinical Impression: Chronic fatigue and malaise, Noncompliance with CPAP treatment, Disease of gallbladder, unspecified Patient Disposition: Home Condition: Stable Additional Instructions: Your workup today has included extensive blood work, and a CT scan looking specifically at the blood vessels of your chest abdomen pelvis, as well as looking at your intraop thoracic in intra-abdominal organs. There is no evidence of acute lung infection, no significant heart failure, no pneumonia, no blood clots in your lung. Your skin CT scan of your abdomen does not show any specific gallbladder disease however it does show an enlarging aneurysm of your abdominal aorta be low your kidneys. This has been present on previous CT scans, however shows some enlargement since your last scan. It is now at the point where you will need to see a vascular surgeon for consultation of whether this needs repair or not. Review of your HIDA scan shows ongoing concern that the gallbladder may be the source of some of your symptoms. You will need to be referred to a general surgeon for review of your ultrasound, HIDA scan, and today's CT scan, along with review of your symptoms to see whether this is the source of her symptoms. It is important that you follow-up with your primary care physician You will need referral to a general surgeon and a vascular surgeon Should you began developing fevers, worsening pain, vomiting, lightheadedness, other concerns then return to the emergency department for re-evaluation. Patient Language: Icelandic Prescriptions: No Action metoprolol succinate [Toprol XL] 25 mg tablet extended release 24 hr 12.5 mg PO DAILY Qty: 30 0RF Eliquis 5 mg tablet 5 mg PO BID Qty: 60 0RF Centrum Silver 0.4 mg-300 mcg- 250 mcg tablet 1 tablet PO DAILY atorvastatin 80 mg tablet 80 mg PO DAILY aspirin 81 mg tablet,delayed release (DR/EC) 81 mg PO DAILY amlodipine 10 mg tablet 10 mg PO DAILY pantoprazole 40 mg tablet,delayed release (DR/EC) 40 mg PO QAM Follow-up/Referrals: Sendy Sylvester MD [Primary Care Provider, Internal Medicine]
--- NOTE | 2025-03-18 14:57 | ECG_ITS ---
Test Date: 2025-03-18 15:25:04 Measurements Intervals [place] Rate: 69 P: 37 [place]: 164 QRS: -14 QRSD: 75 T: 5 QT: 383 QTc: 411 Interpretive Statements SINUS RHYTHM LOW QRS VOLTAGE IN PRECORDIAL LEADS DELAYED PRECORDIAL R/S TRANSITION BORDERLINE ECG Compared to ECG 01/25/2025 12:29:41 NO SIGNIFICANT CHANGE Electronically Signed On 03-18-2025 17:13:43 CDT by Sourav Mosquera D.O.
[2025-03-18 15:25] LABS: Hematocrit 40.8 % (35.0-42.0); Hemoglobin 13.4 g/dL (11.7-13.8); Immature Granulocyte Percent A 0.6 % (0.0-0.0); Lymphocytes Absolute Auto 1.96 K/mm3 (1.10-4.50); Mean Corpuscular HGB Conc 32.8 g/dL (32-36); Mean Corpuscular Hemoglobin 30.6 pg (27.0-31.0); Mean Corpuscular Volume 93.2 fL (78.0-102.0); Nucleated Red Blood Cells Absolute Auto 0.00 K/mm3 (0.00-0.00); Nucleated Red Blood Cells Perc 0.0 % (0-0.0); Platelet Count Result 393 K/mm3 (150-420); Red Blood Count 4.38 M/mm3 (4.20-5.40); White Blood Count 10.2 K/mm3 (4.8-10.8)
[2025-03-18 15:36] LABS: Alanine Aminotransferase 16 U/L (6-35); Albumin Level 3.7 g/dL (3.5-5.1); Alkaline Phosphatase 126 U/L (38-126); Anion Gap 7 mmol/L (4-12); Aspartate Amino Transferase 28 U/L (14-36); Bilirubin,Total 0.8 mg/dL (0.2-1.3); Blood Urea Nitrogen 22 mg/dL (7-17); Calcium 9.6 mg/dL (8.4-10.2); Carbon Dioxide 29 mmol/L (22-30); Chloride 101 mmol/L (98-107); Estimated CRCL calculation 33 ml/min; Estimated Glomerular Filt Rate 32; Glucose 105 mg/dL (65-110); Magnesium 2.1 mg/dL (1.6-2.3); Osmolality Calculated 287 mOsm/kg (285-295); Potassium 5.1 mmol/L (3.4-5.0); Sodium 137 mmol/L (137-145); Total Protein 6.6 g/dL (6.3-8.2)
[2025-03-18 15:41] LABS: Add Urine Microscopic? YES; Appearance Urine Clear (Clear); Glucose Urine UA Negative (Negative); Leukocyte Esterase Ur Trace LEU/UL (Negative); Nitrate Urine Negative (Negative); Specific Grav Ur 1.025 (1.010-1.020)
[2025-03-18 15:48] LABS: NT Pro B Type Natriuretic Pept 1100 pg/mL (19.9-100); Troponin I 0.028 ng/mL (0.000-0.034)
[2025-03-18] MEDS: LACTATED RINGERS 1,000 ML 999 ML IV CONT (15:49)
[2025-03-18 16:01] LABS: Influenza A QL RT-PCR Negative (Negative); Influenza B QL RT-PCR Negative (Negative); RSV RNA, RT-PCR Negative (Negative); SARS-CoV-2 RNA PCR Negative (Negative)
--- OUTSIDE RECORDS SUMMARY | 2025-03-18 16:44 | XMS_ITS | Clinical Summary ---
Author Organization [facility] Address [address] [place] [address] Phone Care Team Providers Care Freelance Art Director Name Role Phone Sendy Sylvester MD Primary Care Provider [phone] Allergies Active Allergy Reactions Criticality Noted Date [...] (Adult) (1 - 1-dose 75+ series) 2024 Medicare Initial AWV [id number] 06/03/2024 Influenza Immunization (#1) 02/01/202504/03, 02/28/2022, 02/27/2021, Additional history exists SARS-COV-2 Immunization (2024- season) 2025 04/19/2023, 03/27/2022, 10/26/2021, Additional history [...] to complete this topic Insurance [facility]IC[facility] Advance Directives * Full Code (Latest Code Status on File) Date Activated Date Inactivated Comments 11/06/2023 7:47 AM Care Teams Freelance Art Director Relationship Specialty Start Date End Date Sendy Sylvester MD [address] [place] [address] PCP - General Internal Medicine 10/24/23
--- OUTSIDE RECORDS SUMMARY | 2025-03-18 16:44 | XMS_ITS | Clinical Summary ---
Author Organization [facility] Address [address] [place] [address] Care Team Providers Care Emr Trainer Name Role Phone Unavailable Primary Care Provider Unavailabl e Source Comments [facility],non-owned Affiliates and Associated Physician Practices is amultiple site organization consisting of ambulatory clinics and hospital sitesin [place], [place], [place] and [place]. This disclosure is being madepursuant to the Care Everywhere program and may not contain all information available regarding this patient. Last updated 18.[facility] Allergies Active Allergy Reactions Criticality Noted Date [...]
--- OUTSIDE RECORDS SUMMARY | 2025-03-18 17:16 | XMS_ITS | Clinical Summary ---
Author Organization [facility] Address [address] [place] [address] Phone Care Team Providers Care Terrazzo Polisher Helper Name Role Phone Sendy Sylvester MD Primary Care Provider [phone] Allergies Active Allergy Reactions Criticality Noted Date [...] to complete this topic Insurance [facility]IC[facility] Advance Directives * Full Code (Latest Code Status on File) Date Activated Date Inactivated Comments 11/06/2023 7:47 AM Care Teams Terrazzo Polisher Helper Relationship Specialty Start Date End Date Sendy Sylvester MD [address] [place] [address] PCP - General Internal Medicine 10/24/23
--- OUTSIDE RECORDS SUMMARY | 2025-03-18 17:16 | XMS_ITS | Encounter Summary ---
Author Organization [facility] Address [address] [place] [address] Phone Care Team Providers Care Link Trainer Maintenance Man Name Role Phone Sendy Sylvester MD Primary Care Provider [phone] Humberto Harris MD PhD Unavailable [phone] Missael Estrella M.A., MD Unavailable [phone] Encounter Details Date Type Department Care Team (Late st Contact Info) Description 03/02/2025 Results Follow-Up [facility] Cardiology [address] [place] [place] [address] [place] [address] Burak Hudson MD [address] [facility] [address] [place], [place] [id number] XR Chest PA Lateral 2 Views Social History Tobacco Use Types Packs/Day Years Used Date Smoking Tobacco: Former Cigarettes Passive Smoke Exposure: Past Smokeless Tobacco: Never Comments:Pt. Quit smoking on [address] [facility] Utilities Answer Date Recorded In the past 12 months has e [employer], gas, oil, or water [employer] threatened to shut off services in your [...] How often do you attend chur or restorationist services? Never 12/26/2023 Do you belong to [...] and heating? Not hard at all 12/26/2023 [facility] of Occupat ional Health - Occupational Stress [...] any time in the past 12 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 Gender Identity Not on file Sexual Orientation Not on file documented as of this encounter Plan of Treatment Not on file documented as of this encounter Visit Diagnoses Not on filedocumented in this encounter Care Teams Link Trainer Maintenance Man Relationship Specialty Start Date End Date Sendy Sylvester MD [address] [place] [address] PCP - General Internal Medicine 07/03/23 Humberto Harris MD PhD [address] [facility] [address] [place] [address] Referring Physician General Surgery 01/08/24 Missael Estrella M.A., MD [address] [address] Consulting Physician Cardiovascular Disease 02/24/25 documented as of this encounter
--- OUTSIDE RECORDS SUMMARY | 2025-03-18 17:16 | XMS_ITS | Clinical Summary ---
Author Organization [facility] Address [address] [place] [address] Care Team Providers Care Floating Derrick Operator Name Role Phone Unavailable Primary Care Provider Unavailabl e Source Comments [facility],non-owned Affiliates and Associated Physician Practices is amultiple site organization consisting of ambulatory clinics and hospital sitesin [place], [place], [place] and [place]. This disclosure is being madepursuant to the Care Everywhere program and may not contain all information available regarding this patient. Last updated 18.[facility] Allergies Active Allergy Reactions Criticality Noted Date [...]
--- OUTSIDE RECORDS SUMMARY | 2025-03-18 17:16 | XMS_ITS | Clinical Summary ---
Author Organization [place] [address] [facility] Address [address] [place] [address] Care Team Providers Care Cut Off Man Name Role Phone Sendy Sylvester MD Primary Care Provider + [phone] Humberto Harris MD PhD Unavailable [phone] Missael Estrella M.A., MD Unavailable [phone] Allergies Active Allergy Reactions Criticality Noted Date [...] total) by mouth daily 03/29/20 24 Active hdycdydi-rim-QJ-ly copen-lutein (Centrum Silver) 0.4 mg-300 mcg- 250 [...] edema 09/11/2022 12/23/2023 Overview (12/23/2023): Notes from [facility] Prior ambulatory phlebectomy versus stripping on L Last Assessment & Plan: These remain asymptomatic. Will continue to follow expectantly. she was instructed to continue wearing compression garments. TIA (transient ischemic attack) 01/01/2022 12/23/2023 Overview (12/23/2023): [facility] 01/01/2022 Encounters Date Type Department Care Team Description 03/02/2025 Results Follow-Up [facility] [address] [facility] [address] [place] [address] Burak Hudson MD XR Chest PA Lateral 2 Views 03/01/2025 1:22 PM CDT - 03/01/2025 11:59 PM CDT Hospital Encounter [facility] [address] [place] [address] Other cardiomyopathy; Dyspnea, unspecified type Discharge Disposition: Discharge to home or self care 03/01/2025 12:30 PM CDT Office Visit [facility] [address] [place] [address] Burak Hudson MD Other cardiomyopathy (Primary Dx); Dyspnea, unspecified type; Chronic heart failure with preserved ejection fraction (HFpEF); Paroxysmal A-fib (HCC); Abdominal aneurysm; Nausea 02/12/2025 Telephone [facility] [address] [facility] [address] 8th [place] [address] [place] [address] Annmarie Mcconnell from Last 3 Months Immunizations Immunization Administration [...] with MAC TIA (transient ischemic attack) 01/01/2022 [facility] 01/01/2022 Varicose veins of both legs with edema 3 Notes from [facility] Prior ambulatory phlebectomy versus stripping [...] Not Answered Comments:Pt. Quit smoking on 2021 [facility] Answer Date Recorded In the past [address] [facility] [employer] gas, oil, or water [employer] threatened to shut off services in your [...] week 12/26/2023 How often do you attend [facility] or bahai services? Never 12/26/2023 Do you [...] and heating? Not hard at all 12/26/2023 [facility] [place] of Occupat ional Health - Occupational Stress [...] money to buy more. Never true 12/26/19 Within the past 12 months, t he [...] time in the past 12 m [facility], were you homeless or [...] on file Legal Sex Female 10:45 AM PRODUCTION CONTROL COORDINATOR Gender Identity Not on file Sexual Orientation Not on file Obstetrics History Last Filed Vital Signs Vital Sign Reading Time Taken Comments Blood Pressure 90/60 03/01/2025 12:14 PM CDT Pulse 119 03/01/2025 12:14 PM CDT Temperature 36.5 C (97.7 F) 12/09/2024 9:57 AM CDT Respiratory Rate 18 04/07/2024 10:4 8 AM PRODUCTION CONTROL COORDINATOR Oxygen Saturation 98% 03/01/2025 12: 14 PM [...] Re sult from Last 3 Months Insurance [facility] MEDICARE ADVANTAGE [facility] MEDICARE ADVANTAGE Advance Directives For more information, please contact: [phone] * Full Code (Latest Code Status on File) Date Activated Date Inactivated Comments 12/18/2023 10:41 PM 12/25/2023 8:13 PM * Full Code Date Activated Date Inactivated Comments 10/14/2023 7:23 PM 10/27/2023 8:02 PM * Full Code Date Activated Date Inactivated Comments 09/04/2023 9:35 AM 09/04/2023 3:12 PM Care Teams Cut Off Man Relationship Specialty Start Date End Date Sendy Sylvester MD [address] [place] [address] PCP - General Internal Medicine 07/03/23 Humberto Harris MD PhD [address] [facility] [address] [facility] [address] Referring Physician General Surgery 01/08/24 Missael Estrella M.A., MD [address] [address] Consulting Physician Cardiovascular Disease 02/24/25
--- OUTSIDE RECORDS SUMMARY | 2025-03-18 17:16 | XMS_ITS | Clinical Summary ---
Author Organization [facility] Address [address] [place] [address] Care Team Providers Care Top Taper Machine Name Role Phone Sendy Sylvester MD Primary Care Provider [phone] Missael Estrella MD Unavailable [phone] Olena Dodd MD Unavailable [phone] Allergies Active Allergy Reactions Criticality Noted Date [...] of the abdomen and pelvis performed at [facility] on 08/31/22 demonstrates the aneurysm [...] compression garments. Family History Medical History Relation Comments Hypertension [...] Info) Description 12/15/2025 9:00 AM CDT Appointment [address] [place] [address] Missael Estrella MD [address] [facility] [address] [place], [place] [address] 12/21/2025 9:15 AM CDT Office Visit [facility] [address] [place] [address] Missael Estrella MD [address] [facility] [address] [place], [place] [id number] Health Maintenance Due Date Last Done Comments ASCVD Statin 1950 Colorectal Cancer Screening Colonoscopy (10 Years) 1949 Hepatitis C 1967 DTaP, Tdap and Td Vaccines (1 - Tdap) 1968 Pneumococcal Vaccine: 50+ Years (1 of 1 - PCV) 1999 Zoster Vaccines (1 of 2) 1999 Annual Medicare Wellness Visit 2014 Dexa Scan (General) 2014 RSV Immunization or 60+ Years (1 - 1-dose 75+ series) 2024 ASCVD LDL 05/31/2024 05/31/2023 COVID-19 Vaccine (2024- season) 2025 03/27/2022, 10/26/2021, 04/05/2021, Additional history exists Influenza Adult (#1) 2025 03/26/2024, 02/29/20 22 Meningococcal B Vaccine Aged Out No l [...] HDL CHOLESTEROL 103 Narrative Resulting Agency Comment [facility], [place], [place] us Sendy Sylvester MD LABORATORY Final Result from Last 3 Months or Most Recently Relevant to Health Maintenance Insurance MEDICARE Care Teams Top Taper Machine Relationship Specialty Start Date End Date Sendy Sylvester MD [address] [place] [address] PCP - General INTERNAL MEDICINE 09/04/22 Missael Estrella MD [address] [facility] [address] [place] [address] Physician INTERVENTIONAL CARDIOLOGY 08/07/24 Olena Dodd MD [address] [place] [id number] SURGERY 11/13/24
--- OUTSIDE RECORDS SUMMARY | 2025-03-18 17:16 | XMS_ITS | Encounter Summary ---
Author Organization [facility] Healthcare Address [address] [place] [address] Care Team Providers Care Automatic Presser Name Role Phone Sendy Sylvester MD Primary Care Provider [phone] Annalise Amezquita RN Unavailable [phone] Humberto Harris MD PhD Unavailable [phone] Missael Estrella M.A., MD Unavailable [phone] Reason for Visit * Reason Onset Date Comments Follow-Up Call 7 Days 12/30/2023 Discharge follow up call placed line busy Encounter Details Date Type Department Care Team (Late st Contact Info) Description 12/30/[address] [id number] Olivia Burrows RN Follow-Up Call 7 Days (Discharge follow up call placed line busy) Social History Tobacco Use Types Packs/Day Years Used Date Smoking Tobacco: Former Cigarettes Passive Smoke Exposure: Past Smokeless Tobacco: Never Comments:Pt. Quit smoking on 2021 [facility] Utilities Answer Date Recorded [...] do you attend [facility] or zoroastrian services? Never 12/26/2023 Do you belong to any clubs o r organizations such as sabianist groups, unions, fraternal or athletic groups, or [...] and heating? 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 Gender Identity Not on file Sexual Orientation Not on file documented as of this encounter Plan of Treatment Not on file documented as of this encounter Visit Diagnoses Not on filedocumented in this encounter Care Teams Automatic Presser Relationship Specialty Start Date End Date Sendy Sylvester MD [address] [place] [address] PCP - General Internal Medicine 07/03/23 Annalise Amezquita RN [address] [facility] [address] [place] [address] SHOP Outpatient Molding Utility Worker 12/26/23 01/23/24 Humberto Harris MD PhD [address] [facility] [address] [facility] [place] [address] Referring Physician General Surgery 01/08/24 Missael Estrella M.A., MD [address] [facility] [address] [address] Consulting Physician Cardiovascular Disease 02/24/25 documented as of this encounter
--- NOTE | 2025-03-18 17:45 | PC.NURSE ---
ERP aware of pt's vitals. No new orders.
--- NOTE | 2025-03-21 16:10 | PC.NURSE ---
final urine culture reviewed. mixed macie, <10,000, no change in plan of care
== END 2025-03-18 17:55 | disposition home or self-care (01) ==
PROVIDERS: Emergency Provider Emergency Medicine; PCP Internal Medicine
DX: R53.83 Other fatigue (principal); R53.81 Other malaise; K82.9 Disease of gallbladder, unspecified; I10 Essential (primary) hypertension; I48.91 Unspecified atrial fibrillation; Z79.01 Long term (current) use of anticoagulants; Z87.891 Personal history of nicotine dependence; Z91.199 Patient's noncompliance with other medical treatment and regimen due to unspecified reason; Z20.822 Contact with and (suspected) exposure to COVID-19
CPT/HCPCS: 36415; 71275; 74174; 80053; 81001; 83735; 83880; 84484; 85025; 87086; 87637; 93005; 96360; 99284; J7120; Q9967

== ENCOUNTER 2025-05-03 10:46 | Outpatient (CLI) | payer MEDICARE, SELFPAY ==
[2025-05-03 11:33] LABS: Total Protein Urine Random 22 mg/dL; Ur Ttl Prot Creatinine Ratio 0.31 mg/mg (0-0.20)
[2025-05-03 11:46] LABS: Albumin Level 4.0 g/dL (3.5-5.1); Anion Gap 8 mmol/L (4-12); Blood Urea Nitrogen 21 mg/dL (7-17); Calcium 9.5 mg/dL (8.4-10.2); Carbon Dioxide 26 mmol/L (22-30); Chloride 108 mmol/L (98-107); Estimated Glomerular Filt Rate 37; Glucose 104 mg/dL (65-110); Osmolality Calculated 297 mOsm/kg (285-295); Potassium 4.8 mmol/L (3.4-5.0); Sodium 142 mmol/L (137-145)
--- OUTSIDE RECORDS SUMMARY | 2025-05-03 12:19 | XMS_ITS | Encounter Summary ---
Author Organization [facility] Healthcare Address [address] [place] [address] Care Team Providers Care Physiology Teacher Name Role Phone Sendy Sylvester MD Primary Care Provider [phone] Annalise Amezquita RN Unavailable [phone] Humberto Harris MD PhD Unavailable [phone] Missael Estrella M.A., MD Unavailable [phone] Major Doss MD Unavailable [phone] Mary Beth Garcia NP Unavailable [phone] Reason for Visit * Reason Onset Date Comments Follow-Up Call 7 Days 12/30/2023 Discharge follow up call placed line busy Encounter Details Date Type Department Care Team (Late st Contact Info) Description 12/30/2023 Telephone [facility] [address] [place] [address] Olivia Burrows RN Follow-Up Call 7 Days (Discharge follow up call placed line busy) Social History Tobacco Use Types Packs/Day Years Used Date Smoking Tobacco: Former Cigarettes Passive Smoke Exposure: Past Smokeless Tobacco: Never Comments:Pt. Quit smoking on 2021 [facility] Utilities Answer Date Recorded In the past [...] How often do you attend [facility] or hindu services? Never 12/26/2023 Do you belong to any clubs o r organizations such as mosque groups, unions, fraternal or athletic groups, or [...] and heating? Not hard at all 12/26/2023 [facility] [place] of Occupat ional Health - Occupational Stress [...] were you homeless or living in a care home (including now)? No 12/26/2023 Personal Safety Answer Date Recorded Have you ever been in or are you currently in a harmful physical or emotional relationship or is someone making you feel afraid or unsafe? 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 [place] [address] [place] [address] Referring Physician General Surgery 01/08/24 Missael Estrella M.A., MD [address] [facility] [place] [address] [place] [address] Consulting Physician Cardiovascular Disease 02/24/25 Major Doss MD [address] [place] [address] Consulting Physician General Surgery 04/02/25 Mary Beth Garcia NP [address] [place] [address] [place] [address] Nurse Practitioner Cardiovascular Disease 04/03/25 documented as of this encounter
--- OUTSIDE RECORDS SUMMARY | 2025-05-03 12:19 | XMS_ITS | Clinical Summary ---
Author Organization [facility] Address [address] [place] [address] Care Team Providers Care Ammunition Storage Superintendent Name Role Phone Unavailable Primary Care Provider Unavailabl e Source Comments [facility],non-owned Affiliates and Associated Physician Practices is amultiple site organization consisting of ambulatory clinics and hospital sitesin [place], [place], [place]. This disclosure is being madepursuant to the Care Everywhere program and may not contain all information available regarding this patient. Last updated 18.[facility] Allergies Active Allergy Reactions Criticality Noted Date [...] Last Done Comments BONE DENSITY TESTING 1950 HEPATITIS C SCREENING 04/05/1967 DTAP/TDAP/TD VACCINES (1 - Tdap) 1968 PNEUMOCOCCAL VACCINE 50+ (1 of 1 - PCV) 1999 ZOSTER VACCINE (1 of 2) 1999 Respiratory Syncytial Virus (RSV) Vaccine Pt: or over 60 yrs (1 - 1-dose 75+ series) 2024 DEPRESSION SCREENING 06/03/2024 COVID-19 VACCINE (1 - 2024-2 6 season) 2025 INFLUENZA VACCINE (#1) 2025 HEPATITIS [...] age to complete this topic Insurance [employer] Member Subscriber Plan / Payer (Ef fective 2021-Present) Name:Lisseth Gibbons Relation to Subscriber:Self Name:Odalysla nenaLisseth Payer ID:[id number] (NAIC) Group ID:Not on file Type:Medicare-[facility] Care Address: [facility] [id number] [id number] Advance Directives * Full Code (Latest Code Status on File) Date Activated Date Inactivated Comments 01/01/2022 5:16 PM 01/03/2022 3:06 PM
--- OUTSIDE RECORDS SUMMARY | 2025-05-03 12:19 | XMS_ITS | Clinical Summary ---
Author Organization [place] [id number] [facility] Address [address] [place] [address] Care Team Providers Care Test Car Driver Name Role Phone Sendy Sylvester MD Primary Care Provider [phone] Humberto [place] MD PhD Unavailable [phone] Missael Estrella M.A., MD Unavailable [phone] Major Doss MD Unavailable [phone] Mary Beth Jarquin DISTANCE EDUCATION COORDINATOR Unavailable Allergies Active Allergy Reactions Criticality Noted Date Comments Sulfa (Sulfonamide Antibiotics) Cough,Shortness of breath,Other (See comments) High 01/01/2022 it made me so sick Medications ondansetron ODT (ZOFRAN-ODT) 4 mg disintegrating tablet Take 1 tablet (4 mg total) by mouth every 8 (eight) hours as needed for nausea or vomiting Place under the tongue and let dissolve 20 tablet 2 4 Active aspirin 81 mg enteric coated tablet Take 1 tablet (81 mg total) by mouth daily 4 Active atorvastatin (LIPITOR) 80 mg tablet Take 1 tablet (80 mg total) by mouth daily 4 Active zswarivj-gjk-OE-lyc open-lutein (Centrum Silver) 0.4 mg-300 mcg- 250 mcg tablet Take 1 tablet by mouth daily 5 Active metoclopramide (REGLAN) 5 mg tablet Take 1 tablet (5 mg total) by mouth 3 (three) times a day with meals [address] (PROTONIX) 40 mg EC tablet Take 1 tablet (40 mg total) by mouth 2 (two) times a day 5 Active PARoxetine (PAXIL) 20 mg tablet Take 1 tablet (20 mg total) by mouth every morning 5 Active LORazepam (ATIVAN) 1 mg tablet Take 1 tablet (1 mg total) by mouth every 6 (six) hours as needed for anxiety or other (nausea) Active melatonin 1 mg tablet,chewable Take 2 mg by mouth nightly as needed (sleep) (Zzzquil gummies taken at home) Active apixaban (ELIQUIS) 5 mg tablet Take 1 tablet (5 mg total) by mouth 2 (two) times a day OK to resume Eliquis tomorrow 5 Active metoprolol XL (TOPROL-XL) 25 mg extended release tablet Take 1 tablet (25 mg total) by mouth 2 (two) times a day 60 tablet 5 Active Active Problems Problem Noted Date Diagnosed Date Chronic diastolic heart failure 04/26/2025 Assessment & Plan (04/26/2025 7:25 PM CONTINUOUS MINING MACHINE COAL MINER): Ms. Gibbons endorses NYHA Class II-III heart failure symptoms in the office today. She reports increased shortness of breath. Will arrange for direct admission for IV diuresis. Nausea 04/26/2025 Assessment & Plan (04/26/2025 7:27 PM CONTINUOUS MINING MACHINE COAL MINER): Presents to office with c/o nausea. She had abnormal scan at OSH. Will ask Dr. Doss to see in hospital. Acute cholecystitis 04/02/2025 Chronic diastolic (congestive) heart failure Chronic heart failure with p reserved ejection fraction (HFpEF) 03/01/2025 Overview (03/01/2025): TTE Jan 2025 LVEF 60-65% proBNP 874 Abdominal aneurysm 02/24/2025 Overview (03/01/2025): Now followed by Dr Darby with plans for every 6 months surveillance Cerebrovascular accident 02/24/2025 Nausea 02/24/2025 Paroxysmal A-fib 02/24/2025 Overview (03/01/2025): Diagnosed Jan 2025 Eliquis DOAC Metoprolol low dose TTE LVEF 60-65% Assessment & Plan (04/26/2025 7:26 PM CONTINUOUS MINING MACHINE COAL MINER): Hx of AF. EKG in office today ST. Remains on Eliquis. Stage 3b chronic kidney disease 02/24/2025 Iliac [...] to discharge - pulmonary will continue follow Severe protein-calorie malnutrition 12/19/2023 Paraesophageal hernia 10/14/2023 Hiatal hernia with GERD 09/11/2023 Infrarenal abdominal aortic aneurysm (AAA) witho ut rupture 09/11/2022 Overview (12/09/2024): 08/31/22 3.9 cm x 4.1 cm Resolved Problems Problem Noted Date Diagnosed Date Resolved Date Shortness of breath 12/18/2023 03/01/20 Acute hypoxic respiratory failure 10/18/2023 03/01/2025 Assessment [...] edema 09/11/2022 12/23/2023 Overview (12/23/2023): Notes from [facility] Prior ambulatory phlebectomy versus stripping on L Last Assessment & Plan: These remain asymptomatic. Will continue to follow expectantly. she was instructed to continue wearing compression garments. TIA (transient ischemic attack) 01/01/2022 12/23/2023 Overview (12/23/2023): [facility] 01/01/2022 Encounters Date Type Department Care Team Description 04/27/2025 Telephone [facility] Cardiology [address] [facility] [address] [place] [address] Linnette Malik CMA 04/26/2025 Telephone [facility]iology [address] [facility] [facility] [address] [place] [phone] Mary Beth Jarquin NP 04/20/2025 Documentation [facility] [address] [address] Zhane Lainez PA Test Results 04/20/2025 Orders Only [facility] [address] [phone] Jeff Darby MD Infrarenal abdominal aortic aneurysm, without rupture (Primary Dx) 04/15/2025 Telephone [facility] [address] [address] Papito Hicks RN Post-op Follow-up 04/13/2025 3:14 PM CONTINUOUS MINING MACHINE COAL MINER - 04/13/2025 11:59 PM CONTINUOUS MINING MACHINE COAL MINER Hospital Encounter [facility] [address] [place] [address] Discharge Disposition: Discharge to home or self care 04/02/2025 12:00 PM CDT - 04/02/2025 1:30 PM CDT Surgery [facility] Operating Room [address] [place] [phone] Major Doss MD Laparoscopic Cholecystectomy 04/02/2025 11:01 AM CDT Anesthesia Event [facility] Operating Room [address] [place] [phone] Payam Prabhakar MD 03/31/2025 Results Follow-Up [facility] Cardiology [address] [place] [phone] Mary Beth Jarquin NP ECG 12 lead 03/31/2025 Telephone [facility] Surgery [address] [facility] [address] [place] [address] [place] [phone] Abby Rodriguez 03/30/2025 2:54 PM CDT - 04/03/2025 1:12 PM CDT Hospital Encounter [address] [phone] Aisha Richardson MD Paroxysmal A-fib (HCC) (Primary Dx); Acute cholecystitis Discharge Disposition: Discharge to home or self care 03/30/2025 11:00 AM CDT Office Visit [facility] Cardiology [address] [place] [phone] Mary Beth Jarquin NP Chronic diastolic heart failure (HCC) (Primary Dx); Paroxysmal A-fib (HCC); Nausea 03/30/2025 Orders Only [facility] Cardiology [address] [facility] [address] [place] [address] Jennifer Gardner MD 03/02/2025 Results Follow-Up [facility] Cardiology [address] [facility] [address] [place] [address] Burak Hudson MD XR Chest PA Lateral 2 Views 03/01/2025 1:22 PM CDT - 03/01/2025 11:59 PM CDT Hospital Encounter [facility] - Imaging [address] [place] [address] Other cardiomyopathy; Dyspnea, unspecified type Discharge Disposition: Discharge to home or self care 03/01/2025 12:30 PM CDT Office Visit [facility] [address] [facility] [address] [place] [address] Burak [place] MD Other cardiomyopathy (Primary Dx); Dyspnea, unspecified type; Chronic heart failure with preserved ejection fraction (HFpEF); Paroxysmal A-fib (HCC); Abdominal aneurysm; Nausea 02/12/2025 Telephone [facility] Cardiology [address] [facility] [address]th [place] [address] [place] [address] Annmarie Mcconnell from Last 3 Months Immunizations [...] with MAC TIA (transient ischemic attack) 01/01/2022 [facility] [employer] 01/01/2022 Varicose veins of both legs with edema [address] [facility] Prior ambulatory phlebectomy versus stripping [...] Not Answered Comments:Pt. Quit smoking on 2021 Humiliation, Afraid, Rape, and Kick questionnair e [...] How often do you attend chur or lutheran services? Never 12/26/2023 Do you belong to [...] and heating? Not hard at all 12/26/2023 [facility] of Occupat ional [facility] - Occupational Stress Questionnaire Answer Date [...] exercise at this level? 20 min 12/18/2023 PRAPARE - Transportation Answer Date Re corded [...] were you homeless or living in a residential (including now)? No 12/26/2023 Social Connection and Isolation Panel Answer Date Recorded In a typical week, how many times do you talk on the phone with family, friends, or neighbors? Three times a week 04/01/2025 How often do you get togethe r with friends or relatives? Once a week 04/01/2025 How often do you attend chur ch or lutheran services? Never 04/01/2025 Do you belong to any clubs o r organizations such as synagogue groups, unions, fraternal or athletic groups, or school groups? No 04/01/2025 How often do you attend meet ings of the clubs or organizations you belong to? Never 04/01/2025 Are you , , di vorced, , never , or living with a partner? 04/01/2025 Overall Financial Resource Strain (CARDIA) Answe r Date Recorded How hard is it for you to pa y for the very basics like food, housing, medical care, and heating? Not hard at all 04/01/2025 Hunger Vital Sign Answer Date Recorded Within the past 12 months, y ou worried that your food would run out before you got the money to buy more. Never true 04/01/20 25 Within the past 12 months, t he food you bought just didn't last and you didn't have money to get more. Never true 04/01/2025 PRAPARE - Transportation Answer Date Re corded In the past 12 months, has l ack of transportation kept you from medical appointments or from getting medications? No 03/05 In the past 12 months, has l ack of transportation kept you from meetings, work, or from getting things needed for daily living? No 04/01/2025 Housing Stability Vital Sign Answer Zac e Recorded In the last 12 months, was t here a time when you were not able to pay the mortgage or rent on time? No 04/01/2025 In the past 12 months, how m any times have you moved where you were living? 0 04/01/2025 At any time in the past 12 m [facility], were you homeless or living in a residential (including now)? No 04/01/2025 [facility] Utilities Answer Date Recorded In the past 12 months has th e electric, gas, oil, or water company threatened to shut off services in your home? No 04/01/2025 Personal Safety Answer Date Recorded Have you ever been in or are you currently in a harmful physical or emotional relationship or is someone making you feel afraid or unsafe? Denies 04/02/2025 Comments No Sex and Gender Information Value Date Recorded Sex Assigned at Not on file Legal Sex Female 10:45 AM CONTINUOUS MINING MACHINE COAL MINER Gender Identity Not on file Sexual Orientation Not on file Last Filed Vital Signs Vital Sign Reading Time Taken Comments Blood Pressure 116/68 04/03/2025 11:39 AM CDT Pulse 74 04/03/2025 11:39 AM CDT Temperature 36.7 C (98 F) 04/03/2025 11:39 AM CDT Respiratory Rate 18 04/03/2025 11:3 9 AM CDT Oxygen Saturation 97% 04/03/2025 11: 39 AM CDT Inhaled Oxygen Concentration - - Weight 82.9 kg (182 lb 12.2 oz) 04/03/2025 5:18 AM CDT Height 172.1 cm (5' 7.75) 04/02/2025 9:56 AM CD T Body Mass Index 27.99 04/02/2025 9:56 AM CDT Plan of Treatment Health Maintenance Due Date Last Done Comments Depression Screening 1950 Hepatitis C Screening 1950 Osteoporosis Screening-Bone Density Scan 1950 DTaP/Tdap/Td Vaccine (1 - Tdap) 1960 Hepatitis B Screening 1967 Pneumococcal vaccine 65+ (1 of 2 - PCV) 1968 Zoster Vaccine (1 of 2) 1999 Well Visit 65+ 2014 Covid-19 Vaccine (2024-2 6 season) 2025 03/26/2024, 04/19/2023, 03/27/2022, Additional history exists Influenza Vaccine (#1) 2025 , 04/19/2023, 02/28/2022, Additional history exists Fall Risk Assessment 04/02/2026 04/02/2025 Procedures Procedure Name Priority Date/Time Associated Diagnosis Comments CT BODY OUTSIDE REFERENCE Routine 04/13/2025 3:14 PM CONTINUOUS MINING MACHINE COAL MINER EGFR STAT 04/03/2025 7:35 AM CDT COMPREHENSIVE METABOLIC PANEL STAT 04/03/2025 7:35 AM CDT SURGICAL PATHOLOGY Routine 04/02/2025 11:38 AM CDT Acute cholecystitis WI AN PROCEDURE PLACEHOLDER Routine 04/02/2025 11:12 AM CDT WI AN ELECTIVE ENDOTRACHEAL AIRWAY Routine 04/02/2025 11:12 AM CDT LAPAROSCOPIC CHOLECYSTECTOMY 04/02/2025 11:02 AM CDT Acute cholecystitis ADD ON LAB TEST Add-On 04/02/2025 8:04 AM CDT PRO B-TYPE NATRIURETIC PEPTIDE Routine 04/02/2025 4:35 AM CDT EGFR Routine 04/02/2025 4:35 AM CDT DIFFERENTIAL AUTO Routine 04/02/2025 4:3 5 AM CDT COMPREHENSIVE METABOLIC PANEL Routine 04/02/2025 4:35 AM CDT CBC WITH AUTO DIFFERENTIAL Routine 04/02/2025 4:[address] ABDOMEN PELVIS WO CONTRAST ED Urgent/IP Urgent 04/01/2025 5:41 PM CDT TRANSTHORACIC ECHO (TTE) COMPLETE W DOPPLER/CF WO CONTRAST Routine 04/01/2025 10:06 AM CDT US RUQ IP Routine 04/01/2025 5:24 AM CDT EGFR Routine 04/01/2025 4:16 AM CDT DIFFERENTIAL AUTO Routine 04/01/2025 4:1 6 AM CDT IRON PROFILE W/ IBC Routine 04/01/2025 4 :16 AM CDT CBC WITH AUTO DIFFERENTIAL Routine 04/01/2025 4:16 AM CDT BASIC METABOLIC PANEL Routine 04/01/2025 4:16 AM CDT NM HEPATOBILIARY IMAGING W MORPHINE IP Routine 03/31/2025 3:26 PM CDT ADD ON LAB TEST Add-On 03/31/2025 12:06 PM CDT IRON Routine 03/31/2025 11:35 AM CDT EGFR Routine 03/31/2025 11:35 AM CDT DIFFERENTIAL AUTO Routine 03/31/2025 11:35 AM CDT CBC WITH AUTO DIFFERENTIAL Routine 03/31/2025 11:35 AM CDT BASIC METABOLIC PANEL Routine 03/31/2025 11:35 AM CDT ECG 12-LEAD STAT 03/31/2025 10:30 AM CDT XR CHEST PA LATERAL 2 VIEWS IP Routine 03/30/2025 8:31 PM CDT EGFR STAT 03/30/2025 6:47 PM CDT CORTISOL STAT 03/30/2025 6:47 PM CDT DIFFERENTIAL AUTO STAT 03/30/2025 6:4 7 PM CDT TSH STAT 03/30/2025 6:47 PM CDT PRO B-TYPE NATRIURETIC PEPTIDE STAT 03/30/2025 6:47 PM CDT COMPREHENSIVE METABOLIC PANEL STAT 03/30/2025 6:47 PM CDT CBC WITH AUTO DIFFERENTIAL STAT 03/30/2025 6:47 PM CDT ECG 12-LEAD Routine 03/30/2025 5:45 PM CDT CBC WITH AUTO DIFFERENTIAL Routine 03/30/2025 4:44 PM CDT ECG 12-LEAD Routine 03/30/2025 12:18 PM CDT Paroxysmal A-fib (HCC) XR CHEST PA LATERAL 2 VIEWS Schedule Routine, Read Routine (OP Routine) 03/01/2025 1:44 PM CDT Other cardiomyopathy Dyspnea, unspecified type ELECTROCARDIOGRAM REPORT Routine 03/01/2025 1:06 PM CDT Other cardiomyopathy Dyspnea, unspecified type from Last 3 Months Results * CT Body Outside Reference (04/13/2025 3:14 PM CONTINUOUS MINING MACHINE COAL MINER) Impressions [facility] - 04/13/2025 3:14 PM CONTINUOUS MINING MACHINE COAL MINER These images are for Reference purposes only and have not been reviewed by [facility] Radiology. There will be no report generated by a [facility] Radiologist. Narrative [facility] - 04/13/2025 3:14 PM CONTINUOUS MINING MACHINE COAL MINER EXAMINATION: Images For Reference Purposes Only us Jeff Darby MD IMG CT PROCEDURES Final Result [facility] * (ABNORMAL) eGFR (04/03/2025 7:35 AM CDT) eGFR 43(L) >=60 mL/min/1. 73 m2 Comment: Interpretive Data Reference Interval Normal >/= 90 mL/min/1.73m2 Mildly decreased* 60 - 89 mL/min/1.73m2 Mildly to moderately decreased 45 - 59 mL/min/1.73m2 Moderately to severely decreased 30 - 44 mL/min/1.73m2 Severely decreased 15 - 29 mL/min/1.73m2 Kidney Failure < 15 mL/min/1.73m2 *Relative to young adult level Estimated glomerular filtration rate is determined by the 2020 CKD-EPI equation recommended by the National Kidney Foundation (A Unifying Approach to GFR Estimation: Recommendations of the NKF-ASK Task Force on Reassessing the Inclusion of Race in Diagnosing Kidney Disease, JASN 2020). The CKD-EPI equation should not be used for patients with unstable renal function and has not been validated in children and those over 70. Current interpretive data was last reviewed 2021. Blood 04/03/2025 7:35 AM CDT 04/03/2025 7:46 AM CDT us Keila Villar NP LAB BLOOD ORDERABL ES Final Result [facility] [address] [place] [address] * (ABNORMAL) Comprehensive metabolic panel (04/03/2025 7:35 AM CDT) Sodium 136 135 - 145 mmol/L Potassium, pl 4.7 3.3 - 4.9 mmol/L [facility] Chloride 101 97 - 110 mmol/L [facility] CO2 20(L) 22 - 32 mmol/L [facility] Anion gap 15 2 - 15 mmol/L [facility] BUN 29(H) 6 - 25 mg/dL [facility] Creatinine 1.29(H) 0.60 - 1.10 mg/dL [facility] Glucose 80 70 - 199 mg/dL [facility] Comment: Interpretive Data Fasting glucose >/= 126 mg/dl is diagnostic for diabetes. Fasting is defined as no caloric intake for at least 8 hours. Fasting glucose between 100 mg/dl to 125 mg/dl is diagnostic of prediabetes. In a patient with classic symptoms of hyperglycemia or hyperglycemic crisis, a random glucose >/= 200 mg/dl is diagnostic for diabetes. In the absence of unequivocal hyperglycemia, results should be confirmed by repeat testing. The classification and Diagnosis of Diabetes Diabetes Care 202; 46: S19-S40. Current interpretive data was last revised 2022. Calcium 9.1 8.5 - 10.3 mg/dL [facility] Bilirubin, total 0.3 0.1 - 1.2 mg/dL [facility] Protein, pl 5.7(L) 6.5 - 8.5 g/dL [facility] Albumin 3.1(L) 3.5 - 5.0 g/dL [facility] Alk phos 124 40 - 130 Units/L [facility] ALT 20 7 - 45 Units/L [facility] AST 41 10 - 45 Units/L [facility] Blood 04/03/2025 7:35 AM CDT 04/03/2025 7:46 AM CDT us Keila Villar NP LAB BLOOD ORDERABL ES Final Result [facility] [address] Department [place] [address] * Surgical pathology (04/02/2025 11:38 AM CDT) Tissue (Gallbladder) 04/02/2025 11:38 AM CDT Comment:Placed in formalin a t the end of the case Narrative PATHOLOGY [facility] - 04/06/2025 12:57 PM CONTINUOUS MINING MACHINE COAL MINER [address] [address] Tele: Izzy Roberson MD - Medical Assistant Note to Patients: This report may contain a detailed description of human tissue sent by a health care provider to the laboratory for pathologic evaluation. The content of this report is essential for diagnosis and may provide important critical findings. This information may be unfamiliar to patients to review without a medical professional present. It is advised that the patient review this report in the presence of a health care provider who can answer questions and explain the details. SURGICAL PATHOLOGY REPORT Patient Name: KENDRA GIBBONS Address: [address] [place] [address]- Gender: F : 1950 (Age: 74) Service: Cardiology Location: [place] [address], Hospital #: [id number] [place] [facility]: 04/02/2025 Received 04/02/2025 Reported: 04/06/2025 Physician(s): Bigg Paz M.D. DIAGNOSIS: Gallbladder, cholecystectomy: - Cholelithiasis - Chronic cholecystitis /04/06/2025 12:57 Examining Pathologist: Yaya Meza M.D. Report Reviewed and Electronically Signed By Yaya Meza M.D. SPECIMEN TYPE: A: GALLBLADDER CLINICAL IMPRESSION AND HISTORY: Acute cholecystitis GROSS DESCRIPTION: Received in formalin labeled with KENDRA GIBBONS and gallbladder is a 6.3 x 3.5 cm gallbladder. The serosa is unremarkable. The gallbladder is opened and displays green velvety unremarkable mucosa and a wall thickness of 0.2 cm. Located in the gallbladder is green bile and multiple black irregular gallstones ranging from 0.1 cm to 0.3 cm Flow Nurse sections are submitted in cassette labeled A1. cox branson/04/02/2025 14:11 [facility] MILL[facility] MICROSCOPIC DESCRIPTION: Microscopic examination supports the above captioned diagnosis. Beneath the epithelium the stroma shows dense pale eosinophilic staining therefore a Congo red stain is performed; it shows no birefringence that would be indicative of amyloid. Clerical Data Follows A; [id number], [id number] REPORT IMAGES AND/OR SCANNED DOCUMENTS ONLY VIEWABLE IN PDF FORMAT The immunohistochemical test(s) cited in this report, if any, was developed and its performance characteristics determined by [facility] Pathology Department. It has not been cleared or approved by the U.S. Food and Drug Administration. The FDA has determined that such clearance or approval is not necessary. This test is used for clinical purposes. It should not be regarded as investigational or for research. [facility] Laboratory is certified under the Clinical Laboratory Improvement Amendments of 1988 (CLIA) as qualified to perform high complexity testing. Immunostains were performed on formalin-fixed paraffin embedded tissue using a polymer diaminobenzidine chromogen detection system. Antibodies used may include clone SP1 (rabbit monoclonal, estrogen receptor), clone 1E2 (rabbit monoclonal progesterone receptor), Ki-67 (rabbit monoclonal, 30-9), CD117 (rabbit polyclonal, c-kit), and anti-Her-2/jil (4B5) (rabbit monoclonal primary antibody). In the event that immunohistochemistry or special stains have been performed, attending physician has confirmed appropriateness of controls. Frozen section, operating room consultation, gross examination and dissection, and case sign out may have been performed in part or completely in the following laboratories: [facility], [address] [place] [address], [address] [place] [address], [place] [address]. Major Doss MD LAB PATHOLOGY ORDERABLES Final Result PATHOLOGY [facility] Laboratory Receiving [address] [place] [address] * WI AN ELECTIVE ENDOTRACHEAL AIRWAY, WI AN PROCEDURE PLACEHOLDER (04/02/2025 11:12 AM CDT) Tammie Eastman CREDIT CARD INTERVIEWER - 04/02/2025 11:12 AM CDT Tammie Mcneil CRNA 04/02/2025 11:12 AM Airway Patient location: OR Urgency: elective Indications for airway management: anesthesia Difficult airway: no Airway prep: Preoxygenated: yes Patient position: sniffing Mask difficulty assessment: 1 - vent by mask Sedation level during airway: GA Final airway details: Final airway type: endotracheal airway Tube type: ETT ETT size: 7.0 mm Cuffed: yes Technique used for successful ETT placement: video laryngoscopy Insertion site: oral Blade type: Brianna Video blade type: Boone Blade size: 3 Cormack-Lehane (direct): grade I - full view of glottis Cuff inflated with: air Placement verified by: auscultation and CO2 detection Airway secured with: silk tape Number of attempts: 1 us Payam Prabhakar MD ANESTHESIA ORDERABLES Final Res ult * NT-Pro BNP - Add on lab test (04/02/2025 8:04 AM CDT) Acceptable Yes Blood 04/02/2025 8:04 AM CDT 04/02/2025 8:04 AM CDT Narrative [facility] - 04/02/2025 8:04 AM CDT Name of Test->NT-Pro BNP us Mary Beth Jarquin NP LAB BLOOD ORDERABLES nal Result [facility] [address] Department [place] [address] * (ABNORMAL) eGFR (04/02/2025 4:35 AM CDT) eGFR 38(L) >=60 mL/min/1. 73 m2 Comment: Interpretive Data Reference Interval Normal >/= 90 mL/min/1.73m2 Mildly decreased* 60 - 89 mL/min/1.73m2 Mildly to moderately decreased 45 - 59 mL/min/1.73m2 Moderately to severely decreased 30 - 44 mL/min/1.73m2 Severely decreased 15 - 29 mL/min/1.73m2 Kidney Failure < 15 mL/min/1.73m2 *Relative to young adult level Estimated glomerular filtration rate is determined by the 2020 CKD-EPI equation recommended by the National Kidney Foundation (A Unifying Approach to GFR Estimation: Recommendations of the NKF-ASK Task Force on Reassessing the Inclusion of Race in Diagnosing Kidney Disease, JASN 202). The CKD-EPI equation should not be used for patients with unstable renal function and has not been validated in children and those over 70. Current interpretive data was last reviewed 2021. Blood 04/02/2025 4:35 AM CDT 04/02/2025 5:30 AM CDT us Aisha Richardson MD LAB BLOOD ORDERABLES Final Res ult [facility] [address] Department of Laboratories [place], [place] [id number] * (ABNORMAL) Differential, auto (04/02/2025 4:35 AM CDT) Neutrophil abs 5.50 1.50 - 6.50 K/cumm Imm gran abs 0.04 0.00 - 0.10 K/cumm [facility] Lymphocyte abs 3.12 0.80 - 3.30 K/cumm [facility] Monocyte abs 1.46(H) 0.20 - 0.80 K/cumm [facility] Eosinophil abs 0.54(H) 0.00 - 0.50 K/cumm [facility] Basophil abs 0.11(H) 0.00 - 0.10 K/cumm [facility] Neutrophil pct 51.0 % [facility] Comment: Interpretive Data Percent cell count reference ranges are not reported, since discordance with absolute values may lead to misinterpretation of CBC data. Current Interpretive Data was last revised on 2017. Imm gran pct 0.4 % [facility] Comment: Interpretive Data Percent cell count reference ranges are not reported, since discordance with absolute values may lead to misinterpretation of CBC data. Current Interpretive Data was last revised on 2017. Lymphocyte pct 29.0 % [facility] Comment: Interpretive Data Percent cell count reference ranges are not reported, since discordance with absolute values may lead to misinterpretation of CBC data. Current Interpretive Data was last revised on 2017. Monocyte pct 13.6 % [facility] Comment: Interpretive Data Percent cell count reference ranges are not reported, since discordance with absolute values may lead to misinterpretation of CBC data. Current Interpretive Data was last revised on 2017. Eosinophil pct 5.0 % [facility] Comment: Interpretive Data Percent cell count reference ranges are not reported, since discordance with absolute values may lead to misinterpretation of CBC data. Current Interpretive Data was last revised on 2017. Basophil pct 1.0 % [facility] Comment: Interpretive Data Percent cell count reference ranges are not reported, since discordance with absolute values may lead to misinterpretation of CBC data. Current Interpretive Data was last revised on 2017. Blood 04/02/2025 4:35 AM CDT 04/02/2025 5:30 AM CDT us Aisha Richardson MD LAB BLOOD ORDERABLES Final Res ult [facility] [address] Department [place] [address] * (ABNORMAL) Pro B-type natriuretic peptide (04/02/2025 4:35 AM CDT) NT-proBNP 1,488(H) <=450 pg/mL Comment: Interpretive Comments: A. Dyspnea in Acute Care Setting All Ages: < 300 pg/ml, acute heart failure unlikely. < 50 yrs: 300 - 450 pg/ml, further investigation warranted. > 450 pg/ml, acute heart failure likely. 50 - 74 yrs: 300 - 900 pg/ml, further investigation warranted. > 900 pg/ml, acute heart failure likely . > or = 75 yrs: 450 - 1800 pg/ml, further investigation warranted. > 1800 pg/ml, acute heart failure likely. B. Non-acute Setting < 75 yrs < 125 pg/ml, rules out heart failure. > or = 125 pg/ml, further investigation warranted. > or = 75 yrs < 450 pg/ml, rules out heart failure. > or = 450 pg/ml, further investigation warranted. - Knowledge of each individual patient's NT-proBNP range may be more useful than using similar cut-points for every patient. Please note that marked elevations in NT-proBNP levels may be observed in state other than Left Ventricular Congestive Failure, including: acute coronary syndromes, right heart strain/failure (including pulmonary embolism and cor pulmonale), critical illness, renal failure, as well as advanced age. - References: 1. Benny CARD et.al. Eur Heart J. 2006:27:330-337. 2. Rossana RW, Markel AM. J. AM Kevin Cardiol: Cardiovasc Imag. 2009;2: 216- 225. Interpretive Data Last Revised Date: 2018. Blood 04/02/2025 4:35 AM CDT 04/02/2025 5:30 AM CDT us Aisha Richardson MD LAB BLOOD ORDERABLES Final Res ult [facility] [address] Department [place] [address] * (ABNORMAL) CBC with auto differential (04/02/2025 4:35 AM CDT) WBC 10.77(H) 3.80 - 9.90 K/cumm Hgb 12.0 11.9 - 15.5 g/dL [facility] Hct 35.6 35.6 - 45.5 % [facility] Plt 499(H) 150 - 400 K/cumm [facility] MPV 12.2 9.1 - 12.3 fL [facility] RBC 3.88(L) 3.90 - 5.20 M/cumm [facility] MCV 91.8 81.3 - 96.4 fL [facility] MCH 30.9 27.1 - 33.3 pg [facility] MCHC 33.7 32.3 - 35.7 g/dL [facility] RDW CV 15.3(H) 11.1 - 14.9 % [facility] RDW SD 50.6(H) 35.7 - 48.1 fL [facility] NRBC abs 0.00 0.00 - 0.01 K/cumm [facility] Blood 04/02/2025 4:35 AM CDT 04/02/2025 5:30 AM CDT us Aisha Richardson MD LAB BLOOD ORDERABLES Final Res ult [facility] [address] Department [place] [address] * (ABNORMAL) Comprehensive metabolic panel (04/02/2025 4:35 AM CDT) Sodium 136 135 - 145 mmol/L Potassium, pl 4.3 3.3 - 4.9 mmol/L [facility] Chloride 100 97 - 110 mmol/L [facility] CO2 25 22 - 32 mmol/L [facility] Anion gap 11 2 - 15 mmol/L [facility] BUN 25 6 - 25 mg/dL [facility] Creatinine 1.43(H) 0.60 - 1.10 mg/dL [facility] Glucose 98 70 - 199 mg/dL [facility] Comment: Interpretive Data Fasting glucose >/= 126 mg/dl is diagnostic for diabetes. Fasting is defined as no caloric intake for at least 8 hours. Fasting glucose between 100 mg/dl to 125 mg/dl is diagnostic of prediabetes. In a patient with classic symptoms of hyperglycemia or hyperglycemic crisis, a random glucose >/= 200 mg/dl is diagnostic for diabetes. In the absence of unequivocal hyperglycemia, results should be confirmed by repeat testing. The classification and Diagnosis of Diabetes Diabetes Care 2021; 46: S19-S40. Current interpretive data was last revised 2022. Calcium 9.2 8.5 - 10.3 mg/dL [facility] Bilirubin, total 0.5 0.1 - 1.2 mg/dL [facility] Protein, pl 5.7(L) 6.5 - 8.5 g/dL [facility] Albumin 3.1(L) 3.5 - 5.0 g/dL [facility] Alk phos 115 40 - 130 Units/L [facility] ALT 13 7 - 45 Units/L [facility] AST 20 10 - 45 Units/L [facility] Blood 04/02/2025 4:35 AM CDT 04/02/2025 5:30 AM CDT us Aisha Richardson MD LAB BLOOD ORDERABLES Final Res ult [facility] [address] Department [place] [address] * CT Abdomen Pelvis WO Contrast (04/01/2025 5:41 PM CDT) Anatomical Region Laterality Modality Body N/A Computed Tomogra phy 04/01/2025 8:30 PM CDT Impressions 04/01/2025 8:30 PM CDT 1. Similar size of the bilobed juxtarenal and infrarenal abdominal aortic aneurysm compared to 09/29/2024, with the proximal component measuring up to 4.2 x 4.2 cm in maximal double oblique short axis and the distal component measuring up to 4.3 x 4.2 cm in maximal double oblique short axis. Electronically signed by: Venancio Peralta MD, MPHS Narrative 04/01/2025 8:30 PM CDT EXAMINATION: Computed tomography of the abdomen and pelvis without intravenous contrast HISTORY: 74-year-old female with history of abdominal aortic aneurysm. TECHNIQUE: Transaxial computed tomographic images of the abdomen and pelvis were obtained without intravenous contrast according to the standard protocol. COMPARISON: CT 09/29/2024. FINDINGS: Moderate atherosclerotic disease of the aortobiiliac system. Similar juxta and infrarenal abdominal aortic aneurysm with fusiform morphology. The proximal aspect of the aneurysm dilation is approximately 1 cm beyond the origin of the right renal artery. The proximal component of the aneurysm measures up to 4.2 x 4.2 cm in maximal double oblique short axis, which is unchanged from 09/29/2024 accounting for differences in measurement technique, while the distal component measures 4.4 x 4.2 cm in double oblique short axis, which is also similar to 09/29/2024. Normal lung bases. No hepatic masses. Normal morphology. Patent hepatic and portal veins. No intrahepatic or extrahepatic bile duct dilation. Gallstone at the gallbladder neck. No secondary signs of cholecystitis. Mild fatty pancreatic atrophy. No contour deforming masses or no ductal dilation. Normal spleen size. No renal stones or hydronephrosis. No contour deforming masses. No adrenal masses. No abdominopelvic or inguinal lymphadenopathy. No small or large bowel wall thickening or obstruction. Small hiatal hernia. Normal appendix. Descending and sigmoid diverticulosis without associated inflammatory change. No peritoneal or mesenteric mass or collection. The bladder is partially empty and not well assessed. Normal appearance of the uterus for patient age. 2.7 cm simple appearing left adnexal cyst. No right adnexal cysts. No suspicious osseous lesions. Mild multilevel degenerative changes. No abdominal wall collections or hernia. Procedure Note Venancio Peralta MD - 04/01/2025 EXAMINATION: Computed tomography of the abdomen and pelvis without intravenous contrast HISTORY: 74-year-old female with history of abdominal aortic aneurysm. TECHNIQUE: Transaxial computed tomographic images of the abdomen and pelvis were obtained without intravenous contrast according to the standard protocol. COMPARISON: CT 09/29/2024. FINDINGS: Moderate atherosclerotic disease of the aortobiiliac system. Similar juxta and infrarenal abdominal aortic aneurysm with fusiform morphology. The proximal aspect of the aneurysm dilation is approximately 1 cm beyond the origin of the right renal artery. The proximal component of the aneurysm measures up to 4.2 x 4.2 cm in maximal double oblique short axis, which is unchanged from 09/29/2024 accounting for differences in measurement technique, while the distal component measures 4.4 x 4.2 cm in double oblique short axis, which is also similar to 09/29/2024. Normal lung bases. No hepatic masses. Normal morphology. Patent hepatic and portal veins. No intrahepatic or extrahepatic bile duct dilation. Gallstone at the gallbladder neck. No secondary signs of cholecystitis. Mild fatty pancreatic atrophy. No contour deforming masses or no ductal dilation. Normal spleen size. No renal stones or hydronephrosis. No contour deforming masses. No adrenal masses. No abdominopelvic or inguinal lymphadenopathy. No small or large bowel wall thickening or obstruction. Small hiatal hernia. Normal appendix. Descending and sigmoid diverticulosis without associated inflammatory change. No peritoneal or mesenteric mass or collection. The bladder is partially empty and not well assessed. Normal appearance of the uterus for patient age. 2.7 cm simple appearing left adnexal cyst. No right adnexal cysts. No suspicious osseous lesions. Mild multilevel degenerative changes. No abdominal wall collections or hernia. IMPRESSION: 1. Similar size of the bilobed juxtarenal and infrarenal abdominal aortic aneurysm compared to 09/29/2024, with the proximal component measuring up to 4.2 x 4.2 cm in maximal double oblique short axis and the distal component measuring up to 4.3 x 4.2 cm in maximal double oblique short axis. Electronically signed by: Venancio Peralta MD, MPHS us Jeff Darby MD IMG CT PROCEDURES Final Result * TRANSTHORACIC ECHO (TTE) COMPLETE W DOPPLER/CF WO CONTRAST (04/01/2025 10:06 AM CDT) EF Mod BP 60 % CONS SCIMAGE Anatomical Region Laterality Modality Ultrasound 04/01/2025 7:20 AM CDT Narrative 04/01/2025 10:17 AM CDT [address] [address] ECHOCARDIOGRAM Patient Name: KENDRA GIBBONS : 1950 (74y 11m) Sex: F Study Date: 04/01/2025 07:20:57 AM Ht(Inch): 67 Wt(Lb): 184.97 BSA: 1.99 Trigonometry Teacher: MG Location: [id number] Order Provider: MARY BETH JARQUIN BMI: 28.97 BP: 145/92 Ref Provider: MARY BETH JARQUIN - PROCEDURES: Echocardiographic Report: Transthoracic Echocardiogram with complete 2D, M-Mode, Spectral and Color Flow Doppler examination. INDICATIONS: Heart failure. MEASUREMENTS: 2D/MM Value Range Doppler Value Range IVSd 2D 1.12 cm [ 0.60 - 0.90 ] AV Peak Deangelo 0.98 m/s [ 1.00 - 1.70 ] LVIDd 2D 3.95 cm [ 3.80 - 5.20 ] AV Peak PG 3.8 mmHg LVIDs 2D 2.67 cm [ 2.20 - 3.50 ] AV Mean PG 2.4 mmHg LVPWd 2D 1.18 cm [ 0.60 - 0.90 ] AV VTI 18.9 cm EF Mod BP 60 % [ 54 - 74 ] NEMESIO V max 3.1 cm2 LA Dimension 2D 3.46 cm [ 2.70 - 3.80 ] NEMESIO VTI 3.3 cm2 AoR Diam 2D 3.20 cm [ 2.70 - 3.30 ] LVOT Peak Deangelo 0.82 m/s [ 0.70 - 1.10 ] AoR Diam 2D Index 1.61 LVOT Diam 2.2 cm TAPSE 0.92 cm [ 1.71 - 5.00 ] LVOT Peak PG 2.7 mmHg LVOT VTI 16.9 cm MV Peak PG 2.8 mmHg MV Mean PG 1.1 mmHg MV E Peak Deangelo 0.4 m/s [ 0.6 - 1.3 ] MV A Peak Deangelo 0.7 m/s [ 1.0 - 1.2 ] MV PHT 55.0 ms [ 20.0 - 100.0 ] MV Decel Time 267.0 ms [ 104.0 - 258.0 ] MVA PHT 4.0 ms MV E/A Ratio 0.6 PV Peak Deangelo 0.7 m/s [ 0.4 - 0.8 ] PV Peak PG 2.0 mmHg Lat E` Deangelo 0.07 m/s [ 0.10 - 0.15 ] Septal E` 0.07 m/s [ 0.08 - 0.15 ] E/E` 5.71 RV S` 0.13 m/s 2D/MM Value Range Doppler Value Range - FINDINGS: Study Quality: The study was technically adequate. BP: Blood pressure: 145/92 mmHg. Left Ventricle: Normal global and regional left ventricular systolic function. Ejection Fraction (Simpsons) is measured at 60 %. Normal left ventricular cavity size. Mild concentric left ventricular hypertrophy. Average global longitudinal strain is normal -22.7%. Right Ventricle: Arrived ventricle is somewhat suboptimally visualized with regards to the free wall but appears overall low-normal to normal in function. Normal right ventricular size. Left Atrium: The left atrium is normal in size. Right Atrium: The right atrium is normal in size. Atrial Septum: Grossly Normal appearing atrial septum. Mitral Valve: Normal appearance of the mitral valve leaflets. Trace mitral valve regurgitation. Aortic Valve: Normal appearance of the aortic valve. Aortic valve appears tricuspid in configuration. There is no aortic stenosis. There is no aortic regurgitation. Tricuspid Valve: Grossly normal appearing tricuspid valve. Trace tricuspid regurgitation. Pulmonic Valve: Grossly normal appearing pulmonic valve. There is no pulmonic stenosis. Trace pulmonic regurgitation. Pericardium: No significant pericardial effusion. Aortic Root and Aorta: The sinuses of Valsalva are normal. Normal sized ascending aorta. Aortic Arch: Normal caliber aortic arch. There were some suboptimal images of what I believe is the descending aorta in the short axis view which appears dilated around 5 cm, recommend dedicated abdominal AAA imaging. IVC: The IVC is not well visualized. Grossly normal. Exam Interpreted: Read by Adult Specialist of the day to expedite patient care. CONCLUSIONS: 1. Normal global and regional left ventricular systolic function. Ejection Fraction (Simpsons) is measured at 60 %. Normal left ventricular cavity size. Mild concentric left ventricular hypertrophy. Average global longitudinal strain is normal -22.7%. 2. Arrived ventricle is somewhat suboptimally visualized with regards to the free wall but appears overall low-normal to normal in function Normal right ventricular size. 3. Normal appearance of the mitral valve leaflets. Trace mitral valve regurgitation. 4. Normal appearance of the aortic valve. Aortic valve appears tricuspid in configuration. There is no aortic stenosis. There is no aortic regurgitation. 5. Grossly normal appearing tricuspid valve. Trace tricuspid regurgitation. 6. Grossly normal appearing pulmonic valve. There is no pulmonic stenosis. Trace pulmonic regurgitation. 7. The sinuses of Valsalva are normal. Normal sized ascending aorta. 8. Normal caliber aortic arch. There were some suboptimal images of what I believe is the descending aorta in the short axis view which appears dilated around 5 cm, recommend dedicated abdominal AAA imaging. Electronically Signed By: Bradley Dangelo MD [facility] 04/01/2025 10:16:33 AM CDT Procedure Note Bradley Dangelo MD - 04/01/2025 [facility] [address] [place] [address] ECHOCARDIOGRAM Patient Name: KENDRA GIBBONS : 1950 (74y 11m) Sex: F Study Date: 04/01/2025 07:20:57 AM Ht(Inch): 67 Wt(Lb): 184.97 BSA: 1.99 Trigonometry Teacher: Location: [address] Order Provider: MARY BETH JARQUIN BMI: 28.97 BP: 145/92 Ref Provider: MARY BETH JARQUIN - PROCEDURES: Echocardiographic Report: Transthoracic Echocardiogram with complete 2D,M-Mode, Spectral and Color Flow Doppler examination. INDICATIONS: Heart failure. MEASUREMENTS: 2D/MM Value Range Doppler ValueRange IVSd 2D 1.12 cm [ 0.60 - 0.90 ] AV Peak Deangelo 0.98m/s [ 1.00 - 1.70 ] LVIDd 2D 3.95 cm [ 3.80 - 5.20 ] AV Peak PG 3.8mmHg LVIDs 2D 2.67 cm [ 2.20 - 3.50 ] AV Mean PG 2.4mmHg LVPWd 2D 1.18 cm [ 0.60 - 0.90 ] AV VTI 18.9cm EF Mod BP 60 % [ 54 - 74 ] NEMESIO V max 3.1cm2 LA Dimension 2D 3.46 cm [ 2.70 - 3.80 ] NEMESIO VTI 3.3cm2 AoR Diam 2D 3.20 cm [ 2.70 - 3.30 ] LVOT Peak Deangelo 0.82m/s [ 0.70 - 1.10 ] AoR Diam 2D Index 1.61 LVOT Diam 2.2cm TAPSE 0.92 cm [ 1.71 - 5.00 ] LVOT Peak PG 2.7mmHg LVOT VTI 16.9 cm MV Peak PG 2.8 mmHg MV Mean PG 1.1 mmHg MV E Peak Deangelo 0.4 m/s [ 0.6 - 1.3 ] MV A Peak Deangelo 0.7 m/s [ 1.0 - 1.2 ] MV PHT 55.0 ms [ 20.0 - 100.0 ] MV Decel Time 267.0 ms [ 104.0 - 258.0 ] MVA PHT 4.0 ms MV E/A Ratio 0.6 PV Peak Deangelo 0.7 m/s [ 0.4 - 0.8 ] PV Peak PG 2.0 mmHg Lat E` Deangelo 0.07 m/s [ 0.10 - 0.15 ] Septal E` 0.07 m/s [ 0.08 - 0.15 ] E/E` 5.71 RV S` 0.13 m/s 2D/MM Value Range Doppler ValueRange - FINDINGS: Study Quality: The study was technically adequate. BP: Blood pressure: 145/92 mmHg. Left Ventricle: Normal global and regional left ventricular systolicfunction. Ejection Fraction (Simpsons) is measured at 60 %. Normal left ventricular cavitysize. Mild concentric left ventricular hypertrophy. Average global longitudinalstrain is normal -22.7%. Right Ventricle: Arrived ventricle is somewhat suboptimally visualizedwith regards to the free wall but appears overall low-normal to normal in function. Normalright ventricular size. Left Atrium: The left atrium is normal in size. Right Atrium: The right atrium is normal in size. Atrial Septum: Grossly Normal appearing atrial septum. Mitral Valve: Normal appearance of the mitral valve leaflets. Trace mitralvalve regurgitation. Aortic Valve: Normal appearance of the aortic valve. Aortic valve appearstricuspid in configuration. There is no aortic stenosis. There is no aorticregurgitation. Tricuspid Valve: Grossly normal appearing tricuspid valve. Trace tricuspidregurgitation. Pulmonic Valve: Grossly normal appearing pulmonic valve. There is nopulmonic stenosis. Trace pulmonic regurgitation. Pericardium: No significant pericardial effusion. Aortic Root and Aorta: The sinuses of Valsalva are normal. Normal sizedascending aorta. Aortic Arch: Normal caliber aortic arch. There were some suboptimal imagesof what I believe is the descending aorta in the short axis view which appearsdilated around 5 cm, recommend dedicated abdominal AAA imaging. IVC: The IVC is not well visualized. Grossly normal. Exam Interpreted: Read by Adult Specialist of the day to expedite patientcare. CONCLUSIONS: 1. Normal global and regional left ventricular systolic function. EjectionFraction (Simpsons) is measured at 60 %. Normal left ventricular cavity size. Mildconcentric left ventricular hypertrophy. Average global longitudinal strain is normal-22.7%. 2. Arrived ventricle is somewhat suboptimally visualized with regards tothe free wall but appears overall low-normal to normal in function Normal rightventricular size. 3. Normal appearance of the mitral valve leaflets. Trace mitral valveregurgitation. 4. Normal appearance of the aortic valve. Aortic valve appears tricuspidin configuration. There is no aortic stenosis. There is no aorticregurgitation. 5. Grossly normal appearing tricuspid valve. Trace tricuspidregurgitation. 6. Grossly normal appearing pulmonic valve. There is no pulmonic stenosis.Trace pulmonic regurgitation. 7. The sinuses of Valsalva are normal. Normal sized ascending aorta. 8. Normal caliber aortic arch. There were some suboptimal images of what Ibelieve is the descending aorta in the short axis view which appears dilated around 5 cm,recommend dedicated abdominal AAA imaging. Electronically Signed By: Bradley Dangelo MD [facility] 04/01/2025 10:16:33 AM CDT us Mary Beth Jarquin NP CV ECHO PROCEDURES Mare l Result * US RUQ (04/01/2025 5:24 AM CDT) Anatomical Region Laterality Modality Abdomen N/A Ultrasound 04/01/2025 6:15 AM CDT Impressions 04/01/2025 6:15 AM CDT 1. Cholelithiasis with mild gallbladder wall thickening. There is no sonographic Morejon sign. If there is concern for acute cholecystitis, HIDA scan could be performed. 2. Known mid and distal abdominal aortic aneurysm measuring up to 4.5 cm. Electronically signed by: Papito Sal M.D. Narrative 04/01/2025 6:15 AM CDT EXAM: US RUQ CLINICAL HISTORY: Nausea. COMPARISON: CT of the abdomen dated 09/29/2024. FINDINGS: Liver: The liver is unremarkable in appearance. Gallbladder: Small stones are noted within the gallbladder. There is mild gallbladder wall thickening which measures 3.7 mm. There is no sonographic Morejon sign. Bile ducts: Visualization of the common bile is degraded due to bowel gas. The common bile duct measures 2 mm in greatest diameter. Pancreas: The pancreas is obscured by overlying bowel gas. Aorta: There is abdominal aortic atherosclerosis. The patient has a known bilobed mid and distal abdominal aortic aneurysm. This measures 4.5 cm proximally and 3.4 cm distally. Portal vein and inferior vena cava: Patent and within normal limits. Procedure Note Papito Sal MD - 04/01/2025 EXAM: US RUQ CLINICAL HISTORY: Nausea. COMPARISON: CT of the abdomen dated 09/29/2024. FINDINGS: Liver: The liver is unremarkable in appearance. Gallbladder: Small stones are noted within the gallbladder. There is mild gallbladder wall thickening which measures 3.7 mm. There is no sonographic Morejon sign. Bile ducts: Visualization of the common bile is degraded due to bowel gas. The common bile duct measures 2 mm in greatest diameter. Pancreas: The pancreas is obscured by overlying bowel gas. Aorta: There is abdominal aortic atherosclerosis. The patient has a known bilobed mid and distal abdominal aortic aneurysm. This measures 4.5 cm proximally and 3.4 cm distally. Portal vein and inferior vena cava: Patent and within normal limits. IMPRESSION: 1. Cholelithiasis with mild gallbladder wall thickening. There is no sonographic Morejon sign. If there is concern for acute cholecystitis, HIDA scan could be performed. 2. Known mid and distal abdominal aortic aneurysm measuring up to 4.5 cm. Electronically signed by: Papito Sal M.D. us Aisha Richardson MD IM US PROCEDURES Final Result * (ABNORMAL) eGFR (04/01/2025 4:16 AM CDT) Pathologist [facility] eGFR 39(L) >=60 mL/min/1. 73 m2 Comment: Interpretive Data Reference Interval Normal >/= 90 mL/min/1.73m2 Mildly decreased* 60 - 89 mL/min/1.73m2 Mildly to moderately decreased 45 - 59 mL/min/1.73m2 Moderately to severely decreased 30 - 44 mL/min/1.73m2 Severely decreased 15 - 29 mL/min/1.73m2 Kidney Failure < 15 mL/min/1.73m2 *Relative to young adult level Estimated glomerular filtration rate is determined by the 2020 CKD-EPI equation recommended by the [employer] (A Unifying Approach to GFR Estimation: Recommendations of the NKF-ASK Task Force on Reassessing the Inclusion of Race in Diagnosing Kidney Disease, JASN 2020). The CKD-EPI equation should not be used for patients with unstable renal function and has not been validated in children and those over 70. Current interpretive data was last reviewed 2021. Blood 04/01/2025 4:16 AM CDT 04/01/2025 5:01 AM CDT us Aisha Richardson MD LAB BLOOD ORDERABLES Final Res ult [facility] [address] Department [place] [address] * (ABNORMAL) Differential, auto (04/01/2025 4:16 AM CDT) [facility] Center Neutrophil abs 5.84 1.50 - 6.50 K/cumm Imm gran abs 0.05 0.00 - 0.10 K/cumm [facility] Lymphocyte abs 3.82(H) 0.80 - 3.30 K/cumm [facility] Monocyte abs 1.85(H) 0.20 - 0.80 K/cumm [facility] Eosinophil abs 0.47 0.00 - 0.50 K/cumm [facility] Basophil abs 0.15(H) 0.00 - 0.10 K/cumm [facility] Neutrophil pct 47.9 % [facility] Comment: Interpretive Data Percent cell count reference ranges are not reported, since discordance with absolute values may lead to misinterpretation of CBC data. Current Interpretive Data was last revised on 2017. Imm gran pct 0.4 % [facility] Comment: Interpretive Data Percent cell count reference ranges are not reported, since discordance with absolute values may lead to misinterpretation of CBC data. Current Interpretive Data was last revised on 2017. Lymphocyte pct 31.4 % [facility] Comment: Interpretive Data Percent cell count reference ranges are not reported, since discordance with absolute values may lead to misinterpretation of CBC data. Current Interpretive Data was last revised on 2017. Monocyte pct 15.2 % [facility] Comment: Interpretive Data Percent cell count reference ranges are not reported, since discordance with absolute values may lead to misinterpretation of CBC data. Current Interpretive Data was last revised on 2017. Eosinophil pct 3.9 % [facility] Comment: Interpretive Data Percent cell count reference ranges are not reported, since discordance with absolute values may lead to misinterpretation of CBC data. Current Interpretive Data was last revised on 2017. Basophil pct 1.2 % [facility] Comment: Interpretive Data Percent cell count reference ranges are not reported, since discordance with absolute values may lead to misinterpretation of CBC data. Current Interpretive Data was last revised on 2017. Blood 04/01/2025 4:16 AM CDT 04/01/2025 5:01 AM CDT us Aisha Richardson MD LAB BLOOD ORDERABLES Final Res ult [facility] [address] [place] [address] * (ABNORMAL) Iron profile w/ IBC (04/01/2025 4:16 AM CDT) Iron 40 35 - 145 mcg/dL TIBC 200(L) 250 - 400 mcg/dL [facility] Transferrin saturation 20 20 - 50 % [facility] Blood 04/01/2025 4:16 AM CDT 04/01/2025 5:01 AM CDT us Mary Beth Jarquin NP LAB BLOOD ORDERABLES Fi nal Result Performing Organization Address [facility]/ZIP Co de Phone Number [facility] [address] [place] [address] * (ABNORMAL) CBC with auto differential (04/01/2025 4:16 AM CDT) WBC 12.18(H) 3.80 - 9.90 K/cumm Hgb 12.3 11.9 - 15.5 g/dL [facility] Hct 36.6 35.6 - 45.5 % [facility] Plt 499(H) 150 - 400 K/cumm [facility] MPV 12.3 9.1 - 12.3 fL [facility] RBC 4.02 3.90 - 5.20 M/cumm [facility] MCV 91.0 81.3 - 96.4 fL [facility] MCH 30.6 27.1 - 33.3 pg [facility] MCHC 33.6 32.3 - 35.7 g/dL [facility] RDW CV 15.1(H) 11.1 - 14.9 % [facility] RDW SD 50.9(H) 35.7 - 48.1 fL [facility] NRBC abs 0.00 0.00 - 0.01 K/cumm [facility] Blood 04/01/2025 4:16 AM CDT 04/01/2025 5:01 AM CDT us Aisha Richardson MD LAB BLOOD ORDERABLES Final Res ult [facility] [address] Department of [employer] [place], [place] [id number] * (ABNORMAL) Basic metabolic panel (04/01/2025 4:16 AM CDT) Sodium 134(L) 135 - 145 mmol/L Potassium, pl 4.1 3.3 - 4.9 mmol/L [facility] Chloride 100 97 - 110 mmol/L [facility] CO2 23 22 - 32 mmol/L [facility] Anion gap 11 2 - 15 mmol/L [facility] BUN 23 6 - 25 mg/dL [facility] Creatinine 1.42(H) 0.60 - 1.10 mg/dL [facility] Glucose 91 70 - 199 mg/dL [facility] Comment: Interpretive Data Fasting glucose >/= 126 mg/dl is diagnostic for diabetes. Fasting is defined as no caloric intake for at least 8 hours. Fasting glucose between 100 mg/dl to 125 mg/dl is diagnostic of prediabetes. In a patient with classic symptoms of hyperglycemia or hyperglycemic crisis, a random glucose >/= 200 mg/dl is diagnostic for diabetes. In the absence of unequivocal hyperglycemia, results should be confirmed by repeat testing. The classification and Diagnosis of Diabetes Diabetes Care 202; 46: S19-S40. Current interpretive data was last revised 2022. Calcium 9.4 8.5 - 10.3 mg/dL [facility] Blood 04/01/2025 4:16 AM CDT 04/01/2025 5:01 AM CDT us Aisha Richardson MD LAB BLOOD ORDERABLES Final Res ult [facility] [address] Department [place] [address] * NM Hepatobiliary Imaging W GBEF (03/31/2025 3:26 PM CDT) Anatomical Region Laterality Modality Body N/A Nuclear Medicine 03/31/2025 3:29 PM CDT Impressions 03/31/2025 3:29 PM CDT 1. Depressed gallbladder ejection fraction of 8% compatible with biliary dyskinesia in the appropriate clinical setting. 2. Otherwise negative examination. Electronically signed by: Papito Sal M.D. Narrative 03/31/2025 3:29 PM CDT EXAM: NM HEPATOBILIARY IMAGING W GBEF CLINICAL HISTORY: Nausea. Right upper quadrant pain. RADIOPHARMACEUTICAL: 5.7 mCi of technetium 99m Choletec injected intravenously. FINDINGS: Following intravenous administration of radiopharmaceutical, sequential imaging of the upper abdomen was performed through 60 minutes. There is normal activity throughout the liver. Common bile duct activity is seen within 5 minutes. Gallbladder activity is seen within 40 minutes. Small bowel activity is seen within 10 minutes. At 60 minutes, the patient received 1.7 mcg of CCK resulting in a gallbladder ejection fraction of 8%. Procedure Note Papito Sal MD - 03/31/2025 EXAM: NM HEPATOBILIARY IMAGING W GBEF CLINICAL HISTORY: Nausea. Right upper quadrant pain. RADIOPHARMACEUTICAL: 5.7 mCi of technetium 99m Choletec injected intravenously. FINDINGS: Following intravenous administration of radiopharmaceutical, sequential imaging of the upper abdomen was performed through 60 minutes. There is normal activity throughout the liver. Common bile duct activity is seen within 5 minutes. Gallbladder activity is seen within 40 minutes. Small bowel activity is seen within 10 minutes. At 60 minutes, the patient received 1.7 mcg of CCK resulting in a gallbladder ejection fraction of 8%. IMPRESSION: 1. Depressed gallbladder ejection fraction of 8% compatible with biliary dyskinesia in the appropriate clinical setting. 2. Otherwise negative examination. Electronically signed by: Papito Sal M.D. Aisha Richardson MD [facility] PROCEDURES Final Result * Iron profile - Add on lab test (03/31/2025 12:06 PM CDT) Acceptable Yes Blood 03/31/2025 12:0 6 PM CDT 03/31/2025 12:06 PM CDT Narrative [facility] - 03/31/2025 12:06 PM CDT Name of Test->Iron profile Mary Beth Jarquin NP LAB BLOOD ORDERABLES Fi nal Result [facility] [address] Department [place] [address] * (ABNORMAL) eGFR (03/31/2025 11:35 AM CDT) [facility] eGFR 40(L) >=60 mL/min/1. 73 m2 Comment: Interpretive Data Reference Interval Normal >/= 90 mL/min/1.73m2 Mildly decreased* 60 - 89 mL/min/1.73m2 Mildly to moderately decreased 45 - 59 mL/min/1.73m2 Moderately to severely decreased 30 - 44 mL/min/1.73m2 Severely decreased 15 - 29 mL/min/1.73m2 Kidney Failure < 15 mL/min/1.73m2 *Relative to young adult level Estimated glomerular filtration rate is determined by the 2020 CKD-EPI equation recommended by the National Kidney Foundation (A Unifying Approach to GFR Estimation: Recommendations of the NKF-ASK Task Force on Reassessing the Inclusion of Race in Diagnosing Kidney Disease, JASN 2020). The CKD-EPI equation should not be used for patients with unstable renal function and has not been validated in children and those over 70. Current interpretive data was last reviewed 2021. Blood 03/31/2025 11:3 5 AM CDT 03/31/2025 11:42 AM CDT us Aisha Richardson MD LAB BLOOD ORDERABLES Final Res ult [facility] [address] Department [place] [address] * (ABNORMAL) Differential, auto (03/31/2025 11:35 AM CDT) [facility] Neutrophil abs 6.96(H) 1.50 - 6.50 K/cumm Imm gran abs 0.03 0.00 - 0.10 K/cumm [facility] Lymphocyte abs 3.24 0.80 - 3.30 K/cumm [facility] Monocyte abs 1.79(H) 0.20 - 0.80 K/cumm [facility] Eosinophil abs 0.24 0.00 - 0.50 K/cumm [facility] Basophil abs 0.13(H) 0.00 - 0.10 K/cumm [facility] Neutrophil pct 56.3 % [facility] Comment: Interpretive Data Percent cell count reference ranges are not reported, since discordance with absolute values may lead to misinterpretation of CBC data. Current Interpretive Data was last revised on 2017. Imm gran pct 0.2 % [facility] Comment: Interpretive Data Percent cell count reference ranges are not reported, since discordance with absolute values may lead to misinterpretation of CBC data. Current Interpretive Data was last revised on 2017. Lymphocyte pct 26.2 % [facility] Comment: Interpretive Data Percent cell count reference ranges are not reported, since discordance with absolute values may lead to misinterpretation of CBC data. Current Interpretive Data was last revised on 2017. Monocyte pct 14.4 % [facility] Comment: Interpretive Data Percent cell count reference ranges are not reported, since discordance with absolute values may lead to misinterpretation of CBC data. Current Interpretive Data was last revised on 2017. Eosinophil pct 1.9 % [facility] Comment: Interpretive Data Percent cell count reference ranges are not reported, since discordance with absolute values may lead to misinterpretation of CBC data. Current Interpretive Data was last revised on 2017. Basophil pct 1.0 % [facility] Comment: Interpretive Data Percent cell count reference ranges are not reported, since discordance with absolute values may lead to misinterpretation of CBC data. Current Interpretive Data was last revised on 2017. Blood 03/31/2025 11:3 5 AM CDT 03/31/2025 11:42 AM CDT us Aisha Richardson MD LAB BLOOD ORDERABLES Final Res ult [facility] [address] Department [place] [address] * (ABNORMAL) CBC with auto differential (03/31/2025 11:35 AM CDT) WBC 12.39(H) 3.80 - 9.90 K/cumm Hgb 12.5 11.9 - 15.5 g/dL [facility] Hct 38.1 35.6 - 45.5 % [facility] Plt 527(H) 150 - 400 K/cumm [facility] MPV 12.1 9.1 - 12.3 fL [facility] RBC 4.17 3.90 - 5.20 M/cumm [facility] MCV 91.4 81.3 - 96.4 fL [facility] MCH 30.0 27.1 - 33.3 pg [facility] MCHC 32.8 32.3 - 35.7 g/dL [facility] RDW CV 15.2(H) 11.1 - 14.9 % [facility] RDW SD 50.5(H) 35.7 - 48.1 fL [facility] NRBC abs 0.00 0.00 - 0.01 K/cumm [facility] Blood 03/31/2025 11:3 5 AM CDT 03/31/2025 11:42 AM CDT Aisha Richardson MD LAB BLOOD ORDERABLES Final Res ult Performing Organization Address [facility] Co de Phone Number [facility] [address] [place] [address] * Iron level (03/31/2025 11:35 AM CDT) Pathologist [facility] Iron 36 35 - 145 mcg/dL Blood 03/31/2025 11:3 5 AM CDT 03/31/2025 11:42 AM CDT Aisha Richardson MD LAB BLOOD ORDERABLES Final Res ult Performing Organization Address [facility] Co de Phone Number [facility] [address] [place] [address] * (ABNORMAL) Basic metabolic panel (03/31/2025 11:35 AM CDT) Pathologist [facility] Sodium 136 135 - 145 mmol/L Potassium, pl 4.5 3.3 - 4.9 mmol/L [facility] Chloride 101 97 - 110 mmol/L [facility] CO2 23 22 - 32 mmol/L [facility] Anion gap 12 2 - 15 mmol/L [facility] BUN 18 6 - 25 mg/dL [facility] Creatinine 1.39(H) 0.60 - 1.10 mg/dL [facility] Glucose 104 70 - 199 mg/dL [facility] Comment: Interpretive Data Fasting glucose >/= 126 mg/dl is diagnostic for diabetes. Fasting is defined as no caloric intake for at least 8 hours. Fasting glucose between 100 mg/dl to 125 mg/dl is diagnostic of prediabetes. In a patient with classic symptoms of hyperglycemia or hyperglycemic crisis, a random glucose >/= 200 mg/dl is diagnostic for diabetes. In the absence of unequivocal hyperglycemia, results should be confirmed by repeat testing. The classification and Diagnosis of Diabetes Diabetes Care 202; 46: S19-S40. Current interpretive data was last revised 2022. Calcium 9.0 8.5 - 10.3 mg/dL [facility] Blood 03/31/2025 11:3 5 AM CDT 03/31/2025 11:42 AM CDT us Aisha Richardson MD LAB BLOOD ORDERABLES Final Res ult Performing Organization Address City/[facility] Co de Phone Number [facility] [address] [place] [address] * ECG 12 lead (03/31/2025 10:30 AM CDT) 03/31/2025 10:3 0 AM CDT Narrative [facility] 5gig - 03/31/2025 9:09 PM CDT Vent Rate: 127 bpm RR Interval: 470 msec [place] Interval: 0 msec QRS Duration: 87 msec QT Interval: 267 msec QTC Interval: 342 msec P-R-T [place]: 0 - -27 - 55 degrees IMPRESSION: SVT FOLLOWED BY CONVERSION TO SINUS RHYTHM VOLTAGE CRITERIA FOR LVH POOR R-WAVE PROGRESSION ABNORMAL ECG Electronically Signed By: Ian Robles MD [facility] us Tony Marquez MD ECG ORDERABLES Final Result Performing Organization Address City/[facility]/ZIP Co de Phone Number [facility] * XR Chest Pa Lateral 2 Views (03/30/2025 8:31 PM CDT) Anatomical Region Laterality Modality Body, Chest N/A Computed Radiogr aphy 03/31/2025 11:5 1 AM CDT Impressions 03/31/2025 11:51 AM CDT Cardiomediastinal silhouette normal in size. Tracheostomy slightly deviated towards the right, unchanged. Pulmonary vasculature normal. Mild bibasilar opacities, likely atelectasis. No consolidation, pleural effusion or pneumothorax. Slight increased thoracic kyphosis. No acute osseous abnormality. Electronically signed by: James uY M.D. Narrative 03/31/2025 11:51 AM CDT XR CHEST PA LATERAL 2 VIEWS: 03/30/2025 7:05 PM CLINICAL INDICATION: chronic diastolic CHF. COMPARISON: Chest radiograph dated 03/01/2025. Procedure Note James Yu MD - 03/31/2025 XR CHEST PA LATERAL 2 VIEWS: 03/30/2025 7:05 PM CLINICAL INDICATION: chronic diastolic CHF. COMPARISON: Chest radiograph dated 03/01/2025. IMPRESSION: Cardiomediastinal silhouette normal in size. Tracheostomy slightly deviated towards the right, unchanged. Pulmonary vasculature normal. Mild bibasilar opacities, likely atelectasis. No consolidation, pleural effusion or pneumothorax. Slight increased thoracic kyphosis. No acute osseous abnormality. Electronically signed by: James Yu M.D. Aisha Richardson MD IMG XR PROCEDURES Final Result * (ABNORMAL) eGFR (03/30/2025 6:47 PM CDT) eGFR 42(L) >=60 mL/min/1. 73 m2 Comment: Interpretive Data Reference Interval Normal >/= 90 mL/min/1.73m2 Mildly decreased* 60 - 89 mL/min/1.73m2 Mildly to moderately decreased 45 - 59 mL/min/1.73m2 Moderately to severely decreased 30 - 44 mL/min/1.73m2 Severely decreased 15 - 29 mL/min/1.73m2 Kidney Failure < 15 mL/min/1.73m2 *Relative to young adult level Estimated glomerular filtration rate is determined by the 2020 CKD-EPI equation recommended by the National Kidney Foundation (A Unifying Approach to GFR Estimation: Recommendations of the NKF-ASK Task Force on Reassessing the Inclusion of Race in Diagnosing Kidney Disease, JASN 2020). The CKD-EPI equation should not be used for patients with unstable renal function and has not been validated in children and those over 70. Current interpretive data was last reviewed 2021. Blood 03/30/2025 6:47 PM CDT 03/30/2025 7:33 PM CDT us Aisha Richardson MD LAB BLOOD ORDERABLES Final Res ult [facility] [address] [place] [address] * (ABNORMAL) Differential, auto (03/30/2025 6:47 PM CDT) Neutrophil abs 6.03 1.50 - 6.50 K/cumm Imm gran abs 0.06 0.00 - 0.10 K/cumm [facility] Lymphocyte abs 3.37(H) 0.80 - 3.30 K/cumm [facility] Monocyte abs 1.46(H) 0.20 - 0.80 K/cumm [facility] Eosinophil abs 0.13 0.00 - 0.50 K/cumm [facility] Basophil abs 0.13(H) 0.00 - 0.10 K/cumm [facility] Neutrophil pct 53.9 % [facility] Comment: Interpretive Data Percent cell count reference ranges are not reported, since discordance with absolute values may lead to misinterpretation of CBC data. Current Interpretive Data was last revised on 2017. Imm gran pct 0.5 % [facility] Comment: Interpretive Data Percent cell count reference ranges are not reported, since discordance with absolute values may lead to misinterpretation of CBC data. Current Interpretive Data was last revised on 2017. Lymphocyte pct 30.1 % [facility] Comment: Interpretive Data Percent cell count reference ranges are not reported, since discordance with absolute values may lead to misinterpretation of CBC data. Current Interpretive Data was last revised on 2017. Monocyte pct 13.1 % [facility] Comment: Interpretive Data Percent cell count reference ranges are not reported, since discordance with absolute values may lead to misinterpretation of CBC data. Current Interpretive Data was last revised on 2017. Eosinophil pct 1.2 % [facility] Comment: Interpretive Data Percent cell count reference ranges are not reported, since discordance with absolute values may lead to misinterpretation of CBC data. Current Interpretive Data was last revised on 2017. Basophil pct 1.2 % [facility] Comment: Interpretive Data Percent cell count reference ranges are not reported, since discordance with absolute values may lead to misinterpretation of CBC data. Current Interpretive Data was last revised on 2017. Blood 03/30/2025 6:47 PM CDT 03/30/2025 7:11 PM CDT us Aisha Richardson MD LAB BLOOD ORDERABLES Final Res ult [facility] [address] [place] [address] * (ABNORMAL) Pro B-type natriuretic peptide (03/30/2025 6:47 PM CDT) NT-proBNP 1,500(H) <=450 pg/mL Comment: Interpretive Comments: A. Dyspnea in Acute Care Setting All Ages: < 300 pg/ml, acute heart failure unlikely. < 50 yrs: 300 - 450 pg/ml, further investigation warranted. > 450 pg/ml, acute heart failure likely. 50 - 74 yrs: 300 - 900 pg/ml, further investigation warranted. > 900 pg/ml, acute heart failure likely . > or = 75 yrs: 450 - 1800 pg/ml, further investigation warranted. > 1800 pg/ml, acute heart failure likely. B. Non-acute Setting < 75 yrs < 125 pg/ml, rules out heart failure. > or = 125 pg/ml, further investigation warranted. > or = 75 yrs < 450 pg/ml, rules out heart failure. > or = 450 pg/ml, further investigation warranted. - Knowledge of each individual patient's NT-proBNP range may be more useful than using similar cut-points for every patient. Please note that marked elevations in NT-proBNP levels may be observed in state other than Left Ventricular Congestive Failure, including: acute coronary syndromes, right heart strain/failure (including pulmonary embolism and cor pulmonale), critical illness, renal failure, as well as advanced age. - References: 1. Benny CARD et.al. Eur Heart J. 2006:27:330-337. 2. Rossana RW, Markel OLVERA. J. AM Kevin Cardiol: Cardiovasc Imag. 2009;2: 216- 225. Interpretive Data Last Revised Date: 2018. Blood 03/30/2025 6:47 PM CDT 03/30/2025 7:25 PM CDT us Aisha Richardson MD LAB BLOOD ORDERABLES Final Res ult [facility] [address] Department [place] [address] * (ABNORMAL) CBC with auto differential (03/30/2025 6:47 PM CDT) WBC 11.18(H) 3.80 - 9.90 K/cumm Hgb 12.9 11.9 - 15.5 g/dL [facility] Hct 37.8 35.6 - 45.5 % [facility] Plt 382 150 - 400 K/cumm [facility] MPV 12.6(H) 9.1 - 12.3 fL [facility] RBC 4.16 3.90 - 5.20 M/cumm [facility] MCV 90.9 81.3 - 96.4 fL [facility] MCH 31.0 27.1 - 33.3 pg [facility] MCHC 34.1 32.3 - 35.7 g/dL [facility] RDW CV 15.5(H) 11.1 - 14.9 % [facility] RDW SD 51.0(H) 35.7 - 48.1 fL [facility] NRBC abs 0.00 0.00 - 0.01 K/cumm [facility] Blood 03/30/2025 6:47 PM CDT 03/30/2025 7:11 PM CDT us Aisha Richardson MD LAB BLOOD ORDERABLES Final Res ult Performing Organization Address City/[facility]/ZIP Co de Phone Number [facility] [address] Department of [employer] [place], [place] [id number] * TSH (03/30/2025 6:47 PM CDT) Pathologist [facility] Thyroid Stimulating Hormone 0.85 0.30 - 4.20 mcIUnit/mL Blood 03/30/2025 6:47 PM CDT 03/30/2025 7:25 PM CDT us Aisha Richardson MD LAB BLOOD ORDERABLES Final Res ult Performing Organization Address [facility]/ZIP Co de Phone Number [facility] [address] Department [employer] [place], [place] [id number] * Cortisol (03/30/2025 6:47 PM CDT) Pathologist [facility] Cortisol 10.2 4.8 - 19.5 mcg/dl Blood 03/30/2025 6:47 PM CDT 03/30/2025 7:25 PM CDT Aisha Richardson MD LAB BLOOD ORDERABLES Final Res ult Performing Organization Address City/[facility]/ZIP Co de Phone Number [facility] [address] [facility] [employer] [place], [place] [id number] * (ABNORMAL) Comprehensive metabolic panel (03/30/2025 6:47 PM CDT) Sodium 139 135 - 145 mmol/L Potassium, pl 4.0 3.3 - 4.9 mmol/L [facility] Chloride 103 97 - 110 mmol/L [facility] CO2 22 22 - 32 mmol/L [facility] Anion gap 14 2 - 15 mmol/L [facility] BUN 15 6 - 25 mg/dL [facility] Creatinine 1.32(H) 0.60 - 1.10 mg/dL [facility] Glucose 87 70 - 199 mg/dL [facility] Comment: Interpretive Data Fasting glucose >/= 126 mg/dl is diagnostic for diabetes. Fasting is defined as no caloric intake for at least 8 hours. Fasting glucose between 100 mg/dl to 125 mg/dl is diagnostic of prediabetes. In a patient with classic symptoms of hyperglycemia or hyperglycemic crisis, a random glucose >/= 200 mg/dl is diagnostic for diabetes. In the absence of unequivocal hyperglycemia, results should be confirmed by repeat testing. The classification and Diagnosis of Diabetes Diabetes Care 2021; 46: S19-S40. Current interpretive data was last revised 2022. Calcium 8.7 8.5 - 10.3 mg/dL [facility] Bilirubin, total 0.4 0.1 - 1.2 mg/dL [facility] Protein, pl 5.8(L) 6.5 - 8.5 g/dL [facility] Albumin 3.1(L) 3.5 - 5.0 g/dL [facility] Alk phos 126 40 - 130 Units/L [facility] ALT 13 7 - 45 Units/L [facility] AST 20 10 - 45 Units/L [facility] Comment:Slightly Hemolyzed S pecimen Blood 03/30/2025 6:47 PM CDT 03/30/2025 7:25 PM CDT us Aisha Richardson MD LAB BLOOD ORDERABLES Final Res ult [facility] [address] Department [place] [address] * ECG 12 lead (03/30/2025 5:45 PM CDT) 03/30/2025 5:45 PM CDT Narrative [facility] - 03/31/2025 1:28 PM CDT Vent Rate: 92 bpm RR Interval: 646 msec [place] Interval: 159 msec QRS Duration: 72 msec QT Interval: 331 msec QTC Interval: 381 msec P-R-T [place]: 11 - -25 - 11 degrees IMPRESSION: SINUS RHYTHM WITH OCCASIONAL SUPRAVENTRICULAR PREMATURE COMPLEXES LOW QRS VOLTAGE IN PRECORDIAL LEADS MODERATE VOLTAGE CRITERIA FOR LVH POOR R-WAVE PROGRESSION; CANNOT RULE OUT ANTERIOR INFARCTION BORDERLINE ECG Electronically Signed By: Ian Robles MD [facility] us Aisha Richardson MD ECG ORDERABLES Final Result [facility] * CBC with auto differential (03/30/2025 4:44 PM CDT) Blood us Historical Provider LAB BLOOD ORDERABLES Mare l Result * ECG 12 lead (03/30/2025 12:18 PM CDT) us Mary Beth Jarquin NP ECG ORDERABLES Final R esult * XR Chest PA Lateral 2 Views [...] Re sult from Last 3 Months Insurance [facility] Address: [address] [address] UHC MEDICARE ADVANTAGE [facility] Address: [facility] [address] [place] [address] Advance Directives For more information, please contact: [phone] * Full Code (Latest Code Status on File) Date Activated Date Inactivated Comments 03/30/2025 3:17 PM 04/03/2025 5:12 PM * Full Code Date Activated Date Inactivated Comments 12/18/2023 10:41 PM 12/25/2023 8:13 PM * Full Code Date Activated Date Inactivated Comments 10/14/2023 7:23 PM 10/27/2023 8:02 PM * Full Code Date Activated Date Inactivated Comments 09/04/2023 9:35 AM 09/04/2023 3:12 PM Care Teams Test Car Driver Relationship Specialty Start Date End Date Sendy Sylvester MD [address] [place] [address] PCP - General Internal Medicine 07/03/23 Humberto Harris MD PhD [address] [facility] [address] [place] [address] Referring Physician General Surgery 01/08/24 Missael Estrella M.A., MD [address] [facility] [address] [place] [address] Consulting Physician Cardiovascular Disease 02/24/25 Major Doss MD [address] [facility] [address] [place] [address] Consulting Physician General Surgery 04/02/25 Mary Beth Jarquin NP [address] [facility] [address] [place] [address] Nurse Practitioner Cardiovascular Disease 04/03/25
--- OUTSIDE RECORDS SUMMARY | 2025-05-03 12:19 | XMS_ITS | Encounter Summary ---
Author Organization [facility] Address [address] [place] [address] Phone Care Team Providers Care Phosphorus Processing Supervisor Name Role Phone Sendy Sylvester MD Primary Care Provider + [phone] Humberto Harris MD PhD Unavailable [phone] Missael Estrella M.A., MD Unavailable [phone] Major Doss MD Unavailable [phone] Mary Beth Garcia NP Unavailable Encounter Details Date Type Department Care Team (Late st Contact Info) Description 03/02/2025 Results Follow-Up [facility] Medicine Cardiology [address] [facility] [address] [place] [address] Burak Hudson MD [address] [facility] [address] [place] [address] XR Chest PA Lateral 2 Views Social History Tobacco Use Types Packs/Day Years Used Date Smoking Tobacco: Former Cigarettes Passive Smoke Exposure: Past Smokeless Tobacco: Never Comments:Pt. Quit smoking on 2021 Humiliation, Afraid, [...] How often do you attend chur or hindu services? Never 12/26/2023 Do you belong to any clubs o r organizations such as spiritism groups, unions, fraternal or athletic groups, or [...] and heating? Not hard at all 12/26/2023 [facility] - Occupational Stress [...] [facility] in the [facility], were you homeless or living in [...] often do you attend chur ch or hindu services? Never 04/01/2025 Do you belong to any clubs o r organizations such as spiritism groups, unions, fraternal or athletic groups, or [...] money to buy more. Never true 04/01/20 Within the past 12 months, t he [...] any time in the past 12 [facility], were you homeless or living in a residential (including now)? 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 Question Answer Date of Assessment Author Have you ever felt the need to Cut down on your drinking? 0 03/30/2025 3:26 PM PHILIPPET Beverly Shen RN Have people ever Annoyed yo u by criticizing your drinking? 0 03/30/2025 3:26 PM PHILIPPET José Shen RN Have you ever felt bad or G uilty about your drinking? 0 03/30/2025 3:26 PM CDT Beverly Shen RN Have you ever had a drink fi rst thing in the morning to steady your nerves or get rid of a hangover? Eye tour coordinator? 0 03/30/2025 3:26 PM PHILIPPET Beverly Shen RN CAGE SCORE: 2 or Greater = Positive 0 03/30 3:26 PM PHILIPPET Beverly Shen RN * Difference in Last Two Brodie Scores Answer Date of Assessment Author 0 04/02/2025 9:50 PM CDGino Lechuga RN * Abdullahi Fall Risk Question Answer Date of Assessment Author History of Falling 0 04/02/2025 9:33 AM Baylee Blank RN Secondary Diagnosis 15 04/02/2025 9:33 AM Baylee Jones RN Ambulatory Aids 0 04/02/2025 9:33 AM CDT Baylee Arguello RN Intravenous Therapy/Heparin/Saline Lock 20 04/02/2025 9:33 AM Baylee Blank RN Gait/Transferring 0 04/02/2025 9:33 AM Baylee Blank RN Mental Status 0 04/02/2025 9:33 AM Baylee Beckford RN Abdullahi Fall Risk Score (Score >= 45 places fall precaution order) 35 04/02/2025 9:33 AM Baylee Blank RN Prior Fall Event (Autopopulated from EMR) None found 04/02/2025 9:33 AM Nicolette Blank RN * Brodie Scale Question Answer Date of Assessment Author Sensory Perceptions 4 04/02/2025 9:50 PM Alfonso Ernandez RN Moisture 4 04/02/2025 9:50 PM Alfonso Jimenez RN Activity 3 04/02/2025 9:50 PM Alfonso Jimenez RN Mobility 4 04/02/2025 9:50 PM Alfonso Jimenez RN Nutrition 3 04/02/2025 9:50 PM Alfonso Jimenez RN Friction and Shear 3 04/02/2025 9:50 PM Alfonso Jimenez RN Brodie Scale Score 21 04/02/2025 9:50 PM Alfonso Jimenez RN * Question Answer Date of Assessment Author BP Location Left arm 04/03/2025 11:39 AM CDT Pidcara isna, Nati X. BP Method Automatic 04/03/2025 11:39 AM CDT Pidl isna, Nati X. MAP (mmHg) 7878 04/03/2025 11:39 AM CDT Pidcara isna, Nati X. * Fall Risk Interventions Question Answer Date of Assessment Author All Low Fall Interventions Applied Yes 04/02/2025 9:33 AM Baylee Blank RN All Moderate Fall Interventions Applied Yes 04/02/2025 9:33 AM Baylee Blank RN All High Fall Risk Interventions Applied Yes 04/02/2025 9:33 AM PHILIPPET Baylee Acevedo RN All High Risk Interventions EXCEPT: Bed alarm;Chair alarm 04/02/2025 7:30 AM PHILIPPET Rosanna Parish Reason For Exception(s) pt uses call lig ht appropriately 04/02/2025 7:30 AM CDT Rosanna Parish * B.M.A.T. - Bedside Mobility Assessment Tool for Nurses Question Answer Date of Assessment Author Is patient able to participate in the BMAT? Yes 04/02/2025 9:50 PM Alfonso Jimenez RN BMAT Level Level 4 - Green 04/02/2025 9:50 PM PHILIPPET Alfonso Pate RN Level 3 Equipment Use assistive device such as cane/walker 04/02/2025 7:30 AM Rosanna De La Fuente * Question Answer Date of Assessment Author 1. Has the patient self-repo rted, presented with clinical signs of, or have a documented history of any of the following within the past 30 days? No 03/30/2025 3:28 PM CDT Beverly Garcia RN * Question Answer Date of Assessment Author Is the patient being treated today because it is known or suspected that they prepared, started, or tried to end their life? No 03/30/2025 3:28 PM CDT Beverly Shen RN * Question Answer Date of Assessment Author 1. In the past month, have y ou wished you were or that you could go to sleep and not wake up? No 03/30/2025 3:28 PM CDT Beverly Shen R N 2. In the past month, have y ou actually had any thoughts of killing yourself? No 03/30/2025 3:28 PM CDT Beverly Shen, BRITTNI 6. Have you ever done anythi ng, started to do anything, or prepared to do anything to end your life? No 03/30/2025 3:28 PM CDT Ashlyn Shen RN * Suicide Risk Level Answer Date of Assessment Author No risk level 03/30/2025 3:28 PM CDT José Shen RN * Self-Injurious Risk Level Answer Date of Assessment Author No risk level 03/30/2025 3:28 PM CDT José Shen, RN * Pressure Injury Prevention Question Answer Date of Assessment Author Pressure Ulcer Prevention Interventions Keep skin clean and dry (Sensory Perception/Moistur e) 04/02/2025 9:50 PM CDT Alfonso Pate RN 2 Nurse Skin Assessment Beverly T 03/30/2025 4:00 P M CDT Johnna Roca RN * Transdermal Patch Admission Assessment Question Answer Date of Assessment Author Transdermal Patch Assessment on Admission Not Present 03/30/2025 3:26 PM CDT Beverly Shen RN * Integumentary Question Answer Date of Assessment Author Skin Color Appropriate for ethnicity 04/02/2025 9:50 PM Alfonso Jimenez RN Skin Condition/Temp Warm;Dry 04/02/2025 9 :50 PM PHILIPPET Alfonso Pate RN Skin Integrity Surgical incision 04/02/2025 9:5 0 PM Alfonso Jimenez RN Skin Turgor Non-tenting 04/02/2025 9:50 PM Alfonso Jimenez RN Integumentary Additional Assessments Yes-Brodie 04/02/2025 9:50 PM Alfonso Jimenez RN Integumentary (WDL) X 04/02/2025 9 :50 PM Alfonso Jimenez RN [facility] x[facility] 9:50 PM CDT Alfonso Pate RN * Brodie Scale Question Answer Date of Assessment Author Brodie Scale Used Brodie 04/02/2025 12:35 PM PHILIPPET Joe Henriquez RN * Fall TIPS Risk and Interventions Question Answer Date of Assessment Author Abdullahi Fall Risk Score 20 04/02/2025 9:50 PM Alfonso Jimenez RN Prior Fall Event (Autopopulated from EMR) 0=None found 04/02/2025 9:50 PM Alfonso Jimenez RN Points from History of Falling (including autopopulated) 0 04/02/2025 9:50 PM CDAlfonso Lechuga RN Additional Interventions Applied Low bed 04/02/2025 9:50 PM Alfonso Jimenez RN History of Falling 0 04/02/2025 9:50 PM CDAlfonso Lechuga RN Medication Side Effects/Secondary Diagnosis 0 04/02/2025 9:50 PM CDT Gino Pate RN Toileting Fall Interventions No intervention 04/02/2025 9:50 PM CDAlfonso Lechuga RN Ambulatory Aids 0 04/02/2025 9:50 PM CDT Alfonso Barrientos RN Intravenous Therapy/Heparin/Saline Lock 20 04/02/2025 9:50 PM Gino Jimenez RN Gait/Transferring 0 04/02/2025 9:50 PM Alfonso Jimenez RN Mental Status 0 04/02/2025 9:50 PM Alfonso Jimenez RN IV/Equipment Fall Interventions No intervention 04/02/2025 9:50 PM CDAlfonso Lechuga RN * ABCS of Harm Question Answer Date of Assessment Author Risk of Injury Yes 04/02/2025 9:50 PM CDT Alfonso Gallegos RN A - Age over 85 No 04/02/2025 9:50 PM CDT Alfonso Barrientos RN B- Bones No Risk 04/02/2025 9:50 PM CDT Alfonso Pate RN C - Coagulation No Risk 04/02/2025 9:50 PM CDT Alfonso Barrientos RN S - Surgery (Recent) Wounds that could dehisce 04/02/2025 9:50 PM CDT Alfonso Pate RN * Question Answer Date of Assessment Author RLE Edema No pitting 04/02/2025 9:50 PM CDT Alfonso Pate RN LLE Edema No pitting 04/02/2025 9:50 PM CDAlfonso Lechuga RN Edema Right lower extremit y;Left lower extremity 04/02/2025 9:50 PM CDAlfonso Lechuga RN * Question Answer Date of Assessment Author Percent Meal Eaten (%) 100 04/03/2025 8:35 AM CDT Neel Stoddarda X. Feeding Level of Assistance Able to feed self 04/01/2025 6:47 PM CDT Huong Kim * Question Answer Date of Assessment Author BP Location Left arm 04/03/2025 11:39 AM CDT Jacinto talhasusana Ntai X. BP Method Automatic 04/03/2025 11:39 AM CDT Jacinto pineda Nati X. * Fall Risk Interventions Question Answer Date of Assessment Author All Low Fall Interventions Applied Yes 04/02/2025 9:33 AM PHILIPPET Baylee Acevedo RN All Moderate Fall Interventions Applied Yes 04/02/2025 9:33 AM PHILIPPET Baylee Acevedo RN All High Fall Risk Interventions Applied Yes 04/02/2025 9:33 AM PHILIPPET Baylee Acevedo RN All High Risk Interventions EXCEPT: Bed alarm;Chair alarm 04/02/2025 7:30 AM PHILIPPET Rosanna Parish Reason For Exception(s) pt uses call lig ht appropriately 04/02/2025 7:30 AM CDT Rosanna Parish * ADL Screening Question Answer Date of Assessment Author Patient's Vision Adequate to Safely Complete Daily Activities Yes 03/30/2025 3:26 PM PHILIPPET Beverly Reynoso RN Patient's Judgement Adequate to Safely Complete Daily Activities Yes 03/30/2025 3:26 PM Beverly Craft RN Patient's Memory Adequate to Safely Complete Daily Activities Yes 03/30/2025 3:26 PM Beverly Craft RN Patient Able to Express Needs/Desires Yes 03/30/2025 3:26 PM PHILIPPET Beverly Shen RN Dressing Independent 03/30/2025 3:26 PM Beverly Chambers RN Grooming Independent 03/30/2025 3:26 PM Beverly Chambers RN Feeding Independent 03/30/2025 3:26 PM Beverly Chambers RN Bathing Independent 03/30/2025 3:26 PM Beverly Chambers RN Toileting Independent 03/30/2025 3:26 PM Beverly Chambers RN In/Out Bed Independent 03/30/2025 3:26 PM Beverly Chambers RN Walks in Home Independent 03/30/2025 3:26 PM Beverly Craft RN Weakness of Legs None 03/30/2025 3:26 PM Beverly Thomas RN Weakness of Arms/Hands None 03/30/2025 3:26 PM Beverly Duncan RN Hearing - Right Ear Functional 03/30/2025 3:26 PM Beverly Alford RN Hearing - Left Ear Functional 03/30/2025 3:26 PM Beverly Duncan RN Dominant hand? Right 03/30/2025 3:26 PM Beverly Lowry RN Decline in ADLs in last 2 weeks? Yes (Comment) 025 3:26 PM Beverly Duncan RN * Therapy Consults Question Answer Date of Assessment Author PT Evaluation Needed 2 03/30/2025 3:26 PM Beverly Morales RN OT Evaluation Needed 2 03/30/2025 3:26 PM Beverly Morales RN RISK OFFICER Evaluation Needed 2 03/30/2025 3:26 PM Beverly Duncan RN * Assistive Devices Question Answer Date of Assessment Author Assistive Devices/DME None 03/30/2025 3:26 PM Beverly Duncan RN * Speech/Swallow Screening Question Answer Date of Assessment Author Currently, does patient have difficulty swallowing; coughing/choking while swallowing, or feels like food is sticking No 03/30/2025 3:26 PM Beverly Duncan RN In the past two weeks has the patient had changes in speaking or ability to comprehend conversation No 03/30/2025 3:26 PM Beverly Duncan RN Currently, does patient require thickened liquids or dysphagia diet No 03/30/2025 3:26 PM Beverly Duncan RN Patient is in need of RISK OFFICER Order: No RISK OFFICER order needed from this assessment 03/30/2025 3:26 PM Beverly Duncan RN * Hygiene Question Answer Date of Assessment Author Oral Care Mouth rinsed;Teeth brushed 04/01/2025 11:43 AM Huong Lucero Hygiene Level of Assistance Independent 04/02/2025 9:50 PM Alfonso Jimenez RN Toileting: Level of assistance Independent 04/01/2025 11:43 AM CDT Huong Kim Reason not bathed/showered Bath not due on this shift 04/02/2025 9:50 PM Alfonso Jimenez RN Perineal Care Whit Care 04/01/2025 11:43 AM Huong Lucero Bath Not bathed/showered 04/02/2025 9:50 PM Alfonso Ernandez RN documented as of this encounter Mental Status * Question Answer Entry Date Author Level of Consciousness Alert;Awake 9:50 PM Alfonso Jimenez RN Orientation Oriented X4 (person, place, time, situation) 04/02/2025 9:50 PM Alfonso Jimenez RN * Question Answer Entry Date Author Neuro (WDL) X 04/02/2025 9:50 PM Alfonso Jimenez RN Other Neuro Symptoms Fatigue 04/02/2025 9:50 PM C Alfonso Andrade RN documented in this encounter Plan of Treatment Not on file documented as of this encounter Visit Diagnoses Not on filedocumented in this encounter Care Teams Phosphorus Processing Supervisor Relationship Specialty Start Date End Date Sendy Sylvester MD [address] [place] [address] PCP - General Internal Medicine 07/03/23 [place] [address] [place] [address] [address] [place] [address] Referring Physician General Surgery 01/08/24 Missael Estrella M.A., MD [address] [facility] [address] [place] [address] Consulting Physician Cardiovascular Disease 02/24/25 Major Doss MD [address] [place] [address] Consulting Physician General Surgery 04/02/25 Mary Beth Garcia NP [address] [place] [address] Nurse Practitioner Cardiovascular Disease 04/03/25 documented as of this encounter
--- OUTSIDE RECORDS SUMMARY | 2025-05-03 12:19 | XMS_ITS | Encounter Summary ---
Author Organization [facility] Address [address] [place] [address] Phone Care Team Providers Care Muleser Name Role Phone Sendy Sylvester MD Primary Care Provider [phone] Humberto Harris MD PhD Unavailable [phone] Missael Estrella M.A., MD Unavailable [phone] Major Doss MD Unavailable [phone] Mary Beth Garcia NP Unavailable Encounter Details Date Type Department Care Team (Late st Contact Info) Description 03/31/2025 Results Follow-Up [facility] Medicine Cardiology [address] [place] [address] Mary Beth Garcia, ISABELLE [address] [facility] [address] [place], [place] [id number] ECG 12 lead Social History Tobacco Use Types Packs/Day Years [...] How often do you attend chur or congregational services? Never 12/26/2023 Do you belong to any clubs o r organizations such as zoroastrianism groups, unions, fraternal or athletic groups, or [...] heating? Not hard at all 12/26/2023 [facility] of Occupat ional Health - Occupational Stress [...] any time in the past 12 m [facility], were you homeless or living in a mcc (including now)? No 12/26/2023 Social Connection and Isolation Panel Answer Date Recorded In a typical week, how many times do you talk on the phone with family, friends, or neighbors? Three times a week 04/01/2025 How often do you get togethe r with friends or relatives? Once a week 04/01/2025 How often do you attend chur ch or congregational services? Never 04/01/2025 Do you belong to any clubs o r organizations such as zoroastrianism groups, unions, fraternal or athletic groups, or [...] any time in the past 12 m [facility], were you homeless or living in a mcc (including now)? 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 Gender Identity Not on file Sexual Orientation Not on file documented as of this encounter Functional Status * Difference in Last Two Brodie Scores Answer Date of Assessment Author 0 04/02/2025 9:50 PM PHILIPPET Gino Pate RN * Abdullahi Fall Risk Question Answer Date of Assessment Author History of Falling 0 04/02/2025 9:33 AM Baylee Blank RN Secondary Diagnosis 15 04/02/2025 9:33 AM CD Baylee Nolan RN Ambulatory Aids 0 04/02/2025 9:33 AM PHILIPPET Baylee Arguello RN Intravenous Therapy/Heparin/Saline Lock 20 [...] Author Sensory Perceptions 4 04/02/2025 9:50 PM CD T Alfonso Pate RN Moisture 4 04/02/2025 9:50 PM CDAlfonso Lechuga RN Activity 3 04/02/2025 9:50 PM CDAlfonso Lechuga RN Mobility 4 04/02/2025 9:50 PM CDT Alfonso Pate RN Nutrition 3 04/02/2025 9:50 PM CDT Alfonso Pate RN Friction and Shear 3 04/02/2025 9:50 PM CDAlfonso Lechuga RN Brodie Scale Score 21 04/02/2025 9:50 PM CDT Alfonso Pate RN * Question Answer Date of Assessment Author BP Location Left arm 04/03/2025 11:39 AM CDT Jacinto isna, Nati X. BP Method Automatic 04/03/2025 11:39 AM CDT Pidcara isna, Nati X. MAP (mmHg) 7878 04/03/2025 11:39 AM CDT Pidcara isna, Nati X. * Fall Risk Interventions Question Answer Date of Assessment Author All Low Fall Interventions Applied Yes 04/02/2025 9:33 AM Baylee Blank RN All Moderate Fall Interventions Applied Yes 04/02/2025 9:33 AM Baylee Blank RN All High Fall Risk Interventions Applied Yes 04/02/2025 9:33 AM Baylee Blank RN All High Risk Interventions EXCEPT: Bed alarm;Chair alarm 04/02/2025 7:30 AM Rosanna De La Fuente Reason For Exception(s) pt uses call lig ht appropriately 04/02/2025 7:30 AM Rosanna De La Fuente * B.M.A.T. - Bedside Mobility Assessment Tool for Nurses Question Answer Date of Assessment Author Is patient able to participate in the BMAT? Yes 04/02/2025 9:50 PM Alfonso Jimenez RN BMAT Level Level 4 - Green 04/02/2025 9:50 PM Alfonso Jimenez RN Level 3 Equipment Use assistive device such as cane/walker 04/02/2025 7:30 AM CDT Rosanna Parish * Pressure Injury Prevention Question Answer Date of Assessment Author Pressure Ulcer Prevention Interventions Keep skin clean and dry (Sensory Perception/Moisture ) 04/02/2025 9:50 PM Alfonso Jimenez RN * Integumentary Question Answer Date of Assessment Author Skin Color Appropriate for ethnicity 04/02/2025 9:50 PM Alfonso Jimenez RN Skin Condition/Temp Warm;Dry 04/02/2025 9:50 PM Alfonso Jimenez RN Skin Integrity Surgical incision 04/02/2025 9:5 0 PM Alfonso Jimenez RN Skin Turgor Non-tenting 04/02/2025 9:50 PM Alfonso Jimenez RN Integumentary Additional Assessments Yes-Brodie 04/02/2025 9:50 PM Alfonso Jimenez RN Integumentary (WDL) X 04/02/2025 9 :50 PM Alfonso Jimenez RN Skin Location ABD lab nata sites x4 9:50 PM Alfonso Jimenez RN * Brodie Scale Question Answer Date of Assessment Author Brodie Scale Used Brodie 04/02/2025 12:35 PM Joe Gaona RN * Fall TIPS Risk and Interventions Question Answer Date of Assessment Author Abdullahi Fall Risk Score 20 04/02/2025 9:50 PM Alfonso Jimenez RN Prior Fall Event (Autopopulated from EMR) 0=None found 04/02/2025 9:50 PM Alfonso Jimenez RN Points from History of Falling (including autopopulated) 0 04/02/2025 9:50 PM Alfonso Jimenez RN Additional Interventions Applied Low bed 04/02/2025 9:50 PM Alfonso Jimenez RN History of Falling 0 04/02/2025 9:50 PM CDT Alfonso Pate RN Medication Side Effects/Secondary Diagnosis 0 04/02/2025 9:50 PM CDT Gino Pate RN Toileting Fall Interventions No intervention 04/02/2025 9:50 PM CDT Alfonso Pate RN Ambulatory Aids 0 04/02/2025 9:50 PM CDT Alfonso Barrientos RN Intravenous Therapy/Heparin/Saline Lock 20 04/02/2025 9:50 PM CDT Gino Pate RN Gait/Transferring 0 04/02/2025 9:50 PM CDT Alfonso Pate RN Mental Status 0 04/02/2025 9:50 PM CDT Alfonso Pate RN IV/Equipment Fall Interventions No intervention 04/02/2025 9:50 PM CDT Alfonso Pate RN * ABCS of Harm Question Answer Date of Assessment Author Risk of Injury Yes 04/02/2025 9:50 PM CDT Cla Alfonso gomez RN A - Age over 85 No [...] LLE Edema No pitting 04/02/2025 9:50 PM CDT Alfonso Pate RN Edema Right lower extremit y;Left lower extremity 04/02/2025 9:50 PM CDT Alfonso Pate RN * Question Answer Date of Assessment Author Percent Meal Eaten (%) 100 04/03/2025 8:35 AM CDT Nati Stoddard X. Feeding Level of Assistance Able to feed self 04/01/2025 6:47 PM CDT Huong Kim n * Question Answer Date of Assessment Author BP Location Left arm 04/03/2025 11:39 AM CDT Pidl isna, Nati X. BP Method Automatic 04/03/2025 11:39 AM CDT Pidl isna, Nati X. * Fall Risk Interventions Question Answer Date of Assessment Author All Low Fall Interventions Applied Yes 04/02/2025 9:33 AM Baylee Blank RN All Moderate Fall Interventions Applied Yes 04/02/2025 9:33 AM CDT Baylee Acevedo RN All High Fall Risk Interventions Applied Yes 04/02/2025 9:33 AM CDT Baylee Acevedo RN All High Risk Interventions EXCEPT: Bed alarm;Chair alarm 04/02/2025 7:30 AM CDT Rosanna Parish Reason For Exception(s) pt uses call lig ht appropriately 04/02/2025 7:30 AM CDT Rosanna Parish * Hygiene Question Answer Date of Assessment Author Oral Care Mouth rinsed;Teeth brushed 04/01/2025 11:43 AM CDT Huong Kim Hygiene Level of Assistance Independent 04/02/2025 9:50 PM PHILIPPET Alfonso Pate RN Toileting: Level of assistance Independent 04/01/2025 11:43 AM Huong Lucero Reason not bathed/showered Bath not due on this shift 04/02/2025 9:50 PM Alfonso Jimenez RN Perineal Care Whit Care 04/01/2025 11:43 AM Huong Lucero Bath Not bathed/showered 04/02/2025 9:50 PM CD T Alfonso Pate RN documented as of this encounter Mental Status * Question Answer Entry Date Author Level of Consciousness Alert;Awake 9:50 PM Alfonso Jimenez RN Orientation Oriented X4 (person, place, time, situation) 04/02/2025 9:50 PM Alfonso Jimenez RN * Question Answer Entry Date Author Neuro (WDL) X 04/02/2025 9:50 PM Alfonso Jimenez RN Other Neuro Symptoms Fatigue 04/02/2025 9:50 PM Alfonso Mac RN documented in this encounter Plan of Treatment Not on file documented as of this encounter Visit Diagnoses Not on filedocumented in this encounter Care Teams Muleser Relationship Specialty Start Date End Date Sendy Sylvester MD [address] [place] [address] PCP - General Internal Medicine 07/03/23 Humberto Harris MD PhD [address] [facility] [address] [place] [address] Referring Physician General Surgery 01/08/24 Missael Estrella M.A., MD [address] [facility] [address] [place] [address] Consulting Physician Cardiovascular Disease 02/24/25 Major Doss MD [address] [facility] [address] [place] [address] Consulting Physician General Surgery 04/02/25 Mary Beth Garcia NP [address] [facility] [facility] [address] [place] [address] Nurse Practitioner Cardiovascular Disease 04/03/25 documented as of this encounter
--- OUTSIDE RECORDS SUMMARY | 2025-05-03 12:19 | XMS_ITS | Clinical Summary ---
Author Organization [facility] Address [address] [place] [address] Care Team Providers Care Metal Stud Framer Name Role Phone Sendy Sylvester MD Primary Care Provider [phone] Missael Estrella MD Unavailable [phone] Olena Dodd MD Unavailable [phone] Allergies Active Allergy Reactions Criticality Noted Date [...] of the abdomen and pelvis performed at [facility] on 08/31/22 demonstrates the aneurysm to [...] Encounters Date Type Department Care Team Description 03/31/2025 Telephone [facility] [address] [place] [address] Missael Estrella MD Reschedule (Clinic schedule change) from Last 3 Months Family History Medical [...] Info) Description 12/15/2025 9:00 AM CDT Appointment [facility] [address] [place], [place] [address] [address] Missael Estrella MD [address] [place] [address] [phone] 12/28/2025 9:15 AM CDT Office Visit [facility] [address] [place] [address] Missael Estrella MD [address] [place] [address] [phone] Health Maintenance Due Date Last Done Comments ASCVD Statin 1950 Hepatitis C 1968 DTaP, Tdap and Td Vaccines (1 - Tdap) 1968 Pneumococcal Vaccine: 50+ Years (1 of 1 - PCV) 1999 Zoster Vaccines (1 of 2) 1999 Annual Medicare Wellness Visit 2014 Dexa Scan (General) 2014 RSV Immunization or 60+ Years (1 - 1-dose 75+ series) 2024 ASCVD LDL 05/31/2024 05/31/2023 COVID-19 Vaccine ( - season) 2025 03/27/2022, 10/26/2021, 04/05/2021, Additional history exists Influenza Adult (#1) 2025 03/26/2024, 02/29/20 22 Hepatitis A Vaccines Aged Out No long er eligible based on patient's age to complete this topic Meningococcal B Vaccine Aged Out No l [...] HDL CHOLESTEROL 103 Narrative Resulting Agency Comment [facility], [place], [place] Sendy Sylvester MD LABORATORY Final Result from Last 3 Months or Most Recently Relevant to Health Maintenance Insurance [id number] MEDICARE Care Teams Metal Stud Framer Relationship Specialty Start Date End Date Sendy Sylvester MD [address] [place] [address] PCP - General INTERNAL MEDICINE 09/04/22 Missael Estrella MD [address] [facility] [address] [place] [address] Physician INTERVENTIONAL CARDIOLOGY 08/07/24 Olena Dodd MD [address] [place] [address] SURGERY 11/13/24
--- OUTSIDE RECORDS SUMMARY | 2025-05-03 12:19 | XMS_ITS | Clinical Summary ---
Author Organization [facility] Address [address] [place] [address] Phone Care Team Providers Care Infection Prevention Specialist Name Role Phone Sendy Sylvester MD Primary Care Provider [phone] Allergies Active Allergy Reactions Criticality Noted Date [...] Virus (HCV) Screening 1950 TdaP Immunization 1950 Pneumococcal Immunization (50+ years) (1 of 1 [...] to complete this topic Insurance MEDICARE C [facility] Advance Directives * Full Code (Latest Code Status on File) Date Activated Date Inactivated Comments 11/06/2023 7:47 AM Care Teams Infection Prevention Specialist Relationship Specialty Start Date End Date Sendy Sylvester MD [address] [place] [address] PCP - General Internal Medicine 10/24/23
== END 2025-05-03 10:47 | disposition home or self-care (01) ==
LOC: CHSLAB 10:48
PROVIDERS: PCP Internal Medicine; Visit Provider Internal Medicine Nephrology
DX: N25.81 Secondary hyperparathyroidism of renal origin (principal); N18.4 Chronic kidney disease, stage 4 (severe); I12.9 Hypertensive chronic kidney disease with stage 1 through stage 4 chronic kidney disease, or unspecified chronic kidney disease; E55.9 Vitamin D deficiency, unspecified
CPT/HCPCS: 36415; 80069; 82306; 82570; 83970; 84156